=== PATIENT | female | born 1975 | race Caucasian/White ===

== ENCOUNTER 2020-06-11 10:41 | Outpatient (REF) | payer OTHER, SELFPAY ==
[2020-06-11 15:06] LABS: Syphilis Screen Nonreactive (Nonreactive)
[2020-06-14 08:09] LABS: ~HepC Num1 0.07 S/CO (0.00-0.79); ~Hepatitis C Antibody Nonreactive (Nonreactive)
[2020-06-14 08:11] LABS: HBsAGNum1 0.16 S/CO (0.00-0.99); HIV AB/AG Nonreactive (Nonreactive); HIV Num 1 0.08 S/CO (0.00-0.99); Hepatitis B Surface Antigen Negative (Negative)
== END 2020-06-11 10:42 | disposition home or self-care (01) ==
LOC: HO.HMGCLDS 10:41
PROVIDERS: PCP Internal Medicine; Visit Provider Obstetrics & Gynecology
DX: Z11.3 Encounter for screening for infections with a predominantly sexual mode of transmission (principal); Z11.4 Encounter for screening for human immunodeficiency virus [HIV]; Z11.8 Encounter for screening for other infectious and parasitic diseases
CPT/HCPCS: 36415; 86780; 86803; 87340; 87389

== ENCOUNTER → 2020-06-24 13:27 | Outpatient (BNVA) | payer OTHER, SELFPAY | PROVIDERS: PCP Internal Medicine; Referring Provider Internal Medicine; Visit Provider Surgery | DX: E66.01 Morbid (severe) obesity due to excess calories (principal); Z68.41 Body mass index [BMI] 40.0-44.9, adult | CPT/HCPCS: 99214 ==

== ENCOUNTER → 2020-06-28 16:54 | Outpatient (BNVA) | payer OTHER, SELFPAY | PROVIDERS: PCP Internal Medicine; Visit Provider Dietitian, Registered | DX: Z76.89 Persons encountering health services in other specified circumstances (principal) ==

== ENCOUNTER → 2020-07-06 10:57 | Outpatient (BNVA) | payer OTHER, SELFPAY | PROVIDERS: PCP Internal Medicine; Referring Provider Internal Medicine; Visit Provider Physician Assistant | DX: E66.01 Morbid (severe) obesity due to excess calories (principal); Z68.41 Body mass index [BMI] 40.0-44.9, adult; Z71.3 Dietary counseling and surveillance | CPT/HCPCS: 99214 ==

== ENCOUNTER → 2020-07-29 13:38 | Outpatient (BNVA) | payer OTHER, SELFPAY | PROVIDERS: PCP Internal Medicine; Referring Provider Internal Medicine; Visit Provider Dietitian, Registered | DX: Z76.89 Persons encountering health services in other specified circumstances (principal) ==

== ENCOUNTER → 2020-09-13 08:59 | Outpatient (BNVA) | payer OTHER, SELFPAY | PROVIDERS: PCP Internal Medicine; Referring Provider Internal Medicine; Visit Provider Physician Assistant | DX: Z76.89 Persons encountering health services in other specified circumstances (principal) ==

== ENCOUNTER 2020-09-29 12:48 | Outpatient (REF) | payer OTHER, SELFPAY ==
--- NOTE | 2020-09-29 12:59 | ECG_ITS ---
Test Reason : SOB Blood Pressure : / mmHG Vent. Rate : 073 BPM Atrial Rate : 073 BPM P-R Int : 170 ms QRS Dur : 090 ms QT Int : 380 ms P-R-T Axes : 032 056 058 degrees QTc Int : 418 ms Normal sinus rhythm Normal ECG No significant changes when compared with the previous EKG of 12 jun 2019 Referred By: Marcela Moncada Electronically Signed By:LEONA CARDOZO
[2020-09-29 13:55] LABS: MANUAL DIFF FLAG NO
[2020-09-29 14:06] LABS: Basophils Percent Auto 0.4 % (0-2); Eosinophils Absolute Auto 0.1 X10*3/uL (0.0-0.4); Eosinophils Percent Auto 2.3 % (0-4); Hematocrit 41.5 % (37-47); Hemoglobin 13.2 g/dl (12.0-16.0); Imm Gran Abs Auto 0.01 X10*3/uL (0.00-0.03); Imm Gran Pct Auto 0.2 % (0.0-0.4); Lymphocytes Absolute Auto 1.4 X10*3/uL (1.2-4.9); Lymphocytes Percent Auto 29.3 % (20-40); Mean Corpuscular HGB Conc 31.8 g/dl (31.0-35.0); Mean Corpuscular Hemoglobin 29.7 pg (27.0-33.0); Mean Corpuscular Volume 93.5 fL (80-98); Mean Platelet Volume 9.4 fL (9.4-12.3); Monocytes Absolute Auto 0.4 X10*3/uL (0.1-1.2); Monocytes Percent Auto 7.7 % (2-11); Neutrophils Absolute Auto 2.9 X10*3/uL (2.0-8.3); Neutrophils Percent Auto 60.1 % (45-73); Platelet Count 264 X10*3/uL (160-400); Red Blood Count 4.44 X10*6/uL (4.20-5.50); Red Cell Distribution Width 15.6 % (11.0-16.0); White Blood Count 4.8 X10*3/uL (4.8-10.8)
[2020-09-29 14:45] LABS: Alanine Aminotransferase 22 U/L (0-31); Albumin Level 4.4 g/dL (3.5-5.0); Alkaline Phosphatase 75 U/L (39-117); Anion Gap 15 (12-20); Aspartate Amino Transferase 24 U/L (5-31); Bilirubin Total 0.4 mg/dL (0.0-1.0); Blood Urea Nitrogen 20 mg/dL (9-16); C Reactive Protein 0.96 mg/dL (< or = 0.50); Calcium 9.2 mg/dL (8.4-10.2); Carbon Dioxide 25 mmol/L (22-29); Chloride 103 mmol/L (96-108); Cholesterol 221 mg/dL; Estimated Glomerular Filt Rate 57; Glucose Random 104 mg/dL (60-115); HDL Cholesterol 98 mg/dL; Iron 70 mcg/dL (30-160); LDL Cholesterol Calculated 108 mg/dl; Percent Iron Saturation 17 % (15-50); Potassium 4.6 mmol/l (3.3-5.1); Sodium 138 mmol/L (135-145); Total Iron Binding Capacity 422 mcg/dL (228-428); Total Protein 6.9 g/dL (6.5-8.0); Triglycerides 75 mg/dL; Unsaturated Iron Binding 352 ug/dL
[2020-09-29 14:59] LABS: Ferritin 16 ng/mL (10-250); TSH reflex Free T4 1.42 mIU/mL (0.32-4.0); Vitamin D 25-OH Total 50.3 ng/mL (>30)
[2020-09-29 15:08] LABS: Estimated Average Glucose 103 mg/dL; Hemoglobin A1c % 5.2 %
[2020-09-29 15:37] LABS: Vitamin B12 740 pg/mL (200-900)
[2020-09-30 06:43] LABS: Insulin Level Total 4.7 uIU/mL
[2020-10-02 01:17] LABS: Zinc 61 mcg/dL (60-130)
[2020-10-02 08:42] LABS: Calcium (PTHI) 9.3 mg/dL (8.6-10.2); PTHI 49 pg/mL (14-64)
[2020-10-03 08:27] LABS: Vitamin B1 8 nmol/L (8-30)
[2020-10-06 10:42] LABS: Vitamin A 64 mcg/dL (38-98)
== END 2020-09-29 12:49 | disposition home or self-care (01) ==
LOC: HO.LAB 12:48
PROVIDERS: PCP Internal Medicine; Visit Provider Physician Assistant
DX: R06.02 Shortness of breath (principal); E66.01 Morbid (severe) obesity due to excess calories; Z68.41 Body mass index [BMI] 40.0-44.9, adult
CPT/HCPCS: 36415; 80053; 80061; 82306; 82607; 82728; 82746; 83036; 83525; 83540; 83970; 84425; 84443; 84590; 84630; 85025; 86140; 93005

== ENCOUNTER 2020-10-03 16:50 | Emergency (ER) | payer OTHER, SELFPAY ==
[2020-10-03 17:42] VITALS: BP 143/84; PULSE 90; RESP 16; TEMP 37.1; O2SAT 96; BMI 42.9
[2020-10-03 18:04] LABS: Glucose Urine UA NEG (NEG); Leukocyte Esterase Urine NEG (NEG); Nitrite Urine POS (NEG); Specific Gravity - Urine <= 1.005 (1.005-1.025); UACC Culture Trigger YES; Urine Blood NEG (NEG); Urine Ketones NEG (NEG); Urine Protein NEG (NEG-TRACE)
[2020-10-03 18:06] LABS: Appearance Urine CLEAR; Color Urine COLORLESS
--- NOTE | 2020-10-03 18:07 | ED.URI ---
HPI - URI/Sore Throat General Chief Complaint: Upper Respiratory Symptoms Stated Complaint: covid symptoms Time Seen by Provider: 10/03/20 17:46 Source: patient Mode of arrival: ambulatory Limitations: no limitations History of Present Illness HPI Narrative: 45 yo female with a past medical history of chronic back pain with multiple surgeries, chronic UTI's on macrobid daily, anxiety, asthma, BPD, depressoion, fibromyalgia, IBS, PTSD here with body aches, chills, malaise x several days. No cough, shortness of breath, chest pain, vomiting, diarrhea, abdominal pain. MD elicited complaint: other (chills, body aches, malaise ) Related Data Home Medications Medication Instructions Recorded Confirmed clonazepam 2 mg tablet 2 mg PO BID 06/24/20 09/13/20 doxepin 150 mg capsule 150 mg PO BEDTIME 06/24/20 09/13/20 duloxetine 60 mg capsule,delayed 60 mg PO DAILY 06/24/20 09/13/20 release lamotrigine 25 mg tablet 50 mg PO BID tab 06/24/20 09/13/20 mecobalamin (vitamin B12) 1,000 1,000 mcg PO DAILY 06/24/20 09/13/20 mcg chewable tablet multivitamin 1 cap PO DAILY 06/24/20 09/13/20 nitrofurantoin macrocrystal 100 mg 100 mg PO DAILY cap 06/24/20 09/13/20 capsule zolpidem 10 mg tablet 10 mg PO BEDTIME PRN 06/24/20 09/13/20 Previous Rx's Medication Instructions Recorded cholecalciferol (vitamin D3) 50 50 mcg PO DAILY #30 cap 07/07/20 mcg (2,000 unit) capsule pantoprazole 20 mg tablet,delayed 20 mg PO DAILY #90 tab 07/07/20 release diaper,brief,adult,disposable #60 ea 08/20/20 cetirizine 10 mg tablet 10 mg PO DAILY #90 tab 09/16/20 oxybutynin chloride 10 mg 10 mg PO DAILY #30 tab 09/16/20 tablet,extended release 24 hr Allergies Allergy/AdvReac Type Severity Reaction Status Date / Time droperidol [From INAPSINE] Allergy Unknown ANGIOEDEMA, Verified 07/15/20 14:52 THROAT SWELLING Inapsine Allergy Unknown tongue Verified 07/15/20 14:52 swelling lithium Allergy Unknown unknown Verified 07/15/20 14:52 quetiapine [Seroquel] AdvReac Unknown weight Verified 07/15/20 14:52 gain, sleep walking Environmental Allergy Unknown unknown Uncoded 06/24/20 13:54 Some fruits Allergy Unknown oral Uncoded 06/24/20 13:54 swelling Review of Systems Review of Systems: Yes all other systems are reviewed and are negative Constitutional: Constitutional: Reports no additional constitutional complaints, Reports body ache(s), Reports chills, Denies fever(s), Denies headache(s), Reports malaise and Denies weakness Eyes: Eyes: Reports no additional eye complaints and Denies change in vision ENT: Reports system reviewed and no additional complaints, except as documented, Denies dizziness, Denies headache(s), Denies nasal congestion, Denies nasal discharge and Denies neck pain Cardiovascular: Cardiovascular: Reports no additional cardiovascular complaints, Denies chest pain, Denies leg edema and Denies dyspnea Respiratory: Respiratory: Reports no additional respiratory complaints, Denies cough and Denies dyspnea Gastrointestinal: Gastrointestinal: Reports no additional gastrointestinal complaints, Denies abdominal pain, Denies diarrhea, Denies nausea and Denies vomiting Genitourinary: Genitourinary: Reports no additional female genitourinary complaints and Denies urinary incontinence Musculoskeletal: Musculoskeletal: Reports no additional musculoskeletal complaints, Denies back pain, Denies arthralgias, Denies joint swelling, Denies neck pain, Denies numbness and Denies tingling Integumentary/Breasts: Skin/Breast: Reports system reviewed and no additional complaints, except as docu and Denies rash Neurologic: Denies Abnormal speech present, Denies dizziness, Denies headache(s), Denies numbness, Denies tingling and Denies weakness REPLACED BY [facility] Past Medical History Attestation statement: The following information was validated with the patient. Source: old records reviewed and nursing notes reviewed Medical History Anxiety Arthritis Asthma Bipolar 1 disorder Depression Fibromyalgia Hiatal hernia History of spinal cord injury IBS (irritable bowel syndrome) Morbid obesity due to excess calories Neurogenic bladder Neuropathy Osteosclerosis PTSD (post-traumatic stress disorder) Recurrent urinary tract infection Torn ACL Urinary incontinence Surgical History H/O dilation and curettage H/O tubal ligation H/O wisdom tooth extraction History of fusion of lumbar spine History of ureter stent Status post left foot surgery Family History Family History Father No problems noted. Mother HTN (hypertension) Stroke Paternal Grandfather No problems noted. Paternal Grandmother Lung cancer Maternal Grandfather Melanoma Maternal Grandmother No problems noted. Brother No problems noted. Brother No problems noted. Brother No problems noted. Sister No problems noted. Son No problems noted. Son No problems noted. Daughter No problems noted. Daughter No problems noted. Daughter No problems noted. Social History Social History Alcohol intake: current Alcohol intake frequency: a few times a month Smoking Status: Never smoker Advance Directives: No Advance Directives Information Provided: No Physical Exam Vital Signs: Vital Signs: Last Vital Signs Temp 98.8 F 10/03/20 17:42 Pulse 90 10/03/20 17:42 Resp 16 10/03/20 17:42 BP 143/84 H 10/03/20 17:42 Pulse Ox 96 10/03/20 17:42 Body Mass Index 42.9 Const: General: cooperative, healthy appearing, comfortable and no acute distress Orientation/consciousness: patient oriented x3 Limitations: no limitations HENMT: Head: Yes normal to inspection Ears: hearing grossly normal bilaterally General nose exam: Normal external nose present Face and sinus: Yes normal facial exam Mouth: Normal oral and palatal mucosa present Throat: Yes posterior oropharynx normal Eyes: General: appearance normal, both eyes and all related structures Pupils: Equal, round and reactive pupils present Neck: Neck: Yes normal visual inspection Chest: Chest palpation & inspection: normal inspection of the chest Resp: Effort & Inspection: normal respiratory effort Auscultation: clear to auscultation bilaterally Cardio: Rate: regular rate Rhythm: regular rhythm Peripheral pulses: Peripheral pulses 2+ throughout GI: Inspection: Yes normal to inspection Palpation (GI): Soft to palpation and nontender Auscultation: normal bowel sounds Back/Spine/Pelvis: Thoracic/Lumbar Spine: thoracic and lumbar spine normal to inspection Skin: General skin exam: no rashes or lesions noted Neuro: General: patient oriented x3, no focal motor deficits and normal sensation to monofilament Cranial nerves: Yes Equal, round and reactive pupils present Cognition (Neuro): normal cognition Speech: No Abnormal speech present Gait exam (Neuro): Normal gait present Motor exam (neuro): 5/5 motor strength present throughout Extrem: General: Yes normal to inspection Course Course Course Narrative: 45 yo female here with body aches, malaise, chills x several days. COVID negative. UA shows +nitrates. Discussed with patient. She tells me she normally waits for the urine culture to return as she gets UTIs so recurrently. Aware we will only call if urine culture is positive. Reviewed worrisome signs/symptoms with patient and when to return to ED. Comfortable with discharge home. MDM - URI/Sore Throat Medical Records Attestation: I reviewed the patient's medical records. Lab Data Attestation: I reviewed the patient's lab results. Labs: Lab Results 10/03/20 10/03/20 Range/Units 17:53 17:53 Urine Color COLORLESS Urine Appearance CLEAR Urine pH 6.0 (5.0-8.0) Ur Specific [place] <= 1.005 (1.005-1.025) Urine Protein NEG (NEG-TRACE) MG/DL Urine Glucose (UA) NEG (NEG) MG/DL Urine Ketones NEG (NEG) MG/DL Urine Blood NEG (NEG) Urine Nitrite POS H (NEG) Ur Leukocyte Esterase NEG (NEG) Urine RBC 0 (0) /HPF Urine WBC 0 (0-4) /HPF Ur Squamous Epith Cells TRACE /LPF Urine Bacteria 1+ /LPF COVID-19 ([facility]) Negative (Negative) COVID-19 Clin Com See Note Discharge Plan Discharge Clinical Impression: Acute viral syndrome Patient Disposition: Home, Self-Care Instructions: Viral Syndrome (ED) Additional Instructions: I will call you with the results of your covid and UA tonight Prescriptions: No Action cholecalciferol (vitamin D3) 50 mcg (2,000 unit) capsule 50 mcg PO DAILY Qty: 30 RF: 2 pantoprazole 20 mg tablet,delayed release (DR/EC) 20 mg PO DAILY Qty: 90 RF: 0 (DME) Depend Underwear For Women XL Misc See Rx Instructions .ROUTE .MEDSUPPLY Qty: 60 RF: 0 cetirizine 10 mg tablet 10 mg PO DAILY Qty: 90 RF: 0 oxybutynin chloride 10 mg tablet extended release 24hr 10 mg PO DAILY Qty: 30 RF: 2 lamotrigine 25 mg tablet 50 mg PO BID RF: 0 duloxetine [Cymbalta] 60 mg capsule,delayed release(DR/EC) 60 mg PO DAILY RF: 0 doxepin 150 mg capsule 150 mg PO BEDTIME RF: 0 zolpidem 10 mg tablet 10 mg PO BEDTIME PRNRF: 0 clonazepam 2 mg tablet 2 mg PO BID RF: 0 mecobalamin (vitamin B12) 1,000 mcg tablet,chewable 1,000 mcg PO DAILY RF: 0 multivitamin Capsule 1 cap PO DAILY RF: 0 nitrofurantoin macrocrystal 100 mg capsule 100 mg PO DAILY RF: 0 Referrals: ED Physician,Generic [Physician] - 2 days Interventions: ED Discharge Assessment Last Done: 10/03/20 18:02 Discharge Date/Time: 10/03/20 18:03
[2020-10-03 18:13] LABS: Bacteria Urine 1+ /LPF; RBC Urine 0 /HPF (0); Squamous Epithelial Cell Urine TRACE /LPF; WBC Urine 0 /HPF (0-4)
[2020-10-03 18:16] LABS: COVID-19 Test Negative (Negative)
== END 2020-10-03 18:03 | disposition home or self-care (01) ==
PROVIDERS: Nurse Practitioner Family; Emergency Provider Emergency Medicine Emergency Medical Services; PCP Internal Medicine
DX: B34.9 Viral infection, unspecified (principal); M79.10 Myalgia, unspecified site; Z20.822 Contact with and (suspected) exposure to COVID-19; Z79.899 Other long term (current) drug therapy
CPT/HCPCS: 36415; 81001; 81003; 87086; 87635; 99283

== ENCOUNTER → 2020-10-11 08:26 | Outpatient (BNVA) | payer OTHER, SELFPAY | PROVIDERS: PCP Internal Medicine; Visit Provider Dietitian, Registered ==

== ENCOUNTER → 2020-10-28 12:52 | Outpatient (BNVA) | payer OTHER, SELFPAY | PROVIDERS: PCP Internal Medicine; Visit Provider Surgery ==

== ENCOUNTER 2020-11-12 12:48 | Outpatient (REF) | payer OTHER, SELFPAY ==
[2020-11-12 14:39] LABS: Syphilis Screen Nonreactive (Nonreactive)
[2020-11-15 04:11] LABS: HIV AB/AG Nonreactive (Nonreactive)
[2020-11-15 04:24] LABS: HBsAGNum1 0.15 S/CO (0.00-0.99); Hepatitis B Surface Antigen Negative (Negative); ~HepC Num1 0.06 S/CO (0.00-0.79); ~Hepatitis C Antibody Nonreactive (Nonreactive)
== END 2020-11-12 12:49 | disposition home or self-care (01) ==
LOC: HO.LAB 12:48
PROVIDERS: PCP Psychiatry & Neurology Neurology; Visit Provider Obstetrics & Gynecology
DX: E66.01 Morbid (severe) obesity due to excess calories (principal); Z68.41 Body mass index [BMI] 40.0-44.9, adult; Z11.3 Encounter for screening for infections with a predominantly sexual mode of transmission
CPT/HCPCS: 36415; 86780; 86803; 87340; 87389; 99212

== ENCOUNTER 2020-11-23 | Outpatient (REF) | payer OTHER, SELFPAY | END 2020-11-23 00:01 | disposition home or self-care (01) | LOC: HO.LNP | PROVIDERS: Visit Provider Hospitalist | DX: R30.0 Dysuria (principal) | CPT/HCPCS: 87086; 87088; 87186 ==

== ENCOUNTER → 2020-11-26 13:44 | Outpatient (BNVA) | payer OTHER, SELFPAY | PROVIDERS: PCP Internal Medicine; Visit Provider Surgery | DX: E66.01 Morbid (severe) obesity due to excess calories (principal); Z68.41 Body mass index [BMI] 40.0-44.9, adult | CPT/HCPCS: 99212 ==

== ENCOUNTER → 2021-01-03 14:40 | Outpatient (BNVA) | payer OTHER, SELFPAY | PROVIDERS: PCP Internal Medicine; Visit Provider Surgery | DX: E66.01 Morbid (severe) obesity due to excess calories (principal); Z68.41 Body mass index [BMI] 40.0-44.9, adult | CPT/HCPCS: 99212 ==

== ENCOUNTER 2021-02-18 17:31 | Outpatient (REF) | payer OTHER, SELFPAY | END 2021-02-18 17:32 | disposition home or self-care (01) | LOC: HO.LNP 17:31 | PROVIDERS: Visit Provider Hospitalist | DX: R30.0 Dysuria (principal) | CPT/HCPCS: 87086; 87088; 87186 ==

== ENCOUNTER → 2021-03-08 14:15 | Outpatient (BNVA) | payer OTHER, SELFPAY | PROVIDERS: PCP Internal Medicine; Referring Provider Internal Medicine; Visit Provider Surgery | DX: E66.01 Morbid (severe) obesity due to excess calories (principal); Z68.41 Body mass index [BMI] 40.0-44.9, adult | CPT/HCPCS: 99212 ==

== ENCOUNTER 2021-03-11 11:45 | Outpatient (REF) | payer OTHER, SELFPAY ==
--- NOTE | ~2021-03-11 | XR_ITS ---
EXAMINATION: XR FOOT, RIGHT CLINICAL INFORMATION: Pain in right foot COMPARISON: 08/09/2018 TECHNIQUE: AP, lateral, and oblique views of the right foot. FINDINGS: No acute fracture, dislocation, or joint effusion. Healed fracture of the fourth metacarpal neck. Normal mineralization and alignment. Small plantar calcaneal osteophyte present. XR/XR foot RT 2V IMPRESSION: No acute osseous abnormality of the right foot.
--- NOTE | ~2021-03-11 | XR_ITS ---
EXAMINATION: XR KNEE, RIGHT CLINICAL INFORMATION: Pain in right knee COMPARISON: 05/31/2018 TECHNIQUE: AP and lateral views of the right knee. FINDINGS: No fracture, dislocation, or joint effusion. There may be minimal medial compartment joint space narrowing. XR/XR knee RT 2V IMPRESSION: Possible minimal medial compartment joint space narrowing.
--- NOTE | ~2021-03-11 | XR_ITS ---
EXAMINATION: XR KNEE, LEFT CLINICAL INFORMATION: Pain in left knee COMPARISON: 05/31/2018 TECHNIQUE: AP and lateral views of the left knee. FINDINGS: No fracture, dislocation, or joint effusion. Joint spaces are maintained. Normal alignment and mineralization. XR/XR knee LT 2V IMPRESSION: No acute osseous abnormality of the left knee.
== END 2021-03-11 11:46 | disposition home or self-care (01) ==
LOC: HO.HMGCX 11:45
PROVIDERS: PCP Internal Medicine; Visit Provider Internal Medicine
DX: M25.561 Pain in right knee (principal); M25.562 Pain in left knee; M79.671 Pain in right foot
CPT/HCPCS: 73560; 73620

== ENCOUNTER → 2021-03-28 14:03 | Outpatient (BNVA) | payer OTHER, SELFPAY | PROVIDERS: PCP Internal Medicine; Referring Provider Internal Medicine; Visit Provider Surgery | DX: E66.01 Morbid (severe) obesity due to excess calories (principal); Z68.41 Body mass index [BMI] 40.0-44.9, adult | CPT/HCPCS: 99212 ==

== ENCOUNTER → 2021-04-05 13:13 | Outpatient (BNVA) | payer OTHER, SELFPAY | PROVIDERS: PCP Internal Medicine; Referring Provider Internal Medicine; Visit Provider Surgery | DX: E66.01 Morbid (severe) obesity due to excess calories (principal); Z68.41 Body mass index [BMI] 40.0-44.9, adult | CPT/HCPCS: 99212 ==

== ENCOUNTER 2021-04-08 12:45 | Outpatient (REF) | payer OTHER, SELFPAY ==
--- NOTE | 2021-04-08 12:57 | ECG_ITS ---
Test Reason : SOB Blood Pressure : / mmHG Vent. Rate : 094 BPM Atrial Rate : 094 BPM P-R Int : 160 ms QRS Dur : 086 ms QT Int : 346 ms P-R-T Axes : 040 075 057 degrees QTc Int : 432 ms Normal sinus rhythm Low voltage QRS Borderline ECG No significant changes when compared with the previous EKG of 29 sep 2020 Referred By: Madelyn Lombardi Electronically Signed By:LEONA CARDOZO
[2021-04-08 15:31] LABS: MANUAL DIFF FLAG NO
[2021-04-08 15:35] LABS: Basophils Percent Auto 0.2 % (0-2); Eosinophils Absolute Auto 0.2 X10*3/uL (0.0-0.4); Hematocrit 41.6 % (37-47); Hemoglobin 13.4 g/dl (12.0-16.0); Imm Gran Abs Auto 0.01 X10*3/uL (0.00-0.03); Imm Gran Pct Auto 0.2 % (0.0-0.4); Lymphocytes Absolute Auto 2.5 X10*3/uL (1.2-4.9); Lymphocytes Percent Auto 39.9 % (20-40); Mean Corpuscular HGB Conc 32.2 g/dl (31.0-35.0); Mean Corpuscular Hemoglobin 29.8 pg (27.0-33.0); Mean Corpuscular Volume 92.7 fL (80-98); Mean Platelet Volume 9.1 fL (9.4-12.3); Monocytes Absolute Auto 0.5 X10*3/uL (0.1-1.2); Monocytes Percent Auto 7.8 % (2-11); Neutrophils Absolute Auto 3.1 X10*3/uL (2.0-8.3); Neutrophils Percent Auto 48.9 % (45-73); Platelet Count 246 X10*3/uL (160-400); Red Blood Count 4.49 X10*6/uL (4.20-5.50); Red Cell Distribution Width 14.8 % (11.0-16.0); White Blood Count 6.3 X10*3/uL (4.8-10.8)
[2021-04-08 15:44] LABS: INTERNATIONAL NORM RATIO 0.9 (0.9-1.1); Prothrombin Time 10.7 SEC (9.9-13.0)
[2021-04-08 15:47] LABS: Partial Thromboplastin Time 36.5 SEC (24.1-38.0)
[2021-04-08 15:53] LABS: Albumin Level 4.3 g/dL (3.5-5.0); Anion Gap 12 (12-20); Blood Urea Nitrogen 16 mg/dL (9-16); Calcium 9.8 mg/dL (8.4-10.2); Carbon Dioxide 25 mmol/L (22-29); Chloride 108 mmol/L (96-108); Estimated Glomerular Filt Rate > 60; Glucose Random 88 mg/dL (60-115); Potassium 4.8 mmol/L (3.3-5.1); Sodium 140 mmol/L (135-145)
[2021-04-08 17:23] LABS: Glucose Urine UA NEG (NEG); Leukocyte Esterase Urine 2+ (NEG); Nitrite Urine POS (NEG); UACC Culture Trigger YES; Urine Blood NEG (NEG); Urine Ketones NEG (NEG); Urine Protein NEG (NEG-TRACE)
[2021-04-08 17:26] LABS: Appearance Urine HAZY; Color Urine YELLOW
[2021-04-08 17:27] LABS: UPreg QC Valid YES; Urine Pregnancy NEGATIVE (NEGATIVE)
[2021-04-08 17:37] LABS: Bacteria Urine 2+ /LPF; Squamous Epithelial Cell Urine TRACE /LPF; WBC Clumps Urine NOTED
[2021-04-11 08:05] LABS: HBsAGNum1 0.15 S/CO (0.00-0.99); Hepatitis B Surface Antigen Negative (Negative); ~HepC Num1 0.08 S/CO (0.00-0.79); ~Hepatitis C Antibody Nonreactive (Nonreactive)
[2021-04-11 08:17] LABS: Syphilis Screen Nonreactive (Nonreactive)
[2021-04-11 08:26] LABS: HIV AB/AG Nonreactive (Nonreactive); HIV Num 1 0.07 S/CO (0.00-0.99)
== END 2021-04-08 12:46 | disposition home or self-care (01) ==
LOC: HO.LAB 12:45
PROVIDERS: Surgery; PCP Internal Medicine; Visit Provider Obstetrics & Gynecology
DX: Z01.818 Encounter for other preprocedural examination (principal); Z11.3 Encounter for screening for infections with a predominantly sexual mode of transmission; Z01.84 Encounter for antibody response examination; Z11.59 Encounter for screening for other viral diseases; Z11.4 Encounter for screening for human immunodeficiency virus [HIV]; R06.02 Shortness of breath
CPT/HCPCS: 36415; 80048; 81001; 81025; 82040; 85025; 85610; 85730; 86780; 86803; 87086; 87088; 87186; 87340; 87389; 93005

== ENCOUNTER → 2021-04-11 10:03 | Outpatient (BNVA) | payer OTHER, SELFPAY | PROVIDERS: PCP Internal Medicine; Visit Provider Physician Assistant ==

== ENCOUNTER 2021-04-20 12:44 | Inpatient (IN) | payer OTHER, SELFPAY ==
[2021-04-08 10:09] VITALS: BMI 41.3
--- NOTE | 2021-04-18 13:30 | HO.ANESPROP2 ---
Documented by User: Colleen Cadena 04/18/21 13:33 HPI - Anesthesia Eval Consult details Narrative: 45yo F for Gastrectomy Sleeve, EGD, Poss Diaphragmatic Hernia, Poss Ventral Hernia, Poss open *Phentermine rx - ? last used* h/o cocaine abuse. None since 2018 [facility] Active Problems Active Problems: All Active Problems (Updated 04/12/21 @ 15:52 by Arnaud Carbone MD) Back pain, chronic (Acute) Body mass index (BMI) of 40.0 to 44.9 in adult (Acute) Otitis media (Acute) Sinusitis chronic, frontal (Acute) Dysuria (Acute) Shortness of breath (Acute) Acute sinusitis (Acute) Neurogenic bladder (Acute) Environmental allergies (Acute) Urinary incontinence (Acute) Dysuria (Acute) Internal derangement of knee (Acute) Preoperative examination (Acute) Morbid obesity due to excess calories (Acute) Past Medical History Medical History Anxiety Arthritis Asthma Bipolar 1 disorder Depression Fibromyalgia GERD (gastroesophageal reflux disease) Hiatal hernia History of spinal cord injury Hx of renal calculi IBS (irritable bowel syndrome) Morbid obesity due to excess calories Neurogenic bladder Neuropathy Osteosclerosis PTSD (post-traumatic stress disorder) Recurrent urinary tract infection Substance abuse Torn ACL Urinary incontinence Family History Family History Father Substance use disorder Mental health disorder Mother HTN (hypertension) Stroke Paternal Grandfather No problems noted. Paternal Grandmother Lung cancer Maternal Grandfather Melanoma Maternal Grandmother No problems noted. Brother Substance use disorder Mental health disorder Brother No problems noted. Brother No problems noted. Sister No problems noted. Son No problems noted. Son No problems noted. Daughter No problems noted. Daughter No problems noted. Daughter No problems noted. Maternal Aunt Substance use disorder Surgical History Surgical History H/O dilation and curettage H/O tubal ligation H/O wisdom tooth extraction History of fusion of lumbar spine History of ureter stent Status post left foot surgery Social History Social History Household Members: None Housing: Apartment Are you a primary weekend caregiver to a significant other at home: No Do you presently have visiting nurse or other home services: Yes ([employer]) Alcohol intake: former Patient Tobacco Use Status: Never used Tobacco e-Cigarette/Vaping Use: Never Used Substance Use Type: Crack/Cocaine and Former Substance User Current occupational status: disabled Meds Allergies Allergy/AdvReac Type Severity Reaction Status Date / Time droperidol [From INAPSINE] Allergy Severe ANGIOEDEMA, Verified 04/12/21 15:27 THROAT SWELLING lithium Allergy Unknown unknown Verified 04/12/21 15:27 quetiapine [Seroquel] AdvReac Intermediate weight Verified 04/12/21 15:27 gain, sleep walking fresh fruit Allergy Intermediate oral Uncoded 04/12/21 15:27 swelling/itching Home Medications Medication Instructions Recorded Confirmed Last Taken Type duloxetine 60 mg capsule,delayed 60 mg PO DAILY 06/24/20 04/12/21 04/20/21 History release (Cymbalta) lamotrigine 25 mg tablet 50 mg PO BID tab 06/24/20 04/12/21 04/20/21 History multivitamin 1 cap PO DAILY 06/24/20 04/12/21 Unknown History zolpidem 10 mg tablet 10 mg PO BEDTIME PRN 06/24/20 04/12/21 Unknown History albuterol sulfate 90 mcg/actuation 2 puff INHALATION Q4-6H PRN 11/12/20 04/12/21 Unknown History aerosol inhaler clonazepam 2 mg tablet 1 tab PO BID 04/20/21 04/20/21 04/20/21 History Exam Exam Date and Time: April 18, 2021 1330 Height,Weight and Vital Signs: Height 5 ft 5 in Weight 112.582 kg Pertinent Lab Results Pertinent Lab Results: Laboratory Tests 04/08/21 15:00 Blood Type B Positive Antibody Screen NEGATIVE Laboratory Tests 04/08/21 04/08/21 15:00 15:00 WBC 6.3 Hgb 13.4 Hct 41.6 Plt Count 246 Sodium 140 Potassium 4.8 Chloride 108 Carbon Dioxide 25 BUN 16 Creatinine 0.87 Narrative Narrative: EKG 04/2021 Vent. Rate : 094 BPM ? ? Atrial Rate : 094 BPM ?? P-R Int : 160 ms? QRS Dur : 086 ms ? ? QT Int : 346 ms ? ? ? P-R-T Axes : 040 075 057 degrees ?? QTc Int : 432 ms ? Normal sinus rhythm Low voltage QRS Borderline ECG No significant changes when compared with the previous EKG? of 29 sep 2020 Assessment and Plan Assessment Anesthesia Assessment: Chart Reviewed Documented by User: Ranjana Aguilar MD 04/20/21 10:20 [facility] Past Medical History Medical History Anxiety Arthritis Asthma Bipolar 1 disorder Depression Fibromyalgia GERD (gastroesophageal reflux disease) Hiatal hernia History of spinal cord injury Hx of renal calculi IBS (irritable bowel syndrome) Morbid obesity due to excess calories Neurogenic bladder Neuropathy Osteosclerosis PTSD (post-traumatic stress disorder) Recurrent urinary tract infection Substance abuse Torn ACL Urinary incontinence Family History Family History Father Substance use disorder Mental health disorder Mother HTN (hypertension) Stroke Paternal Grandfather No problems noted. Paternal Grandmother Lung cancer Maternal Grandfather Melanoma Maternal Grandmother No problems noted. Brother Substance use disorder Mental health disorder Brother No problems noted. Brother No problems noted. Sister No problems noted. Son No problems noted. Son No problems noted. Daughter No problems noted. Daughter No problems noted. Daughter No problems noted. Maternal Aunt Substance use disorder Family history of problems with anesthesia: No Surgical History Surgical History H/O dilation and curettage H/O tubal ligation H/O wisdom tooth extraction History of fusion of lumbar spine History of ureter stent Status post left foot surgery History of Problems with Anesthesia: No Social History Social History Household Members: None Housing: Apartment Are you a primary weekend caregiver to a significant other at home: No Do you presently have visiting nurse or other home services: Yes ([employer]) Alcohol intake: former Patient Tobacco Use Status: Never used Tobacco e-Cigarette/Vaping Use: Never Used Substance Use Type: Crack/Cocaine and Former Substance User Current occupational status: disabled Meds Allergies Allergy/AdvReac Type Severity Reaction Status Date / Time droperidol [From INAPSINE] Allergy Severe ANGIOEDEMA, Verified 04/12/21 15:27 THROAT SWELLING lithium Allergy Unknown unknown Verified 04/12/21 15:27 quetiapine [Seroquel] AdvReac Intermediate weight Verified 04/12/21 15:27 gain, sleep walking fresh fruit Allergy Intermediate oral Uncoded 04/12/21 15:27 swelling/itching Home Medications Medication Instructions Recorded Confirmed Last Taken Type duloxetine 60 mg capsule,delayed 60 mg PO DAILY 06/24/20 04/12/21 04/20/21 History release (Cymbalta) lamotrigine 25 mg tablet 50 mg PO BID tab 06/24/20 04/12/21 04/20/21 History multivitamin 1 cap PO DAILY 06/24/20 04/12/21 Unknown History zolpidem 10 mg tablet 10 mg PO BEDTIME PRN 06/24/20 04/12/21 Unknown History albuterol sulfate 90 mcg/actuation 2 puff INHALATION Q4-6H PRN 11/12/20 04/12/21 Unknown History aerosol inhaler clonazepam 2 mg tablet 1 tab PO BID 04/20/21 04/20/21 04/20/21 History Exam Airway Mallampati Class: II TM Dist: >3cm Neck ROM: Full Assessment and Plan Assessment Anesthesia Assessment: Anesthesia Plan Discussed Final Anesthetic Review Family History of Problems with Anesthesia: No History of Problems with Anesthesia: No NPO: Yes ASA Class: III Final Preanesthetic Review: No Changes in Pt Med Stat, Meds/Allgs Chart Reviewed, Consent Obtained/Reviewed and Anes Risks/Benef Reviewed Patient Risk: Intermediate Procedure Risk: Intermediate Assessment/Block/Sedation in SS: Assess/Block/Sedation-SS Anesthetic Plan Anesthetic Plan: GA
--- NOTE | 2021-04-19 16:02 | MHC.SHP ---
Pre-Procedural Eval Section A Date of Service: 04/19/21 Section B Chief Complaint: Morbid Severe Obesity Allergies: Allergies Allergy/AdvReac Type Severity Reaction Status Date / Time droperidol [From INAPSINE] Allergy Severe ANGIOEDEMA, Verified 04/12/21 15:27 THROAT SWELLING lithium Allergy Unknown unknown Verified 04/12/21 15:27 quetiapine [Seroquel] AdvReac Intermediate weight Verified 04/12/21 15:27 gain, sleep walking fresh fruit Allergy Intermediate oral Uncoded 04/12/21 15:27 swelling/itching Plan I have reviewed the history and physical and performed a pertinent physical examination on my patient. No changes have occurred unless specified.
[2021-04-20] VITALS (12 sets, daily range): BP systolic 113–167; BP diastolic 67–95; PULSE 89–113; RESP 16–20; TEMP 35.9–36.7; O2SAT 92–97
[2021-04-20 08:57] LABS: COVID-19 Test Negative (Negative)
[2021-04-20] MEDS: Lactated Ringers 1,000 ML 100 ML IVCONT (09:04)
--- NOTE | 2021-04-20 12:33 | P.BOP_ITS ---
Brief Operative Note Date of Service: 04/20/21 Pre-op diagnosis: Morbid obesity, BMI 41.3, hiatal hernia Post-op diagnosis: same Procedure: Laparoscopic sleeve gastrectomy, hiatal hernia repair, [place] block, and intraoperative endoscopy Implants: None Surgeon: Madelyn Lombardi MD Anesthesia: GETA Was an [employer] Consultant used for this Procedure?: Yes [employer] Consultant: Marcela Moncada Estimated blood loss (mL): 5 Pathology: other (Partial gastrectomy) Condition: stable Disposition: PACU
--- NOTE | 2021-04-20 12:35 | P.OP_ITS ---
Operative Note Operative Note Date of Service: 04/20/21 Narrative: Patient was brought into the operating room and placed on the operating room table in the supine position. General anesthesia was induced. Normal DVT prophylaxis was instituted and the patient received 2 grams of cefotetan preoperatively. The abdomen was then prepped and draped in the normal sterile fashion. A safety time-out was performed. A mixture of 1% lidocaine with epinephrine and ?% Marcaine plain was used to an esthetize the planned incision site in the left upper quadrant. A #11 scalpel was used to make a 5 mm left upper quadrant transverse incision through which a veress needle was placed. Three pops were heard going through the fascia. A saline drop test was used to confirm that the veress needle was intraabdominal. An optiview technique was then used to place a 5mm port in the left upper quadrant. A 5 mm 30 degree laproscope was then placed through this port and the abdominal cavity was surveyed and was normal. The patient was placed in reverse Trendelenburg positioning. A mary liver retractor was then placed in the subxyphoid position and it was used to hold up the left lobe of the liver to the abdominal wall. This was secured to the bed using the liver retractor flores. A SHERON block was then performed for pain control on the right side of the abdomen. A 5 mm port was placed in the right upper quadrant near the falciform ligament. A 12 mm port was then placed in the mid epigastrium. One additional 5 mm port was placed in the left upper quadrant just to the left of the placement of the first port. I then performed a SHERON block on the left side of the abdomen. I then removed the epigastric fat pad; there was a moderate sized anterior hiatal hernia noted. I reapproximated the left and right crura with a total of 3 stitches of 2-0 ethibond and a laparoscopic knot pusher. There was no residual hiatal hernia. I then opened up the angle of His. We then gained entry into the lesser sac about 4-5 cm from the pylorus. I had anesthesia place a 34 Burmese orogastric tube into the distal antrum to use as a sizing tool for gastric pouch size. I divided the short gastric vessels up to the angle of His. We then started the creation of the gastric pouch by firing a 60 mm purple load endostapler up the stomach about 4-5 cm from the pylorus. We completed the creation of the gastric pouch using a total of 4 firings of a 60 mm purple load stapler. We had anesthesia remove the orogast natalie tube, then we clamped across the distal antrum using a fired 60 mm endostapler. We flattened the patient and then instilled normal saline surrounding the newly created staple line. I then performed an on-table endoscopy. I passed the gastroscopy into the posterior oropharynx and down the esophagus evaluating the esophageal mucosa which was normal. There was no evidence of hiatal hernia. I passed the gastroscope into the gastric pouch and insufflated the gastric pouch. There was healthy pink mucosa and no evidence of active bleeding. There was no evidence of leak on laparoscopy. I desufflated the gastric pouch and removed the endoscope. I removed the endostapler from the abdomen and suctioned the fluid from the left upper quadrant. I then removed the partial gastrectomy specimen through the epigastric 12 mm port site. I reapproximated the 12 mm port using a 0 maxon suture with a laparoscopic suture passer. I instilled local anesthetic into the fascial closure site and tied the suture down at a pressure of 8-10 mm of Hg. There was no residual fascial defect. We removed the liver retractor and the left upper quadrant 5 mm ports under direct visualization. There was no evidence of any active bleeding. I desufflated the abdomen through the last remaining port and removed the laparoscope and 5 mm port. We reapproximated all incisions with a 4-0 monocryl subcuticular stitch. We cleaned and dried the abdominal skin and applied dermabond skin glue. All count were correct at the end of the case. The patient was awake and in stable condition prior to extubation and transfer to [facility] recovery room.
[2021-04-20] MEDS: ondansetron HCL 4 MG/2 ML VIAL IVPUSH ×2 (12:37→20:36)
[2021-04-20] MEDS: Lactated Ringers 1,000 ML 125 ML IVCONT ×2 (13:16→20:41)
[2021-04-20] MEDS: HYDROmorphone HCl 0.5 MG/0.5 ML SYRINGE 0.25 MG IVPUSH ×3 (15:57→23:35)
--- NOTE | 2021-04-20 19:03 | PC.NURSE ---
PT C/O 10 /10 PAIN IN ABDOMEN , DILAUDID GIVEN AT 1600 , WITH MINIMAL EFFECT , IV HUNG ORDERED . PT AMBULATING IN ROOM , 1800 PT CONTINUES TO C/O PAIN .PT REQUEST CALL TO MD Dasia STINSON MADE AWARE , NEW ORDER FOR 0.25 DILAUDID X1.
[2021-04-20] MEDS: lamoTRIgine 25 MG TABLET 50 MG PO (20:36)
[2021-04-20] MEDS: Famotidine/PF 20 MG/2 ML VIAL IVPUSH (20:36)
[2021-04-20] MEDS: 0.9 % Sodium Chloride Flush 3 ML SYRINGE IVFLUSH (20:37)
[2021-04-20] MEDS: clonazePAM 1 MG TABLET 2 MG PO (20:37)
--- NOTE | 2021-04-20 20:56 | P.DS_ITS ---
DS: Providers Provider Date of Service: 04/21/21 Date of admission: 04/20/21 12:44 Primary care physician: Arnaud Carbone MD DS: Medications Discharge Medications Home Medications: Home Medications Medication Instructions Recorded Confirmed duloxetine 60 mg capsule,delayed 60 mg PO DAILY 06/24/20 04/12/21 release (Cymbalta) lamotrigine 25 mg tablet 50 mg PO BID tab 06/24/20 04/12/21 multivitamin 1 cap PO DAILY 06/24/20 04/12/21 zolpidem 10 mg tablet 10 mg PO BEDTIME PRN 06/24/20 04/12/21 albuterol sulfate 90 mcg/actuation 2 puff INHALATION Q4-6H PRN 11/12/20 04/12/21 aerosol inhaler cholecalciferol (vitamin D3) 50 1 cap PO DAILY 04/20/21 04/20/21 mcg (2,000 unit) capsule clonazepam 2 mg tablet 1 tab PO BID 04/20/21 04/20/21 doxepin 75 mg capsule 2 cap PO BEDTIME 04/20/21 04/20/21 trospium 60 mg capsule,extended 1 cap PO QAM 04/20/21 04/20/21 release 24 hr Previous Rx's Medication Instructions Recorded pantoprazole 20 mg tablet,delayed 20 mg PO DAILY #90 tab 01/18/21 release cetirizine 10 mg tablet 10 mg PO DAILY 90 Days #90 tab 03/17/21 acetaminophen 500 mg tablet 1,000 mg PO Q6H PRN #30 tab 04/05/21 (Tylenol Extra Strength) ondansetron HCl 4 mg tablet 4 mg PO Q6H PRN #30 tab 04/05/21 (Zofran) DS: Summary Time Spent with Patient Time attestation: Total time spent providing and/or coordinating discharge services: Discharge coordination time: Greater than 30 minutes Quality: Stroke Does the patient have a stroke diagnosis?: No Physical Exam Vital Signs: Vital Signs: Last Vital Signs Temp 98.0 F 04/20/21 19:36 Pulse 103 H 04/20/21 19:36 Resp 18 04/20/21 19:36 BP 148/92 H 04/20/21 19:36 Pulse Ox 92 04/20/21 19:36 Body Mass Index 41.3 Const: General: cooperative, comfortable, no acute distress, alert and awake Nutritional Appearance: obese GI: Inspection: Yes normal to inspection, No distended and Yes incision (clean, dry, intact, dermabond in place) Palpation (GI): Soft to palpation and Tenderness to palpation present (GI) (mild appropriate incisional tenderness) Extrem: Right lower extremity: lower leg Details: Negative for no tenderness; No no edema Left lower extremity: lower leg Details: Negative for no tenderness; No no edema DS: Data Data Completed and Pending Pending studies at discharge: Pending at discharge 04/20/21 11:55 Surgical [PTH] Routine Labs on day of discharge: Laboratory Results - last 24 hr 04/20/21 08:39 COVID-19 ([facility]) Negative COVID-19 Clin Com See Note Discharge Plan Discharge Patient Disposition: Home, Self-Care Discharge Diagnosis: obesity s/p LSG and HH repair Referrals: Arnaud Carbone MD [Primary Care Provider] - 1 Week Discharge Medications: Continued pantoprazole 20 mg tablet,delayed release (DR/EC) 20 mg PO DAILY Qty: 90 RF: 0 cetirizine 10 mg tablet 10 mg PO DAILY 90 Days Qty: 90 RF: 0 clonazepam 2 mg tablet 1 tab PO BID RF: 0 doxepin 75 mg capsule 2 cap PO BEDTIME RF: 0 trospium 60 mg capsule,extended release 24hr 1 cap PO QAM RF: 0 cholecalciferol (vitamin D3) 50 mcg (2,000 unit) capsule 1 cap PO DAILY RF: 0 lamotrigine 25 mg tablet 50 mg PO BID RF: 0 duloxetine [Cymbalta] 60 mg capsule,delayed release(DR/EC) 60 mg PO DAILY RF: 0 zolpidem 10 mg tablet 10 mg PO BEDTIME PRN (Reason: Insomnia) RF: 0 multivitamin Capsule 1 cap PO DAILY RF: 0 acetaminophen [Tylenol Extra Strength] 500 mg tablet 1,000 mg PO Q6H PRN (Reason: pain) Qty: 30 RF: 1 ondansetron HCl [Zofran] 4 mg tablet 4 mg PO Q6H PRN (Reason: nausea and vomiting) Qty: 30 RF: 1 albuterol sulfate 90 mcg/actuation HFA aerosol inhaler 2 puff inhalation Q4-6H PRN (Reason: Wheezing) RF: 0 Discharge Orders: Discharge Order (Routine); Ordered 04/21/21 Ordered By: Marcela Moncada Diet: other Activity on Discharge: No heavy lifting Stand Alone Forms: Patient Portal Discharge page Activity Restrictions/Additional Instructions: Discharge Instructions 1. Please call your doctor or come back to the emergency room should any new symptoms arise. 2. You will receive a courtesy call from [facility] 24-48 hours after discharge. 3. Activity: abstain from alcohol, practice limited stair climbing, no bending, no driving, no exercise, no illicit substances, no lifting, no sex, no tub bath, no work. 4. Diet: continue stage 3 protein shakes until your [address] Lombardi. 5. Dressing Change/Wound Care: Your incision is covered by surgical glue. If the area is tender, you may apply an ice pack for short intervals (no more than 20 minutes on, followed by at least 20 minutes off). Do not apply heat. Do not use creams, lotions, or topical antibiotics unless instructed to do so by your surgeon. These can cause infection or allergic reaction. 6. Call your doctor if: - Your temperature exceeds 101.5 F - You experience excessive pain or swelling - You have an unexpected reaction to medication - You have excessive bleeding - You experience continued vomiting/nausea - Your incision begins to separate - Your incision shows signs of infection such as increased redness, swelling, excessive pain, heat, or drainage (light blood or clear fluid is normal) 7. General instructions: - No lifting greater than 5 lbs for the next 4 weeks. - No driving within 24 hours of taking narcotic pain medications. - If you do not move your bowels in the next 2 days, please take milk of magnesia over the counter. Please follow the post op diet and do not advance your diet until you are seen in the office in about 2 weeks. - Please walk around your home every hour or two to prevent blood clots from forming in your legs. You do not need to wake from sleeping to walk. - Please sleep in a bed or couch to prevent kinking at the hips and knees. - Please take your incentive spirometer (your lung custom tailor apprentice) home with you and use it for the next few days to prevent pneumonias. - You may shower, no hot tubs, baths or swimming pools. - Please call the office with any questions or concerns such as increasing abdominal pain, fever, chills, shortness of breath, chest pain, leg pain or swelling, or redness or drainage from your incisions. - Please stay on stage 3 diet which includes sugar free clear liquids such as ice pops and jello and broth and crystal light. Avoid all carbonation. Please drink 3 protein shakes with at least 25-30 grams of protein daily or 3 of the Celebrate 4:1 shakes which can be purchased in our office. The Celebrate shakes have all of the bariatric vitamins you need if you consume these shakes. If you are drinking other protein shakes, you will need to purchase the Celebrate multivitamins and calcium that we provide in the office (they will provide all the vitamins you need). Please make sure you are consuming at least 40-60 ounces of water in addition to your 3 protein shakes daily. 8. Do not hesitate to contact the office with any questions at . The patient's medical history has been reviewed and they are considered low risk for post op DVT and therefore DVT prophylaxis is not considered necessary. Travel after surgery was reviewed. The patient has not disclosed any travel plans during the first 30 days after surgery and they have been advised that within the first 30 days after surgery any bus, plane, train or car travel over 2 hours in duration is contraindicated due to the possibility of developing blood clots from immobility. Any travel, needs to include periods of ambulation of 10 minutes in duration every 2 hours. The patient was instructed to discuss any plans for travel during this period with their bariatric surgeon. Discharge Summary Date of Service: 04/21/21 Pre-op diagnosis: Morbid obesity, BMI 41.3, hiatal hernia Post-op diagnosis: same Procedure: Laparoscopic sleeve gastrectomy, hiatal hernia repair, [place] block, and intraoperative endoscopy Discharge Medications: 1. Simethicone 80mg tablet chewable (Si tablet every 6 hours orally for 7 days, #28, 1 RF) q4h prn gas 2. Acetaminophen 500 mg tablet (Si tablets as needed every 6 hours orally for 30 days, #240, 0 RF) 3. Ondansetron 4 mg tablet disintegrating (Si tablet every 6 hours orally for 7 days, #28, 1 RF) 4. Colace 100 mg capsule (Si capsule twice a day for 30 days, #60, 2 RF) 5. Pepcid 20 mg chewable tablet (Si tablet twice a day for 30 days, #60, 3 RF) Discharge Instructions: The patient should continue on the stage III bariatric diet, which includes 3 protein shakes of at least 20-30g of protein on a daily basis. The patient was encouraged to avoid drinking liquids with her protein shakes. They should wait 30-45 minutes in between her meals and drinking water. She should drink at least 40-60 ounces of water on a daily basis. They should ambulate while at home to avoid any blood clots in her lower extremities. They should call with any questions or concerns such as increase in abdominal pain, persistent nausea, vomiting, redness and drainage from her incisions, fever, chills, shortness of breast, or chest pain beyond what is normal for her. The patient should avoid all heavy lifting greater than 5 pounds for the next 4 weeks. The patient is already scheduled to follow up with me in 2 weeks time, but should call the office with any questions prior to that follow up appointment. The patient should not advance their diet until they are seen in the office for the 2 week appointment. Hospital Course: The patient was admitted after undergoing a [SURGERY]. They were started on stage II (1 oz of fluid every 15 minutes) on POD #0. The next morning they were evaluated and started on stage III diet (protein shakes). All labs were within normal limits. On post-operative day #1 she was feeling better, nausea and epigastric pain improved and they were tolerating stage III bariatric diet well. The patient was discharged home. Discharge Disposition: Home. Care Plan Goals: weight loss Health Concerns: obesity Plan of Treatment: LSG Assessment: stable POD #1 Discharge Date/Time: 04/21/21 14:26
--- NOTE | 2021-04-20 21:00 | PM.PNGS ---
Subjective Subjective Date of Service: 04/21/21 Interval history: Pod #1 s/p LSG and HH repair. Doing well. Tolerating stage 3 diet, ambulating in hallway. Pain well controlled. Denies nausea or vomiting. Vitals and labs reviewed and are within limit for post op day 1. On exam, patient is well appearing, abdomen is soft, nd, mild appropriate incisional tenderness. Incisions c/d/i with dermabond in place. Plan: d/c home today. Follow up with me in 2 weeks. Physical Exam Vital Signs: Vital Signs: Last Vital Signs Temp 98.0 F 04/20/21 19:36 Pulse 103 H 04/20/21 19:36 Resp 18 04/20/21 19:36 BP 148/92 H 04/20/21 19:36 Pulse Ox 92 04/20/21 19:36 Body Mass Index 41.3 Const: General: cooperative, comfortable, no acute distress, alert and awake Nutritional Appearance: obese GI: Inspection: Yes normal to inspection, No distended and Yes incision (clean, dry, intact, dermabond in place) Palpation (GI): Soft to palpation and Tenderness to palpation present (GI) (mild appropriate incisional tenderness) Extrem: Right lower extremity: lower leg Details: Negative for no tenderness; No no edema Left lower extremity: lower leg Details: Negative for no tenderness; No no edema Procedures Date of Service Date of Service: 04/21/21 Progress Note: A&P Fall Risk Details Current Medications: Current Medications Generic Name Dose Route Start Last Admin Trade Name Freq PRN Reason Stop Dose Admin Albuterol Sulfate 2 puff 04/20/21 12:28 Albuterol Sulfate 90 Mcg 8 Gm Inhaler INHALE Q4H PRN Wheezing Clonazepam 2 mg 04/20/21 21:00 04/20/21 20:37 Clonazepam 1 Mg Tablet PO 2 mg BID MARIAN Administration Duloxetine HCl 60 mg 04/21/21 09:00 Duloxetine Hcl 60 Mg Capsule. PO DAILY MARIAN Famotidine 20 mg 04/20/21 21:00 04/20/21 20:36 Famotidine/Pf 20 Mg/2 Ml Vial IVPUSH 20 mg BID MARIAN Administration Hydromorphone HCl 0.25 mg 04/20/21 12:44 04/20/21 15:57 Hydromorphone Hcl 0.5 Mg/0.5 Ml Syringe IVPUSH 0.25 mg Q4H PRN Administration Pain, Severe (Pain Scale 7-10) Protocol Lactated Ringer's 1,000 mls @ 125 mls/hr 04/20/21 12:45 04/20/21 20:41 Lr IVCONT 125 mls/hr .Q8H MARIAN Administration Cefotetan Disodium 2 gm/ 50 mls @ 100 mls/hr 04/20/21 22:40 Sodium Chloride IV 04/20/21 23:09 ONCE@2240 ONE Acetaminophen 1,000 mg in 100 mls @ 16.7 mls/hr 04/20/21 12:45 04/20/21 17:46 Ofirmev IV 16.7 mls/hr .Q6H MARIAN Administration Promethazine HCl 12.5 mg/ 50.5 mls @ 202 mls/hr 04/20/21 20:24 Sodium Chloride IV Q6H PRN Nausea Lamotrigine 50 mg 04/20/21 21:00 04/20/21 20:36 Lamotrigine 25 Mg Tablet PO 50 mg BID MARIAN Administration Ondansetron HCl 4 mg 04/20/21 12:45 04/20/21 20:36 Ondansetron Hcl 4 Mg/2 Ml Vial IVPUSH 4 mg Q8H MARIAN Administration Sodium Chloride 3 ml 04/20/21 16:00 04/20/21 20:37 0.9 % Sodium Chloride Flush 3 Ml Syringe IVFLUSH 3 ml QSHIFT MARIAN Administration Time Spent With Patient Time: Total time spent is greater than 50% in coordination of care (as documented) at patient's floor/unit and/or counseling patient: Time with patient: 25 - 35 minutes Quality Stroke Does the patient have a stroke diagnosis?: No VTE Prior VTE?: No VTE Risk Level:: Surgical - low VTE Device Contraindication: N/A - Device Ordered VTE Drug Contraindication: Treatment Not Indicated
[2021-04-20] MEDS: cefoTEtan disodium 2 GM in 0.9 % Sodium Chloride 50 ML IV (22:26)
[2021-04-21 02:31] LABS: Appearance Urine CLEAR; Color Urine YELLOW; Glucose Urine UA NEG (NEG); Leukocyte Esterase Urine NEG (NEG); Nitrite Urine NEG (NEG); PH 6.5 (5.0-8.0); Specific Gravity - Urine 1.015 (1.005-1.025); Urine Blood NEG (NEG); Urine Ketones 40 MG/DL (NEG); Urine Protein NEG (NEG-TRACE)
[2021-04-21 02:42] LABS: Bacteria Urine 1+ /LPF; Squamous Epithelial Cell Urine 1+ /LPF
--- NOTE | 2021-04-21 03:04 | PC.NURSE ---
pt's HR at 0000 was 113, [employer] message sent to AMY Brennan. Marcela is aware. At 0155 pt had concerns that she may have a UTI. [employer] message sent to AMY Brennan. I got an order for a UA, urine sample sent down to lab and UA was negative. pt is aware.
[2021-04-21] MEDS: HYDROmorphone HCl 0.5 MG/0.5 ML SYRINGE 0.25 MG IVPUSH (03:38)
[2021-04-21 03:57] VITALS: BP 143/79; PULSE 115; RESP 16; TEMP 36.9; O2SAT 95
[2021-04-21] MEDS: ondansetron HCL 4 MG/2 ML VIAL IVPUSH ×2 (04:33→11:49)
[2021-04-21] MEDS: Lactated Ringers 1,000 ML 125 ML IVCONT (04:33)
[2021-04-21 06:27] LABS: MANUAL DIFF FLAG NO
[2021-04-21 06:54] LABS: Basophils Percent Auto 0.1 % (0-2); Hematocrit 37.7 % (37-47); Hemoglobin 12.2 g/dl (12.0-16.0); Imm Gran Abs Auto 0.04 X10*3/uL (0.00-0.03); Imm Gran Pct Auto 0.4 % (0.0-0.4); Lymphocytes Absolute Auto 1.1 X10*3/uL (1.2-4.9); Lymphocytes Percent Auto 9.9 % (20-40); Mean Corpuscular HGB Conc 32.4 g/dl (31.0-35.0); Mean Corpuscular Hemoglobin 30.4 pg (27.0-33.0); Mean Platelet Volume 9.6 fL (9.4-12.3); Monocytes Absolute Auto 0.7 X10*3/uL (0.1-1.2); Monocytes Percent Auto 6.1 % (2-11); Neutrophils Absolute Auto 9.1 X10*3/uL (2.0-8.3); Neutrophils Percent Auto 83.5 % (45-73); Platelet Count 235 X10*3/uL (160-400); Red Blood Count 4.01 X10*6/uL (4.20-5.50); Red Cell Distribution Width 15.4 % (11.0-16.0); White Blood Count 10.9 X10*3/uL (4.8-10.8)
[2021-04-21 07:02] LABS: Anion Gap 16 (12-20); Blood Urea Nitrogen 9 mg/dL (9-16); Carbon Dioxide 22 mmol/L (22-29); Chloride 101 mmol/L (96-108); Creatinine Clr Calc Pharmacy 93.5; Estimated Glomerular Filt Rate > 60; Glucose Random 116 mg/dL (60-115); Potassium 4.1 mmol/L (3.3-5.1); Sodium 135 mmol/L (135-145)
[2021-04-21] MEDS: Famotidine/PF 20 MG/2 ML VIAL IVPUSH (07:35)
[2021-04-21] MEDS: DULoxetine HCl 60 MG CAPSULE.DR PO (07:38)
[2021-04-21] MEDS: clonazePAM 1 MG TABLET 2 MG PO (07:38)
[2021-04-21] MEDS: lamoTRIgine 25 MG TABLET 50 MG PO (07:38)
[2021-04-21 07:43] VITALS: BP 166/90; PULSE 107; RESP 18; TEMP 37.1; O2SAT 93
[2021-04-21] MEDS: dexAMETHasone sod phosphate 4 MG/ML VIAL IVPUSH (09:23)
--- NOTE | 2021-04-21 09:50 | MHC.CM.PN ---
EMR REVIEWED, PT ADMITTED S/P LSG AND HH REPAIR, CM MET W/PT WHO REPORTS SHE LIVES ALONE, IS INDEPENDENT W/ALL CARE, NO DME AND NO HOME SERVICES, PER PT NIGHT STAFF ASKED HER IF SHE HAS SLEEP APNEA, PT REPORTS SHE HAS NEVER BEEN DIAGNOSED OR HAD A SLEEP STUDY, PT ENCOURAGED TO CALL PCP AND ASK FOR REFERRAL FOR A SLEEP STUDY, PT IN AGREEMENT, PT VERIFIED PCP IS NICHELLE KING, PT DENIES HAVING HCP, HCP DISCUSSED W/PT AND PT IS CURRENTLY DECLINING. D/C HOME SELF-CARE TODAY, PT WILL CALL TO ARRANGE TRANSPORT.
[2021-04-21 12:00] VITALS: BP 132/98; PULSE 103; RESP 17; TEMP 37.1; O2SAT 94
--- NOTE | 2021-04-21 12:18 | PM.PNGS ---
Subjective Subjective Date of Service: 04/21/21 Interval history: Patient is postop day 1. Status post laparoscopic sleeve gastrectomy and hiatal hernia repair. Patient reports having some nausea but no vomiting. She reports she feels that the protein shakes are going down slowly. She has been sitting up in chair this morning but has not been ambulating in the hallway. She reports having incisional pain that has made it difficult to take deep breaths and thus has been doing very poorly with the incentive spirometer. She was trying to using incentive spirometer while lying in bed. Patient had slightly elevated heart rate to 107 this morning this is likely related to pain. Other vital signs and laboratory values are within normal limits for postoperative day 1. Physical Exam Vital Signs: Vital Signs: Last Vital Signs Temp 98.8 F 04/21/21 12:00 Pulse 103 H 04/21/21 12:00 Resp 17 04/21/21 12:00 BP 132/98 H 04/21/21 12:00 Pulse Ox 94 04/21/21 12:00 Body Mass Index 41.3 Const: Other: Well-appearing, lying in bed in no apparent distress. GI: Other: Obese soft nondistended. Mild to moderate appropriate incisional tenderness. No erythema or ecchymosis. Extrem: Other: Bilateral lower extremities soft nontender no edema. Procedures Date of Service Date of Service: 04/21/21 Progress Note: A&P Assessment and plan (1) History of sleeve gastrectomy: Status: Acute Assessment and Plan: This is a 45-year-old lady on postoperative day 1. Status post laparoscopic sleeve gastrectomy with hiatal hernia repair who is doing relatively well postoperatively. Patient is on stage III diet and had some mild nausea this morning. We have given her a 4 mg IV dose of dexamethasone to help with postop nausea. Patient will continue stage III diet and if her nausea is improved she will be discharged home this afternoon to follow up with me as an outpatient in 2 weeks time frame. Patient was encouraged to use incentive spirometer and she was again educated on use of incentive spirometer. Patient was encouraged to use incentive spirometer every 10 minutes. She was also encouraged to be out of bed to chair and walking as well. (2) History of repair of hiatal hernia: Status: Acute Fall Risk Details Current Medications: Current Medications Generic Name Dose Route Start Last Admin Trade Name Freq PRN Reason Stop Dose Admin Albuterol Sulfate 2 puff 04/20/21 12:28 Albuterol Sulfate 90 Mcg 8 Gm Inhaler INHALE Q4H PRN Wheezing Clonazepam 2 mg 04/20/21 21:00 04/21/21 07:38 Clonazepam 1 Mg Tablet PO 2 mg BID MARIAN Administration Duloxetine HCl 60 mg 04/21/21 09:00 04/21/21 07:38 Duloxetine Hcl 60 Mg Capsule.Dr PO 60 mg DAILY MARIAN Administration Famotidine 20 mg 04/20/21 21:00 04/21/21 07:35 Famotidine/Pf 20 Mg/2 Ml Vial IVPUSH 20 mg BID MARIAN Administration Hydromorphone HCl 0.25 mg 04/20/21 12:44 04/21/21 03:38 Hydromorphone Hcl 0.5 Mg/0.5 Ml Syringe IVPUSH 0.25 mg Q4H PRN Administration Pain, Severe (Pain Scale 7-10) Protocol Lactated Ringer's 1,000 mls @ 125 mls/hr 04/20/21 12:45 04/21/21 04:33 Lr IVCONT 125 mls/hr .Q8H MARIAN Administration Acetaminophen 1,000 mg in 100 mls @ 16.7 mls/hr 04/20/21 12:45 04/21/21 10:46 Ofirmev IV 16.7 mls/hr .Q6H MARIAN Administration Promethazine HCl 12.5 mg/ 50.5 mls @ 202 mls/hr 04/20/21 20:24 04/20/21 22:22 Sodium Chloride IV Infused Q6H PRN Infusion Nausea Lamotrigine 50 mg 04/20/21 21:00 04/21/21 07:38 Lamotrigine 25 Mg Tablet PO 50 mg BID MARIAN Administration Ondansetron HCl 4 mg 04/20/21 12:45 04/21/21 11:49 Ondansetron Hcl 4 Mg/2 Ml Vial IVPUSH 4 mg Q8H MARIAN Administration Sodium Chloride 3 ml 04/20/21 16:00 04/21/21 07:38 0.9 % Sodium Chloride Flush 3 Ml Syringe IVFLUSH Not Given QSHIFT MARIAN Time Spent With Patient Time: Total time spent is greater than 50% in coordination of care (as documented) at patient's floor/unit and/or counseling patient: Time with patient: less than 15 minutes Quality Stroke Does the patient have a stroke diagnosis?: No VTE Prior VTE?: No VTE Risk Level:: Surgical - moderate VTE Device Contraindication: N/A - Device Ordered VTE Drug Contraindication: Treatment Not Indicated
== END 2021-04-21 14:26 | disposition home or self-care (01) | DRG 403 ==
PROVIDERS: Physician Assistant; Admitting Provider Surgery; PCP Internal Medicine; Visit Provider Surgery
PROC: 0DB64Z3 Excision of Stomach, Percutaneous Endoscopic Approach, Vertical (ICD-10-PCS; CPT 43845; principal; 2021-04-20 10:10)
DX: E66.01 Morbid (severe) obesity due to excess calories (principal); N31.2 Flaccid neuropathic bladder, not elsewhere classified; F31.9 Bipolar disorder, unspecified; K44.9 Diaphragmatic hernia without obstruction or gangrene; F43.10 Post-traumatic stress disorder, unspecified; M79.7 Fibromyalgia; K46.9 Unspecified abdominal hernia without obstruction or gangrene; Z20.822 Contact with and (suspected) exposure to COVID-19; K21.9 Gastro-esophageal reflux disease without esophagitis; Z68.41 Body mass index [BMI] 40.0-44.9, adult; Z79.899 Other long term (current) drug therapy
CPT/HCPCS: 36415; 80048; 81001; 85025; 86850; 86900; 86901; 87635; 88307; 88342; 99024; C1776; J0131; J1100; J1170; J2250; J2370; J2405; J2550; J3010

== ENCOUNTER → 2021-05-04 15:25 | Outpatient (BNVA) | payer OTHER, SELFPAY | PROVIDERS: PCP Internal Medicine; Referring Provider Internal Medicine; Visit Provider Dietitian, Registered | DX: E66.9 Obesity, unspecified (principal); Z68.39 Body mass index [BMI] 39.0-39.9, adult | CPT/HCPCS: 97803 ==

== ENCOUNTER 2021-05-13 14:14 | Outpatient (REF) | payer OTHER, SELFPAY | END 2021-05-13 14:15 | disposition home or self-care (01) | LOC: HO.LNP 14:14 | PROVIDERS: Visit Provider Hospitalist | DX: R30.0 Dysuria (principal) | CPT/HCPCS: 87086 ==

== ENCOUNTER → 2021-06-06 14:13 | Outpatient (BNVA) | payer OTHER, SELFPAY | PROVIDERS: PCP Internal Medicine; Referring Provider Internal Medicine; Visit Provider Surgery | DX: Z90.3 Acquired absence of stomach [part of] (principal); Z98.890 Other specified postprocedural states; Z87.19 Personal history of other diseases of the digestive system | CPT/HCPCS: 99212 ==

== ENCOUNTER → 2021-07-06 09:11 | Outpatient (BNVA) | payer OTHER, SELFPAY | PROVIDERS: PCP Internal Medicine; Referring Provider Internal Medicine; Visit Provider Dietitian, Registered | DX: E66.9 Obesity, unspecified (principal); Z68.36 Body mass index [BMI] 36.0-36.9, adult | CPT/HCPCS: 97803 ==

== ENCOUNTER 2021-07-11 16:44 | Outpatient (REF) | payer OTHER, SELFPAY ==
--- NOTE | ~2021-07-11 | XR_ITS ---
EXAMINATION: XR RIBS, LEFT CLINICAL INFORMATION: Injury of the thorax. COMPARISON: None TECHNIQUE: 3 views of the left ribs were obtained. There is a skin BB placed at the lower left ribs. FINDINGS: Lungs are clear. No consolidation, pneumothorax, or pleural effusion. The cardiomediastinal silhouette and pulmonary vasculature are normal. Osseous structures are unremarkable. Ribs are intact. No fractures are identified. Transpedicular screws and vertical and horizontal stabilization bar seen at the lower thoracic upper lumbar spine. XR/XR ribs LT min 3V w [id number] IMPRESSION: No acute abnormality. No displaced left rib fracture.
[2021-07-12 12:40] LABS: Appearance Urine HAZY; Color Urine YELLOW; Glucose Urine UA NEG (NEG); Leukocyte Esterase Urine 1+ (NEG); Nitrite Urine POS (NEG); Specific Gravity - Urine <= 1.005 (1.005-1.025); UACC Culture Trigger YES; Urine Blood NEG (NEG); Urine Ketones NEG (NEG); Urine Protein NEG (NEG-TRACE)
[2021-07-12 13:11] LABS: Bacteria Urine 3+ /LPF; RBC Urine 0 /HPF (0); Squamous Epithelial Cell Urine 4+ /LPF
== END 2021-07-11 16:45 | disposition home or self-care (01) ==
LOC: HO.HMGCX 16:44
PROVIDERS: Surgery; PCP Internal Medicine; Visit Provider Physician Assistant Medical
DX: S29.9XXA Unspecified injury of thorax, initial encounter (principal); N39.0 Urinary tract infection, site not specified
CPT/HCPCS: 71101; 81001; 81003; 87086; 87088; 87186

== ENCOUNTER → 2021-07-15 13:51 | Outpatient (BNVA) | payer OTHER, SELFPAY | PROVIDERS: PCP Internal Medicine; Visit Provider Physician Assistant Surgical | DX: E66.9 Obesity, unspecified (principal); Z3A.36 36 weeks gestation of pregnancy | CPT/HCPCS: 99212 ==

== ENCOUNTER 2021-09-08 19:15 | Emergency (ER) | payer OTHER, SELFPAY ==
[2021-09-08 20:31] VITALS: BP 83/64; PULSE 132; RESP 18; TEMP 36.7; O2SAT 97; BMI 35.7
[2021-09-08 23:13] LABS: Appearance Urine HAZY; Color Urine YELLOW; Glucose Urine UA NEG (NEG); Leukocyte Esterase Urine 3+ (NEG); Nitrite Urine POS (NEG); Specific Gravity - Urine <= 1.005 (1.005-1.025); UACC Culture Trigger YES; UPreg QC Valid YES; Urine Blood 3+ (NEG); Urine Ketones NEG (NEG); Urine Pregnancy NEGATIVE (NEGATIVE); Urine Protein 1+ MG/DL (NEG-TRACE)
[2021-09-08 23:23] LABS: Bacteria Urine 3+ /LPF; RBC Urine 50-75 /HPF (0); Squamous Epithelial Cell Urine 2+ /LPF; WBC Urine 30-49 /HPF (0-4)
--- NOTE | 2021-09-08 23:24 | ED_ITS ---
HPI - Female Genitourinary General Chief complaint: Urogenital-Female Stated complaint: ?uti Time Seen by Provider: 09/08/21 23:16 Source: patient Limitations: no limitations History of Present Illness HPI Narrative: this is a 46-year-old female with a history of UTI and obesity who had recently been treated for UTI, finished antibiotics, she believes it was Bactrim, about 5-7 days ago. The patient about 3 days ago began to have some U TI symptoms with dysuria, urinary frequency. The patient today has been feeling chills, and also has had some body aches and was worried she might be getting systemic infection from her UTI. She has had some mild rhinorrhea but denies any cough or shortness of Breath. She does have mild lower abdominal pain. She denied any constipation or diarrhea. Related Data Home Medications Medication Instructions Recorded Confirmed duloxetine 60 mg capsule,delayed 60 mg PO DAILY 06/24/20 07/15/21 release (Cymbalta) lamotrigine 25 mg tablet 50 mg PO BID tab 06/24/20 07/15/21 zolpidem 10 mg tablet 10 mg PO BEDTIME PRN 06/24/20 07/15/21 albuterol sulfate 90 mcg/actuation 2 puff INHALATION Q4-6H PRN 11/12/20 07/15/21 aerosol inhaler clonazepam 2 mg tablet 1 tab PO BID 04/20/21 07/15/21 doxepin 75 mg capsule 2 cap PO BEDTIME 04/20/21 07/15/21 trospium 60 mg capsule,extended 1 cap PO QAM 04/20/21 07/15/21 release 24 hr mcjcyzoc-uyxyqiuf-[id number] 45 mg-folic cap PO 06/06/21 07/15/21 acid 800 mcg-vit K 120 mcg capsule (Bariatric Multivitamins) azelastine 137 mcg (0.1 %) nasal INTRANASAL 07/11/21 spray aerosol Previous Rx's Medication Instructions Recorded cetirizine 10 mg tablet 10 mg PO DAILY 90 Days #90 tab 03/17/21 acetaminophen 500 mg tablet 1,000 mg PO Q6H PRN #30 tab 04/05/21 (Tylenol Extra Strength) cephalexin 500 mg capsule 500 mg PO BID 7 Days #14 cap 07/11/21 lidocaine 5 % topical patch 1 patch TOPICAL DAILY #30 ea 07/11/21 nitrofurantoin 100 mg PO Q12H 7 Days #14 cap 07/20/21 monohydrate/macrocrystals 100 mg capsule (Macrobid) pantoprazole 20 mg tablet,delayed 20 mg PO DAILY #90 tab 08/10/21 release cefdinir 300 mg capsule 300 mg PO BID #14 cap 09/09/21 Allergies Allergy/AdvReac Type Severity Reaction Status Date / Time droperidol [From INAPSINE] Allergy Severe ANGIOEDEMA, Verified 07/11/21 16:29 THROAT SWELLING lithium Allergy Unknown unknown Verified 07/11/21 16:29 quetiapine [Seroquel] AdvReac Intermediate weight Verified 07/11/21 16:29 gain, sleep walking fresh fruit Allergy Intermediate oral Uncoded 06/06/21 14:35 swelling/itching Review of Systems Constitutional: Constitutional: Reports body ache(s), Reports chills and Denies headache(s) Eyes: Eyes: Reports no additional eye complaints ENT: Denies headache(s) and Reports nasal congestion Cardiovascular: Cardiovascular: Reports no additional cardiovascular complaints Respiratory: Respiratory: Reports no additional respiratory complaints Gastrointestinal: Gastrointestinal: Reports abdominal pain, Denies nausea and Denies vomiting Genitourinary: Genitourinary: Reports as per HPI Comments: Patient currently on her menses Musculoskeletal: Musculoskeletal: Reports back pain Neurologic: Denies headache(s) and Denies Sensory deficit (Neuro) [facility] Past Medical History Medical History Acute sinusitis Anxiety Arthritis Asthma Back pain, chronic Bipolar 1 disorder Body mass index (BMI) of 40.0 to 44.9 in adult Depression Dysuria Dysuria Environmental allergies Fibromyalgia GERD (gastroesophageal reflux disease) Hiatal hernia History of spinal cord injury Hx of renal calculi IBS (irritable bowel syndrome) Internal derangement of knee Morbid obesity due to excess calories Neurogenic bladder Neurogenic bladder Neuropathy Osteosclerosis Otitis media Preoperative examination PTSD (post-traumatic stress disorder) Recurrent urinary tract infection Shortness of breath Sinusitis chronic, frontal Substance abuse Torn ACL Urinary incontinence Urinary incontinence Surgical History H/O dilation and curettage H/O tubal ligation H/O wisdom tooth extraction History of fusion of lumbar spine History of repair of hiatal hernia History of sleeve gastrectomy History of ureter stent Status post left foot surgery Family History Family History Father Substance use disorder Mental health disorder Mother HTN (hypertension) Stroke Paternal Grandfather No problems noted. Paternal Grandmother Lung cancer Maternal Grandfather Melanoma Maternal Grandmother No problems noted. Brother Substance use disorder Mental health disorder Brother No problems noted. Brother No problems noted. Sister No problems noted. Son No problems noted. Son No problems noted. Daughter No problems noted. Daughter No problems noted. Daughter No problems noted. 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) Alcohol intake: former Patient Tobacco Use Status: Never used Tobacco e-Cigarette/Vaping Use: Never Used Use of substances other than those prescribed or required for medical reasons: No Substance Use Type: Crack/Cocaine and Former Substance User Advance Directives: No Patient : No service: No Current occupational status: disabled Physical Exam Vital Signs: Vital Signs: Last Vital Signs Temp 99.4 F 09/09/21 00:07 Pulse 98 09/09/21 00:07 Resp 15 09/09/21 00:07 BP 101/64 09/09/21 00:07 Pulse Ox 99 09/09/21 00:07 BMI result Body Mass Index 35.7 Const: Other: obese General: cooperative, no acute distress and alert Orientation/consciousness: patient oriented x3 HENMT: Head: Yes normal to inspection Eyes: General: appearance normal, both eyes and all related structures Eyelids: Yes eyelids normal Conjunctivae: conjunctivae normal Pupils: Equal, round and reactive pupils present Neck: Neck: Yes normal visual inspection and Yes supple Chest: Chest palpation & inspection: normal inspection of the chest Resp: Effort & Inspection: normal respiratory effort Auscultation: clear to auscultation bilaterally Cardio: Rate: regular rate Rhythm: regular rhythm Heart sounds: S1 normal heart sound present, S2 normal heart sound present, no gallops, no murmurs and no rubs GI: Palpation (GI): Soft to palpation, Tenderness to palpation present (GI) ( mild bilateral lower abdominal tenderness) and Other GI palpation findings present (Non-distended) Auscultation: normal bowel sounds Skin: General skin exam: no rashes or lesions noted Neuro: General: patient oriented x3, no focal motor deficits and CN's II-XI intact bilaterally Cranial nerves: Yes Equal, round and reactive pupils present Cognition (Neuro): normal cognition Motor exam (neuro): 5/5 motor strength present throughout Sensory Exam: No Sensory deficit (Neuro) Extrem: General: Yes normal to inspection and Yes no pedal edema Psych: Appearance: grossly normal Affect: normal affect MDM - Female Genitourinary MDM Narrative Medical decision making narrative: Patient with recurrent UTI symptoms, was initially hypertensive and tachycardic per triage vitals. Patient not ill- appearing. White blood cell count elevated at 16. Lactate normal. Urinalysis did show evidence of UTI. Patient was treated with Rocephin 2 g IV, normal saline to L IV where her vital signs improved with normal blood pressure and heart rate prior to discharge. No evidence of sepsis. Will treat the patient as an outpatient, with cefdinir Lab Data Attestation: I reviewed the patient's lab results. Result diagrams: 09/08/21 23:45 09/08/21 23:45 Labs: Lab Results 09/08/21 09/08/21 09/08/21 Range/Units 23:05 23:05 23:45 WBC 15.4 H (4.8-10.8) X10*3/uL RBC 3.82 L (4.20-5.50) X10*6/uL Hgb 11.7 L (12.0-16.0) g/dl Hct 35.3 L (37.0-47.0) % MCV 92.4 (80.0-98.0) fL MCH 30.6 (27.0-33.0) pg MCHC 33.1 (31.0-35.0) g/dl RDW 14.0 (11.0-16.0) % Plt Count 146 L (160-400) X10*3/uL MPV 9.2 L (9.4-12.3) fL Immature Gran % (Auto) 0.5 H (0.0-0.4) % Neut % (Auto) 84.9 H (45-73) % Lymph % (Auto) 6.0 L (20-40) % [place] % (Auto) 8.4 (2-11) % Eos % (Auto) 0.1 (0-4) % Baso % (Auto) 0.1 (0-2) % Lymph # (Auto) 0.9 L (1.2-4.9) X10*3/uL [place] # (Auto) 1.3 H (0.1-1.2) X10*3/uL Eos # (Auto) 0.0 (0.0-0.4) X10*3/uL Baso # (Auto) 0.0 (0.0-0.2) X10*3/uL Abs Immat Gran (auto) 0.07 H (0.00-0.03) X10*3/uL Absolute Neuts (auto) 13.1 H (2.0-8.3) x10*3/uL Absolute Nucleated RBC 0.000 (0.0-0.012) X10*3/uL Nucleated RBC % (auto) 0.0 (0.0-0.2) /100WBC Sodium (135-145) mmol/L Potassium (3.3-5.1) mmol/L Chloride (96-108) mmol/L Carbon Dioxide (22-29) mmol/L Anion Gap (12-20) BUN (9-16) mg/dL Creatinine (0.5-1.4) mg/dL Estim Creat Clear Calc Estimated GFR Random Glucose (60-115) mg/dL Lactic Acid (0.5-2.0) mmol/L Calcium (8.4-10.2) mg/dL Total Bilirubin (0.0-1.0) mg/dL AST (5-31) U/L ALT (0-31) U/L Alkaline Phosphatase (39-117) U/L Total Protein (6.5-8.0) g/dL Albumin (3.5-5.0) g/dL Urine Color YELLOW Urine Appearance HAZY Urine pH 6.0 (5.0-8.0) Ur Specific [place] <= 1.005 (1.005-1.025) Urine Protein 1+ H (NEG-TRACE) MG/DL Urine Glucose (UA) NEG (NEG) MG/DL Urine Ketones NEG (NEG) MG/DL Urine Blood 3+ H (NEG) Urine Nitrite POS H (NEG) Ur Leukocyte Esterase 3+ H (NEG) Urine RBC 50-75 H (0) /HPF Urine WBC 30-49 H (0-4) /HPF Ur Squamous Epith Cells 2+ /LPF Urine Bacteria 3+ /LPF Urine Test NEGATIVE (NEGATIVE) 09/08/21 09/09/21 Range/Units 23:45 00:27 WBC (4.8-10.8) X10*3/uL RBC (4.20-5.50) X10*6/uL Hgb (12.0-16.0) g/dl Hct (37.0-47.0) % MCV (80.0-98.0) fL MCH (27.0-33.0) pg MCHC (31.0-35.0) g/dl RDW (11.0-16.0) % Plt Count (160-400) X10*3/uL MPV (9.4-12.3) fL Immature Gran % (Auto) (0.0-0.4) % Neut % (Auto) (45-73) % Lymph % (Auto) (20-40) % [place] % (Auto) (2-11) % Eos % (Auto) (0-4) % Baso % (Auto) (0-2) % Lymph # (Auto) (1.2-4.9) X10*3/uL [place] # (Auto) (0.1-1.2) X10*3/uL Eos # (Auto) (0.0-0.4) X10*3/uL Baso # (Auto) (0.0-0.2) X10*3/uL Abs Immat Gran (auto) (0.00-0.03) X10*3/uL Absolute Neuts (auto) (2.0-8.3) x10*3/uL Absolute Nucleated RBC (0.0-0.012) X10*3/uL Nucleated RBC % (auto) (0.0-0.2) /100WBC Sodium 134 L (135-145) mmol/L Potassium 3.6 (3.3-5.1) mmol/L Chloride 103 (96-108) mmol/L Carbon Dioxide 24 (22-29) mmol/L Anion Gap 11 L (12-20) BUN 10 (9-16) mg/dL Creatinine 0.96 (0.5-1.4) mg/dL Estim Creat Clear Calc 85.5 Estimated GFR > 60 Random Glucose 137 H (60-115) mg/dL Lactic Acid 1.3 (0.5-2.0) mmol/L Calcium 8.0 L D (8.4-10.2) mg/dL Total Bilirubin 0.6 (0.0-1.0) mg/dL AST 14 D (5-31) U/L ALT 18 (0-31) U/L Alkaline Phosphatase 69 (39-117) U/L Total Protein 5.2 L D (6.5-8.0) g/dL Albumin 3.2 L D (3.5-5.0) g/dL Urine Color Urine Appearance Urine pH (5.0-8.0) Ur Specific [place] (1.005-1.025) Urine Protein (NEG-TRACE) MG/DL Urine Glucose (UA) (NEG) MG/DL Urine Ketones (NEG) MG/DL Urine Blood (NEG) Urine Nitrite (NEG) Ur Leukocyte Esterase (NEG) Urine RBC (0) /HPF Urine WBC (0-4) /HPF Ur Squamous Epith Cells /LPF Urine Bacteria /LPF Urine Test (NEGATIVE) Discharge Plan Discharge Clinical Impression: Pyelonephritis Patient Disposition: Home, Self-Care Instructions: Kidney Infection (ED) Additional Instructions: Drink plenty of fluids. Take the cefdinir as prescribed. Use ondansetron as needed for nausea. Return for any new or worsened symptoms such as intractable vomiting, fever. Follow-up with your primary care physician Prescriptions: New cefdinir 300 mg capsule 300 mg PO BID Qty: 14 RF: 0 No Action cetirizine 10 mg tablet 10 mg PO DAILY 90 Days Qty: 90 RF: 0 nitrofurantoin monohyd/m-cryst [Macrobid] 100 mg capsule 100 mg PO Q12H 7 Days Qty: 14 RF: 0 pantoprazole 20 mg tablet,delayed release (DR/EC) 20 mg PO DAILY Qty: 90 RF: 0 clonazepam 2 mg tablet 1 tab PO BID RF: 0 doxepin 75 mg capsule 2 cap PO BEDTIME RF: 0 trospium 60 mg capsule,extended release 24hr 1 cap PO QAM RF: 0 cephalexin 500 mg capsule 500 mg PO BID 7 Days Qty: 14 RF: 0 lidocaine 5 % adhesive patch,medicated 1 patch topical DAILY Qty: 30 RF: 0 lamotrigine 25 mg tablet 50 mg PO BID RF: 0 duloxetine [Cymbalta] 60 mg capsule,delayed release(DR/EC) 60 mg PO DAILY RF: 0 zolpidem 10 mg tablet 10 mg PO BEDTIME PRN (Reason: Insomnia) RF: 0 acetaminophen [Tylenol Extra Strength] 500 mg tablet 1,000 mg PO Q6H PRN (Reason: pain) Qty: 30 RF: 1 albuterol sulfate 90 mcg/actuation HFA aerosol inhaler 2 puff inhalation Q4-6H PRN (Reason: Wheezing) RF: 0 Bariatric Multivitamins 45 mg iron- 800 mcg-120 mcg capsule PO RF: 0 Interventions: ED Discharge Assessment Last Done: 09/09/21 02:23 Discharge Date/Time: 09/09/21 02:24
[2021-09-08 23:55] LABS: Eosinophils Percent Auto 0.1 % (0-4); Lymphocytes Absolute Auto 0.9 X10*3/uL (1.2-4.9); PLT CLUMP 1; SCAN SMEAR FLAG 1
[2021-09-08 23:57] LABS: Basophils Percent Auto 0.1 % (0-2); Hematocrit 35.3 % (37.0-47.0); Hemoglobin 11.7 g/dl (12.0-16.0); Imm Gran Abs Auto 0.07 X10*3/uL (0.00-0.03); Imm Gran Pct Auto 0.5 % (0.0-0.4); Mean Corpuscular HGB Conc 33.1 g/dl (31.0-35.0); Mean Corpuscular Hemoglobin 30.6 pg (27.0-33.0); Mean Corpuscular Volume 92.4 fL (80.0-98.0); Mean Platelet Volume 9.2 fL (9.4-12.3); Monocytes Absolute Auto 1.3 X10*3/uL (0.1-1.2); Monocytes Percent Auto 8.4 % (2-11); Neutrophils Absolute Auto 13.1 x10*3/uL (2.0-8.3); Neutrophils Percent Auto 84.9 % (45-73); Red Blood Count 3.82 X10*6/uL (4.20-5.50)
[2021-09-08 23:58] LABS: MANUAL DIFF FLAG NO; Platelet Count 146 X10*3/uL (160-400); White Blood Count 15.4 X10*3/uL (4.8-10.8)
[2021-09-08] MEDS: cefTRIAXone sodium 2 GM in 0.9 % Sodium Chloride 50 ML IV (23:59)
[2021-09-09] MEDS: 0.9 % Sodium Chloride 1,000 ML 999 ML IV ×2 (00:01→00:28)
[2021-09-09 00:07] VITALS: BP 101/64; PULSE 98; RESP 15; TEMP 37.4; O2SAT 99
[2021-09-09 00:12] LABS: Alanine Aminotransferase 18 U/L (0-31); Albumin Level 3.2 g/dL (3.5-5.0); Alkaline Phosphatase 69 U/L (39-117); Anion Gap 11 (12-20); Aspartate Amino Transferase 14 U/L (5-31); Bilirubin Total 0.6 mg/dL (0.0-1.0); Blood Urea Nitrogen 10 mg/dL (9-16); Carbon Dioxide 24 mmol/L (22-29); Chloride 103 mmol/L (96-108); Creatinine Clr Calc Pharmacy 85.5; Estimated Glomerular Filt Rate > 60; Glucose Random 137 mg/dL (60-115); Potassium 3.6 mmol/L (3.3-5.1); Sodium 134 mmol/L (135-145); Total Protein 5.2 g/dL (6.5-8.0)
[2021-09-09] MEDS: Acetaminophen 325 MG TABLET 650 MG PO (00:29)
[2021-09-09 00:51] LABS: Lactic Acid 1.3 mmol/L (0.5-2.0)
== END 2021-09-09 02:24 | disposition home or self-care (01) ==
PROVIDERS: Emergency Provider Emergency Medicine; PCP Internal Medicine
DX: N12 Tubulo-interstitial nephritis, not specified as acute or chronic (principal); F14.10 Cocaine abuse, uncomplicated; Z79.899 Other long term (current) drug therapy
CPT/HCPCS: 36415; 80053; 81001; 81025; 83605; 85025; 87086; 87088; 87186; 96361; 96365; 99284; J0696

== ENCOUNTER → 2021-11-18 08:15 | Outpatient (BNVA) | payer OTHER, SELFPAY | PROVIDERS: PCP Internal Medicine; Visit Provider Dietitian, Registered ==

== ENCOUNTER 2022-01-17 15:37 | Outpatient (REF) | payer OTHER, SELFPAY ==
--- NOTE | ~2022-01-17 | XR_ITS ---
EXAMINATION: XR RIBS, LEFT CLINICAL INFORMATION: Chest pain COMPARISON: Previous x-ray July 2021 TECHNIQUE: 3 views of the left ribs and one view of the chest were obtained. FINDINGS: Chest: The cardiac and mediastinal contours are stable. The lungs are clear. There is no pleural effusion or pneumothorax. There is question of a nondisplaced left anterior eighth rib fracture. This is seen on one view and is of uncertain age. There are rods in the lower thoracic and lumbar spine. XR/XR ribs LT min 3V w CXR1V IMPRESSION: No evidence for acute disease in the chest. Question nondisplaced left anterior eighth rib fracture, uncertain age.
== END 2022-01-17 15:38 | disposition home or self-care (01) ==
LOC: HO.HMGCX 15:37
PROVIDERS: PCP Internal Medicine; Visit Provider Internal Medicine
DX: R07.89 Other chest pain (principal)
CPT/HCPCS: 71101

== ENCOUNTER → 2022-02-20 14:27 | Outpatient (BNVA) | payer OTHER, SELFPAY | PROVIDERS: PCP Internal Medicine; Visit Provider Physician Assistant Surgical | DX: E66.9 Obesity, unspecified (principal); Z68.34 Body mass index [BMI] 34.0-34.9, adult | CPT/HCPCS: 99212 ==

== ENCOUNTER → 2022-04-20 13:46 | Outpatient (BNVA) | payer OTHER, SELFPAY | PROVIDERS: PCP Internal Medicine; Visit Provider Physician Assistant Surgical | DX: E66.9 Obesity, unspecified (principal); Z68.33 Body mass index [BMI] 33.0-33.9, adult; Z90.3 Acquired absence of stomach [part of]; Z98.890 Other specified postprocedural states; Z87.19 Personal history of other diseases of the digestive system | CPT/HCPCS: 99212 ==

== ENCOUNTER 2022-04-20 21:13 | Emergency (ER) | payer OTHER, SELFPAY ==
--- NOTE | ~2022-04-20 | XR_ITS ---
EXAMINATION: XR KNEE, RIGHT CLINICAL INFORMATION: Pain. Worsening. COMPARISON: 03/11/2021 TECHNIQUE: Two views of the right knee. FINDINGS: No fracture or subluxation. Mild medial compartment narrowing, similar to prior. Remaining compartments are maintained. No joint effusion. XR/XR knee RT 2V IMPRESSION: No acute abnormality. Mild medial compartment joint space narrowing, similar to prior.
--- NOTE | ~2022-04-20 | XR_ITS ---
EXAMINATION: XR CHEST CLINICAL INFORMATION: Chest pain COMPARISON: Chest x-ray 06/01/2020 TECHNIQUE: Frontal portable view of the chest was obtained. 11:03 PM FINDINGS: No significant abnormality is noted involving the heart, lungs, mediastinum, bony thorax or soft tissues. XR/XR chest 1V IMPRESSION: Unremarkable examination.
[2022-04-20 21:33] VITALS: BP 106/83; PULSE 111; RESP 16; TEMP 36.9; O2SAT 97; BMI 33.6
--- NOTE | 2022-04-20 22:37 | PC.NURSE ---
pt fell to the floor while standing at the reg desk in the waiting room. pt states she felt dizzy, witnessed by waiting room staff and pt. loc head strick to the floor, pt states she is hearing a echo. vitals as follows. 59/32 hr 105 sat 94% on room air.
[2022-04-20 22:39] VITALS: BP 59/32; PULSE 105; RESP 20; O2SAT 95
[2022-04-20 22:40] VITALS: BP 60/38; BP 64/43; PULSE 106; RESP 20; O2SAT 98
[2022-04-20 22:50] VITALS: BP 118/62; PULSE 110; RESP 14; O2SAT 95
--- NOTE | 2022-04-20 22:54 | ECG_ITS ---
Test Reason : DIZZINESS Blood Pressure : / mmHG Vent. Rate : 100 BPM Atrial Rate : 100 BPM P-R Int : 194 ms QRS Dur : 100 ms QT Int : 376 ms P-R-T Axes : 022 046 019 degrees QTc Int : 485 ms Normal sinus rhythm Prolonged QT Abnormal ECG When compared with ECG of 08-APR-2021 13:03, Nonspecific T wave abnormality now evident in Inferior leads QT has lengthened Referred By: Maurice Sifuentes Electronically Signed By:LEONA CARDOZO
--- NOTE | 2022-04-20 22:56 | ED_ITS ---
HPI - General Adult General Chief complaint: Extremity Problem Stated complaint: right knee swollen Time Seen by Provider: 04/20/22 22:48 Source: patient Mode of arrival: ambulatory Limitations: no limitations History of Present Illness HPI narrative: This is 46 yo female presented to the ED ambulatory c/o rt knee pain X 1 Month,she is was about to leave the waiting room and she had a syncopal episode,triage nurse reported BP 59/32 at 22:39 and 60/38 at 22:40;she brought to room 22 and examined by me ,she denies any fever/chills/abdominal pain/sob/chest pain. BP is now 118/62. Pt has hx of Bariatric surgery,bipolar disorder,fibromyalgia,depression Onset (ago): hour(s) (1) Radiation: non-radiation Severity: moderate Quality: burning Pain Consistency: constant Relieving factors: none Related Data Home Medications Medication Instructions Recorded Confirmed duloxetine 60 mg capsule,delayed 60 mg PO DAILY 06/24/20 04/20/22 release (Cymbalta) lamotrigine 25 mg tablet 50 mg PO BID 06/24/20 04/20/22 zolpidem 10 mg tablet 10 mg PO BEDTIME PRN Insomnia 06/24/20 04/20/22 albuterol sulfate 90 mcg/actuation 2 puff inhalation Q4-6H PRN 11/12/20 04/20/22 aerosol inhaler Wheezing clonazepam 2 mg tablet 1 tab PO BID 04/20/21 04/20/22 doxepin 75 mg capsule 2 cap PO BEDTIME 04/20/21 04/20/22 trospium 60 mg capsule,extended 1 cap PO QAM 04/20/21 04/20/22 release 24 hr [id number] 45 mg-folic cap PO 06/06/21 04/20/22 acid 800 mcg-vit K 120 mcg capsule (Bariatric Multivitamins) azelastine 137 mcg (0.1 %) nasal intranasal 07/11/21 04/20/22 spray aerosol cefdinir 300 mg capsule 300 mg PO BID 02/20/22 04/20/22 celebrate Michael +D PO BID 02/20/22 04/20/22 Previous Rx's Medication Instructions Recorded acetaminophen 500 mg tablet 1,000 mg PO Q6H PRN pain #30 tabs 04/05/21 (Tylenol Extra Strength) pantoprazole 20 mg tablet,delayed 20 mg PO DAILY #90 tabs 03/06/22 release Allergies Allergy/AdvReac Type Severity Reaction Status Date / Time droperidol [From INAPSINE] Allergy Severe ANGIOEDEMA, Verified 04/20/22 13:55 THROAT SWELLING lithium Allergy Unknown unknown Verified 04/20/22 13:55 quetiapine [Seroquel] AdvReac Intermediate weight Verified 04/20/22 13:55 gain, sleep walking fresh fruit Allergy Intermediate oral Uncoded 01/17/22 15:18 swelling/itching Review of Systems Review of Systems: Yes all other systems are reviewed and are negative Constitutional: Constitutional: Reports no additional constitutional complaints ENT: Denies vertigo and Denies dizziness Cardiovascular: Cardiovascular: Reports no additional cardiovascular complaints and Denies syncope Respiratory: Respiratory: Reports no additional respiratory complaints Gastrointestinal: Gastrointestinal: Reports no additional gastrointestinal complaints, Denies abdominal pain, Denies change in stool character, Denies coffee ground emesis and Denies diarrhea Neurologic: Denies confusion, Denies vertigo, Denies dizziness and Denies syncope Psychiatric: Psychiatric: Denies confusion [facility] Past Medical History Medical History Acute sinusitis Anxiety Arthritis Asthma Back pain, chronic Bipolar 1 disorder Body mass index (BMI) of 40.0 to 44.9 in adult Depression Dysuria Dysuria Environmental allergies Fibromyalgia GERD (gastroesophageal reflux disease) Hiatal hernia History of spinal cord injury Hx of renal calculi IBS (irritable bowel syndrome) Internal derangement of knee Morbid obesity due to excess calories Neurogenic bladder Neurogenic bladder Neuropathy Osteosclerosis Otitis media Preoperative examination PTSD (post-traumatic stress disorder) Recurrent urinary tract infection Shortness of breath Sinusitis chronic, frontal Substance abuse Torn ACL Urinary incontinence Urinary incontinence Surgical History H/O dilation and curettage H/O tubal ligation H/O wisdom tooth extraction History of fusion of lumbar spine History of repair of hiatal hernia History of sleeve gastrectomy History of ureter stent Status post left foot surgery Family History Family History Father Substance use disorder Mental health disorder Mother HTN (hypertension) Stroke Paternal Grandfather No problems noted. Paternal Grandmother Lung cancer Maternal Grandfather Melanoma Maternal Grandmother No problems noted. Brother Substance use disorder Mental health disorder Brother No problems noted. Brother No problems noted. Sister No problems noted. Son No problems noted. Son No problems noted. Daughter No problems noted. Daughter No problems noted. Daughter No problems noted. 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) Alcohol intake: current Alcohol intake frequency: holidays/special occasions only Patient Tobacco Use Status: Never used Tobacco e-Cigarette/Vaping Use: Never Used Substance Use Type: Crack/Cocaine and Former Substance User Advance Directives: No Advance Directives Information Provided: No service: No Current occupational status: disabled Physical Exam ED Vital Signs: Vital Signs - 24 hr 04/20/22 21:33 04/20/22 22:39 04/20/22 22:40 Temperature 98.5 F Pulse Rate 111 H 105 H Respiratory Rate 16 20 Blood Pressure 106/83 59/32 L 60/38 L Pulse Oximetry 97 95 Oxygen Delivery Method Room Air Room Air 04/20/22 22:40 04/20/22 22:50 Temperature Pulse Rate 106 H 110 H Respiratory Rate 20 14 Blood Pressure 64/43 L 118/62 Pulse Oximetry 98 95 Oxygen Delivery Method Room Air Room Air BMI result Body Mass Index 33.6 Const General: cooperative, comfortable, no acute distress, well developed, alert and awake; No confusion Nutritional Appearance: well nourished Orientation/consciousness: patient oriented x3 and No confusion HENMT Head: Yes normal to inspection General nose exam: Normal external nose present Face and sinus: Yes normal facial exam Mouth: Normal oral and palatal mucosa present Throat: Yes posterior oropharynx normal Neck Neck: Yes normal visual inspection, Yes full ROM and Yes no lymphadenopathy Chest Chest palpation & inspection: normal inspection of the chest Resp Effort & Inspection: normal respiratory effort Auscultation: clear to auscultation bilaterally Cardio Jugular venous distension: no JVD Rate: regular rate Rhythm: regular rhythm GI Inspection: Yes normal to inspection Palpation (GI): Soft to palpation, not firm, nontender, no guarding and not rigid Back/Spine/Pelvis Cervical Spine: normal cervical lordosis Skin General skin exam: no rashes or lesions noted, elasticity normal and turgor normal Rashes: no rashes Neuro General: patient oriented x3 and No confusion Cognition (Neuro): normal cognition Course Reevaluation(s) Reevaluation #1: at this time my working diagnoses vasovagal episode, she has a quick sofa score of 0, she is not septic given the fact that she is not tachypneic issues no hypotensive she is not altered. Lactic acid was noted we will hydrate the patient anticipate discharge after IV hydration I signed out the case Dr. Sandy at about 23:55 at this time the patient remained normotensive in no distress Medical Decision Making MDM Narrative Medical decision making narrative: I suspect that this patient most likely had a vasovagal episode, we are going to go ahead and do blood work EKG we give some IV fluids. Lab Data Result diagrams: 04/20/22 23:00 04/20/22 23:00 Labs: Lab Results 04/20/22 04/20/22 04/20/22 Range/Units 23:00 23:00 23:00 WBC 6.9 (4.8-10.8) X10*3/uL RBC 4.05 L (4.20-5.50) X10*6/uL Hgb 11.5 L (12.0-16.0) g/dl Hct 36.4 L (37.0-47.0) % MCV 89.9 (80.0-98.0) fL MCH 28.4 (27.0-33.0) pg MCHC 31.6 (31.0-35.0) g/dl RDW 15.2 (11.0-16.0) % Plt Count 254 D (160-400) X10*3/uL MPV 9.0 L (9.4-12.3) fL Immature Gran % (Auto) 0.3 (0.0-0.4) % Neut % (Auto) 61.0 (45-73) % Lymph % (Auto) 31.6 (20-40) % [place] % (Auto) 4.8 (2-11) % Eos % (Auto) 1.9 (0-4) % Baso % (Auto) 0.4 (0-2) % Lymph # (Auto) 2.2 (1.2-4.9) X10*3/uL [place] # (Auto) 0.3 (0.1-1.2) X10*3/uL Eos # (Auto) 0.1 (0.0-0.4) X10*3/uL Baso # (Auto) 0.0 (0.0-0.2) X10*3/uL Abs Immat Gran (auto) 0.02 (0.00-0.03) X10*3/uL Absolute Neuts (auto) 4.2 (2.0-8.3) x10*3/uL Absolute Nucleated RBC 0.000 (0.0-0.012) X10*3/uL Nucleated RBC % (auto) 0.0 (0.0-0.2) /100WBC Sodium 138 (135-145) mmol/L Potassium 3.6 (3.3-5.1) mmol/L Chloride 104 (96-108) mmol/L Carbon Dioxide 22 (22-29) mmol/L Anion Gap 16 (12-20) BUN 19 H D (9-16) mg/dL Creatinine 1.38 (0.5-1.4) mg/dL Estim Creat Clear Calc 57.5 Estimated GFR 41 POC Glucose (60-115) mg/dL Random Glucose 308 H (60-115) mg/dL Lactic Acid (0.5-2.0) mmol/L Calcium 9.0 D (8.4-10.2) mg/dL Total Bilirubin 0.2 (0.0-1.0) mg/dL AST 21 D (5-31) U/L ALT 30 (0-31) U/L Alkaline Phosphatase 56 (39-117) U/L Troponin I High Sens < 3.5 (<3.5-17.0) ng/L Total Protein 6.3 L D (6.5-8.0) g/dL Albumin 4.0 D (3.5-5.0) g/dL Beta HCG, Quant < 2 mIU/mL COVID-19 ([facility]) (Negative) COVID-19 Clin Com 04/20/22 04/20/22 04/20/22 Range/Units 23:00 23:00 23:00 WBC (4.8-10.8) X10*3/uL RBC (4.20-5.50) X10*6/uL Hgb (12.0-16.0) g/dl Hct (37.0-47.0) % MCV (80.0-98.0) fL MCH (27.0-33.0) pg MCHC (31.0-35.0) g/dl RDW (11.0-16.0) % Plt Count (160-400) X10*3/uL MPV (9.4-12.3) fL Immature Gran % (Auto) (0.0-0.4) % Neut % (Auto) (45-73) % Lymph % (Auto) (20-40) % [place] % (Auto) (2-11) % Eos % (Auto) (0-4) % Baso % (Auto) (0-2) % Lymph # (Auto) (1.2-4.9) X10*3/uL [place] # (Auto) (0.1-1.2) X10*3/uL Eos # (Auto) (0.0-0.4) X10*3/uL Baso # (Auto) (0.0-0.2) X10*3/uL Abs Immat Gran (auto) (0.00-0.03) X10*3/uL Absolute Neuts (auto) (2.0-8.3) x10*3/uL Absolute Nucleated RBC (0.0-0.012) X10*3/uL Nucleated RBC % (auto) (0.0-0.2) /100WBC Sodium (135-145) mmol/L Potassium (3.3-5.1) mmol/L Chloride (96-108) mmol/L Carbon Dioxide (22-29) mmol/L Anion Gap (12-20) BUN (9-16) mg/dL Creatinine (0.5-1.4) mg/dL Estim Creat Clear Calc Estimated GFR POC Glucose 251 H (60-115) mg/dL Random Glucose (60-115) mg/dL Lactic Acid 2.9 H* (0.5-2.0) mmol/L Calcium (8.4-10.2) mg/dL Total Bilirubin (0.0-1.0) mg/dL AST (5-31) U/L ALT (0-31) U/L Alkaline Phosphatase (39-117) U/L Troponin I High Sens (<3.5-17.0) ng/L Total Protein (6.5-8.0) g/dL Albumin (3.5-5.0) g/dL Beta HCG, Quant mIU/mL COVID-19 ([facility]) Negative (Negative) COVID-19 Clin Com See Note Imaging Data rt knee: Radiologist's impression: CLINICAL INFORMATION: Pain. Worsening.? COMPARISON: 03/11/2021? TECHNIQUE: Two views of the right knee. FINDINGS: No fracture or subluxation. Mild medial compartment narrowing, similar to prior. Remaining compartments are maintained. No joint effusion.? XR/XR knee RT 2V IMPRESSION: No acute abnormality. Mild medial compartment joint space narrowing, similar to prior. ? Dictated By: Ronn Brown MD Signed By: <Electronically signed by Ronn Brown MD in [place]> 04/20/22 2523 ECG Data Pacemaker model: Normal sinus rhythm a rate [address]-T changes Discharge Plan Discharge Clinical Impression: Degenerative joint disease of knee, right, Syncope Prescriptions: No Action pantoprazole 20 mg tablet,delayed release (DR/EC) 20 mg PO DAILY Qty: 90 0RF clonazepam 2 mg tablet 1 tab PO BID doxepin 75 mg capsule 2 cap PO BEDTIME trospium 60 mg capsule,extended release 24hr 1 cap PO QAM azelastine 137 mcg (0.1 %) aerosol,spray intranasal lamotrigine 25 mg tablet 50 mg PO BID duloxetine [Cymbalta] 60 mg capsule,delayed release(DR/EC) 60 mg PO DAILY zolpidem 10 mg tablet 10 mg PO BEDTIME PRN (Reason: Insomnia) acetaminophen [Tylenol Extra Strength] 500 mg tablet 1,000 mg PO Q6H PRN (Reason: pain) Qty: 30 1RF albuterol sulfate 90 mcg/actuation HFA aerosol inhaler 2 puff inhalation Q4-6H PRN (Reason: Wheezing) Bariatric Multivitamins 45 mg iron- 800 mcg-120 mcg capsule PO cefdinir 300 mg capsule 300 mg PO BID celebrate Michael +D PO BID
[2022-04-20 23:06] LABS: MANUAL DIFF FLAG NO
[2022-04-20] MEDS: 0.9 % Sodium Chloride 1,000 ML 999 ML IVCONT ×2 (23:06→23:07)
[2022-04-20 23:08] LABS: Basophils Percent Auto 0.4 % (0-2); Eosinophils Absolute Auto 0.1 X10*3/uL (0.0-0.4); Eosinophils Percent Auto 1.9 % (0-4); Hematocrit 36.4 % (37.0-47.0); Hemoglobin 11.5 g/dl (12.0-16.0); Imm Gran Abs Auto 0.02 X10*3/uL (0.00-0.03); Imm Gran Pct Auto 0.3 % (0.0-0.4); Lymphocytes Absolute Auto 2.2 X10*3/uL (1.2-4.9); Lymphocytes Percent Auto 31.6 % (20-40); Mean Corpuscular HGB Conc 31.6 g/dl (31.0-35.0); Mean Corpuscular Hemoglobin 28.4 pg (27.0-33.0); Mean Corpuscular Volume 89.9 fL (80.0-98.0); Monocytes Absolute Auto 0.3 X10*3/uL (0.1-1.2); Monocytes Percent Auto 4.8 % (2-11); Neutrophils Absolute Auto 4.2 x10*3/uL (2.0-8.3); Platelet Count 254 X10*3/uL (160-400); Red Blood Count 4.05 X10*6/uL (4.20-5.50); Red Cell Distribution Width 15.2 % (11.0-16.0); White Blood Count 6.9 X10*3/uL (4.8-10.8)
[2022-04-20 23:12] LABS: Glucose, Whole Blood 251 mg/dL (60-115)
[2022-04-20 23:25] LABS: Lactic Acid 2.9 mmol/L (0.5-2.0)
[2022-04-20 23:26] LABS: COVID-19 Test Negative (Negative); Troponin-I High Sensitivity < 3.5 ng/L (<3.5-17.0)
[2022-04-20 23:28] LABS: Alanine Aminotransferase 30 U/L (0-31); Alkaline Phosphatase 56 U/L (39-117); Anion Gap 16 (12-20); Aspartate Amino Transferase 21 U/L (5-31); Bilirubin Total 0.2 mg/dL (0.0-1.0); Blood Urea Nitrogen 19 mg/dL (9-16); Carbon Dioxide 22 mmol/L (22-29); Chloride 104 mmol/L (96-108); Creatinine Clr Calc Pharmacy 57.5; Estimated Glomerular Filt Rate 41; Glucose Random 308 mg/dL (60-115); Potassium 3.6 mmol/L (3.3-5.1); Sodium 138 mmol/L (135-145); Total Protein 6.3 g/dL (6.5-8.0)
[2022-04-20 23:34] LABS: HCG Quantitative < 2 mIU/mL
[2022-04-21 01:06] LABS: Reflex Lactate? Lactic Acid Added
[2022-04-21 02:11] LABS: ~Lactic Acid-LAB USE ONLY 1.1 mmol/L (0.5-2.0)
== END 2022-04-21 03:41 | disposition home or self-care (01) ==
PROVIDERS: Emergency Medicine; Emergency Provider Emergency Medicine; PCP Internal Medicine
DX: M17.11 Unilateral primary osteoarthritis, right knee (principal); R55 Syncope and collapse; M25.561 Pain in right knee; R00.0 Tachycardia, unspecified; Z20.822 Contact with and (suspected) exposure to COVID-19; E66.9 Obesity, unspecified; Z68.33 Body mass index [BMI] 33.0-33.9, adult
CPT/HCPCS: 36415; 71045; 73560; 80053; 82947; 83605; 84484; 84702; 85025; 87040; 87635; 93005; 96360; 99284; 99285

== ENCOUNTER 2022-04-24 06:53 | Outpatient (REF) | payer OTHER, SELFPAY ==
[2022-04-24 07:13] LABS: MANUAL DIFF FLAG NO
[2022-04-24 07:58] LABS: Basophils Percent Auto 0.6 % (0-2); Eosinophils Absolute Auto 0.1 X10*3/uL (0.0-0.4); Eosinophils Percent Auto 2.4 % (0-4); Hematocrit 35.1 % (37.0-47.0); Imm Gran Abs Auto 0.01 X10*3/uL (0.00-0.03); Imm Gran Pct Auto 0.2 % (0.0-0.4); Lymphocytes Absolute Auto 1.6 X10*3/uL (1.2-4.9); Lymphocytes Percent Auto 29.7 % (20-40); Mean Corpuscular HGB Conc 31.3 g/dl (31.0-35.0); Mean Corpuscular Hemoglobin 28.2 pg (27.0-33.0); Mean Platelet Volume 9.5 fL (9.4-12.3); Monocytes Absolute Auto 0.5 X10*3/uL (0.1-1.2); Monocytes Percent Auto 9.4 % (2-11); Neutrophils Absolute Auto 3.1 x10*3/uL (2.0-8.3); Neutrophils Percent Auto 57.7 % (45-73); Platelet Count 291 X10*3/uL (160-400); Red Cell Distribution Width 15.6 % (11.0-16.0); White Blood Count 5.3 X10*3/uL (4.8-10.8)
[2022-04-24 08:07] LABS: Estimated Average Glucose 94 mg/dL; Hemoglobin A1c % 4.9 %
[2022-04-24 08:32] LABS: Alanine Aminotransferase 17 U/L (0-31); Albumin Level 3.7 g/dL (3.5-5.0); Alkaline Phosphatase 55 U/L (39-117); Anion Gap 15 (12-20); Aspartate Amino Transferase 13 U/L (5-31); Bilirubin Total 0.2 mg/dL (0.0-1.0); Blood Urea Nitrogen 14 mg/dL (9-16); C Reactive Protein 2.08 mg/dL (< or = 0.50); Calcium 8.6 mg/dL (8.4-10.2); Carbon Dioxide 25 mmol/L (22-29); Chloride 103 mmol/L (96-108); Cholesterol 161 mg/dL; Estimated Glomerular Filt Rate > 60; Glucose Random 96 mg/dL (60-115); HDL Cholesterol 72 mg/dL; Iron 24 mcg/dL (30-160); LDL Cholesterol Calculated 77 mg/dl; Percent Iron Saturation 7 % (15-50); Potassium 4.5 mmol/L (3.3-5.1); Sodium 138 mmol/L (135-145); Total Iron Binding Capacity 352 mcg/dL (228-428); Total Protein 5.9 g/dL (6.5-8.0); Triglycerides 60 mg/dL; Unsaturated Iron Binding 328 ug/dL
[2022-04-24 08:58] LABS: Ferritin 6 ng/mL (10-250); TSH reflex Free T4 2.26 uIU/mL (0.32-4.0); Vitamin D 25-OH Total 62.2 ng/mL (>30)
[2022-04-24 09:28] LABS: Insulin 3 uU/mL (2-29)
[2022-04-24 09:30] LABS: Folate 18.2 ng/mL (> or = 4.0); Vitamin B12 602 pg/mL (200-900)
[2022-04-26 11:57] LABS: Calcium (PTHI) 8.8 mg/dL (8.6-10.2); PTHI 43 pg/mL (16-77)
[2022-04-28 13:36] LABS: Zinc 50 mcg/dL (60-130)
[2022-04-28 17:31] LABS: Vitamin A 32 mcg/dL (38-98)
[2022-05-02 13:16] LABS: Vitamin B1 21 nmol/L (8-30)
== END 2022-04-24 06:54 | disposition home or self-care (01) ==
LOC: HO.LAB 06:53
PROVIDERS: PCP Internal Medicine; Visit Provider Physician Assistant Surgical
DX: E66.9 Obesity, unspecified (principal); Z87.19 Personal history of other diseases of the digestive system; Z98.890 Other specified postprocedural states; Z90.3 Acquired absence of stomach [part of]
CPT/HCPCS: 36415; 80053; 80061; 82306; 82607; 82728; 82746; 83036; 83525; 83540; 83970; 84425; 84443; 84590; 84630; 85025; 86140

== ENCOUNTER 2022-05-21 20:28 | Observation (INO) | payer OTHER, SELFPAY ==
--- NOTE | ~2022-05-21 | CT_ITS ---
EXAMINATION: CT HEAD WITHOUT CONTRAST CLINICAL INFORMATION: Fall. Seizure question COMPARISON: None TECHNIQUE: Contiguous axial imaging was performed from the skull base to vertex without intravenous administration of contrast. This CT examination was performed using dose optimization techniques as appropriate, variously including the following: *Automated exposure control *Adjustment of mA and/or kV according to patient size (this includes techniques or standardized protocols for targeted exams where dose is matched to indication/reason for exam; i.e. extremities or head) *Use of iterative reconstruction technique DLP: 601 mGy-cm FINDINGS: No hemorrhage. No acute infarct. No hydrocephalus. Brainstem and cerebellum normal. No extra-axial collection. Calvarium and paranasal sinuses normal. CT/CT head/brain wo IV con IMPRESSION: No acute intracranial pathology.
--- NOTE | ~2022-05-21 | CT_ITS ---
EXAMINATION: CT ANGIOGRAM OF THE CHEST WITH AND WITHOUT CONTRAST (CT PULMONARY ANGIOGRAM FOR PE) CLINICAL INFORMATION: Reason for Exam syncope, elevated dimer COMPARISON: 01/08/2016 TECHNIQUE: Prior to contrast administration, noncontrast localization images were obtained. Subsequently, multidetector volumetric imaging was performed from the thoracic inlet to below the diaphragms following the administration of 71 mL Omnipaque 350 intravenous contrast. No contrast reaction reported Sagittal, coronal, and MIP oblique sagittal reformatted images were obtained on the CT workstation, uploaded to PACS, and reviewed. This CT examination was performed using dose optimization techniques as appropriate, variously including the following: *Automated exposure control *Adjustment of mA and/or kV according to patient size (this includes techniques or standardized protocols for targeted exams where dose is matched to indication/reason for exam; i.e. extremities or head) *Use of iterative reconstruction technique Total exam dose-length product 319 mGy-cm FINDINGS: QUALITY OF STUDY/CONTRAST BOLUS: Satisfactory. PULMONARY ARTERIES: No central or segmental pulmonary emboli. THORACIC AORTA: No aneurysm or dissection. LUNG: No regions of consolidation bilaterally. PLEURA: No pleural effusion or pneumothorax. MEDIASTINUM: Visualized thyroid gland is grossly unremarkable. There are subcentimeter mediastinal lymph nodes within the range of normal variation. Cardiac size is within normal limits; no pericardial effusion. CHEST WALL/AXILLA: No axillary or internal mammary lymphadenopathy. OSSEOUS STRUCTURES: Partially visualized fusion hardware in the thoracolumbar spine. UPPER ABDOMEN: Suture line is present along the stomach. No reflux of contrast into the hepatic veins to suggest elevated right heart pressures. CT/CT angio chest PE protocol IMPRESSION: No pulmonary embolus identified. VTE: negative
[2022-05-21 20:34] VITALS: BP 115/78; PULSE 88; RESP 16; O2SAT 99
[2022-05-21 21:01] VITALS: BP 120/77; BP 136/86; PULSE 100; PULSE 86; RESP 16; TEMP 36.6; O2SAT 100; O2SAT 95; BMI 33.6
--- NOTE | 2022-05-21 21:34 | ECG_ITS ---
Test Reason : SYNCOPE Blood Pressure : / mmHG Vent. Rate : 086 BPM Atrial Rate : 086 BPM P-R Int : 184 ms QRS Dur : 086 ms QT Int : 376 ms P-R-T Axes : 014 052 022 degrees QTc Int : 449 ms Normal sinus rhythm Normal ECG When compared with ECG of 20-APR-2022 23:18, No significant change was found Referred By: Tanisha Archuleta Electronically Signed By:SHANNAN NEFF
--- NOTE | 2022-05-21 21:35 | ED.GENADULT ---
HPI - General Adult General Chief complaint: Syncope Stated complaint: syncopal eposiode Time Seen by Provider: 05/21/22 21:17 Source: patient Mode of arrival: ambulatory Limitations: no limitations History of Present Illness HPI narrative: Patient comes to the emergency room complaining multiple syncopal episodes. Patient states that in the last month, she has had 5 syncopal episodes. This time, patient woke up on the kitchen floor, there was blood on the floor, patient became scared and came to the emergency room. Patient denies any chest pain or shortness of breath. Patient states that she has noticed that whenever she stands up from a sitting position, she gets dizzy. Patient at this time, complaining of headache on the right side of her head, no neck pain, no chest pain or shortness of breath. Patient denies any other injuries. When patient came in, patient stated that she had some issues with her oral gastric surgery. Speaking to the patient, she states that she has some malabsorption issues which she is already being worked up by bariatric surgery. Nothing acute at this time. Related Data Home Medications Medication Instructions Recorded Confirmed duloxetine 60 mg capsule,delayed 60 mg PO DAILY 06/24/20 05/17/22 release (Cymbalta) lamotrigine 25 mg tablet 50 mg PO BID 06/24/20 05/17/22 zolpidem 10 mg tablet 10 mg PO BEDTIME PRN Insomnia 06/24/20 05/17/22 albuterol sulfate 90 mcg/actuation 2 puff inhalation Q4-6H PRN 11/12/20 05/17/22 aerosol inhaler Wheezing clonazepam 2 mg tablet 1 tab PO BID 04/20/21 05/17/22 doxepin 75 mg capsule 2 cap PO BEDTIME 04/20/21 05/17/22 trospium 60 mg capsule,extended 1 cap PO QAM 04/20/21 05/17/22 release 24 hr kdjtvjzu-kcfjejqk-sean 45 mg-folic cap PO 06/06/21 05/17/22 acid 800 mcg-vit K 120 mcg capsule (Bariatric Multivitamins) azelastine 137 mcg (0.1 %) nasal intranasal 07/11/21 05/17/22 spray aerosol cefdinir 300 mg capsule 300 mg PO BID 02/20/22 05/17/22 celebrate Michael +D PO BID 02/20/22 05/17/22 Previous Rx's Medication Instructions Recorded acetaminophen 500 mg tablet 1,000 mg PO Q6H PRN pain #30 tabs 04/05/21 (Tylenol Extra Strength) pantoprazole 20 mg tablet,delayed 20 mg PO DAILY #90 tabs 03/06/22 release cholecalciferol (vitamin D3) 50 50 mcg PO DAILY 30 days #30 caps 04/26/22 mcg (2,000 unit) capsule iron,carbonyl 65 mg-vitamin C 125 1 tab PO BEDTIME #30 tabs 05/08/22 mg tablet,delayed release (Vitron-C) vitamin A palmitate 10,000 unit 10,000 unit PO DAILY #90 caps 05/10/22 capsule zinc gluconate 10 mg lozenges 10 mg PO DAILY #100 ea 05/10/22 triamcinolone acetonide 0.1 % 1 appl topical DAILY 30 days #80 05/17/22 topical cream grams Allergies Allergy/AdvReac Type Severity Reaction Status Date / Time droperidol [From INAPSINE] Allergy Severe ANGIOEDEMA, Verified 05/17/22 14:48 THROAT SWELLING lithium Allergy Unknown unknown Verified 05/17/22 14:48 quetiapine [Seroquel] AdvReac Intermediate weight Verified 05/17/22 14:48 gain, sleep walking fresh fruit Allergy Intermediate oral Uncoded 01/17/22 15:18 swelling/itching Review of Systems Review of Systems: Constitutional : No Weight loss, No Fever, No Chills, No Night Sweats, No Fatigue, No Malaise ENT/Mouth : No Hearing loss, No Ear Pain, No Nasal Congestion, No Sinus Pain, No Hoarseness, No sore throat, No Rhinorrhea, No Swallowing Difficulty Eyes: No Eye Pain, No Swelling, No Redness, No Foreign Body, No Discharge, No Vision Changes Cardiovascular : No Chest Pain, No SOB, No Dyspnea on Exertion, No Orthopnea, No Edema, No Palpitations Respiratory : No Cough, No Sputum, No Wheezing, No Smoke Exposure, No Dyspnea Gastrointestinal : No Nausea, No Vomiting, No Diarrhea, No Constipation, No abdominal Pain, No Hematochezia, No Melena Genitourinary : no irregular bleeding, No Dysuria, No Urinary Frequency, No Hematuria, No Urinary Incontinence, No Urgency, No Flank Pain, No Urinary Flow Changes, No Hesitancy Musculoskeletal : No joint pain, No Myalgias, No Joint Swelling Skin : Complaining of a laceration to her scalp right-sided Neuro : No Weakness, No Numbness, No Paresthesias, 5 episodes of loss of consciousness in the last month, No Dizziness, No Headache Psych : No Anxiety/Panic, No Depression, No SI/HI/AH/VH, No Social Issues, Heme/Lymph: No Bruising, No Bleeding,No Lymphadenopathy Endocrine : No Polyuria, No Polydipsia, No Temperature Intolerance [facility] Past Medical History Medical History Acute sinusitis Anxiety Arthritis Asthma Back pain, chronic Bipolar 1 disorder Body mass index (BMI) of 40.0 to 44.9 in adult Depression Dysuria Dysuria Environmental allergies Fibromyalgia GERD (gastroesophageal reflux disease) Hiatal hernia History of spinal cord injury Hx of renal calculi IBS (irritable bowel syndrome) Internal derangement of knee Morbid obesity due to excess calories Neurogenic bladder Neurogenic bladder Neuropathy Osteosclerosis Otitis media Preoperative examination PTSD (post-traumatic stress disorder) Recurrent urinary tract infection Shortness of breath Sinusitis chronic, frontal Substance abuse Torn ACL Urinary incontinence Urinary incontinence Surgical History H/O dilation and curettage H/O tubal ligation H/O wisdom tooth extraction History of fusion of lumbar spine History of repair of hiatal hernia History of sleeve gastrectomy History of ureter stent Status post left foot surgery Family History Family History Father Substance use disorder Mental health disorder Mother HTN (hypertension) Stroke Paternal Grandfather No problems noted. Paternal Grandmother Lung cancer Maternal Grandfather Melanoma Maternal Grandmother No problems noted. Brother Substance use disorder Mental health disorder Brother No problems noted. Brother No problems noted. Sister No problems noted. Son No problems noted. Son No problems noted. Daughter No problems noted. Daughter No problems noted. Daughter No problems noted. 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[employer]) Alcohol intake: current Alcohol intake frequency: a few times a week Alcohol type: hard liquor Patient Tobacco Use Status: Never used Tobacco e-Cigarette/Vaping Use: Never Used Use of substances other than those prescribed or required for medical reasons: No Substance Use Type: Crack/Cocaine and Former Substance User Advance Directives: No Advance Directives Information Provided: Yes Patient : No service: No Current occupational status: disabled Cognitive needs: No Hearing needs: No Vision needs: Yes Physical Exam ED Vital Signs: Vital Signs - 24 hr 05/21/22 20:34 05/21/22 21:01 05/22/22 00:23 Temperature 97.8 F Pulse Rate 88 86 Respiratory Rate 16 16 Blood Pressure 115/78 120/77 Pulse Oximetry 99 95 98 Oxygen Delivery Method Room Air Room Air Room Air 05/22/22 01:45 Temperature 98.4 F Pulse Rate 74 Respiratory Rate 16 Blood Pressure 118/72 Pulse Oximetry 97 Oxygen Delivery Method Room Air BMI result Body Mass Index 33.6 Const Other: Appearance: Alert. Oriented X3. No acute distress. Eyes: Pupils equal, round and reactive to light. ENT: Pharynx normal. Neck: Normal inspection. Neck supple. No lymph nodes noted. No crepitus CVS: Normal heart rate and rhythm. Pulses normal. Normal S1 and S2 Respiratory: No respiratory distress. Breath sounds normal. No Wheezing. No rales Abdomen: Soft and nontender. No rigidity. No distention. Skin: Skin warm and dry. Normal skin color. Normal skin turgor. Extremities: No lower extremity edema. No Lacerations. No Rash Neuro: Oriented X 3. No motor deficit. No sensory deficit. Moving all extremities. No slurred speech. CN 2 through 12 grossly intact Psych: calm, cooperative, normal affect Course Course Course Narrative: At this time, patient is complaining of pain in her scalp and headache. Denies dizziness, chest pain or shortness of breath. Of patient's labs and imaging pending. Orthostatic vitals pending Patient received 2 gabi to the scalp. Bleeding control. I discussed with the patient that her D-dimer is slightly elevated, will go ahead and do a CT for PE. Patient's alcohol level is elevated. When patient initially arrived, patient denied drinking. I discussed with the patient that her alcohol levels are elevated. Patient admitted that she drank 2-3 oz, patient states that she during these usually on weekends. Patient's AST and ALT are within normal limits . CT scan for pulmonary embolism is negative for DVT. Patient's troponin, EKG all is normal. I discussed the patient with Dr. Brice, we will admit the patient for further evaluation Procedures Laceration Laceration 1: Site: scalp Size (cm): 1 Description: linear Skin layer closed with: other ([place]) Number of sutures: 2 Medical Decision Making Lab Data Result diagrams: 05/21/22 23:32 05/21/22 23:32 Labs: Lab Results 05/21/22 05/21/22 05/21/22 Range/Units 23:32 23:32 23:32 WBC 5.2 (4.8-10.8) X10*3/uL RBC 4.09 L (4.20-5.50) X10*6/uL Hgb 12.5 (12.0-16.0) g/dl Hct 37.3 (37.0-47.0) % MCV 91.2 (80.0-98.0) fL MCH 30.6 (27.0-33.0) pg MCHC 33.5 (31.0-35.0) g/dl RDW 16.9 H (11.0-16.0) % Plt Count 225 (160-400) X10*3/uL MPV 9.1 L (9.4-12.3) fL Immature Gran % (Auto) 0.2 (0.0-0.4) % Neut % (Auto) 44.5 L (45-73) % Lymph % (Auto) 46.4 H (20-40) % [place] % (Auto) 5.8 (2-11) % Eos % (Auto) 2.5 (0-4) % Baso % (Auto) 0.6 (0-2) % Lymph # (Auto) 2.4 (1.2-4.9) X10*3/uL [place] # (Auto) 0.3 (0.1-1.2) X10*3/uL Eos # (Auto) 0.1 (0.0-0.4) X10*3/uL Baso # (Auto) 0.0 (0.0-0.2) X10*3/uL Abs Immat Gran (auto) 0.01 (0.00-0.03) X10*3/uL Absolute Neuts (auto) 2.3 (2.0-8.3) x10*3/uL Absolute Nucleated RBC 0.000 (0.0-0.012) X10*3/uL Nucleated RBC % (auto) 0.0 (0.0-0.2) /100WBC PT (10.0-13.1) SEC INR (0.9-1.1) D-Dimer High Sensitivty NG/ML Sodium 144 (135-145) mmol/L Potassium 4.2 (3.3-5.1) mmol/L Chloride 106 (96-108) mmol/L Carbon Dioxide 23 (22-29) mmol/L Anion Gap 19 (12-20) BUN 16 (9-16) mg/dL Creatinine 0.86 (0.5-1.4) mg/dL Estim Creat Clear Calc 92.4 Estimated GFR > 60 Random Glucose 87 (60-115) mg/dL Lactic Acid 1.8 (0.5-2.0) mmol/L Calcium 9.1 (8.4-10.2) mg/dL Magnesium 2.1 (1.6-2.6) mg/dL Total Bilirubin 0.2 (0.0-1.0) mg/dL Direct Bilirubin < 0.2 (0.0-0.5) mg/dL AST 20 D (5-31) U/L ALT 20 (0-31) U/L Alkaline Phosphatase 62 (39-117) U/L Total Creatine Kinase 80 (26-140) U/L Troponin I High Sens (<3.5-17.0) ng/L B-Natriuretic Peptide (<100) pg/mL Total Protein 6.7 (6.5-8.0) g/dL Albumin 4.2 (3.5-5.0) g/dL Beta HCG, Quant < 2 mIU/mL Urine Color Urine Appearance Urine pH (5.0-9.0) Ur Specific [place] (1.005-1.025) Urine Protein (Neg-Trace) mg/dL Urine Glucose (UA) (Negative) mg/dL Urine Ketones (Negative) mg/dL Urine Blood (Negative) Urine Nitrite (Negative) Ur Leukocyte Esterase (Negative) Urine Opiates Screen (Not Detect) Urine Fentanyl Screen (Not Detect) Ur Barbiturates Screen (Not Detect) Ur Phencyclidine Scrn (Not Detect) Ur Amphetamines Screen (Not Detect) U Benzodiazepines Scrn (Not Detect) Urine Cocaine Screen (Not Detect) U Marijuana (THC) Screen (Not Detect) Ethyl Alcohol 198 mg/dL COVID-19 ([facility]) (Negative) COVID-19 Clin Com 05/21/22 05/21/22 05/21/22 Range/Units 23:32 23:32 23:58 WBC (4.8-10.8) X10*3/uL RBC (4.20-5.50) X10*6/uL Hgb (12.0-16.0) g/dl Hct (37.0-47.0) % MCV (80.0-98.0) fL MCH (27.0-33.0) pg MCHC (31.0-35.0) g/dl RDW (11.0-16.0) % Plt Count (160-400) X10*3/uL MPV (9.4-12.3) fL Immature Gran % (Auto) (0.0-0.4) % Neut % (Auto) (45-73) % Lymph % (Auto) (20-40) % [place] % (Auto) (2-11) % Eos % (Auto) (0-4) % Baso % (Auto) (0-2) % Lymph # (Auto) (1.2-4.9) X10*3/uL [place] # (Auto) (0.1-1.2) X10*3/uL Eos # (Auto) (0.0-0.4) X10*3/uL Baso # (Auto) (0.0-0.2) X10*3/uL Abs Immat Gran (auto) (0.00-0.03) X10*3/uL Absolute Neuts (auto) (2.0-8.3) x10*3/uL Absolute Nucleated RBC (0.0-0.012) X10*3/uL Nucleated RBC % (auto) (0.0-0.2) /100WBC PT 10.3 (10.0-13.1) SEC INR 0.9 (0.9-1.1) D-Dimer High Sensitivty 281 NG/ML Sodium (135-145) mmol/L Potassium (3.3-5.1) mmol/L Chloride (96-108) mmol/L Carbon Dioxide (22-29) mmol/L Anion Gap (12-20) BUN (9-16) mg/dL Creatinine (0.5-1.4) mg/dL Estim Creat Clear Calc Estimated GFR Random Glucose (60-115) mg/dL Lactic Acid (0.5-2.0) mmol/L Calcium (8.4-10.2) mg/dL Magnesium (1.6-2.6) mg/dL Total Bilirubin (0.0-1.0) mg/dL Direct Bilirubin (0.0-0.5) mg/dL AST (5-31) U/L ALT (0-31) U/L Alkaline Phosphatase (39-117) U/L Total Creatine Kinase (26-140) U/L Troponin I High Sens < 3.5 (<3.5-17.0) ng/L B-Natriuretic Peptide < 10 (<100) pg/mL Total Protein (6.5-8.0) g/dL Albumin (3.5-5.0) g/dL Beta HCG, Quant mIU/mL Urine Color Urine Appearance Urine pH (5.0-9.0) Ur Specific [place] (1.005-1.025) Urine Protein (Neg-Trace) mg/dL Urine Glucose (UA) (Negative) mg/dL Urine Ketones (Negative) mg/dL Urine Blood (Negative) Urine Nitrite (Negative) Ur Leukocyte Esterase (Negative) Urine Opiates Screen (Not Detect) Urine Fentanyl Screen (Not Detect) Ur Barbiturates Screen (Not Detect) Ur Phencyclidine Scrn (Not Detect) Ur Amphetamines Screen (Not Detect) U Benzodiazepines Scrn (Not Detect) Urine Cocaine Screen (Not Detect) U Marijuana (THC) Screen (Not Detect) Ethyl Alcohol mg/dL COVID-19 ([facility]) Negative (Negative) COVID-19 Clin Com See Note 05/22/22 05/22/22 Range/Units 00:56 00:56 WBC (4.8-10.8) X10*3/uL RBC (4.20-5.50) X10*6/uL Hgb (12.0-16.0) g/dl Hct (37.0-47.0) % MCV (80.0-98.0) fL MCH (27.0-33.0) pg MCHC (31.0-35.0) g/dl RDW (11.0-16.0) % Plt Count (160-400) X10*3/uL MPV (9.4-12.3) fL Immature Gran % (Auto) (0.0-0.4) % Neut % (Auto) (45-73) % Lymph % (Auto) (20-40) % [place] % (Auto) (2-11) % Eos % (Auto) (0-4) % Baso % (Auto) (0-2) % Lymph # (Auto) (1.2-4.9) X10*3/uL [place] # (Auto) (0.1-1.2) X10*3/uL Eos # (Auto) (0.0-0.4) X10*3/uL Baso # (Auto) (0.0-0.2) X10*3/uL Abs Immat Gran (auto) (0.00-0.03) X10*3/uL Absolute Neuts (auto) (2.0-8.3) x10*3/uL Absolute Nucleated RBC (0.0-0.012) X10*3/uL Nucleated RBC % (auto) (0.0-0.2) /100WBC PT (10.0-13.1) SEC INR (0.9-1.1) D-Dimer High Sensitivty NG/ML Sodium (135-145) mmol/L Potassium (3.3-5.1) mmol/L Chloride (96-108) mmol/L Carbon Dioxide (22-29) mmol/L Anion Gap (12-20) BUN (9-16) mg/dL Creatinine (0.5-1.4) mg/dL Estim Creat Clear Calc Estimated GFR Random Glucose (60-115) mg/dL Lactic Acid (0.5-2.0) mmol/L Calcium (8.4-10.2) mg/dL Magnesium (1.6-2.6) mg/dL Total Bilirubin (0.0-1.0) mg/dL Direct Bilirubin (0.0-0.5) mg/dL AST (5-31) U/L ALT (0-31) U/L Alkaline Phosphatase (39-117) U/L Total Creatine Kinase (26-140) U/L Troponin I High Sens (<3.5-17.0) ng/L B-Natriuretic Peptide (<100) pg/mL Total Protein (6.5-8.0) g/dL Albumin (3.5-5.0) g/dL Beta HCG, Quant mIU/mL Urine Color Yellow Urine Appearance Clear Urine pH 6.0 (5.0-9.0) Ur Specific [place] <= 1.005 (1.005-1.025) Urine Protein Negative (Neg-Trace) mg/dL Urine Glucose (UA) Negative (Negative) mg/dL Urine Ketones Negative (Negative) mg/dL Urine Blood Negative (Negative) Urine Nitrite Negative (Negative) Ur Leukocyte Esterase Negative (Negative) Urine Opiates Screen Not Detected (Not Detect) Urine Fentanyl Screen Not Detected (Not Detect) Ur Barbiturates Screen Not Detected (Not Detect) Ur Phencyclidine Scrn Not Detected (Not Detect) Ur Amphetamines Screen Not Detected (Not Detect) U Benzodiazepines Scrn Not Detected (Not Detect) Urine Cocaine Screen Not Detected (Not Detect) U Marijuana (THC) Screen Not Detected (Not Detect) Ethyl Alcohol mg/dL COVID-19 ([facility]) (Negative) COVID-19 Clin Com Imaging Data CT scan - head: Radiologist's impression: FINDINGS: No hemorrhage. No acute infarct. No hydrocephalus. Brainstem and cerebellum normal. No extra-axial collection. Calvarium and paranasal sinuses normal. ? CT/CT head/brain wo IV con IMPRESSION: No acute intracranial pathology. CT scan for pulmonary embolism: Radiologist's impression: FINDINGS: QUALITY OF STUDY/CONTRAST BOLUS: Satisfactory. PULMONARY ARTERIES: No central or segmental pulmonary emboli.? THORACIC AORTA: No aneurysm or dissection. LUNG: No regions of consolidation bilaterally. PLEURA: No pleural effusion or pneumothorax. MEDIASTINUM: Visualized thyroid gland is grossly unremarkable. There are subcentimeter mediastinal lymph nodes within the range of normal variation. Cardiac size is within normal limits; no pericardial effusion. CHEST WALL/AXILLA: No axillary or internal mammary lymphadenopathy. OSSEOUS STRUCTURES: Partially visualized fusion hardware in the thoracolumbar spine. UPPER ABDOMEN: Suture line is present along the stomach. No reflux of contrast into the hepatic veins to suggest elevated right heart pressures. CT/CT angio chest PE protocol IMPRESSION: No pulmonary embolus identified. ? VTE: negative Discharge Plan Discharge Clinical Impression: Syncope, Laceration of head Patient Disposition: Admitted As Inpatient Prescriptions: No Action pantoprazole 20 mg tablet,delayed release (DR/EC) 20 mg PO DAILY Qty: 90 0RF cholecalciferol (vitamin D3) 50 mcg (2,000 unit) capsule 50 mcg PO DAILY 30 Days Qty: 30 4RF Vitron-C 65 mg iron- 125 mg tablet,delayed release (DR/EC) 1 tab PO BEDTIME Qty: 30 5RF vitamin A palmitate 10,000 unit capsule 10,000 unit PO DAILY Qty: 90 3RF zinc gluconate 10 mg lozenge 10 mg PO DAILY Qty: 100 3RF clonazepam 2 mg tablet 1 tab PO BID doxepin 75 mg capsule 2 cap PO BEDTIME trospium 60 mg capsule,extended release 24hr 1 cap PO QAM triamcinolone acetonide 0.1 % cream 1 appl topical DAILY 30 Days Qty: 80 0RF azelastine 137 mcg (0.1 %) aerosol,spray intranasal lamotrigine 25 mg tablet 50 mg PO BID duloxetine [Cymbalta] 60 mg capsule,delayed release(DR/EC) 60 mg PO DAILY zolpidem 10 mg tablet 10 mg PO BEDTIME PRN (Reason: Insomnia) acetaminophen [Tylenol Extra Strength] 500 mg tablet 1,000 mg PO Q6H PRN (Reason: pain) Qty: 30 1RF albuterol sulfate 90 mcg/actuation HFA aerosol inhaler 2 puff inhalation Q4-6H PRN (Reason: Wheezing) Bariatric Multivitamins 45 mg iron- 800 mcg-120 mcg capsule PO cefdinir 300 mg capsule 300 mg PO BID celebrate Michael +D PO BID
[2022-05-21] MEDS: Acetaminophen 325 MG TABLET 975 MG PO (22:57)
[2022-05-21 23:42] LABS: MANUAL DIFF FLAG NO
[2022-05-21 23:44] LABS: Basophils Percent Auto 0.6 % (0-2); Eosinophils Absolute Auto 0.1 X10*3/uL (0.0-0.4); Eosinophils Percent Auto 2.5 % (0-4); Hematocrit 37.3 % (37.0-47.0); Hemoglobin 12.5 g/dl (12.0-16.0); Imm Gran Abs Auto 0.01 X10*3/uL (0.00-0.03); Imm Gran Pct Auto 0.2 % (0.0-0.4); Lymphocytes Absolute Auto 2.4 X10*3/uL (1.2-4.9); Lymphocytes Percent Auto 46.4 % (20-40); Mean Corpuscular HGB Conc 33.5 g/dl (31.0-35.0); Mean Corpuscular Hemoglobin 30.6 pg (27.0-33.0); Mean Corpuscular Volume 91.2 fL (80.0-98.0); Mean Platelet Volume 9.1 fL (9.4-12.3); Monocytes Absolute Auto 0.3 X10*3/uL (0.1-1.2); Monocytes Percent Auto 5.8 % (2-11); Neutrophils Absolute Auto 2.3 x10*3/uL (2.0-8.3); Neutrophils Percent Auto 44.5 % (45-73); Platelet Count 225 X10*3/uL (160-400); Red Blood Count 4.09 X10*6/uL (4.20-5.50); Red Cell Distribution Width 16.9 % (11.0-16.0); White Blood Count 5.2 X10*3/uL (4.8-10.8)
[2022-05-21 23:55] LABS: Lactic Acid 1.8 mmol/L (0.5-2.0)
[2022-05-21 23:57] LABS: COVID-19 Test Negative (Negative)
[2022-05-22] VITALS (10 sets, daily range): BP systolic 103–123; BP diastolic 72–91; PULSE 71–99; RESP 16–20; TEMP 36.6–36.9; O2SAT 95–98
[2022-05-22 00:01] LABS: Alanine Aminotransferase 20 U/L (0-31); Albumin Level 4.2 g/dL (3.5-5.0); Alkaline Phosphatase 62 U/L (39-117); Anion Gap 19 (12-20); Aspartate Amino Transferase 20 U/L (5-31); Bilirubin Direct < 0.2 mg/dL (0.0-0.5); Bilirubin Total 0.2 mg/dL (0.0-1.0); Blood Urea Nitrogen 16 mg/dL (9-16); Calcium 9.1 mg/dL (8.4-10.2); Carbon Dioxide 23 mmol/L (22-29); Chloride 106 mmol/L (96-108); Creatinine Clr Calc Pharmacy 92.4; Estimated Glomerular Filt Rate > 60; Ethanol 198 mg/dL; Glucose Random 87 mg/dL (60-115); Magnesium 2.1 mg/dL (1.6-2.6); Potassium 4.2 mmol/L (3.3-5.1); Sodium 144 mmol/L (135-145); Total Protein 6.7 g/dL (6.5-8.0)
[2022-05-22 00:05] LABS: B Type Natriuretic Peptide < 10 pg/mL (<100); Troponin-I High Sensitivity < 3.5 ng/L (<3.5-17.0)
[2022-05-22 00:08] LABS: HCG Quantitative < 2 mIU/mL
[2022-05-22 00:17] LABS: INTERNATIONAL NORM RATIO 0.9 (0.9-1.1); Prothrombin Time 10.3 SEC (10.0-13.1)
[2022-05-22 00:19] LABS: D Dimer High Sensitivity 281 NG/ML
--- NOTE | 2022-05-22 00:59 | PC.NURSE ---
Viky Archuleta MD to bedside to administer gabi x2 to small lac. on the back of pt.'s head which she sustained during fall [employer]
[2022-05-22 01:08] LABS: Appearance Urine Clear; Color Urine Yellow; Glucose Urine UA Negative (Negative); Leukocyte Esterase Urine Negative (Negative); Nitrite Urine Negative (Negative); Specific Gravity - Urine <= 1.005 (1.005-1.025); Urine Blood Negative (Negative); Urine Ketones Negative (Negative); Urine Protein Negative (Neg-Trace)
[2022-05-22] MEDS: iohexoL 350 MG/ML 100 ML INFUS..BTL IV (01:12)
[2022-05-22 01:34] LABS: Amphetamine Screen Urine Not Detected (Not Detect); Barbiturates, Urine Not Detected (Not Detect); Benzodiazepines Screen Urine Not Detected (Not Detect); Cannabinoid Screen Urine Not Detected (Not Detect); Cocaine Screen Urine Not Detected (Not Detect); Fentanyl, urine Not Detected (Not Detect); Opiate Screen Urine Not Detected (Not Detect); Phencyclidine Screen Urine Not Detected (Not Detect)
[2022-05-22 04:44] LABS: Hematocrit 37.6 % (37.0-47.0); Hemoglobin 12.3 g/dl (12.0-16.0); Mean Corpuscular HGB Conc 32.7 g/dl (31.0-35.0); Mean Corpuscular Hemoglobin 29.1 pg (27.0-33.0); Mean Corpuscular Volume 88.9 fL (80.0-98.0); Mean Platelet Volume 9.2 fL (9.4-12.3); Platelet Count 248 X10*3/uL (160-400); Red Blood Count 4.23 X10*6/uL (4.20-5.50); White Blood Count 4.9 X10*3/uL (4.8-10.8)
[2022-05-22 04:59] LABS: Anion Gap 16 (12-20); Blood Urea Nitrogen 14 mg/dL (9-16); Calcium 8.7 mg/dL (8.4-10.2); Carbon Dioxide 24 mmol/L (22-29); Chloride 105 mmol/L (96-108); Creatinine Clr Calc Pharmacy 96.9; Estimated Glomerular Filt Rate > 60; Glucose Random 92 mg/dL (60-115); Potassium 3.9 mmol/L (3.3-5.1); Sodium 141 mmol/L (135-145)
--- NOTE | 2022-05-22 06:26 | P.HPHOSP_ITS ---
History of Present Illness Date of Service: 05/22/22 Chief Complaint: Syncope 46-year-old female with past medical history of PTSD, anxiety, depression, bipolar disorder, GERD, neuropathy, history of back surgery status post urinary incontinency with frequent UTIs, presents to the hospital with syncopal episode. Patient reports that she was walking to the kitchen when she syncopized. She reports no prodromal symptoms, this lasted about a minute, and she was conscious with no postictal symptoms. She had bumped her head and had some bleeding. Patient reports headache at this time. She reports that she has had frequent syncopal episodes in the past. She does report that she was drinking prior to syncopized Ng, although she denies being drunk and reports no daily drinking denies any history of alcohol abuse. At this time she reports no shortness of breath, no chest pain, no palpitations, no abdominal pain nausea or vomiting, no diarrhea or constipation, she reports urinary frequency with no urgency or dysuria, and no lower extremity edema. She denies any shortness of breath. No blurry or double vision. No weakness numbness or tingling. On arrival to the ED patient hemodynamically stable with no significant abnormal vitals Labs are significant for WBC count of 4.9, hemoglobin of 12.3, hematocrit 37.6, with no other significant abnormality CT angiogram of the chest is negative for any pulmonary embolus, head CT shows no acute intracranial pathology Patient alcohol level of 198 on arrival She does reports syncopized any even when not drinking therefore will admit her for observation Review of Systems Review of Systems: Yes all other systems are reviewed and are negative [facility] Medical History Acute sinusitis Anxiety Arthritis Asthma Back pain, chronic Bipolar 1 disorder Body mass index (BMI) of 40.0 to 44.9 in adult Depression Dysuria Dysuria Environmental allergies Fibromyalgia GERD (gastroesophageal reflux disease) Hiatal hernia History of spinal cord injury Hx of renal calculi IBS (irritable bowel syndrome) Internal derangement of knee Morbid obesity due to excess calories Neurogenic bladder Neurogenic bladder Neuropathy Osteosclerosis Otitis media Preoperative examination PTSD (post-traumatic stress disorder) Recurrent urinary tract infection Shortness of breath Sinusitis chronic, frontal Substance abuse Torn ACL Urinary incontinence Urinary incontinence Family History Father Substance use disorder Mental health disorder Mother HTN (hypertension) Stroke Paternal Grandfather No problems noted. Paternal Grandmother Lung cancer Maternal Grandfather Melanoma Maternal Grandmother No problems noted. Brother Substance use disorder Mental health disorder Brother No problems noted. Brother No problems noted. Sister No problems noted. Son No problems noted. Son No problems noted. Daughter No problems noted. Daughter No problems noted. Daughter No problems noted. Maternal Aunt Substance use disorder Surgical History H/O dilation and curettage H/O tubal ligation H/O wisdom tooth extraction History of fusion of lumbar spine History of repair of hiatal hernia History of sleeve gastrectomy History of ureter stent Status post left foot surgery Social History Household Members: None Housing: Apartment Are you a primary career coach to a significant other at home: No Do you presently have visiting nurse or other home services: Yes ([employer]) Alcohol intake: current Alcohol intake frequency: a few times a week Alcohol type: hard liquor Patient Tobacco Use Status: Never used Tobacco e-Cigarette/Vaping Use: Never Used Use of substances other than those prescribed or required for medical reasons: No Substance Use Type: Crack/Cocaine and Former Substance User Advance Directives: No Advance Directives Information Provided: Yes Patient : No service: No Current occupational status: disabled Cognitive needs: No Hearing needs: No Vision needs: Yes Meds Allergies Allergy/AdvReac Type Severity Reaction Status Date / Time droperidol [From INAPSINE] Allergy Severe ANGIOEDEMA, Verified 05/17/22 14:48 THROAT SWELLING lithium Allergy Unknown unknown Verified 05/17/22 14:48 quetiapine [Seroquel] AdvReac Intermediate weight Verified 05/17/22 14:48 gain, sleep walking fresh fruit Allergy Intermediate oral Uncoded 01/17/22 15:18 swelling/itching Active Medications: Current Medications Acetaminophen (Acetaminophen 325 Mg Tablet) 650 mg PO Q6H PRN PRN Reason: Pain, Mild (Pain Scale 1-3) Ondansetron HCl (Ondansetron Hcl 4 Mg/2 Ml Vial) 4 mg IVPUSH Q8H PRN PRN Reason: Nausea and Vomiting Sodium Chloride (0.9 % Sodium Chloride Flush 3 Ml Syringe) 3 [facility] [place] Medications Medication Instructions Recorded Confirmed Last Taken Type duloxetine 60 mg capsule,delayed 60 mg PO DAILY 06/24/20 05/17/22 04/20/21 History release (Cymbalta) lamotrigine 25 mg tablet 50 mg PO BID 06/24/20 05/17/22 04/20/21 History zolpidem 10 mg tablet 10 mg PO BEDTIME PRN Insomnia 06/24/20 05/17/22 Unknown History albuterol sulfate 90 mcg/actuation 2 puff inhalation Q4-6H PRN 11/12/20 05/17/22 Unknown History aerosol inhaler Wheezing clonazepam 2 mg tablet 1 tab PO BID 04/20/21 05/17/22 04/20/21 History doxepin 75 mg capsule 2 cap PO BEDTIME 04/20/21 05/17/22 Unknown History trospium 60 mg capsule,extended 1 cap PO QAM 04/20/21 05/17/22 Unknown History release 24 hr xhvasgiq-ectqjogu-flvp 45 mg-folic cap PO 06/06/21 05/17/22 Unknown History acid 800 mcg-vit K 120 mcg capsule (Bariatric Multivitamins) azelastine 137 mcg (0.1 %) nasal intranasal 07/11/21 05/17/22 Unknown History spray aerosol cefdinir 300 mg capsule 300 mg PO BID 02/20/22 05/17/22 Unknown History celebrate Michael +D PO BID 02/20/22 05/17/22 Unknown History Physical Exam Vital Signs and Narrative: Vital Signs: Last Vital Signs Temp 98.4 F 05/22/22 01:45 Pulse 74 05/22/22 01:45 Resp 16 05/22/22 01:45 BP 118/72 05/22/22 01:45 Pulse Ox 97 05/22/22 01:45 O2 Del Method 05/22/22 01:45 BMI result Body Mass Index 33.6 Const: General: cooperative and no acute distress Orientation/consciousness: patient oriented x3 Eyes: General: appearance normal, both eyes and all related structures Pupils: Equal, round and reactive pupils present Resp: Effort & Inspection: normal respiratory effort Auscultation: clear to auscultation bilaterally Cardio: Rate: regular rate Rhythm: regular rhythm GI: Palpation (GI): Soft to palpation Auscultation: normal bowel sounds Skin: General skin exam: no rashes or lesions noted Neuro: General: patient oriented x3 Cranial nerves: Yes Equal, round and reactive pupils present Cognition (Neuro): normal cognition Extrem: General: Yes normal to inspection and Yes no pedal edema Results Labs CBC and Chem 7: 05/22/22 04:14 05/22/22 04:14 Labs: Laboratory Results - last 24 hr 05/21/22 05/21/22 05/21/22 23:32 23:32 23:32 MCV 91.2 MCH 30.6 MCHC 33.5 RDW 16.9 H Plt Count 225 MPV 9.1 L Immature Gran % (Auto) 0.2 Neut % (Auto) 44.5 L Lymph % (Auto) 46.4 H [place] % (Auto) 5.8 Eos % (Auto) 2.5 Baso % (Auto) 0.6 Lymph # (Auto) 2.4 [place] # (Auto) 0.3 Eos # (Auto) 0.1 Baso # (Auto) 0.0 Abs Immat Gran (auto) 0.01 Absolute Neuts (auto) 2.3 Absolute Nucleated RBC 0.000 Nucleated RBC % (auto) 0.0 PT INR D-Dimer High Sensitivty Anion Gap 19 Estim Creat Clear Calc 92.4 Estimated GFR > 60 Random Glucose 87 Lactic Acid 1.8 Calcium 9.1 Magnesium 2.1 Total Bilirubin 0.2 Direct Bilirubin < 0.2 AST 20 D ALT 20 Alkaline Phosphatase 62 Total Creatine Kinase 80 B-Natriuretic Peptide Total Protein 6.7 Albumin 4.2 Beta HCG, Quant < 2 Urine Color Urine Appearance Urine pH Ur Specific [place] Urine Protein Urine Glucose (UA) Urine Ketones Urine Blood Urine Nitrite Ur Leukocyte Esterase Urine Opiates Screen Urine Fentanyl Screen Ur Barbiturates Screen Ur Phencyclidine Scrn Ur Amphetamines Screen U Benzodiazepines Scrn Urine Cocaine Screen U Marijuana (THC) Screen Ethyl Alcohol 198 COVID-19 ([facility]EN) COVID-19 Clin Com 05/21/22 05/21/22 05/21/22 23:32 23:32 23:58 MCV MCH MCHC RDW Plt Count MPV Immature Gran % (Auto) Neut % (Auto) Lymph % (Auto) [place] % (Auto) Eos % (Auto) Baso % (Auto) Lymph # (Auto) [place] # (Auto) Eos # (Auto) Baso # (Auto) Abs Immat Gran (auto) Absolute Neuts (auto) Absolute Nucleated RBC Nucleated RBC % (auto) PT 10.3 INR 0.9 D-Dimer High Sensitivty 281 Anion Gap Estim Creat Clear Calc Estimated GFR Random Glucose Lactic Acid Calcium Magnesium Total Bilirubin Direct Bilirubin AST ALT Alkaline Phosphatase Total Creatine Kinase B-Natriuretic Peptide < 10 Total Protein Albumin Beta HCG, Quant Urine Color Urine Appearance Urine pH Ur Specific [place] Urine Protein Urine Glucose (UA) Urine Ketones Urine Blood Urine Nitrite Ur Leukocyte Esterase Urine Opiates Screen Urine Fentanyl Screen Ur Barbiturates Screen Ur Phencyclidine Scrn Ur Amphetamines Screen U Benzodiazepines Scrn Urine Cocaine Screen U Marijuana (THC) Screen Ethyl Alcohol COVID-19 ([facility]HE[facility]) Negative [employer] Com See Note 05/22/22 05/22/22 05/22/22 00:56 00:56 04:14 MCV 88.9 MCH 29.1 MCHC 32.7 RDW 17.0 H Plt Count 248 MPV 9.2 L Immature Gran % (Auto) Neut % (Auto) Lymph % (Auto) [place] % (Auto) Eos % (Auto) Baso % (Auto) Lymph # (Auto) [place] # (Auto) Eos # (Auto) Baso # (Auto) Abs Immat Gran (auto) Absolute Neuts (auto) Absolute Nucleated RBC 0.000 Nucleated RBC % (auto) 0.0 PT INR D-Dimer High Sensitivty Anion Gap Estim Creat Clear Calc Estimated GFR Random Glucose Lactic Acid Calcium Magnesium Total Bilirubin Direct Bilirubin AST ALT Alkaline Phosphatase Total Creatine Kinase B-Natriuretic Peptide Total Protein Albumin Beta HCG, Quant Urine Color Yellow Urine Appearance Clear Urine pH 6.0 Ur Specific [place] <= 1.005 Urine Protein Negative Urine Glucose (UA) Negative Urine Ketones Negative Urine Blood Negative Urine Nitrite Negative Ur Leukocyte Esterase Negative Urine Opiates Screen Not Detected Urine Fentanyl Screen Not Detected Ur Barbiturates Screen Not Detected Ur Phencyclidine Scrn Not Detected Ur Amphetamines Screen Not Detected U Benzodiazepines Scrn Not Detected Urine Cocaine Screen Not Detected U Marijuana (THC) Screen Not Detected Ethyl Alcohol COVID-19 ([facility]ARHEEN) COVID-[employer] Meet[employer] 05/22/22 04:14 MCV MCH MCHC RDW Plt Count MPV Immature Gran % (Auto) Neut % (Auto) Lymph % (Auto) [place] % (Auto) Eos % (Auto) Baso % (Auto) Lymph # (Auto) [place] # (Auto) Eos # (Auto) Baso # (Auto) Abs Immat Gran (auto) Absolute Neuts (auto) Absolute Nucleated RBC Nucleated RBC % (auto) PT INR D-Dimer High Sensitivty Anion Gap 16 Estim Creat Clear Calc 96.9 Estimated GFR > 60 Random Glucose 92 Lactic Acid Calcium 8.7 Magnesium Total Bilirubin Direct Bilirubin AST ALT Alkaline Phosphatase Total Creatine Kinase B-Natriuretic Peptide Total Protein Albumin Beta HCG, Quant Urine Color Urine Appearance Urine pH Ur Specific [place] Urine Protein Urine Glucose (UA) Urine Ketones Urine Blood Urine Nitrite Ur Leukocyte Esterase Urine Opiates Screen Urine Fentanyl Screen Ur Barbiturates Screen Ur Phencyclidine Scrn Ur Amphetamines Screen U Benzodiazepines Scrn Urine Cocaine Screen U Marijuana (THC) Screen Ethyl Alcohol COVID-19 ([facility]) COVID-19 Clin Com Imaging Radiologist's Impressions: Impressions Head CT 05/21/22 21:58 IMPRESSION: No acute intracranial pathology. Chest CTA 05/22/22 01:15 IMPRESSION: No pulmonary embolus identified. VTE: negative Assessment and Plan (1) Syncope: Status: Acute Plan 46-year-old female past medical history of PTSD, bipolar, among others who presents to the hospital with complaints of syncopal episode. # acute syncopal episode - likely vasovagal versus secondary to alcohol abuse, cardiogenic less likely - on review in her chart, it appears that patient had a syncopal episode in April while waiting in the ED, contributed to vasovagal syncope/orthostatic - at this time patient reports that she was drinking when the episode occurred, and her alcohol level is positive - given her recurrent syncopal episodes, and although I do have a low suspicious for cardiogenic cause, I will order orthostatic vitals, as well as an echo to rule out any structural abnormality causing the recurrent syncopal episodes - monitor on telemetry # mood disorder - continue home medications DVT prophylaxis: Early ambulation Quality Stroke Does the patient have a stroke diagnosis?: No VTE Prior VTE?: No VTE Risk Level:: Medical - low VTE Device Contraindication: N/A - Device Ordered VTE Drug Contraindication: Treatment Not Indicated
--- NOTE | 2022-05-22 07:00 | CA_ITS ---
Transthoracic Echocardiogram Patient (Last, First, Middle): Allison Perez M Gender: Female Date of : 1975 Age: 46 Procedure Date: 05/22/2022 Procedure Type: Transthoracic Echocardiogram Location: [facility] Height: 165.1 cm Weight: 91.63 kg BSA: 1.99 m2 Heart Rate: 72 bpm BP: 118 / 72 mmHg Home Attendant: SILVIO Referring MD: Haroldo Brice MD Set Up Mold Technician: Demarco Christensen MD Symptoms: syncope Study Quality: Adequate ECG Rhythm: Sinus Conclusions: - Normal study Findings Left Ventricle Normal left ventricular size, thickness, and systolic function. The visually estimated ejection fraction is between 55-60%. Spectral Doppler is indicative of a normal filling pattern. Peak GLS is -17.3%, which is within normal limits. Right Ventricle Normal right ventricular cavity size and systolic function. Atria Both atria are normal in size. Interatrial shunt cannot be excluded. Aortic Valve Normal aortic valve structure and function. There is no aortic valve stenosis. There is no aortic valve regurgitation. Mitral Valve Normal mitral valve structure and function. There is trace mitral valve regurgitation. There is no mitral valve stenosis. Pulmonic Valve The pulmonic valve is likely normal. Tricuspid Valve Likely normal tricuspid valve structure and function. Tricuspid regurgitation envelope is inadequate for calculation of right ventricular systolic pressure. Normal right atrial pressure. Great Vessels All visible segments of the aorta are normal in size. The pulmonary artery was not well visualized. Venous The inferior vena cava is normal in size and collapses greater than 50% with inspiration. Pericardium/Pleural There is no evidence of pericardial effusion. Prior Study Comparison No prior study available for comparison. Measurements 2D Linear Measurements IVSd: 1.13 0.6-0.9/0.6-1.0 cm LVIDd: 4.40 3.9-5.3/4.2-5.9 cm LVIDd Index: 2.21 2.4-3.2/2.2-3.1 cm/m2 LVIDs: 2.47 2.0-3.6 cm LVPWd: 0.69 0.7-1.1 cm LA Diam: 3.00 2.7-3.8/3.0-4.0 cm LAIDs Index: 1.51 1.5-2.3 cm/m2 LV Mass: 161.80 67-162/88-224 g LV Mass Index: 81.30 43-95/49-115 g/m2 LVOT Diam: 2.10 3.0+(-)1.3 cm 2D Systolic Function EF 4C: 56.50 >55% EF 2C: 57.60 >55% EF BiP: 57.80 >55% Mitral Valve MV Pk E: 0.56 MV PK A: 0.71 MV Decel Time: 211.00 E/A: 0.80 E'Lateral: 9.90 E'Medial: 4.79 E/E' Med: 11.60 E/E' Lat: 5.60 PHT: 62.00 MVA PHT: 3.55 Decel Coamo: 2.64 Aortic Valve AoV Pk Alirio: 1.23 AoV Mn Alirio: 0.88 AoV VTI: 0.21 AoV Pk Grad: 6.00 Aov Mn Grad: 3.00 HUMBERTO Cont.VTI: 3.51 LVOT LVOT Pk Alirio: 1.16 LVOT Mn Alirio: 0.88 LVOT VTI: 0.22 LVOT Pk Grad: 5.00 LVOT Mn Grad: 3.00 LVOT Diam: 2.10 LVOT Area: 3.46 Diastolic Function MV Pk E: 0.56 MV Pk A: 0.71 E/A: 0.80 E'Medial: 4.79 E/E' Med: 11.60 E' Laterial: 9.90 E/E' Lat: 5.60 Right Ventricle TAPSE (mm): 14.30 TVS' Alirio: 9.10 Great Vessels Aorta Sinus of Valsalva: 3.70 2.0-3.[address] [place]: 3.26 1.7-3.4 cm Ao Asc: 3.40 2.1-3.4 cm Ao Arch: 2.60 Ao Desc: 1.50 Pulmonary Valve PV Pk Alirio: 0.93 Peak PV Grad: 3.00 Updated in Other Vendor System with Status of Final Demarco Christensen MD electronically signed on 05/22/2022 12:12:58 PM with status of Final
--- NOTE | 2022-05-22 08:29 | P.EN_ITS ---
Event Note Date of Service: 05/22/22 Event Note: evaluated this 46-year-old female as follow-up. Patient admitted for syncope. States no new complaints since admission. all 13 review of systems reviewed patient is sleeping comfortably in bed without distress regular breath sounds heard with no wheezing or crackles regular rate and rhythm, S1-S2 heard patient is awake, alert and oriented to self, place, time and person ; no focal motor deficits abdomen is soft, nontender, no guarding or rigidity, positive bowel sounds no pedal edema patient is admitted for evaluation of syncope, likely vasovagal exacerbated by ?alcohol use disorder. Patient states she is compliant with her gastric sleeve blood work and macro and micro nutrient supplementation. Less concern for cardiogenic cause of syncope at this time but transthoracic echocardiogram was ordered at admission, pending. Orthostatic vital signs pending. Will monitor patient's symptoms and telemetry monitor over 24 hours as patient has had recurrent syncope. Likely discharge in a.m. (once echo and orthastatic vital signs have been resulted).
--- NOTE | 2022-05-22 09:32 | PHA.MEDREC ---
Pharmacy Consult ? Medication Reconciliation Pharmacy has completed the medication reconciliation.
[2022-05-22] MEDS: 0.9 % Sodium Chloride Flush 3 ML SYRINGE IVFLUSH ×2 (10:04→23:11)
--- NOTE | 2022-05-22 10:21 | MHC.CM.PN ---
CHRISTOPHER 05/22/22 female 46 DX Syncope She lives alone. She is independent all functional mobility, and drives. She has not been vaccinated. She has not had Covid. She declined the offer of a HCP. Patients phone at home. She does not have contact info for a ride home. DP home no services C shuttle needed for transportation.
[2022-05-22] MEDS: clonazePAM 1 MG TABLET 2 MG PO ×2 (11:28→23:02)
[2022-05-22] MEDS: Cholecalciferol (Vitamin D3) 25 MCG TABLET 50 MCG PO (11:28)
[2022-05-22] MEDS: DULoxetine HCl 60 MG CAPSULE.DR PO (11:29)
[2022-05-22] MEDS: lamoTRIgine 25 MG TABLET 50 MG PO ×2 (11:37→23:02)
--- NOTE | 2022-05-22 15:30 | PC.NURSE ---
Assume care of patient at this time.
[2022-05-22] MEDS: Doxepin HCl 25 MG CAPSULE 75 MG PO (23:02)
[2022-05-22] MEDS: Zolpidem Tartrate 5 MG TABLET PO (23:06)
[2022-05-23 04:00] VITALS: BP 109/74; PULSE 72; RESP 16; TEMP 36.4; O2SAT 96
[2022-05-23] MEDS: Omeprazole 20 MG CAPSULE.DR PO (06:20)
[2022-05-23 07:16] VITALS: BP 110/78; PULSE 67; RESP 20; TEMP 36.6; O2SAT 98
[2022-05-23] MEDS: DULoxetine HCl 60 MG CAPSULE.DR PO (08:51)
[2022-05-23] MEDS: lamoTRIgine 25 MG TABLET 50 MG PO (08:51)
[2022-05-23] MEDS: 0.9 % Sodium Chloride Flush 3 ML SYRINGE IVFLUSH (08:51)
[2022-05-23] MEDS: clonazePAM 1 MG TABLET 2 MG PO (08:51)
[2022-05-23] MEDS: Cholecalciferol (Vitamin D3) 25 MCG TABLET 50 MCG PO (08:51)
--- NOTE | 2022-05-23 08:54 | PC.NURSE ---
Patient in NAD, denies dizziness n/v. No complaints at this time. Took daily meds with no issue. Plan is for d/c today,
--- NOTE | 2022-05-23 09:24 | PM.DS ---
DS: Providers Provider Date of Service: 05/23/22 Date of admission: 05/22/22 03:41 Primary care physician: Arnaud Carbone MD DS: Diagnosis Discharge Diagnosis (1) Syncope: Status: Acute (2) Laceration of head: Status: Acute (3) Mood disorder: Status: Acute DS: Summary Hospital Course Hospital Course: 46-year-old female past medical history of PTSD, bipolar, among others who presents to the hospital with complaints of syncopal episode. # Syncope - likely vasovagal versus secondary to alcohol abuse (as suggested by raised alcohol level at admission). Patient was admitted to rule out cardiogenic cause. No events on heart monitor throughout hospitalization. Transthoracic echocardiogram was done which was normal. Suggest close follow-up with PCP within a week. Orthostatics were negative during hospitalization. Patient states she is compliant with her gastric sleeve blood work and macro/micro nutrient supplementation. # Mood disorder - home medications were continued throughout hospital course Status at Discharge Functional status at discharge: independent ambulation Overall status at discharge: patient is back to baseline Time Spent with Patient Time attestation: Total time spent providing and/or coordinating discharge services: Discharge coordination time: Less than 30 minutes Quality: Safe Use of Opioids Does Pt have an Active Cancer Diagnosis on the Problem List?: No Quality: Stroke Does the patient have a stroke diagnosis?: No Physical Exam Vital Signs: Vital Signs: Last Vital Signs Temp 97.8 F 05/23/22 07:16 Pulse 67 05/23/22 07:16 Resp 20 05/23/22 07:16 BP 110/78 05/23/22 07:16 Pulse Ox 98 05/23/22 07:16 O2 Del Method 05/23/22 07:16 BMI result Body Mass Index 33.6 Const:?? General: cooperati ve and no acute di stress? Orientatio n/consciousness: p atient oriented x3 Eyes:?? General: appearanc e normal, both eye s and all related structures? Pupils : Equal, round and reactive pupils p resent Resp:?? Effort & Inspectio n: normal respirat ory effort? Auscul tation: clear to a uscultation bilate rally Cardio:?? Rate: regular rate ? Rhythm: regular rhythm GI:?? Palpation (GI): So ft to palpation? A uscultation: luiz l bowel sounds Skin:?? General skin exam: no rashes or lesi ons noted Neuro:?? General: patient o riented x3? Crania l nerves: Yes Equa l, round and react veronika pupils present ? Cognition (Neuro ): normal cognitio n Extrem:?? General: Yes luiz l to inspection an d Yes no pedal trinity marty DS: Data Data Completed and Pending Completed studies during hospitalization [Text1]: Procedur Transthoracic echocardiogram: Normal study, ejection fraction 55-60%. Imaging CT scan - head: Radiologist's impression: ITS Impressions Head CT 05/21/22 21:58 IMPRESSION: No acute intracranial pathology. Chest CTA 05/22/22 01:15 IMPRESSION: No pulmonary embolus identified. VTE: negative Discharge Plan Discharge Patient Disposition: Home, Self-Care Referrals: Arnaud Carbone MD [Primary Care Provider] - 1 Week Discharge Medications: Continued pantoprazole 20 mg tablet,delayed release (DR/EC) 20 mg PO DAILY Qty: 90 0RF cholecalciferol (vitamin D3) 50 mcg (2,000 unit) capsule 50 mcg PO DAILY 30 Days Qty: 30 4RF Vitron-C 65 mg iron- 125 mg tablet,delayed release (DR/EC) 1 tab PO BEDTIME Qty: 30 5RF vitamin A palmitate 10,000 unit capsule 10,000 unit PO DAILY Qty: 90 3RF clonazepam 2 mg tablet 1 tab PO BID doxepin 75 mg capsule 1 - 2 cap PO BEDTIME trospium 60 mg capsule,extended release 24hr 1 cap PO DAILY triamcinolone acetonide 0.1 % cream 1 appl topical DAILY 30 Days Qty: 80 0RF Rx Instructions: to elbow lamotrigine 25 mg tablet 50 mg PO BID duloxetine [Cymbalta] 60 mg capsule,delayed release(DR/EC) 60 mg PO DAILY zolpidem 10 mg tablet 10 mg PO BEDTIME PRN (Reason: Insomnia) acetaminophen [Tylenol Extra Strength] 500 mg tablet 1,000 mg PO Q6H PRN (Reason: pain) Qty: 30 1RF albuterol sulfate 90 mcg/actuation HFA aerosol inhaler 2 puff inhalation Q4H PRN (Reason: Wheezing) Discharge Orders: Discharge Order (Routine); Ordered 05/23/22 Ordered By: Claire Byrne Diet: Regular diet Activity on Discharge: As tolerated Stand Alone Forms: Patient Portal Discharge page Care Plan Goals: Alcohol use cessation Health Concerns: Syncope Plan of Treatment: As per PCP Assessment: As per discharge summary
--- NOTE | 2022-05-23 11:18 | MHC.CM.PN ---
Patient is discharged to home no services. Transportation arranged: [facility] shuttle 11:30 am.
== END 2022-05-23 11:24 | disposition home or self-care (01) ==
LOC: HO.ED 05-22 02:33 → HO.EDOVER 05-22 03:49 → HO.IMC 05-22 05:45
PROVIDERS: Admitting Provider Internal Medicine; Emergency Provider Emergency Medicine; PCP Internal Medicine; Visit Provider Student in an Organized Health Care Education/Training Program
DX: R55 Syncope and collapse (principal); S01.01XA Laceration without foreign body of scalp, initial encounter; W17.89XA Other fall from one level to another, initial encounter; F10.10 Alcohol abuse, uncomplicated; Y90.6 Blood alcohol level of 120-199 mg/100 ml; R51.9 Headache, unspecified; F31.9 Bipolar disorder, unspecified; Z20.822 Contact with and (suspected) exposure to COVID-19; J45.909 Unspecified asthma, uncomplicated; K21.9 Gastro-esophageal reflux disease without esophagitis; F43.10 Post-traumatic stress disorder, unspecified; F41.9 Anxiety disorder, unspecified; Z87.440 Personal history of urinary (tract) infections; Z90.3 Acquired absence of stomach [part of]; Z98.51 Tubal ligation status; Z79.899 Other long term (current) drug therapy; Y93.9 Activity, unspecified; Y92.030 Kitchen in apartment as the place of occurrence of the external cause; Y99.9 Unspecified external cause status
CPT/HCPCS: 12001; 36415; 70450; 71275; 80048; 80076; 80307; 81003; 82077; 82550; 83605; 83735; 83880; 84484; 84702; 85025; 85027; 85379; 85610; 87635; 93005; 93306; 93356; 99219; 99285; Q9957; Q9967

== ENCOUNTER 2022-07-07 12:45 | Outpatient (REF) | payer OTHER, SELFPAY ==
[2022-07-07 13:22] LABS: MANUAL DIFF FLAG NO
[2022-07-07 13:40] LABS: Basophils Absolute Auto 0.1 X10*3/uL (0.0-0.2); Basophils Percent Auto 0.7 % (0-2); Eosinophils Absolute Auto 0.1 X10*3/uL (0.0-0.4); Eosinophils Percent Auto 1.3 % (0-4); Hematocrit 38.6 % (37.0-47.0); Hemoglobin 12.7 g/dl (12.0-16.0); Imm Gran Abs Auto 0.01 X10*3/uL (0.00-0.03); Imm Gran Pct Auto 0.1 % (0.0-0.4); Lymphocytes Absolute Auto 2.3 X10*3/uL (1.2-4.9); Lymphocytes Percent Auto 34.7 % (20-40); Mean Corpuscular HGB Conc 32.9 g/dl (31.0-35.0); Mean Corpuscular Hemoglobin 30.3 pg (27.0-33.0); Mean Corpuscular Volume 92.1 fL (80.0-98.0); Mean Platelet Volume 9.6 fL (9.4-12.3); Monocytes Absolute Auto 0.4 X10*3/uL (0.1-1.2); Monocytes Percent Auto 5.8 % (2-11); Neutrophils Absolute Auto 3.8 x10*3/uL (2.0-8.3); Neutrophils Percent Auto 57.4 % (45-73); Platelet Count 251 X10*3/uL (160-400); Red Blood Count 4.19 X10*6/uL (4.20-5.50); White Blood Count 6.7 X10*3/uL (4.8-10.8)
[2022-07-07 14:02] LABS: Estimated Average Glucose 100 mg/dL; Hemoglobin A1c % 5.1 %
[2022-07-07 14:19] LABS: Alanine Aminotransferase 11 U/L (0-31); Alkaline Phosphatase 50 U/L (39-117); Anion Gap 13 (12-20); Aspartate Amino Transferase 16 U/L (5-31); Bilirubin Total 0.3 mg/dL (0.0-1.0); Blood Urea Nitrogen 17 mg/dL (9-16); C Reactive Protein 0.09 mg/dL (< or = 0.50); Calcium 8.8 mg/dL (8.4-10.2); Carbon Dioxide 24 mmol/L (22-29); Chloride 108 mmol/L (96-108); Cholesterol 168 mg/dL; Estimated Glomerular Filt Rate > 60; Glucose Random 86 mg/dL (60-115); HDL Cholesterol 58 mg/dL; Iron 77 mcg/dL (30-160); LDL Cholesterol Calculated 99 mg/dl; Percent Iron Saturation 24 % (15-50); Potassium 4.5 mmol/L (3.3-5.1); Sodium 140 mmol/L (135-145); Total Iron Binding Capacity 327 mcg/dL (228-428); Total Protein 6.1 g/dL (6.5-8.0); Triglycerides 55 mg/dL; Unsaturated Iron Binding 250 ug/dL
[2022-07-07 14:43] LABS: Folate > 20.0 ng/mL (> or = 4.0)
[2022-07-07 14:47] LABS: Ferritin 11 ng/mL (10-250); TSH reflex Free T4 1.24 uIU/mL (0.32-4.0); Vitamin D 25-OH Total 73.4 ng/mL (>30)
[2022-07-07 15:18] LABS: Insulin 3 uU/mL (2-29)
[2022-07-07 15:22] LABS: Vitamin B12 789 pg/mL (200-900)
[2022-07-11 11:41] LABS: Calcium (PTHI) 9.1 mg/dL (8.6-10.2); PTHI 102 pg/mL (16-77)
[2022-07-12 06:22] LABS: Zinc 59 mcg/dL (60-130)
[2022-07-12 20:31] LABS: Vitamin A 59 mcg/dL (38-98)
[2022-07-13 06:17] LABS: Vitamin B1 28 nmol/L (8-30)
== END 2022-07-07 12:46 | disposition home or self-care (01) ==
LOC: HO.LAB 12:45
PROVIDERS: PCP Internal Medicine; Visit Provider Physician Assistant Surgical
DX: Z90.3 Acquired absence of stomach [part of] (principal)
CPT/HCPCS: 36415; 80053; 80061; 82306; 82607; 82728; 82746; 83036; 83525; 83540; 83970; 84425; 84443; 84590; 84630; 85025; 86140

== ENCOUNTER 2022-07-10 14:55 | Outpatient (REF) | payer OTHER, SELFPAY ==
--- NOTE | ~2022-07-10 | US_ITS ---
EXAMINATION: MM DIAGNOSTIC DIGITAL BREAST TOMOSYNTHESIS, BILATERAL US DIAGNOSTIC ULTRASOUND BREAST, BILATERAL CLINICAL INFORMATION: Palpable fullness upper outer right breast at routine clinical exam. Prior history cyst medial left breast. The lifetime risk of breast cancer based on the Tyrer-Cuzick Model is 8%. COMPARISON: Mammography: 07/21/2019, left breast ultrasound 08/04/2019; outside mammography 01/21/2018 ([facility]). TECHNIQUE: Digital breast tomosynthesis is performed in both the craniocaudal and mediolateral oblique views along with computer-aided detection (CAD). Synthesized 2D images are generated from the tomosynthesis. Ultrasound of the bilateral breasts is performed using grayscale imaging and color Doppler without and with harmonics. Left breast is imaged 10:00 through 2:00 position and right breast is imaged upper outer and upper inner breast. FINDINGS: The breasts are heterogeneously dense, which may obscure small masses (ACR BI-RADS breast composition Category c). There is no significant mass or interval architectural abnormality or abnormal calcifications. No cyst central upper inner left breast is decreased since 2019. There is smooth circumscribed nodule anterior 12:00 left breast and smaller smooth circumscribed nodule posterior 1:00 right breast. The axilla and skin contours are unremarkable. Ultrasound left breast demonstrates a simple cyst 12:00 position 4 cm from nipple measuring approximately 1.2 cm corresponding to the mammography. There are several smaller adjacent satellite cysts in this area. The prior simple cyst 10:00 position is decreased in size, previously 3.8 and and currently under 1.5 cm. No solid mass or architectural abnormality. Ultrasound right breast demonstrates scattered small cysts, largest approximately 11:00 mid depth measuring 1.2 cm. The nodule at posterior 1:00, mammography corresponds to a simple cyst 0.8 cm in greatest dimension. There is no solid mass or architectural abnormality. Results are discussed with the patient at time of visit. US/US breast LT limited IMPRESSION: -No mammographic evidence of malignancy. -Scattered bilateral cysts on ultrasound. No solid mass or architectural abnormality. ASSESSMENT: BI-RADS 2: Benign RECOMMENDATION: 1. Surgical consult may be considered for further assessment if there remains a clinically palpable concern. 2. Otherwise, routine annual bilateral mammography. This patient's information was entered into a reminder system with a target due date for their next mammogram.
--- NOTE | ~2022-07-10 | US_ITS ---
EXAMINATION: MM DIAGNOSTIC DIGITAL BREAST TOMOSYNTHESIS, BILATERAL US DIAGNOSTIC ULTRASOUND BREAST, BILATERAL CLINICAL INFORMATION: Palpable fullness upper outer right breast at routine clinical exam. Prior history cyst medial left breast. The lifetime risk of breast cancer based on the Tyrer-Cuzick Model is 8%. COMPARISON: Mammography: 07/21/2019, left breast ultrasound 08/04/2019; outside mammography 01/21/2018 ([facility]). TECHNIQUE: Digital breast tomosynthesis is performed in both the craniocaudal and mediolateral oblique views along with computer-aided detection (CAD). Synthesized 2D images are generated from the tomosynthesis. Ultrasound of the bilateral breasts is performed using grayscale imaging and color Doppler without and with harmonics. Left breast is imaged 10:00 through 2:00 position and right breast is imaged upper outer and upper inner breast. FINDINGS: The breasts are heterogeneously dense, which may obscure small masses (ACR BI-RADS breast composition Category c). There is no significant mass or interval architectural abnormality or abnormal calcifications. No cyst central upper inner left breast is decreased since 2019. There is smooth circumscribed nodule anterior 12:00 left breast and smaller smooth circumscribed nodule posterior 1:00 right breast. The axilla and skin contours are unremarkable. Ultrasound left breast demonstrates a simple cyst 12:00 position 4 cm from nipple measuring approximately 1.2 cm corresponding to the mammography. There are several smaller adjacent satellite cysts in this area. The prior simple cyst 10:00 position is decreased in size, previously 3.8 and and currently under 1.5 cm. No solid mass or architectural abnormality. Ultrasound right breast demonstrates scattered small cysts, largest approximately 11:00 mid depth measuring 1.2 cm. The nodule at posterior 1:00, mammography corresponds to a simple cyst 0.8 cm in greatest dimension. There is no solid mass or architectural abnormality. Results are discussed with the patient at time of visit. US/US breast RT limited IMPRESSION: -No mammographic evidence of malignancy. -Scattered bilateral cysts on ultrasound. No solid mass or architectural abnormality. ASSESSMENT: BI-RADS 2: Benign RECOMMENDATION: 1. Surgical consult may be considered for further assessment if there remains a clinically palpable concern. 2. Otherwise, routine annual bilateral mammography. This patient's information was entered into a reminder system with a target due date for their next mammogram.
== END 2022-07-10 14:56 | disposition home or self-care (01) ==
LOC: HO.MAMMO 14:55
PROVIDERS: PCP Internal Medicine; Visit Provider Internal Medicine
DX: N63.11 Unspecified lump in the right breast, upper outer quadrant (principal)
CPT/HCPCS: 76642; 77062; 77066

== ENCOUNTER 2022-07-21 | Outpatient (REF) | payer OTHER, SELFPAY | END 2022-07-21 00:01 | disposition home or self-care (01) | LOC: HO.LAB | PROVIDERS: Visit Provider Emergency Medicine | DX: R30.0 Dysuria (principal) | CPT/HCPCS: 87086; 87088; 87186 ==

== ENCOUNTER 2022-07-31 06:19 | Outpatient (REF) | payer OTHER, SELFPAY ==
--- NOTE | ~2022-07-31 | XR_ITS ---
EXAMINATION: XR KNEES, STANDING AP XR KNEE, RIGHT CLINICAL INFORMATION: M25.561 - Pain in right knee COMPARISON: Right knee radiographs 04/20/2022, left knee radiographs 03/11/2021. TECHNIQUE: Standing AP view of both knees is performed. Lateral and axial patella views of the right knee are also included. FINDINGS: Right: No fracture, dislocation, destructive process, or suprapatellar effusion. Hoffa's fat pad appears normal. Normal bony mineralization. There are osteoarthritic changes medial knee joint compartment increased since 04/20/2022 with joint narrowing and marginal osteophytes medial femoral condyle and medial tibial plateau. There is mild secondary genu varus. Narrowing lateral patellofemoral joint is also seen. No lateralization or definite tilting. No erosive changes or visible chondrocalcinosis. Left: Normal bony mineralization. No definite knee joint compartment narrowing. No erosive change or chondrocalcinosis. XR/XR knee RT 2V IMPRESSION: Right: -Osteoarthritis right medial knee joint compartment increased since 04/20/2022. -Mild secondary genu varus. No effusion. -Narrowing lateral patellofemoral joint. Left: -Unremarkable.
--- NOTE | ~2022-07-31 | XR_ITS ---
EXAMINATION: XR KNEES, STANDING AP XR KNEE, RIGHT CLINICAL INFORMATION: M25.561 - Pain in right knee COMPARISON: Right knee radiographs 04/20/2022, left knee radiographs 03/11/2021. TECHNIQUE: Standing AP view of both knees is performed. Lateral and axial patella views of the right knee are also included. FINDINGS: Right: No fracture, dislocation, destructive process, or suprapatellar effusion. Hoffa's fat pad appears normal. Normal bony mineralization. There are osteoarthritic changes medial knee joint compartment increased since 04/20/2022 with joint narrowing and marginal osteophytes medial femoral condyle and medial tibial plateau. There is mild secondary genu varus. Narrowing lateral patellofemoral joint is also seen. No lateralization or definite tilting. No erosive changes or visible chondrocalcinosis. Left: Normal bony mineralization. No definite knee joint compartment narrowing. No erosive change or chondrocalcinosis. XR/XR knee standing BI IMPRESSION: Right: -Osteoarthritis right medial knee joint compartment increased since 04/20/2022. -Mild secondary genu varus. No effusion. -Narrowing lateral patellofemoral joint. Left: -Unremarkable.
== END 2022-07-31 06:20 | disposition home or self-care (01) ==
LOC: HO.HOSX 06:19
PROVIDERS: Visit Provider Physician Assistant
DX: M17.11 Unilateral primary osteoarthritis, right knee (principal)
CPT/HCPCS: 20610; 73560; 73565; 99202; J1040

== ENCOUNTER 2022-09-06 14:55 | Outpatient (REF) | payer OTHER, SELFPAY ==
--- NOTE | ~2022-09-06 | XR_ITS ---
EXAMINATION: XR HAND, RIGHT CLINICAL INFORMATION: Pain. COMPARISON: None TECHNIQUE: PA, lateral, and oblique views of the right hand. FINDINGS: There is no evidence of acute fracture or dislocation of the right hand. There is degenerative joint space narrowing with spurring and sclerosis seen involving the 1st metacarpophalangeal joint. There is also degenerative spurring seen about the 1st carpometacarpal joint. XR/XR hand RT min 3V IMPRESSION: Degenerative change first metacarpal phalangeal joint and 1st carpometacarpal joint.
== END 2022-09-06 14:56 | disposition home or self-care (01) ==
LOC: HO.HOSX 14:55
PROVIDERS: Visit Provider Orthopaedic Surgery
DX: M18.11 Unilateral primary osteoarthritis of first carpometacarpal joint, right hand (principal)
CPT/HCPCS: 20600; 73130; 99202; J1020

== ENCOUNTER → 2022-10-04 13:40 | Outpatient (BNVA) | payer OTHER, SELFPAY | PROVIDERS: PCP Internal Medicine; Referring Provider Internal Medicine; Visit Provider Internal Medicine Cardiovascular Disease | DX: Z01.810 Encounter for preprocedural cardiovascular examination (principal); R55 Syncope and collapse | CPT/HCPCS: 99202 ==

== ENCOUNTER 2022-11-26 19:54 | Emergency (ER) | payer OTHER, SELFPAY ==
--- NOTE | ~2022-11-26 | XR_ITS ---
EXAMINATION: XR ABDOMEN KUB CLINICAL INDICATION: Question free air COMPARISON: None available. TECHNIQUE: AP upright view of the abdomen. FINDINGS: Spinal fusion hardware noted nonobstructive bowel gas pattern. No dilated loops of bowel. Scattered gas in small and large bowel. No free air on this upright view. The visualized lung bases are clear. XR/XR abdomen 1V IMPRESSION: Nonobstructive bowel gas pattern. No free air on this upright view.
[2022-11-26 19:59] VITALS: BP 140/70; PULSE 92; O2SAT 98
[2022-11-26 20:01] VITALS: BP 105/74; PULSE 91; RESP 18; TEMP 36.7; O2SAT 95; BMI 33.3
--- NOTE | 2022-11-26 20:03 | ED_ITS ---
HPI - General Adult General Chief complaint: Urogenital-Female <AMY Bailon - Last Filed: 11/26/22 20:05> Stated complaint: cath issue <AMY Bailon - Last Filed: 11/26/22 20:05> Time Seen by Provider: 11/26/22 21:15 <AMY Bailon - Last Filed: 11/26/22 20:05> Source: patient, RN notes reviewed and old records reviewed <Segundo Caban - Last Filed: 11/26/22 23:57> Mode of arrival: EMS <Segundo Caban - Last Filed: 11/26/22 23:57> Limitations: no limitations <Segundo Caban - Last Filed: 11/26/22 23:57> History of Present Illness HPI narrative: 47-year-old female presents for evaluation of ?I took my catheter out. ? Patient had a partial hysterectomy 2 days ago at [facility]. She was ultimately discharged home today with a Anand catheter in place. Patient reports that she pulled the Anand catheter out because she felt it was not working properly. She states that she has to pee and has pressure in her lower abdomen. She reports that she has tried to urinate but has been unable to do so She reports a 8/10 lower abdominal pain <Segundo Caban - Last Filed: 11/26/22 23:57> Related Data Home medications: Home Medications Medication Instructions Recorded Confirmed duloxetine 60 mg capsule,delayed 60 mg PO DAILY 06/24/20 10/04/22 release (Cymbalta) lamotrigine 25 mg tablet 50 mg PO BID 06/24/20 10/04/22 albuterol sulfate 90 mcg/actuation 2 puff inhalation Q4H PRN Wheezing 11/12/20 10/04/22 aerosol inhaler doxepin 75 mg capsule 1 - 2 cap PO BEDTIME 04/20/21 10/04/22 calcium acetate 667 mg tablet 667 mg PO BEDTIME 10/04/22 10/04/22 clonazepam 2 mg tablet 2 mg PO TID 10/04/22 10/04/22 multivitamin 1 tab PO DAILY 10/04/22 10/04/22 trospium 60 mg capsule,extended 60 mg PO DAILY 10/04/22 10/04/22 release 24 hr zolpidem 10 mg tablet 10 mg PO BEDTIME Insomnia 10/04/22 10/04/22 Previous Rx's Medication Instructions Recorded acetaminophen 500 mg tablet 1,000 mg PO Q6H PRN pain #30 tabs 04/05/21 (Tylenol Extra Strength) iron,carbonyl 65 mg-vitamin C 125 1 tab PO BEDTIME #30 tabs 05/08/22 mg tablet,delayed release (Vitron-C) fluticasone propionate 50 1 spray intranasal BID 30 days #16 08/28/22 mcg/actuation nasal grams spray,suspension (Flonase Allergy Relief) pantoprazole 20 mg tablet,delayed 20 mg PO DAILY #90 tabs 11/21/22 release triamcinolone acetonide 0.1 % 1 appl topical DAILY 30 days #80 11/21/22 topical cream grams <AMY Bailon - Last Filed: 11/26/22 20:05> Allergies/adverse reactions: Allergies Allergy/AdvReac Type Severity Reaction Status Date / Time droperidol [From INAPSINE] Allergy Severe ANGIOEDEMA, Verified 11/26/22 20:07 THROAT SWELLING lithium Allergy Unknown unknown Verified 11/26/22 20:07 quetiapine [Seroquel] AdvReac Intermediate weight Verified 11/26/22 20:07 gain, sleep walking fresh fruit Allergy Intermediate oral Uncoded 10/04/22 13:57 swelling/itching <AMY Bailon - Last Filed: 11/26/22 20:05> Review of Systems Constitutional: Constitutional: Reports as per HPI, Denies chills and Denies fever(s) <Segundo Caban - Last Filed: 11/26/22 23:57> Gastrointestinal: Gastrointestinal: Denies abdominal pain <Segundo Caban - Last Filed: 11/26/22 23:57> Genitourinary: Genitourinary: Denies dysuria <Segundo Caban - Last Filed: 11/26/22 23:57> Neurologic: Denies focal weakness <Segundo Caban - Last Filed: 11/26/22 23:57> [facility] Past Medical History Medical History: Medical History Acute sinusitis Anxiety Arthritis Asthma Back pain, chronic Bipolar 1 disorder Body mass index (BMI) of 40.0 to 44.9 in adult Depression Dysuria Dysuria Environmental allergies Fibromyalgia GERD (gastroesophageal reflux disease) Hiatal hernia History of spinal cord injury Hx of renal calculi IBS (irritable bowel syndrome) Internal derangement of knee Laceration of head Morbid obesity due to excess calories Neurogenic bladder Neurogenic bladder Neuropathy Osteosclerosis Otitis media Preoperative examination PTSD (post-traumatic stress disorder) Recurrent urinary tract infection Shortness of breath Sinusitis chronic, frontal Substance abuse Torn ACL Urinary incontinence Urinary incontinence <AMY Bailon - Last Filed: 11/26/22 20:05> Surgical History: Surgical History H/O dilation and curettage H/O tubal ligation H/O wisdom tooth extraction History of fusion of lumbar spine History of repair of hiatal hernia History of sleeve gastrectomy History of ureter stent Status post left foot surgery <AMY Bailon - Last Filed: 11/26/22 20:05> Family History Family History: Family History Father Substance use disorder Mental health disorder Mother HTN (hypertension) Stroke Paternal Grandfather No problems noted. Paternal Grandmother Lung cancer Maternal Grandfather Melanoma Maternal Grandmother No problems noted. Brother Substance use disorder Mental health disorder Brother No problems noted. Brother No problems noted. Sister No problems noted. Son No problems noted. Son No problems noted. Daughter No problems noted. Daughter No problems noted. Daughter No problems noted. Maternal Aunt Substance use disorder <AMY Bailon - Last Filed: 11/26/22 20:05> Social History Social History: Social History (Updated 10/04/22 @ 14:01 by NINFA Bradford) Household Members: None Housing: Apartment Are you a primary home health care coordinator to a significant other at home: No Do you presently have visiting nurse or other home services: No Alcohol intake: former Year quit: 2021 Patient Tobacco Use Status: Never used Tobacco e-Cigarette/Vaping Use: Never Used Substance Use Type: Crack/Cocaine and Former Substance User Advance Directives: No Advance Directives Information Provided: No service: No Current occupational status: disabled Cognitive needs: No Hearing needs: No Vision needs: Yes <AMY Bailon - Last Filed: 11/26/22 20:05> Physical Exam ED Vital Signs: Vital Signs - 24 hr 11/26/22 20:01 11/26/22 22:03 Temperature 98.1 F 98.5 F Pulse Rate 91 80 Respiratory Rate 18 22 H Blood Pressure 105/74 185/98 H Pulse Oximetry 95 100 Oxygen Delivery Method Room Air Nasal Cannula Oxygen Flow Rate 3 BMI result Body Mass Index 33.3 <AMY Bailon - Last Filed: 11/26/22 20:05> Vital Signs - 24 hr 11/26/22 20:01 11/26/22 22:03 Temperature 98.1 F 98.5 F Pulse Rate 91 80 Respiratory Rate 18 22 H Blood Pressure 105/74 185/98 H Pulse Oximetry 95 100 Oxygen Delivery Method Room Air Nasal Cannula Oxygen Flow Rate 3 BMI result Body Mass Index 33.3 < - Last Filed: 11/26/22 23:57> Const General: healthy appearing, comfortable, no acute distress, alert and awake < - Last Filed: 11/26/22 23:57> Nutritional Appearance: well nourished < - Last Filed: 11/26/22 23:57> Orientation/consciousness: patient oriented x3 < - Last Filed: 11/26/22 23:57> HENMT Head: Yes normocephalic and Yes atraumatic < - Last Filed: 11/26/22 23:57> Throat: Yes posterior oropharynx normal < - Last Filed: 11/26/22 23:57> Eyes Eyelids: Yes eyelids normal < - Last Filed: 11/26/22 23:57> Conjunctivae: conjunctivae normal < - Last Filed: 11/26/22 23:57> Sclerae: sclerae normal < - Last Filed: 11/26/22 23:57> Corneas: corneas normal < - Last Filed: 11/26/22 23:57> Pupils: Equal, round and reactive pupils present < - Last Filed: 11/26/22 23:57> EOM: EOMs intact bilaterally <Segundo O - Last Filed: 11/26/22 23:57> Neck Neck: Yes full ROM <Segundo Roberto Last Filed: 11/26/22 23:57> Resp Effort & Inspection: normal respiratory effort, able to speak in complete sentences, no audible wheezes and not labored < - Last Filed: 11/26/22 23:57> GI Inspection: No distended < - Last Filed: 11/26/22 23:57> Palpation (GI): Soft to palpation, not firm, Tenderness to palpation present (GI) suprapubicly, no guarding and not rigid < Last Filed: 11/26/22 23:57> Auscultation: normoactive bowel sounds <Segundo O - Last Filed: 11/26/22 23:57> Skin General skin exam: no rashes or lesions noted and elasticity normal < Last Filed: 11/26/22 23:57> Neuro General: patient oriented x3 <Segundo O Last Filed: 11/26/22 23:57> Cranial nerves: Yes CN's II-XII intact bilaterally, Yes Equal, round and reactive pupils present and Yes Bilaterally intact EOM present <Segundo Roberto Last Filed: 11/26/22 23:57> Cognition (Neuro): normal cognition <Segundo O Last Filed: 11/26/22 23:57> Extrem Other: Moving all extremities well without any obvious deformities <Segundo O Last Filed: 11/26/22 23:57> Course Course Course Narrative: RME performed by Ioana Feliz PA-C. Patient is a 47 year old female presenting to the emergency department needing a replacement catheter put in. Patient states that 2 days ago she had a hysterectomy at [facility] and she was discharged this morning. Patient states that she had gone home with a catheter and today, she accidentally pulled it out - while the balloon was still inflated. Patient sates that she did not want to go back to [facility] because they were not nice to her. Patient denies any abdominal pain. Patient placed back in the waiting room pending room availability. <AMY Bailon - Last Filed: 11/26/22 20:05> Reevaluation(s) Reevaluation #1: Patient now complaining of left upper abdominal pain, she states that her pain is tenderness 10 and excruciating. She has not yet had her catheter placed. Will get a KUB to evaluate for free air. She is guarding to palpation the upper abdomen. Will also check labs, medicate the patient with morphine and Zofran <Segundo Caban - Last Filed: 11/26/22 23:57> Time: 22:19 <Segundo Caban - Last Filed: 11/26/22 23:57> Reevaluation #2: Patient's anand catheter was inserted and had immediate return of 1,000ml of clear, yellow urine. Her pain resolved almost immediately. Abdominal x-ray did not show any evidence of free air. Patient reports she has urology follow up on 12/08/22 <Segundo Caban - Last Filed: 11/26/22 23:57> Time: 23:12 <Segundo Caban - Last Filed: 11/26/22 23:57> Medications Administered Discontinued Medications Generic Name Dose Route Start Last Admin Trade Name Freq PRN Reason Stop Dose Admin Sodium Chloride 1,000 mls @ 999 mls/hr 11/26/22 22:30 11/26/22 22:29 Ns IV 11/26/22 23:30 999 mls/hr .Q1H1M MARIAN Administration Morphine Sulfate 4 mg 11/26/22 22:16 11/26/22 22:29 Morphine Sulfate 4 Mg/Ml Cartridge IVPUSH 11/26/22 22:17 4 mg ONCE ONE Administration Protocol Ondansetron HCl 4 mg 11/26/22 22:16 11/26/22 22:29 Ondansetron Hcl 4 Mg/2 Ml Vial IVPUSH 11/26/22 22:17 4 mg ONCE ONE Administration <AMY Bailon - Last Filed: 11/26/22 20:05> Medications Administered Discontinued Medications Generic Name Dose Route Start Last Admin Trade Name Freq PRN Reason Stop Dose Admin Sodium Chloride 1,000 mls @ 999 mls/hr 11/26/22 22:30 11/26/22 22:29 Ns IV 11/26/22 23:30 999 mls/hr .Q1H1M MARIAN Administration Morphine Sulfate 4 mg 11/26/22 22:16 11/26/22 22:29 Morphine Sulfate 4 Mg/Ml Cartridge IVPUSH 11/26/22 22:17 4 mg ONCE ONE Administration Protocol Ondansetron HCl 4 mg 11/26/22 22:16 11/26/22 22:29 Ondansetron Hcl 4 Mg/2 Ml Vial IVPUSH 11/26/22 22:17 4 mg ONCE ONE Administration <Segundo Caban - Last Filed: 11/26/22 23:57> Medical Decision Making Medical Decision Making MDM Narrative: Resection female presents for evaluation of a Anand catheter evaluation. Patient was apparently discharged home today from outside facility with a Anand catheter. She reports pulling out because she felt it was not draining. A PICC to be thus far, bladder scan shows over [address] a new Anand catheter <Segundo Caban - Last Filed: 11/26/22 23:57> Differential Diagnosis Urinary retention Postop retention UTI Cystitis <Segundo Caban - Last Filed: 11/26/22 23:57> Lab Data Result Diagrams: 11/26/22 22:24 11/26/22 22:24 <AMY Bailon - Last Filed: 11/26/22 20:05> Labs: Lab Results 11/26/22 11/26/22 Range/Units 22:24 22:24 WBC 5.7 (4.8-10.8) X10*3/uL RBC 3.59 L (4.20-5.50) X10*6/uL Hgb 12.1 (12.0-16.0) g/dl Hct 35.8 L (37.0-47.0) % MCV 99.7 H (80.0-98.0) fL MCH 33.7 H (27.0-33.0) pg MCHC 33.8 (31.0-35.0) g/dl RDW 12.0 (11.0-16.0) % Plt Count 207 (160-400) X10*3/uL MPV 8.9 L (9.4-12.3) fL Immature Gran % (Auto) 0.4 (0.0-0.4) % Neut % (Auto) 40.8 L (45-73) % Lymph % (Auto) 49.6 H (20-40) % [place] % (Auto) 6.9 (2-11) % Eos % (Auto) 1.8 (0-4) % Baso % (Auto) 0.5 (0-2) % Lymph # (Auto) 2.8 (1.2-4.9) X10*3/uL [place] # (Auto) 0.4 (0.1-1.2) X10*3/uL Eos # (Auto) 0.1 (0.0-0.4) X10*3/uL Baso # (Auto) 0.0 (0.0-0.2) X10*3/uL Abs Immat Gran (auto) 0.02 (0.00-0.03) X10*3/uL Absolute Neuts (auto) 2.3 (2.0-8.3) x10*3/uL Absolute Nucleated RBC 0.000 (0.0-0.012) X10*3/uL Nucleated RBC % (auto) 0.0 (0.0-0.2) /100WBC Sodium 143 (135-145) mmol/L Potassium 4.7 (3.3-5.1) mmol/L Chloride 110 H (96-108) mmol/L Carbon Dioxide 23 (22-29) mmol/L Anion Gap 15 (12-20) BUN 10 (9-16) mg/dL Creatinine 0.75 (0.5-1.4) mg/dL Estim Creat Clear Calc 104.2 Estimated GFR > 60 Random Glucose 84 (60-115) mg/dL Calcium 8.7 (8.4-10.2) mg/dL Total Bilirubin 0.2 (0.0-1.0) mg/dL AST 17 (5-31) U/L ALT 9 (0-31) U/L Alkaline Phosphatase 45 (39-117) U/L Total Protein 5.5 L (6.5-8.0) g/dL Albumin 3.5 (3.5-5.0) g/dL <AMY Bailon - Last Filed: 03/19/23 20:05> Lab Results 11/26/22 11/26/22 Range/Units 22:24 22:24 WBC 5.7 (4.8-10.8) X10*3/uL RBC 3.59 L (4.20-5.50) X10*6/uL Hgb 12.1 (12.0-16.0) g/dl Hct 35.8 L (37.0-47.0) % MCV 99.7 H (80.0-98.0) fL MCH 33.7 H (27.0-33.0) pg MCHC 33.8 (31.0-35.0) g/dl RDW 12.0 (11.0-16.0) % Plt Count 207 (160-400) X10*3/uL MPV 8.9 L (9.4-12.3) fL Immature Gran % (Auto) 0.4 (0.0-0.4) % Neut % (Auto) 40.8 L (45-73) % Lymph % (Auto) 49.6 H (20-40) % [place] % (Auto) 6.9 (2-11) % Eos % (Auto) 1.8 (0-4) % Baso % (Auto) 0.5 (0-2) % Lymph # (Auto) 2.8 (1.2-4.9) X10*3/uL [place] # (Auto) 0.4 (0.1-1.2) X10*3/uL Eos # (Auto) 0.1 (0.0-0.4) X10*3/uL Baso # (Auto) 0.0 (0.0-0.2) X10*3/uL Abs Immat Gran (auto) 0.02 (0.00-0.03) X10*3/uL Absolute Neuts (auto) 2.3 (2.0-8.3) x10*3/uL Absolute Nucleated RBC 0.000 (0.0-0.012) X10*3/uL Nucleated RBC % (auto) 0.0 (0.0-0.2) /100WBC Sodium 143 (135-145) mmol/L Potassium 4.7 (3.3-5.1) mmol/L Chloride 110 H (96-108) mmol/L Carbon Dioxide 23 (22-29) mmol/L Anion Gap 15 (12-20) BUN 10 (9-16) mg/dL Creatinine 0.75 (0.5-1.4) mg/dL Estim Creat Clear Calc 104.2 Estimated GFR > 60 Random Glucose 84 (60-115) mg/dL Calcium 8.7 (8.4-10.2) mg/dL Total Bilirubin 0.2 (0.0-1.0) mg/dL AST 17 (5-31) U/L ALT 9 (0-31) U/L Alkaline Phosphatase 45 (39-117) U/L Total Protein 5.5 L (6.5-8.0) g/dL Albumin 3.5 (3.5-5.0) g/dL <Segundo Caban - Last Filed: 11/26/22 23:57> Discharge Plan Discharge Clinical Impression: Postoperative urinary retention <AMY Bailon - Last Filed: 11/26/22 20:05> Patient Disposition: Home, Self-Care <AMY Bailon - Last Filed: 11/26/22 20:05> Instructions: Acute Urinary Retention in Women (ED) <AMY Bailon - Last Filed: 11/26/22 20:05> Additional Instructions: Keep your anand catheter in place and follow up with urology as planned <AMY Bailon - Last Filed: 11/26/22 20:05> Prescriptions: No Action Vitron-C 65 mg iron- 125 mg tablet,delayed release (DR/EC) 1 tab PO BEDTIME Qty: 30 5RF fluticasone propionate [Flonase Allergy Relief] 50 mcg/actuation spray,suspension 1 spray intranasal BID 30 Days Qty: 16 3RF Rx Instructions: administer into each nostril pantoprazole 20 mg tablet,delayed release (DR/EC) 20 mg PO DAILY Qty: 90 0RF triamcinolone acetonide 0.1 % cream 1 appl topical DAILY 30 Days Qty: 80 0RF Rx Instructions: to elbow doxepin 75 mg capsule 1 - 2 cap PO BEDTIME clonazepam 2 mg tablet 2 mg PO TID trospium 60 mg capsule,extended release 24hr 60 mg PO DAILY lamotrigine 25 mg tablet 50 mg PO BID duloxetine [Cymbalta] 60 mg capsule,delayed release(DR/EC) 60 mg PO DAILY zolpidem 10 mg tablet 10 mg PO BEDTIME acetaminophen [Tylenol Extra Strength] 500 mg tablet 1,000 mg PO Q6H PRN (Reason: pain) Qty: 30 1RF albuterol sulfate 90 mcg/actuation HFA aerosol inhaler 2 puff inhalation Q4H PRN (Reason: Wheezing) multivitamin Tablet 1 tab PO DAILY calcium acetate 667 mg tablet 667 mg PO BEDTIME <AMY Bailon - Last Filed: 11/26/22 20:05>
--- NOTE | 2022-11-26 20:22 | PC.NURSE ---
PT STATES SHE PULLED CATHETER OUT HERSELF TODAY BC SHE FELT THE URGE TO URINATE BUT DIDN'T FEEL THAT ANYTHING WAS COMING OUT. C/O ONGOING SUPRAPUBIC PAIN & FEELING OF URINARY URGENCY.
[2022-11-26 22:03] VITALS: BP 185/98; PULSE 80; RESP 22; TEMP 36.9; O2SAT 100
[2022-11-26 22:29] LABS: MANUAL DIFF FLAG NO
[2022-11-26] MEDS: ondansetron HCL 4 MG/2 ML VIAL IVPUSH (22:29)
[2022-11-26] MEDS: 0.9 % Sodium Chloride 1,000 ML 999 ML IV (22:29)
[2022-11-26] MEDS: Morphine Sulfate 4 MG/ML CARTRIDGE IVPUSH (22:29)
[2022-11-26 22:30] LABS: Basophils Percent Auto 0.5 % (0-2); Eosinophils Absolute Auto 0.1 X10*3/uL (0.0-0.4); Eosinophils Percent Auto 1.8 % (0-4); Hematocrit 35.8 % (37.0-47.0); Hemoglobin 12.1 g/dl (12.0-16.0); Imm Gran Abs Auto 0.02 X10*3/uL (0.00-0.03); Imm Gran Pct Auto 0.4 % (0.0-0.4); Lymphocytes Absolute Auto 2.8 X10*3/uL (1.2-4.9); Lymphocytes Percent Auto 49.6 % (20-40); Mean Corpuscular HGB Conc 33.8 g/dl (31.0-35.0); Mean Corpuscular Hemoglobin 33.7 pg (27.0-33.0); Mean Corpuscular Volume 99.7 fL (80.0-98.0); Mean Platelet Volume 8.9 fL (9.4-12.3); Monocytes Absolute Auto 0.4 X10*3/uL (0.1-1.2); Monocytes Percent Auto 6.9 % (2-11); Neutrophils Absolute Auto 2.3 x10*3/uL (2.0-8.3); Neutrophils Percent Auto 40.8 % (45-73); Platelet Count 207 X10*3/uL (160-400); Red Blood Count 3.59 X10*6/uL (4.20-5.50); White Blood Count 5.7 X10*3/uL (4.8-10.8)
[2022-11-26 22:46] LABS: Alanine Aminotransferase 9 U/L (0-31); Albumin Level 3.5 g/dL (3.5-5.0); Alkaline Phosphatase 45 U/L (39-117); Anion Gap 15 (12-20); Aspartate Amino Transferase 17 U/L (5-31); Bilirubin Total 0.2 mg/dL (0.0-1.0); Blood Urea Nitrogen 10 mg/dL (9-16); Calcium 8.7 mg/dL (8.4-10.2); Carbon Dioxide 23 mmol/L (22-29); Chloride 110 mmol/L (96-108); Creatinine Clr Calc Pharmacy 104.2; Estimated Glomerular Filt Rate > 60; Glucose Random 84 mg/dL (60-115); Potassium 4.7 mmol/L (3.3-5.1); Sodium 143 mmol/L (135-145); Total Protein 5.5 g/dL (6.5-8.0)
--- NOTE | 2022-11-26 23:27 | PC.NURSE ---
Pt aox3 tearful at the bedside, crying stating somebody help me . Pt reports severe LUQ pain. Stomach guarding in position. MLP at bedside. IV line established on the R hand, labs drawn and sent. Medicated as ordered. 16F urine catheter put in place. 1000cc of clear dark yellow urine output. Pt tolerated well. Pt reports immediate relief upon anand insertion. MLP aware.
[2022-11-27 00:50] VITALS: BP 109/71; PULSE 74; RESP 14; TEMP 37; O2SAT 95
--- NOTE | 2022-11-27 01:01 | PC.NURSE ---
Pt aox4 resting at the bedside in no apparent distress. IV line removed with no complications. Pt tolerated well. Anand leg bag provided. Discharge instructions and education on anand care provided. Pt verbalizes understanding.
== END 2022-11-27 01:03 | disposition home or self-care (01) ==
PROVIDERS: Physician Assistant; Emergency Provider Emergency Medicine Emergency Medical Services; PCP Internal Medicine
DX: T83.028A Displacement of other urinary catheter, initial encounter (principal); T83.022A Displacement of nephrostomy catheter, initial encounter; R33.9 Retention of urine, unspecified; Y73.2 Prosthetic and other implants, materials and accessory gastroenterology and urology devices associated with adverse incidents; Y92.9 Unspecified place or not applicable; Z79.899 Other long term (current) drug therapy
CPT/HCPCS: 36415; 51702; 74018; 80053; 85025; 96361; 96374; 96375; 96376; 99285; J2270; J2405

== ENCOUNTER → 2023-03-01 12:31 | Outpatient (BNVA) | payer OTHER, SELFPAY | PROVIDERS: PCP Internal Medicine; Visit Provider Physician Assistant | DX: M17.11 Unilateral primary osteoarthritis, right knee (principal) | CPT/HCPCS: 20610; 99212; J1040 ==

== ENCOUNTER 2023-04-25 12:25 | Outpatient (AMB) | payer OTHER, SELFPAY ==
--- NOTE | 2023-04-25 12:30 | A.OFFVIS_ITS ---
Intake VS Expanded 04/25/23 12:51 Height 5 ft 5 in Weight 224 lb BMI 37.3 BP 134/78 Blood Pressure Location Rt brachial Blood Pressure Position Sitting Pulse 91 Pulse Source Pulse Oximeter Temp 97.7 F Temperature Source Temporal Artery Scan Pulse Oximetry 96 Oxygen Delivery Method Room Air Body Fat 105.6 Body Fat Percentage 47.1 Free Fat Mass 118.4 Muscle Mass 112.4 Visceral Mass 12.0 Water Mass 84.4 BMR 1,679 Intake Visit Reasons: (OV) PO LSG 04/20/21 Allergies droperidol [From INAPSINE] Allergy (Severe, Verified 04/25/23 12:48) ANGIOEDEMA, THROAT SWELLING lithium Allergy (Unknown, Verified 04/25/23 12:48) unknown quetiapine [Seroquel] Adverse Reaction (Intermediate, Verified 04/25/23 12:48) weight gain, sleep walking fresh fruit Allergy (Intermediate, Uncoded 03/01/23 12:44) oral swelling/itching Medication List - Last Reconciled 04/25/23 by AMY Schulte acetaminophen (Tylenol Extra Strength) 1,000 mg (2 x 500 mg) PO Q6H PRN albuterol sulfate 90 mcg/actuation 2 puffs inhalation Q4H PRN calcium acetate 667 mg PO BEDTIME clonazepam 2 mg PO TID doxepin 150 mg PO BEDTIME duloxetine (Cymbalta) 60 mg PO DAILY fluticasone propionate 50 mcg/actuation (Flonase Allergy Relief) 1 spray intranasal BID 30 days iron,carbonyl-vitamin C 65 mg iron- 125 mg (Vitron-C) 1 tab PO BEDTIME lamotrigine 50 mg PO BID [Medial [employer] Agent Knee brace n/a] multivitamin 1 tab PO DAILY pantoprazole 20 mg PO DAILY triamcinolone acetonide 0.1% 1 appl topical DAILY 30 days trospium ER 60 mg PO DAILY zolpidem 10 mg PO BEDTIME HPI HPI Comments History of Present Illness Details This?is a?47?yo female who is s/p LSG 04/20/2021. Presents for 2 year post op visit. Weight at last visit on 06/26/2022 was 203.4 pounds with a BMI of 33.8, weight today is 224 pounds, representing a 20.6 pound weight gain with a BMI today of 37.3.? No complaints of nausea, emesis, or constipation. Reports I went through some stuff. Reports her suicide attempt and increased drinking. Reports increased pain, 15-20min often after eating. In epigastric area. No diarrhea, no nausea, no vomiting. Does not feel like reflux. Does not currently smoke. Last time she had alcohol was prior to hospitalization/sectioned January 18. Thinks the pain is probably related to the way she has been eating Present meal plan includes: has not been on a meal plan restarted MVI Exercise routine includes: going to the gym again for strength and cardio Did the patient ever have any of these conditions and are they resolved or still being treated? GERD: controlled on PPI BENI:? never DM:? never HTN:? never Hyperlipidemia:? never Post op complications:? none PFSH Medical History Acute sinusitis Anxiety Arthritis Asthma Back pain, chronic Bipolar 1 disorder Body mass index (BMI) of 40.0 to 44.9 in adult Depression Dysuria Dysuria Environmental allergies Fibromyalgia GERD (gastroesophageal reflux disease) Hiatal hernia History of spinal cord injury Hx of renal calculi IBS (irritable bowel syndrome) Internal derangement of knee Laceration of head Morbid obesity due to excess calories Neurogenic bladder Neurogenic bladder Neuropathy Osteosclerosis Otitis media Preoperative examination PTSD (post-traumatic stress disorder) Recurrent urinary tract infection Shortness of breath Sinusitis chronic, frontal Substance abuse Torn ACL Urinary incontinence Urinary incontinence Surgical History H/O dilation and curettage H/O tubal ligation H/O wisdom tooth extraction History of fusion of lumbar spine History of repair of hiatal hernia History of sleeve gastrectomy History of ureter stent Hx of hysterectomy Status post left foot surgery Family History Father Substance use disorder Mental health disorder Mother HTN (hypertension) Stroke Paternal Grandfather No problems noted. Paternal Grandmother Lung cancer Maternal Grandfather Melanoma Maternal Grandmother No problems noted. Brother Substance use disorder Mental health disorder Brother No problems noted. Brother No problems noted. Sister No problems noted. Son No problems noted. Son No problems noted. Daughter No problems noted. Daughter No problems noted. Daughter No problems noted. Maternal Aunt Substance use disorder Social History Household Members: None Housing: Apartment Are you a primary nursing care partner to a significant other at home: No Do you presently have visiting nurse or other home services: No Alcohol intake: former Year quit: 2021 Patient Tobacco Use Status: Never used Tobacco e-Cigarette/Vaping Use: Never Used Substance Use Type: Crack/Cocaine and Former Substance User service: No Current occupational status: disabled Cognitive needs: No Hearing needs: No Vision needs: Yes Physical Exam Vital Signs: Last Vital Signs Temp 97.7 F 04/25/23 12:51 Pulse 91 04/25/23 12:51 BP 134/78 04/25/23 12:51 Pulse Ox 96 04/25/23 12:51 Oxygen Delivery Method Room Air 04/25/23 12:51 BMI result Body Mass Index 37.3 Const General: cooperative, comfortable and no acute distress Orientation/consciousness: patient oriented x3 GI Other: soft, nontender, nondistended, incisions well healed, no hernia, no masses Neuro General: patient oriented x3 Assessment & Plan Assessment & Plan (1) History of sleeve gastrectomy: Code(s): Z90.3 - Acquired absence of stomach [part of] (2) Obesity with body mass index (BMI) of 30.0 to 39.9: Code(s): E66.9 - Obesity, unspecified Plan Discussed restarting a meal plan with adequate protein intake, proper portion sizes and eating/drinking slowly. Pt will also keep a diary of pain episodes and what she ate/drank prior to onset of pain. 2 Premier shakes per day (take 2 hours to drink) 1 Urdu yogurt 1 meal of 2oz protein, 2oz cooked veg (like 2 scrambled eggs or 4 forks of meat) Labs ordered. RTC 6-8 weeks to monitor improvement in pain. Texted meal plan to pt and encouraged her to reach out with any questions. Patient is obese and is not considered stable at this time. I spent a total of 30 minutes reviewing/updating records, examining the patient and counseling the patient on weight management as detailed above. Orders: Orders Vitamin B12 and Folate Today Z90.3 - Acquired absence of stomach [part of] Comprehensive Met. Panel Today Z90.3 - Acquired absence of stomach [part of] C Reactive Protein Today Z90.3 - Acquired absence of stomach [part of] Ferritin Today Z90.3 - Acquired absence of stomach [part of] Hemoglobin A1c Today Z90.3 - Acquired absence of stomach [part of] Insulin Today Z90.3 - Acquired absence of stomach [part of] IRON PROFILE Today Z90.3 - Acquired absence of stomach [part of] Lipid Panel Today Z90.3 - Acquired absence of stomach [part of] PTHI Today Z90.3 - Acquired absence of stomach [part of] TSH reflex Free T4 Today Z90.3 - Acquired absence of stomach [part of] Vitamin A Today Z90.3 - Acquired absence of stomach [part of] Vitamin B1 Today Z90.3 - Acquired absence of stomach [part of] Vitamin D 25-OH Total Today Z90.3 - Acquired absence of stomach [part of] Zinc Today Z90.3 - Acquired absence of stomach [part of] Complete Blood Count Auto Diff Today Z90.3 - Acquired absence of stomach [part of] Coding Level of Care Code Est Pt Level 4 (55164) Diagnoses History of sleeve gastrectomy Z90.3 Obesity with body mass index (BMI) of 30.0 to 39.9 E66.9
[2023-04-25 12:51] VITALS: BP 134/78; PULSE 91; TEMP 36.5; O2SAT 96; BMI 37.3
== END 2023-04-25 13:16 | disposition home or self-care (01) ==
PROVIDERS: PCP Internal Medicine; Visit Provider Physician Assistant Surgical
DX: E66.9 Obesity, unspecified (principal); Z68.37 Body mass index [BMI] 37.0-37.9, adult; Z90.3 Acquired absence of stomach [part of]; Z98.84 Bariatric surgery status
CPT/HCPCS: 99214

== ENCOUNTER → 2023-04-25 12:25 | Outpatient (BNVA) | payer OTHER, SELFPAY | PROVIDERS: PCP Internal Medicine; Visit Provider Physician Assistant Surgical | DX: E66.9 Obesity, unspecified (principal); Z68.37 Body mass index [BMI] 37.0-37.9, adult; Z98.84 Bariatric surgery status; Z90.3 Acquired absence of stomach [part of] | CPT/HCPCS: 99212 ==

== ENCOUNTER 2023-05-09 14:08 | Outpatient (AMB) | payer OTHER, SELFPAY ==
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
[2023-05-09 14:12] VITALS: BP 122/80; PULSE 66; O2SAT 98; BMI 36.8
== END 2023-05-09 15:24 | disposition home or self-care (01) ==
PROVIDERS: PCP Internal Medicine; Visit Provider Internal Medicine
DX: M17.31 Unilateral post-traumatic osteoarthritis, right knee (principal); F33.41 Major depressive disorder, recurrent, in partial remission; E66.01 Morbid (severe) obesity due to excess calories; Z68.36 Body mass index [BMI] 36.0-36.9, adult; F39 Unspecified mood [affective] disorder; Z91.51 Personal history of suicidal behavior; M96.1 Postlaminectomy syndrome, not elsewhere classified; N31.9 Neuromuscular dysfunction of bladder, unspecified; R15.9 Full incontinence of feces
CPT/HCPCS: 99214

== ENCOUNTER 2023-05-09 14:31 | Outpatient (REF) | payer OTHER, SELFPAY ==
[2023-05-09 17:14] LABS: MANUAL DIFF FLAG NO
[2023-05-09 17:18] LABS: Basophils Percent Auto 0.7 % (0-2); Eosinophils Absolute Auto 0.2 X10*3/uL (0.0-0.4); Eosinophils Percent Auto 3.4 % (0-4); Hematocrit 45.2 % (37.0-47.0); Hemoglobin 14.8 g/dl (12.0-16.0); Imm Gran Abs Auto 0.01 X10*3/uL (0.00-0.03); Imm Gran Pct Auto 0.2 % (0.0-0.4); Lymphocytes Absolute Auto 1.6 X10*3/uL (1.2-4.9); Mean Corpuscular HGB Conc 32.7 g/dl (31.0-35.0); Mean Corpuscular Volume 100.7 fL (80.0-98.0); Mean Platelet Volume 9.3 fL (9.4-12.3); Monocytes Absolute Auto 0.3 X10*3/uL (0.1-1.2); Neutrophils Absolute Auto 2.3 x10*3/uL (2.0-8.3); Neutrophils Percent Auto 51.7 % (45-73); Platelet Count 284 X10*3/uL (160-400); Red Blood Count 4.49 X10*6/uL (4.20-5.50); Red Cell Distribution Width 12.5 % (11.0-16.0); White Blood Count 4.4 X10*3/uL (4.8-10.8)
[2023-05-09 17:35] LABS: Estimated Average Glucose 94 mg/dL; Hemoglobin A1c % 4.9 % (<6.0)
[2023-05-09 18:06] LABS: Alanine Aminotransferase 24 U/L (0-31); Albumin Level 4.2 g/dL (3.5-5.0); Alkaline Phosphatase 75 U/L (39-117); Anion Gap 11 (12-20); Aspartate Amino Transferase 16 U/L (5-31); Bilirubin Total 0.6 mg/dL (0.0-1.0); Blood Urea Nitrogen 16 mg/dL (9-16); C Reactive Protein 0.51 mg/dL (< or = 0.50); Calcium 9.8 mg/dL (8.4-10.2); Carbon Dioxide 24 mmol/L (22-29); Chloride 109 mmol/L (96-108); Cholesterol 191 mg/dL (<200); Estimated Glomerular Filt Rate > 60; Glucose Random 131 mg/dL (60-115); HDL Cholesterol 85 mg/dL (>40); Iron 102 mcg/dL (30-160); LDL Cholesterol Calculated 94 mg/dL (<100); Percent Iron Saturation 38 % (15-50); Potassium 3.9 mmol/L (3.3-5.1); Sodium 140 mmol/L (135-145); Total Iron Binding Capacity 267 mcg/dL (228-428); Total Protein 6.8 g/dL (6.5-8.0); Triglycerides 64 mg/dL (<150); Unsaturated Iron Binding 165 ug/dL
[2023-05-09 18:13] LABS: Ferritin 76 ng/mL (10-250); Insulin 11 uU/mL (2-29); TSH reflex Free T4 0.92 uIU/mL (0.32-4.0); Vitamin D 25-OH Total 72.8 ng/mL (>30)
[2023-05-09 18:22] LABS: Folate 16.7 ng/mL (> or = 4.0); Vitamin B12 1099 pg/mL (200-900)
[2023-05-11 15:42] LABS: Calcium (PTHI) 9.6 mg/dL (8.6-10.2); PTHI 40 pg/mL (16-77)
[2023-05-15 16:28] LABS: Vitamin B1 54 nmol/L (8-30)
[2023-05-16 01:09] LABS: Zinc 103 mcg/dL (60-130)
[2023-05-16 22:49] LABS: Vitamin A 79 mcg/dL (38-98)
== END 2023-05-09 14:32 | disposition home or self-care (01) ==
LOC: HO.HMGCLDS 14:31
PROVIDERS: PCP Internal Medicine; Visit Provider Physician Assistant Surgical
DX: Z90.3 Acquired absence of stomach [part of] (principal)
CPT/HCPCS: 36415; 80053; 80061; 82306; 82607; 82728; 82746; 83036; 83525; 83540; 83970; 84425; 84443; 84590; 84630; 85025; 86140

== ENCOUNTER 2023-06-11 14:33 | Outpatient (AMB) | payer OTHER, SELFPAY ==
[2023-06-11 14:37] VITALS: BP 110/80; PULSE 72; O2SAT 96; BMI 37.5
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
== END 2023-06-11 15:06 | disposition home or self-care (01) ==
PROVIDERS: Visit Provider Psychiatry & Neurology Neurology
DX: R55 Syncope and collapse (principal); G47.10 Hypersomnia, unspecified; G47.00 Insomnia, unspecified; R06.83 Snoring
CPT/HCPCS: 99204

== ENCOUNTER → 2023-06-11 14:33 | Outpatient (BNVA) | payer OTHER, SELFPAY | PROVIDERS: Visit Provider Psychiatry & Neurology Neurology ==

== ENCOUNTER 2023-06-28 12:53 | Outpatient (REF) | payer OTHER, SELFPAY ==
--- NOTE | 2023-06-28 12:56 | EEG_ITS ---
This is a 16 channel digital EEG. The patient is reported awake during the tracing. Background EEG rhythm is 16 to 20 hertz, 5 to 70 microvolt posteriorly and lower amplitude fast anteriorly. Photic stimulation and hyperventilation were not performed. Intermittently, left temporal sharply contoured theta and sharp waves were noted with occasional phase reversal at T5. Cardiac lead did not reveal any significant abnormality. IMPRESSION: Abnormal EEG suggestive of left temporal irritability. MD JUAN Durand/CHENG / [id number]
== END 2023-06-28 12:54 | disposition home or self-care (01) ==
LOC: HO.NEURO 12:53
PROVIDERS: PCP Internal Medicine; Visit Provider Psychiatry & Neurology Neurology
DX: R55 Syncope and collapse (principal)
CPT/HCPCS: 95816

== ENCOUNTER 2023-07-03 14:29 | Outpatient (AMB) | payer OTHER, SELFPAY ==
--- NOTE | 2023-07-03 14:36 | A.OFFPC_ITS ---
Vital Signs 07/03/23 14:37 Height 5 ft 5 in Weight 222 lb 4 oz BMI 37.0 BP 122/74 Blood Pressure Location Rt brachial Position Sitting Pulse 85 Pulse Source Pulse Oximeter Pulse Oximetry (%) 97 Oxygen Delivery Method Room Air Intake Visit Reasons: PE Allergies droperidol [From INAPSINE] Allergy (Severe, Verified 07/03/23 14:37) ANGIOEDEMA, THROAT SWELLING lithium Allergy (Unknown, Verified 07/03/23 14:37) unknown quetiapine [Seroquel] Adverse Reaction (Intermediate, Verified 07/03/23 14:37) weight gain, sleep walking fresh fruit Allergy (Intermediate, Uncoded 06/11/23 14:38) oral swelling/itching Medication List - Last Reconciled 07/03/23 by Arnaud Carbone MD acetaminophen (Tylenol Extra Strength) 1,000 mg (2 x 500 mg) PO Q6H PRN albuterol sulfate 90 mcg/actuation 2 puffs inhalation Q4H PRN calcium acetate 667 mg PO BEDTIME clonazepam 2 mg PO TID doxepin 150 mg PO BEDTIME duloxetine (Cymbalta) 60 mg PO DAILY fluticasone propionate 50 mcg/actuation (Flonase Allergy Relief) 1 spray intranasal BID 30 days iron,carbonyl-vitamin C 65 mg iron- 125 mg (Vitron-C) 1 tab PO BEDTIME lamotrigine 50 mg PO BID [Medial Frozen Pie Maker Knee brace n/a] multivitamin 1 tab PO DAILY pantoprazole 20 mg PO DAILY triamcinolone acetonide 0.1% 1 appl topical DAILY 30 days zolpidem 10 mg PO BEDTIME Tobacco use date assessed: 07/03/23 Dental Screening Dental Screen Date: 07/03/23 Did you have a dental visit in the last 12 months?: Yes Did you have a dental problem in the last 6 months where you did not have access to dental care?: No Was dental information given to patient?: Patient has dentist HPI PE HPI Details Patient is a 47-year-old female came in today for physical exam Patient have a history of injury to her back and has developed neurogenic bladder She is using Pads for incontinence, she is also seeing Urogynecology for ongoing maintenance Patient has started seeing weight loss program [facility], labs were ordered in April which I reviewed with the patient She has appointment coming up for mammogram History of hysterectomy due to benign reason Patient suffer from chronic back pain and also bilateral shoulder pain with limited range of motion in both shoulders She suffers from severe depression and is seeing of psychiatrist for management Follow-up 6 months and physical exam 1 year [facility] Medical History Hypersomnia Insomnia Snoring Laceration of head Back pain, chronic GERD (gastroesophageal reflux disease) Hx of renal calculi Preoperative examination Internal derangement of knee Substance abuse Dysuria Urinary incontinence Environmental allergies Neurogenic bladder Acute sinusitis Shortness of breath Dysuria Sinusitis chronic, frontal Otitis media Body mass index (BMI) of 40.0 to 44.9 in adult Morbid obesity due to excess calories Osteosclerosis Arthritis Torn ACL IBS (irritable bowel syndrome) PTSD (post-traumatic stress disorder) Bipolar 1 disorder Recurrent urinary tract infection Fibromyalgia Urinary incontinence Neurogenic bladder History of spinal cord injury Neuropathy Hiatal hernia Anxiety Depression Asthma Surgical History Hx of hysterectomy History of repair of hiatal hernia History of sleeve gastrectomy History of ureter stent Status post left foot surgery H/O tubal ligation H/O wisdom tooth extraction H/O dilation and curettage History of fusion of lumbar spine Family History Father Substance use disorder Mental health disorder Mother HTN (hypertension) Stroke Paternal Grandfather No problems noted. Paternal Grandmother Lung cancer Maternal Grandfather Melanoma Maternal Grandmother No problems noted. Brother Substance use disorder Mental health disorder Brother No problems noted. Brother No problems noted. Sister No problems noted. Son No problems noted. Son No problems noted. Daughter No problems noted. Daughter No problems noted. Daughter No problems noted. Maternal Aunt Substance use disorder Social History Household Members: None Housing: Apartment Are you a primary geriatric personal care aide to a significant other at home: No Do you presently have visiting nurse or other home services: No Alcohol intake: former Year quit: 2021 Patient Tobacco Use Status: Never used Tobacco e-Cigarette/Vaping Use: Never Used Substance Use Type: Crack/Cocaine and Former Substance User service: No Current occupational status: disabled Cognitive needs: No Hearing needs: No Vision needs: Yes Questionnaire PHQ-9 Over the last 2 weeks, how often have you been bothered by any of the following problems? 1. Little interest or pleasure in doing things: nearly every day 2. Feeling down, depressed, or hopeless: several days 3. Trouble falling or staying asleep, or sleeping too much: more than half the days 4. Feeling tired or having little energy: more than half the days 5. Poor appetite or overeating: more than half the days 6. Feeling bad about yourself - or that you are a failure or have let yourself or your family down: more than half the days 7. Trouble concentrating on things, such as reading the newspaper or watching television: several days 8. Moving or speaking so slowly that other people could have noticed. Or the opposite - being so fidgety or restless that you have been moving around a lot more than usual: not at all 9. Thoughts that you would be better off or of hurting yourself in some way: not at all Total score: 13 Depression Screening Interpretation: Positive Depression Screening Follow-up: Existing condition and In treatment Depression Screening Done: Yes 40633 - PHQ-9 Billing: Yes Source: Developed by Drs. Sanya Ornelas, Nafisa Baker, Kayden Granado and colleagues, with an educational imer from [employer]. Thrive Questionnaire Date Thrive assessed: 05/31/22 JO-7 AMB Questionnaire JO-7 Date JO - 7 assessed: 07/03/23 Feeling nervous, anxious, or on edge: 1 = Several days Not being able to stop or control worryin = Several days Worrying too much about different things: 1 = Several days Trouble relaxin = Several days Being so restless that it is hard to sit still: 1 = Several days Becoming easily annoyed or irritable: 1 = Several days Feeling afraid as if something awful might happen: 1 = Several days Total JO-7 score (0-4 normal; 5-9 mild; 10-14 moderate; 15-21 severe): 7 Source: Developed by Drs. Sanya Ornelas, Kayden Lopez and colleagues, with an educational imer from [employer]. JO-7 Assessment Billing JO-7 Assessment Tool: JO-7 Assessment 59829 Review of Systems Const Denies chills, Denies fever(s) and Denies headache(s) Eyes Denies blurry vision ENT Denies headache(s), Denies nasal discharge, Denies nasal obstruction, Denies odynophagia and Denies sinus pain Card Denies chest pain at rest and Denies chest pain with activity Resp Denies cough and Denies hemoptysis GI Denies odynophagia, Denies vomiting and Denies hematemesis Reports as per HPI Musc Denies abnormal gait Skin/Breast Reports as per HPI Neuro Denies Neuro-related abnormal movements, Denies Abnormal speech present, Denies abnormal gait and Denies headache(s) Psych Denies mood swings and Denies paranoia Endo Reports as per HPI Shawn/Lymph Reports as per HPI Aller/Immun Reports as per HPI Physical exam (Primary Care) Vital Signs: Last Vital Signs Pulse 85 07/03/23 14:37 BP 122/74 07/03/23 14:37 Pulse Ox 97 07/03/23 14:37 Oxygen Delivery Method Room Air 07/03/23 14:37 BMI result Body Mass Index 37.0 Tobacco/Smoking Status: Tobacco use Status Tobacco use date assessed 07/03/23 07/03/23 14:38 Patient Tobacco Use Status Never used Tobacco 07/03/23 14:38 e-Cigarette/Vaping Use Never Used 07/03/23 14:38 PHQ-9: PHQ-9 Score PHQ-9: Total score 13 07/03/23 15:02 Depression Screening Interpretation: Positive Depression Screening Follow-up: Existing condition and In treatment Thrive Assessment: Date of Thrive Assessment Date Thrive assessed 05/31/22 07/03/23 14:38 Const General: cooperative, comfortable and no acute distress Orientation/consciousness: patient oriented x3 HENMT Head: Yes normocephalic and Yes atraumatic Eyes General: appearance normal, both eyes and all related structures Pupils: Equal, round and reactive pupils present EOM: EOMs intact bilaterally Neck Neck: Yes supple and No lymphadenopathy Thyroid: Thyroid normal Lymphatic: no lymphadenopathy noted Chest Breast/axilla palpation: normal palpation of the breasts Resp Effort & Inspection: normal respiratory effort and able to speak in complete sentences Auscultation: clear to auscultation bilaterally Cardio Heart sounds: S1 normal heart sound present and S2 normal heart sound present GI Palpation (GI): Soft to palpation and nontender Auscultation: normal bowel sounds Skin General skin exam: elasticity normal and turgor normal Neuro General: patient oriented x3 and gait normal Cranial nerves: Yes Equal, round and reactive pupils present Speech: No Abnormal speech present Coordination: Romberg test negative Extrem General: Yes normal exam except as noted and No edema Results AMB Urinalysis, Automated UA Leukoctes 0 Sami/uL Last Edit by Lon Driscoll CMA on 07/03/23 15:06 UA Nitrite Negative Last Edit by Lon Driscoll CMA on 07/03/23 15:06 UA Urobilinogen 0.2 mg/dL Last Edit by Lon Driscoll CMA on 07/03/23 15 :06 UA Protein 0 mg/dL Last Edit by Lon Driscoll CMA on 07/03/23 15:06 UA pH 6.0 Last Edit by Lon Driscoll CMA on 07/03/23 15:06 UA Blood 0 Henrik/uL Last Edit by Lon Driscoll CMA on 07/03/23 15:06 UA Specific [place] 1.025 Last Edit by Lon Driscoll CMA on 07/03/23 15:06 UA Ketone Negative Last Edit by Lon Driscoll CMA on 07/03/23 15:06 UA Bilirubin 1 mg/dL Last Edit by Lon Driscoll CMA on 07/03/23 15:06 UA Glucose 0 mg/dL Last Edit by Lon Driscoll CMA on 07/03/23 15:06 Results Reviewed Results Reviewed: Laboratory Last Values Urine pH (Auto) 6.0 07/03/23 15:05 Specific [place] (Auto) 1.025 07/03/23 15:05 Urine Protein (Auto) 0 mg/dL 07/03/23 15:05 Glucose (UA)(Auto) 0 mg/dL 07/03/23 15:05 Urine Ketones (Auto) Negative 07/03/23 15:05 Urine Blood (Auto) 0 Henrik/uL 07/03/23 15:05 Urine Nitrite (Auto) Negative 07/03/23 15:05 Urine Bilirubin (Auto) 1 mg/dL 07/03/23 15:05 Urine Urobilinogen (Auto) 0.2 mg/dL 07/03/23 15:05 Leukocyte Esterase (Auto) 0 Sami/uL 07/03/23 15:05 Assessment and Plan Assessment & Plan (1) Encounter for general adult medical examination with abnormal findings: Code(s): Z00.01 - Encounter for general adult medical examination with abnormal findings (2) Major depression, recurrent: Code(s): F33.9 - Major depressive disorder, recurrent, unspecified Qualifiers: Active/Remission status: in partial remission Qualified Code(s): F33.41 - Major depressive disorder, recurrent, in partial remission (3) Obesity due to excess calories: Code(s): E66.09 - Other obesity due to excess calories Qualifiers: Body mass index: BMI 36.0-36.9 Obesity classification: adult class 2 (BMI 35 - 39.9) Serious obesity comorbidity presence: with serious comorbidity Qualified Code(s): E66.01 - Morbid (severe) obesity due to excess calories; Z68.36 - Body mass index [BMI] 36.0-36.9, adult (4) Functional fecal incontinence: Code(s): R15.9 - Full incontinence of feces (5) Failed back syndrome of lumbar spine: Code(s): M96.1 - Postlaminectomy syndrome, not elsewhere classified (6) Back pain, chronic: Code(s): M54.9 - Dorsalgia, unspecified; G89.29 - Other chronic pain Qualifiers: Back pain laterality: bilateral Back pain location: low back pain Sciatica laterality: bilateral sciatica Sciatica presence: with sciatica Qualified Code(s): M54.42 - Lumbago with sciatica, left side; M54.41 - Lumbago with sciatica, right side; G89.29 - Other chronic pain (7) Neurogenic bladder: Code(s): N31.9 - Neuromuscular dysfunction of bladder, unspecified Plan Patient is a 47-year-old female came in today for physical exam Patient have a history of injury to her back and has developed neurogenic bladder , and she has feel tandem walk as patient says that She does not have good sensations in her feet after the injury of her back. She is using Pads for urinary incontinence, patient says that every time she goes to bathroom she has to change the pad, and that is about 7 or 8 times a day. she is also seeing Urogynecology for ongoing maintenance Patient has started seeing weight loss program [facility], labs were ordered in April which I reviewed with the patient She has appointment coming up for mammogram History of hysterectomy due to benign reason Patient suffer from chronic back pain and also bilateral shoulder pain with limited range of motion in both shoulders She suffers from severe depression and is seeing of psychiatrist for management Follow-up 6 months and physical exam 1 year Orders: Orders MM tomosynthesis screening BI Today Z12.31 - Encounter for screening mammogram for malignant neoplasm of breast AMB Urinalysis Automated Today Z13.9 - Encounter for screening, unspecified Coding Level of Care Code Est Pt Prev Care 40-64y(31463) Diagnoses Encounter for general adult medical examination with abnormal findings Z00.01 Recurrent major depressive disorder, in partial remission F33.41 Active/Remission status: in partial remission Class 2 severe obesity due to excess calories with serious comorbidity and body mass index (BMI) of 36.0 to 36.9 in adult E66.01; Z68.36 Body mass index: BMI 36.0-36.9 Obesity classification: adult class 2 (BMI 35 - 39.9) Serious obesity comorbidity presence: with serious comorbidity Functional fecal incontinence R15.9 Failed back syndrome of lumbar spine M96.1 Chronic bilateral low back pain with bilateral sciatica M54.42; M54.41; G89.29 Back pain laterality: bilateral Back pain location: low back pain Sciatica laterality: bilateral sciatica Sciatica presence: with sciatica Neurogenic bladder N31.9 Additional Codes JO-7 Assessment Billing - JO-7 Assessment Tool: JO-7 Assessment [id number] ([id number])
[2023-07-03 14:37] VITALS: BP 122/74; PULSE 85; O2SAT 97; BMI 37.0
== END 2023-07-03 15:37 | disposition home or self-care (01) ==
PROVIDERS: Visit Provider Internal Medicine
DX: Z00.00 Encounter for general adult medical examination without abnormal findings (principal); F33.41 Major depressive disorder, recurrent, in partial remission; E66.01 Morbid (severe) obesity due to excess calories; Z68.36 Body mass index [BMI] 36.0-36.9, adult; R15.9 Full incontinence of feces; M96.1 Postlaminectomy syndrome, not elsewhere classified; M54.42 Lumbago with sciatica, left side; M54.41 Lumbago with sciatica, right side; G89.29 Other chronic pain; N31.9 Neuromuscular dysfunction of bladder, unspecified
CPT/HCPCS: 81003; 99396

== ENCOUNTER 2023-08-07 08:14 | Outpatient (AMB) | payer OTHER, SELFPAY ==
--- NOTE | 2023-08-07 08:28 | MHC.OFFWIV ---
Intake Vital Signs 08/07/23 08:30 Height 5 ft 5 in Weight 224 lb BMI 37.3 BP 100/70 Blood Pressure Location Rt brachial Position Sitting Pulse 87 Pulse Source Pulse Oximeter Temp 97.8 F Temp Source Oral Pulse Oximetry (%) 99 Oxygen Delivery Method Room Air Intake Visit Reasons: EP Post COVID + 07/21 not better (masked) Intake Note: Pt is here today post COVID sx's: coughing,fatigue and head congestion Patient Tobacco Use Status: Never used Tobacco Allergies droperidol [From INAPSINE] Allergy (Severe, Verified 08/07/23 08:31) ANGIOEDEMA, THROAT SWELLING lithium Allergy (Unknown, Verified 08/07/23 08:31) unknown quetiapine [Seroquel] Adverse Reaction (Intermediate, Verified 08/07/23 08:31) weight gain, sleep walking fresh fruit Allergy (Intermediate, Uncoded 08/07/23 08:31) oral swelling/itching Medication List - Last Reconciled 08/07/23 by Jonathan Su MD acetaminophen (Tylenol Extra Strength) 1,000 mg (2 x 500 mg) PO Q6H PRN albuterol sulfate 90 mcg/actuation 2 puffs inhalation Q4H PRN calcium acetate 667 mg PO BEDTIME clonazepam 2 mg PO TID doxepin 150 mg PO BEDTIME duloxetine (Cymbalta) 60 mg PO DAILY fluticasone propionate 50 mcg/actuation (Flonase Allergy Relief) 1 spray intranasal BID 30 days iron,carbonyl-vitamin C 65 mg iron- 125 mg (Vitron-C) 1 tab PO BEDTIME lamotrigine 50 mg PO BID [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 Patient tested positive for COVID on July 21. Subsequently she she is been feeling sick with symptoms of cough, shortness of breath and headache. She is completed the 5 days of Paxlovid. She has some improvement in symptoms but continues to have an irritating cough. No fever. [facility] Medical History Hypersomnia Insomnia Snoring Laceration of head Back pain, chronic GERD (gastroesophageal reflux disease) Hx of renal calculi Preoperative examination Internal derangement of knee Substance abuse Dysuria Urinary incontinence Environmental allergies Neurogenic bladder Acute sinusitis Shortness of breath Dysuria Sinusitis chronic, frontal Otitis media Body mass index (BMI) of 40.0 to 44.9 in adult Morbid obesity due to excess calories Osteosclerosis Arthritis Torn ACL IBS (irritable bowel syndrome) PTSD (post-traumatic stress disorder) Bipolar 1 disorder Recurrent urinary tract infection Fibromyalgia Urinary incontinence Neurogenic bladder History of spinal cord injury Neuropathy Hiatal hernia Anxiety Depression Asthma Surgical History Hx of hysterectomy History of repair of hiatal hernia History of sleeve gastrectomy History of ureter stent Status post left foot surgery H/O tubal ligation H/O wisdom tooth extraction H/O dilation and curettage History of fusion of lumbar spine Family History Father Substance use disorder Mental health disorder Mother HTN (hypertension) Stroke Paternal Grandfather No problems noted. Paternal Grandmother Lung cancer Maternal Grandfather Melanoma Maternal Grandmother No problems noted. Brother Substance use disorder Mental health disorder Brother No problems noted. Brother No problems noted. Sister No problems noted. Son No problems noted. Son No problems noted. Daughter No problems noted. Daughter No problems noted. Daughter No problems noted. Maternal Aunt Substance use disorder Household Members: None Housing: Apartment Are you a primary manager urgent care to a significant other at home: No Do you presently have visiting nurse or other home services: No Alcohol intake: former Year quit: 2021 Patient Tobacco Use Status: Never used Tobacco e-Cigarette/Vaping Use: Never Used Substance Use Type: Crack/Cocaine and Former Substance User service: No Current occupational status: disabled Cognitive needs: No Hearing needs: No Vision needs: Yes Physical Exam Vital Signs: Last Vital Signs Temp 97.8 F 08/07/23 08:30 Pulse 87 08/07/23 08:30 BP 100/70 08/07/23 08:30 Pulse Ox 99 08/07/23 08:30 Oxygen Delivery Method Room Air 08/07/23 08:30 BMI result Body Mass Index 37.3 Const General: cooperative and healthy appearing Nutritional Appearance: well nourished Orientation/consciousness: patient oriented x3 Limitations: no limitations HEENT Head: Yes normal to inspection Eyes General: appearance normal, both eyes and all related structures Neck Neck: Yes normal visual inspection Chest Chest palpation & inspection: normal palpation of entire chest wall Resp Effort & Inspection: normal respiratory effort Neuro General: patient oriented x3 Assessment & Plan Assessment & Plan (1) Upper respiratory tract infection: Code(s): J06.9 - Acute upper respiratory infection, unspecified Plan: Chest x-ray reviewed. No infiltrate seen. Prednisone added to the regimen. Reassurance. Orders: Orders XR chest 2V Today R05.9 - Cough, unspecified Medications: New prednisone 60 mg (3 x 20 mg) PO DAILY 9 tabs 0RF albuterol sulfate 90 mcg/actuation 2 puffs inhalation Q4H PRN 6.7 grams 1RF Wheezing R06.02 - Shortness of breath Coding Level of Care Code Est Pt Level 4 (06582) Diagnoses Upper respiratory tract infection J06.9
[2023-08-07 08:30] VITALS: BP 100/70; PULSE 87; TEMP 36.6; O2SAT 99; BMI 37.3
== END 2023-08-07 09:37 | disposition home or self-care (01) ==
PROVIDERS: PCP Internal Medicine; Visit Provider Internal Medicine
DX: J06.9 Acute upper respiratory infection, unspecified (principal)
CPT/HCPCS: 99214

== ENCOUNTER 2023-08-07 09:00 | Outpatient (REF) | payer OTHER, SELFPAY ==
--- NOTE | ~2023-08-07 | XR_ITS ---
EXAMINATION: XR CHEST CLINICAL INFORMATION: Cough COMPARISON: None available. TECHNIQUE: 2 views of the chest were obtained. FINDINGS: No significant abnormality is noted involving the heart, lungs, mediastinum, bony thorax or soft tissues. XR/XR chest 2V IMPRESSION: Unremarkable chest examination.
== END 2023-08-07 09:01 | disposition home or self-care (01) ==
LOC: HO.HMGCX 09:00
PROVIDERS: PCP Internal Medicine; Visit Provider Internal Medicine
DX: R05.9 Cough, unspecified (principal)
CPT/HCPCS: 71046

== ENCOUNTER 2023-10-17 17:13 | Outpatient (REF) | payer OTHER, SELFPAY ==
--- NOTE | ~2023-10-17 | MR_ITS ---
EXAMINATION: MR BRAIN WITHOUT CONTRAST CLINICAL INFORMATION: Syncope and collapse. COMPARISON: CT scan of the head 05/21/2022. TECHNIQUE: MRI of the brain was obtained using routine sequences without contrast. FINDINGS: There is no intracranial mass effect or midline shift. No abnormal extra-axial collection. Lateral and third ventricles are normal. No hydrocephalus. Midline structures including the cervicomedullary junction are normal. No acute bone marrow signal changes. There is no acute territorial infarct. No pathological magnetic susceptibility artifact. Intracranial vascular flow voids are maintained. There is trace fluid within the mastoid tip air cells. Trivial mucosal thickening within the ethmoid air cells. Globes and orbits are grossly symmetric. MR/MR head/brain wo con IMPRESSION: Normal brain MRI.
== END 2023-10-17 17:14 | disposition home or self-care (01) ==
LOC: HO.MRI 17:13
PROVIDERS: PCP Internal Medicine; Visit Provider Psychiatry & Neurology Neurology
DX: R55 Syncope and collapse (principal)
CPT/HCPCS: 70551

== ENCOUNTER → 2023-11-06 13:15 | Outpatient (BNV) | payer OTHER, SELFPAY | PROVIDERS: PCP Internal Medicine; Visit Provider Radiology Diagnostic Radiology | DX: Z12.31 Encounter for screening mammogram for malignant neoplasm of breast (principal) | CPT/HCPCS: 77063; 77067 ==

== ENCOUNTER 2023-11-06 13:17 | Outpatient (REF) | payer OTHER, SELFPAY | END 2023-11-06 13:18 | disposition home or self-care (01) | LOC: HO.MAMMO 13:17 | PROVIDERS: PCP Internal Medicine; Visit Provider Internal Medicine | DX: Z12.31 Encounter for screening mammogram for malignant neoplasm of breast (principal) | CPT/HCPCS: 77063; 77067 ==

== ENCOUNTER 2023-11-08 11:46 | Outpatient (REF) | payer OTHER, SELFPAY | END 2023-11-08 11:47 | disposition home or self-care (01) | LOC: HO.HOSX 11:46 | PROVIDERS: Visit Provider Physician Assistant | DX: Z13.89 Encounter for screening for other disorder (principal) ==

== ENCOUNTER 2023-12-05 10:00 | Outpatient (REF) | payer OTHER, SELFPAY | END 2023-12-05 10:01 | disposition home or self-care (01) | LOC: HO.HOSX 10:00 | PROVIDERS: Visit Provider Physician Assistant | DX: Z13.89 Encounter for screening for other disorder (principal) ==

== ENCOUNTER 2024-02-03 02:47 | Emergency (ER) | payer OTHER, SELFPAY ==
--- NOTE | ~2024-02-03 | CT_ITS ---
EXAMINATION: CT ANGIOGRAM OF THE CHEST WITH AND WITHOUT CONTRAST (CT PULMONARY ANGIOGRAM FOR PE) CLINICAL INFORMATION: Reason for Exam elevated dimer, pleuritic CP COMPARISON: Chest radiograph from 08/07/2023 TECHNIQUE: Prior to contrast administration, noncontrast localization images were obtained. Subsequently, multidetector volumetric imaging was performed from the thoracic inlet to below the diaphragms following the administration of 80 mL Omnipaque 350 intravenous contrast. No contrast reaction reported Sagittal, coronal, and MIP oblique sagittal reformatted images were obtained on the CT workstation, uploaded to PACS, and reviewed. This CT examination was performed using dose optimization techniques as appropriate, variously including the following: *Automated exposure control *Adjustment of mA and/or kV according to patient size (this includes techniques or standardized protocols for targeted exams where dose is matched to indication/reason for exam; i.e. extremities or head) *Use of iterative reconstruction technique Total exam dose-length product 446 mGy-cm FINDINGS: QUALITY OF STUDY/CONTRAST BOLUS: Suboptimal. PULMONARY ARTERIES: No large central or main pulmonary artery embolism noted. Further evaluation for pulmonary arteries is limited secondary to contrast bolus timing. THORACIC AORTA: No aneurysm. LUNG/PLEURA: Bibasilar atelectasis. Nodular focus along the anterior aspect of the right middle lobe abutting the right minor fissure measuring 4 mm (series 6, image 254). Central airways are patent. No pneumothorax. No large pleural effusion. MEDIASTINUM: Heart is not enlarged. No pericardial effusion. No coronary artery calcification is noted. No enlarged lymph nodes per size criteria. Visualized portions of the thyroid are unremarkable. No evidence of septal bowing or right heart strain. CHEST WALL/AXILLA: No axillary or internal mammary lymphadenopathy. OSSEOUS STRUCTURES: The visualized posterior spinal fusion of the thoracolumbar spine. Multilevel degenerative changes of the thoracolumbar spine. UPPER ABDOMEN: Small hiatal hernia. Postsurgical changes of the GE junction and stomach. Fecal loading of the visualized colon. No reflux of contrast into the hepatic veins to suggest elevated right heart pressures. CT/CT angio chest PE protocol IMPRESSION: 1. Suboptimal contrast bolus timing. No large central or main pulmonary artery embolism noted. Further evaluation for pulmonary artery embolism is limited secondary to contrast bolus timing. 2. Nodular focus along the anterior aspect of the right middle lobe abutting the right minor fissure measuring 4 mm. Follow up as per Alishaischner criteria. 3. Small hiatal hernia. Postsurgical changes of the GE junction and stomach. According to the UPDATED 2017 Fleischner Society recommendations, the advised follow-up imaging for solid nodules < 6 mm is: LOW RISK PATIENT: No routine follow-up.
--- NOTE | 2024-02-03 02:50 | ECG_ITS ---
Test Reason : CHEST PAIN Blood Pressure : / mmHG Vent. Rate : 094 BPM Atrial Rate : 094 BPM P-R Int : 176 ms QRS Dur : 086 ms QT Int : 342 ms P-R-T Axes : 032 049 021 degrees QTc Int : 427 ms Normal sinus rhythm Normal ECG When compared with ECG of 21-MAY-2022 21:04, No significant change was found Referred By: Generic ED Physician Electronically Signed By:Cecilio Hartley
[2024-02-03 03:00] VITALS: BP 117/85; PULSE 98; RESP 14; TEMP 36.5; O2SAT 96; BMI 38.7
[2024-02-03 03:04] LABS: MANUAL DIFF FLAG NO
[2024-02-03 03:05] LABS: Basophils Percent Auto 0.3 % (0-2); Eosinophils Absolute Auto 0.2 X10*3/uL (0.0-0.4); Eosinophils Percent Auto 2.9 % (0-4); Hematocrit 40.7 % (37.0-47.0); Hemoglobin 13.8 g/dl (12.0-16.0); Imm Gran Abs Auto 0.01 X10*3/uL (0.00-0.03); Imm Gran Pct Auto 0.2 % (0.0-0.4); Lymphocytes Absolute Auto 2.5 X10*3/uL (1.2-4.9); Lymphocytes Percent Auto 40.1 % (20-40); Mean Corpuscular HGB Conc 33.9 g/dl (31.0-35.0); Mean Corpuscular Hemoglobin 33.8 pg (27.0-33.0); Mean Corpuscular Volume 99.8 fL (80.0-98.0); Mean Platelet Volume 8.5 fL (9.4-12.3); Monocytes Absolute Auto 0.5 X10*3/uL (0.1-1.2); Monocytes Percent Auto 7.4 % (2-11); Neutrophils Absolute Auto 3.1 x10*3/uL (2.0-8.3); Neutrophils Percent Auto 49.1 % (45-73); Platelet Count 223 X10*3/uL (160-400); Red Blood Count 4.08 X10*6/uL (4.20-5.50); Red Cell Distribution Width 12.7 % (11.0-16.0); White Blood Count 6.2 X10*3/uL (4.8-10.8)
[2024-02-03 03:20] LABS: Alanine Aminotransferase 12 U/L (0-31); Albumin Level 3.6 g/dL (3.5-5.0); Alkaline Phosphatase 78 U/L (39-117); Anion Gap 13 (12-20); Aspartate Amino Transferase 13 U/L (5-31); Bilirubin Total 0.2 mg/dL (0.0-1.0); Blood Urea Nitrogen 15 mg/dL (9-16); Calcium 8.7 mg/dL (8.4-10.2); Carbon Dioxide 21 mmol/L (22-29); Chloride 110 mmol/L (96-108); Creatinine Clr Calc Pharmacy 92.1; Estimated Glomerular Filt Rate > 60; Glucose Random 102 mg/dL (60-115); Potassium 4.2 mmol/L (3.3-5.1); Sodium 140 mmol/L (135-145); Total Protein 6.1 g/dL (6.5-8.0)
[2024-02-03 03:27] LABS: Troponin-I High Sensitivity 2.9 ng/L (<3.5-17.0)
[2024-02-03] MEDS: Acetaminophen 325 MG TABLET 650 MG PO (04:27)
[2024-02-03 06:26] VITALS: BP 126/81; PULSE 94; RESP 16; TEMP 36.1; O2SAT 96
[2024-02-03 08:03] LABS: Troponin-I High Sensitivity 3.4 ng/L (<3.5-17.0)
[2024-02-03 09:15] VITALS: BP 130/86; PULSE 75; RESP 14
--- NOTE | 2024-02-03 09:20 | ED_ITS ---
HPI - Chest Pain General Chief Complaint: Chest Pain Stated Complaint: chest pains Time Seen by Provider: 02/03/24 09:05 Source: patient and RN notes reviewed Mode of arrival: ambulatory Limitations: no limitations History of Present Illness ED Provider: Vibha Roblero PA-C HPI narrative: This is a 48-year-old female, with a history of anxiety, asthma, back pain, bipolar disorder, GERD, PTSD, who presents emergency department with complaints of chest pain x2 weeks. Patient reports that he started develop intermittent left-sided chest pain which is intermittent, and occurs at random. This lasts for several minutes and resolves on its own. She states that she also has had right-sided pleuritic chest pain which she describes as sharp. She states that she has uncertain whether not she injured herself while leaning over to grab something off of a table. She states that she has had no fevers, chills, cough, shortness for breath, palpitations, or changes in her bowel habits. Denies any recent trauma, surgeries, hospitalizations, or travel. No history of blood clots in the past. Denies any other complaints or concerns at this time. MD complaint: chest pain Pain radiation: none Relieving factors: nothing Exacerbating factors: nothing Associated symptoms: nausea Treatment prior to arrival: none Risk Factors Coronary artery disease risk factors: none Thoracic aortic dissection risk factors: none Related Data Home Medications ?Medication ?Instructions ?Recorded ?Confirmed duloxetine 60 mg capsule,delayed 60 mg PO DAILY 06/24/20 07/03/23 release (Cymbalta) lamotrigine 25 mg tablet 50 mg PO BID 06/24/20 07/03/23 calcium acetate 667 mg tablet 667 mg PO BEDTIME 10/04/22 07/03/23 clonazepam 2 mg tablet 2 mg PO TID 10/04/22 07/03/23 multivitamin 1 tab PO DAILY 10/04/22 07/03/23 zolpidem 10 mg tablet 10 mg PO BEDTIME Insomnia 10/04/22 07/03/23 doxepin 150 mg capsule 150 mg PO BEDTIME 03/01/23 07/03/23 mirabegron 25 mg tablet,extended 25 mg PO DAILY 08/07/23 release 24 hr (Myrbetriq) Previous Rx's ?Medication ?Instructions ?Recorded acetaminophen 500 mg tablet 1,000 mg (2 x 500 mg) PO Q6H PRN 04/05/21 (Tylenol Extra Strength) pain #30 tabs triamcinolone acetonide 0.1 % 1 appl topical DAILY 30 days #80 11/21/22 topical cream grams iron,carbonyl 65 mg-vitamin C 125 1 tab PO BEDTIME #30 tabs 02/06/23 mg tablet,delayed release (Vitron-C) Medial Lumber Hacker Knee brace #1 ea 03/02/23 albuterol sulfate 90 mcg/actuation 2 puff inhalation Q4H PRN Wheezing 08/07/23 aerosol inhaler #6.7 grams prednisone 20 mg tablet 60 mg (3 x 20 mg) PO DAILY #9 tabs 08/07/23 pantoprazole 20 mg tablet,delayed 20 mg PO DAILY #90 tabs 12/12/23 release fluticasone propionate 50 1 spray intranasal BID 30 days #16 01/14/24 mcg/actuation nasal grams spray,suspension (Flonase Allergy Relief) incontinence pad, liner, disp #180 ea 01/22/24 incontinence pad, liner, disp #360 ea 01/22/24 (Bladder Control Pads Ex Absorb) Allergies Allergy/AdvReac Type Severity Reaction Status Date / Time droperidol [From INAPSINE] Allergy Severe ANGIOEDEMA, Verified 02/03/24 03:01 THROAT SWELLING lithium Allergy Unknown unknown Verified 02/03/24 03:01 quetiapine [Seroquel] AdvReac Intermediate weight Verified 02/03/24 03:01 gain, sleep walking fresh fruit Allergy Intermediate oral Uncoded 02/03/24 03:01 swelling/itching Review of Systems 2 Review of Systems: Yes all other systems are reviewed and are negative Constitutional: Constitutional: Reports as per HPI [facility] Past Medical History Medical History Hypersomnia Insomnia Snoring Laceration of head Back pain, chronic GERD (gastroesophageal reflux disease) Hx of renal calculi Preoperative examination Internal derangement of knee Substance abuse Dysuria Urinary incontinence Environmental allergies Neurogenic bladder Acute sinusitis Shortness of breath Dysuria Sinusitis chronic, frontal Otitis media Body mass index (BMI) of 40.0 to 44.9 in adult Morbid obesity due to excess calories Osteosclerosis Arthritis Torn ACL IBS (irritable bowel syndrome) PTSD (post-traumatic stress disorder) Bipolar 1 disorder Recurrent urinary tract infection Fibromyalgia Urinary incontinence Neurogenic bladder History of spinal cord injury Neuropathy Hiatal hernia Anxiety Depression Asthma Surgical History Hx of hysterectomy History of repair of hiatal hernia History of sleeve gastrectomy History of ureter stent Status post left foot surgery H/O tubal ligation H/O wisdom tooth extraction H/O dilation and curettage History of fusion of lumbar spine Family History Family History Father Substance use disorder Mental health disorder Mother HTN (hypertension) Stroke Paternal Grandfather No problems noted. Paternal Grandmother Lung cancer Maternal Grandfather Melanoma Maternal Grandmother No problems noted. Brother Substance use disorder Mental health disorder Brother No problems noted. Brother No problems noted. Sister No problems noted. Son No problems noted. Son No problems noted. Daughter No problems noted. Daughter No problems noted. Daughter No problems noted. Maternal Aunt Substance use disorder Social History Social History Household Members: None Housing: Apartment Are you a primary ocular care aide to a significant other at home: No Do you presently have visiting nurse or other home services: No Alcohol intake: former Year quit: 2021 Patient Tobacco Use Status: Never used Tobacco e-Cigarette/Vaping Use: Never Used Substance Use Type: Crack/Cocaine and Former Substance User Advance Directives: No Advance Directives Information Provided: No Do you have a plan to hurt others: No Plan service: No Current occupational status: disabled Cognitive needs: No Hearing needs: No Vision needs: Yes Physical Exam 2 Vital Signs: Vital Signs: Last Vital Signs Temp 97.0 F 02/03/24 06:26 Pulse 75 02/03/24 09:15 Resp 14 02/03/24 09:15 BP 130/86 02/03/24 09:15 Pulse Ox 96 02/03/24 06:26 O2 Del Method Room Air 02/03/24 06:26 BMI result Body Mass Index 38.7 Const: General: cooperative, comfortable and no acute distress O rientation/consciousness: patient oriented x3 Limitations: no limitations HEENT: Head: Yes normal to inspection, Yes normocephalic and Yes atraumatic Ears: hearing grossly normal bilaterally and TM's normal bilaterally General nose exam: Normal external nose present Face and sinus: Yes normal facial exam Mouth: Normal oral and palatal mucosa present, oropharynx normal and moist mucous membranes Throat: Yes posterior oropharynx normal Eyes: General: appearance normal, both eyes and all related structures E yelids: Yes eyelids normal Conjunctivae: conjunctivae normal Sclerae: s clerae normal Pupils: Equal, round and reactive pupils present EOM: EOMs intact bilaterally Neck: Neck: Yes normal visual inspection, Yes full ROM and Yes no lymphadenopathy Lymphatic: no lymphadenopathy noted Chest: Other: Anterior chest wall tenderness to palpation, no overlying skin changes. Reproducible chest wall tenderness with extension and elevation of her right arm Chest palpation & inspection: normal inspection of the chest Resp: Effort & Inspection: normal respiratory effort and able to speak in complete sentences Auscultation: clear to auscultation bilaterally, no crackles, no rales, no rhonchi and no wheezes Cardio: Rate: regular rate Rhythm: regular rhythm Heart sounds: S1 normal heart sound present and S2 normal heart sound present GI: Other: Abdomen is soft, nontender, nondistended Inspection: Yes normal to inspection Skin: General skin exam: no rashes or lesions noted Trauma: no lacerations or abrasions Wounds: no wounds Neuro: General: patient oriented x3 and moves all extremities Cranial nerves: Yes Equal, round and reactive pupils present Extrem: General: Yes normal to inspection Right upper extremity: normal to inspection Left upper extremity: normal to inspection Right lower extremity: normal to inspection Left lower extremity: normal to inspection Course Reevaluation(s) Reevaluation #1: D-dimer elevated, given elevation, will obtain CTA as patient has pleuritic chest pain any to rule out pulmonary embolism for source of pain. Time: 10:33 Reevaluation #2: CTA returns revealing no large central or main pulmonary artery embolism noted. Further evaluation for pulmonary artery embolism is limited secondary to contrast bolus timing. And patient has pain that is reproducible on examination as well as pain reproduced with movement of her right arm, it appears as though her pain musculoskeletal nature. She is not hypoxic nor tachycardic nor having any sort of shortness of breath therefore pulmonary embolism is unlikely. She has no risk factors that would increase her likelihood of having pulmonary embolism therefore costochondritis/pleurisy is the likely diagnosis. There is also a 4 mm pulmonary nodule seen on the CT scan, discussed follow-up with patient, advised that typically follow-up is not required for solid nodules less than 6 mm however told to follow-up with her primary care physician. There is a small hiatal hernia noted on her CT as well - she reports that this was supposed to be fixed when she had her gastric sleeve surgery many years ago. I advised patient to follow-up with her primary care physician as well as surgeon if she experiences any acid reflux or symptoms. Given patient labs as well as EKG, negative troponin x2, ACS is unlikely. Patient has been in the emergency room for 10 hours with normal vital signs, therefore I think it is appropriate at this time to discharge patient with close follow-up with her primary care physician as well as gun numberer. She was seen by Cardiology in the past after a syncopal episode and was supposed to get additional testing however she did not follow-up. I encouraged her to follow-up. Given strict return precautions. She understands and agrees with plan. Patient stable for discharge. Time: 12:29 Medications Administered Discontinued Medications Generic Name Dose Route Start Last Admin Trade Name Ryan PRN Reason Stop Dose Admin Acetaminophen 650 mg 02/03/24 04:24 02/03/24 04:27 Acetaminophen 325 Mg Tablet PO 02/03/24 04:25 650 mg ONCE ONE Administration Iohexol 75 ml 02/03/24 11:35 02/03/24 11:41 Iohexol 350 Mg/Ml 75 Ml Infus..Btl IV 02/03/24 11:36 75 ml ONCE ONE Administration Morphine Sulfate 4 mg 02/03/24 09:39 02/03/24 10:16 Morphine Sulfate 4 Mg/Ml Cartridge IVPUSH 02/03/24 09:40 4 mg ONCE ONE Administration Protocol Medical Decision Making Medical Decision Making MDM Narrative: 48-year-old female, with a history of anxiety, asthma, back pain, bipolar disorder, GERD, PTSD, who presents emergency department with complaints of chest pain x2 weeks. On arrival, vital signs within normal limits. During my assessment which occurred after patient has been in the emergency room for approximately 6 hours, repeat vitals within normal limits. She has under no acute distress. Lungs are clear to auscultation bilaterally. Patient endorsing pleuritic chest pain as well as left-sided intermittent chest pain. Differential diagnoses include costochondritis, ACS, pneumonia, pneumothorax. PE is less likely given patient has no known risk factors. Plan: Labs, EKG, chest x-ray. Differential Diagnosis Differential Diagnoses: The differential diagnosis associated with the presentation includes See above Admission/Observation Consideration of admission/observation: Escalation of care including admission/observation considered Escalation of care including admission/observation considered however given workup today not warranted at this time. Lab Data MDM Lab Attestation statement: I reviewed the patient's lab results. No leukocytosis, stable H&H, chemistry nondiagnostic, troponin x2 negative. 02/03/24 02:55 02/03/24 02:55 Labs: Lab Results 02/03/24 02/03/24 02/03/24 Range/Units 02:55 07:26 10:08 WBC 6.2 (4.8-10.8) X10*3/uL RBC 4.08 L (4.20-5.50) X10*6/uL Hgb 13.8 (12.0-16.0) g/dl Hct 40.7 (37.0-47.0) % MCV 99.8 H (80.0-98.0) fL MCH 33.8 H (27.0-33.0) pg MCHC 33.9 (31.0-35.0) g/dl RDW 12.7 (11.0-16.0) % Plt Count 223 (160-400) X10*3/uL MPV 8.5 L (9.4-12.3) fL Immature Gran % (Auto) 0.2 (0.0-0.4) % Neut % (Auto) 49.1 (45-73) % Lymph % (Auto) 40.1 H (20-40) % Swift % (Auto) 7.4 (2-11) % Eos % (Auto) 2.9 (0-4) % Baso % (Auto) 0.3 (0-2) % Lymph # (Auto) 2.5 (1.2-4.9) X10*3/uL Swift # (Auto) 0.5 (0.1-1.2) X10*3/uL Eos # (Auto) 0.2 (0.0-0.4) X10*3/uL Baso # (Auto) 0.0 (0.0-0.2) X10*3/uL Abs Immat Gran (auto) 0.01 (0.00-0.03) X10*3/uL Absolute Neuts (auto) 3.1 (2.0-8.3) x10*3/uL Absolute Nucleated RBC 0.000 (0.0-0.012) X10*3/uL Nucleated RBC % (auto) 0.0 (0.0-0.2) /100WBC D-Dimer High Sensitivty 255 NG/ML Sodium 140 (135-145) mmol/L Potassium 4.2 (3.3-5.1) mmol/L Chloride 110 H (96-108) mmol/L Carbon Dioxide 21 L (22-29) mmol/L Anion Gap 13 (12-20) BUN 15 (9-16) mg/dL Creatinine 0.91 (0.5-1.4) mg/dL Estim Creat Clear Calc 92.1 Estimated GFR > 60 Random Glucose 102 (60-115) mg/dL Calcium 8.7 D (8.4-10.2) mg/dL Total Bilirubin 0.2 (0.0-1.0) mg/dL AST 13 (5-31) U/L ALT 12 (0-31) U/L Alkaline Phosphatase 78 (39-117) U/L Troponin I High Sens 2.9 3.4 (<3.5-17.0) ng/L Total Protein 6.1 L (6.5-8.0) g/dL Albumin 3.6 (3.5-5.0) g/dL Lipase 50 (8-78) U/L Independent Interpretation I performed an independent interpretation of an: EKG Interpretation: EKG normal sinus rhythm with no ST elevation or depression. Ventricular rate of 94 beats per minute, MO interval 176, QTC 427 Radiology Impression Discussion of test interpretation with radiology: I have reviewed the radiologist's reading. Radiologist Impression: CT/CT angio chest PE protocol IMPRESSION: 1. Suboptimal contrast bolus timing. No large central or main pulmonary artery embolism noted. Further evaluation for pulmonary artery embolism is limited secondary to contrast bolus timing. 2. Nodular focus along the anterior aspect of the right middle lobe abutting the right minor fissure measuring 4 mm. Follow up as per Fleischner criteria. 3. Small hiatal hernia. Postsurgical changes of the GE junction and stomach. According to the UPDATED 2017 Fleischner Society recommendations, the advised follow-up imaging for solid nodules < 6 mm is: LOW RISK PATIENT: No routine follow-up. Dictated By: Adam Guadarrama MD Scores Heart Score History: -0- slightly suspicious ECG: -0- normal Age: -1- >45 - <65 Risk factory: -0- no risk factors known Troponin: -0- < or = normal limit Score: 1 Risk: 1.7% Critical Care Time Critical Care Time Critical Care Time: Yes Total Critical Care Time: 35 Attestation: I have personally provided critical care time exclusive of time spent on separately billable procedures. Time includes review of lab data, radiology results, discussion with consultants, and monitoring for potential decompensation. Intervention performed as documented. Discharge Plan Discharge Clinical Impression: Hiatal hernia, Pulmonary nodule Chest pain Qualifiers: Chest pain type: unspecified Qualified Code(s): R07.9 - Chest pain, unspecified Patient Disposition: Home, Self-Care Instructions: Chest Pain (ED) Additional Instructions: You were seen in the emergency department due to chest pain. Your workup today was reassuring. Your CT of your chest did not indicate a reason why you are experiencing this chest pain. May apply gentle heat to the area or ice as this may provide you with some relief. You do have a pulmonary nodule on the right side of your chest, follow up with your primary care physician. You may take Tylenol as needed for pain. Follow-up with your primary care physician regarding this visit. Follow-up with your gun numberer. If any new or worsening symptoms occur including but not limited to worsening chest pain, dizziness, lightheadedness, severe headache, or shortness of breath, please return for re-evaluation. There was some incidental finding seen on your CT scan There is a hiatal hernia noted on her CT scan, follow-up with your primary care and or your surgeon. There is also a 4 mm pulmonary nodule seen on the right side, follow-up with your primary care physician. Prescriptions: No Action triamcinolone acetonide 0.1 % cream 1 appl topical DAILY 30 Days Qty: 80 0RF Rx Instructions: to elbow Vitron-C 65 mg iron- 125 mg tablet,delayed release (DR/EC) 1 tab PO BEDTIME Qty: 30 5RF (DME) Medial Lumber Hacker Knee brace See Rx Instructions .ROUTE .MEDSUPPLY Qty: 1 0RF Rx Instructions: n/a pantoprazole 20 mg tablet,delayed release (DR/EC) 20 mg PO DAILY Qty: 90 0RF fluticasone propionate [Flonase Allergy Relief] 50 mcg/actuation spray,suspension 1 spray intranasal BID 30 Days Qty: 16 1RF Rx Instructions: administer into each nostril (DME) Bladder Control Pads Ex Absorb Pad See Rx Instructions .Route Qty: 360 11RF Rx Instructions: As directed for urinary incontinence, uses 2 at a time, 12 per day (DME) incontinence pad, liner, disp Pad See Rx Instructions .Route Qty: 180 11RF Rx Instructions: As directed for urinary incontinence, uses 6 per day clonazepam 2 mg tablet 2 mg PO TID Myrbetriq 25 mg tablet extended release 24 hr 25 mg PO DAILY albuterol sulfate 90 mcg/actuation HFA aerosol inhaler 2 puff inhalation Q4H PRN (Reason: Wheezing) Qty: 6.7 1RF prednisone 20 mg tablet 60 mg PO DAILY Qty: 9 0RF lamotrigine 25 mg tablet 50 mg PO BID duloxetine [Cymbalta] 60 mg capsule,delayed release(DR/EC) 60 mg PO DAILY zolpidem 10 mg tablet 10 mg PO BEDTIME acetaminophen [Tylenol Extra Strength] 500 mg tablet 1,000 mg PO Q6H PRN (Reason: pain) Qty: 30 1RF multivitamin Tablet 1 tab PO DAILY calcium acetate 667 mg tablet 667 mg PO BEDTIME doxepin 150 mg capsule 150 mg PO BEDTIME Print Language: Malay
[2024-02-03] MEDS: Morphine Sulfate 4 MG/ML CARTRIDGE IVPUSH (10:16)
[2024-02-03 10:20] LABS: D Dimer High Sensitivity 255 NG/ML
[2024-02-03 10:25] LABS: Lipase 50 U/L (8-78)
[2024-02-03] MEDS: iohexoL 350 MG/ML 75 ML INFUS..BTL IV (11:41)
[2024-02-03 12:43] VITALS: BP 126/80; PULSE 67; RESP 14; TEMP 35.9; O2SAT 94
== END 2024-02-03 12:44 | disposition home or self-care (01) ==
PROVIDERS: Physician Assistant Medical; Emergency Provider Student in an Organized Health Care Education/Training Program; PCP Internal Medicine
DX: R07.9 Chest pain, unspecified (principal); K44.9 Diaphragmatic hernia without obstruction or gangrene; R91.1 Solitary pulmonary nodule; K21.9 Gastro-esophageal reflux disease without esophagitis; J45.909 Unspecified asthma, uncomplicated; Z79.899 Other long term (current) drug therapy
CPT/HCPCS: 36415; 71275; 80053; 83690; 84484; 85025; 85379; 93005; 96374; 99284; J2270; Q9967

== ENCOUNTER → 2024-02-03 02:50 | Outpatient (BNV) | payer OTHER, SELFPAY | PROVIDERS: Emergency Provider Student in an Organized Health Care Education/Training Program; PCP Internal Medicine; Visit Provider Internal Medicine Cardiovascular Disease | DX: R07.9 Chest pain, unspecified (principal) | CPT/HCPCS: 93010 ==

== ENCOUNTER 2024-06-13 13:32 | Outpatient (AMB) | payer OTHER, SELFPAY ==
[2024-06-13 13:33] VITALS: BP 126/80; PULSE 79; O2SAT 97; BMI 35.9
--- NOTE | 2024-06-13 13:33 | MHC.PC.OV ---
Vital Signs 06/13/24 13:33 Height 5 ft 5 in Weight 216 lb BMI 35.9 BP 126/80 Blood Pressure Location Lt brachial Position Sitting Pulse 79 Pulse Source Pulse Oximeter Pulse Oximetry (%) 97 Intake Visit Reasons: Request Letter RMV Accompanied by: Self / Same As Patient Allergies droperidol [From INAPSINE] Allergy (Severe, Verified 06/13/24 13:35) ANGIOEDEMA, THROAT SWELLING lithium Allergy (Unknown, Verified 06/13/24 13:35) unknown quetiapine [Seroquel] Adverse Reaction (Intermediate, Verified 06/13/24 13:35) weight gain, sleep walking fresh fruit Allergy (Intermediate, Uncoded 02/03/24 03:01) oral swelling/itching Medication List - Last Reconciled 06/13/24 by Arnaud Carbone MD acetaminophen (Tylenol Extra Strength) 1,000 mg (2 x 500 mg) PO Q6H PRN albuterol sulfate 90 mcg/actuation 2 puffs inhalation Q4H PRN calcium acetate 667 mg PO BEDTIME clonazepam 2 mg PO TID doxepin 150 mg PO BEDTIME duloxetine (Cymbalta) 60 mg PO DAILY fluticasone propionate 50 mcg/actuation (Flonase Allergy Relief) 1 spray intranasal BID 30 days incontinence pad, liner, disp (Bladder Control Pads Ex Absorb) As directed for urinary incontinence, uses 2 at a time, 12 per day incontinence pad, liner, disp As directed for urinary incontinence, uses 6 per day iron,carbonyl-vitamin C 65 mg iron- 125 mg (Vitron-C) 1 tab PO BEDTIME lamotrigine 50 mg PO BID [Medial Loss Prevention Representative Knee brace n/a] mirabegron ER (Myrbetriq) 25 mg PO DAILY multivitamin 1 tab PO DAILY pantoprazole 20 mg PO DAILY triamcinolone acetonide 0.1% 1 appl topical DAILY 30 days zolpidem 10 mg PO BEDTIME Tobacco use date assessed: 06/13/24 Dental Screening Dental Screen Date: 06/13/24 Did you have a dental visit in the last 12 months?: Yes Did you have a dental problem in the last 6 months where you did not have access to dental care?: No Was dental information given to patient?: Patient has dentist HPI Request Letter RMV HPI Details Patient is a 48-year-old female came in today to get a letter Patient would like to be excused from Community Services She usually comes here every 6 months for follow-up appointment but missed her appointment in December Last time she was seen was June of last year Patient have a history of injury to her back and has developed neurogenic bladder She is using Pads for incontinence, she is also seeing Urogynecology for ongoing maintenance Patient suffer from chronic back pain and also bilateral shoulder pain with limited range of motion in both shoulders She would like to have handicap placard as well Patient has concerns were addressed [facility] Medical History Hypersomnia Insomnia Snoring Laceration of head Back pain, chronic GERD (gastroesophageal reflux disease) Hx of renal calculi Preoperative examination Internal derangement of knee Substance abuse Dysuria Urinary incontinence Environmental allergies Neurogenic bladder Acute sinusitis Shortness of breath Dysuria Sinusitis chronic, frontal Otitis media Body mass index (BMI) of 40.0 to 44.9 in adult Morbid obesity due to excess calories Osteosclerosis Arthritis Torn ACL IBS (irritable bowel syndrome) PTSD (post-traumatic stress disorder) Bipolar 1 disorder Recurrent urinary tract infection Fibromyalgia Urinary incontinence Neurogenic bladder History of spinal cord injury Neuropathy Hiatal hernia Anxiety Depression Asthma Surgical History Hx of hysterectomy History of repair of hiatal hernia History of sleeve gastrectomy History of ureter stent Status post left foot surgery H/O tubal ligation H/O wisdom tooth extraction H/O dilation and curettage History of fusion of lumbar spine Family History Father Substance use disorder Mental health disorder Mother HTN (hypertension) Stroke Paternal Grandfather No problems noted. Paternal Grandmother Lung cancer Maternal Grandfather Melanoma Maternal Grandmother No problems noted. Brother Substance use disorder Mental health disorder Brother No problems noted. Brother No problems noted. Sister No problems noted. Son No problems noted. Son No problems noted. Daughter No problems noted. Daughter No problems noted. Daughter No problems noted. Maternal Aunt Substance use disorder Social History Household Members: None Housing: Apartment Are you a primary career and guidance counselor to a significant other at home: No Do you presently have visiting nurse or other home services: No Alcohol intake: former Year quit: 2021 Patient Tobacco Use Status: Never used Tobacco e-Cigarette/Vaping Use: Never Used Substance Use Type: Crack/Cocaine and Former Substance User service: No Current occupational status: disabled Cognitive needs: No Hearing needs: No Vision needs: Yes Questionnaire PHQ-9 Over the last 2 weeks, how often have you been bothered by any of the following problems? 1. Little interest or pleasure in doing things: nearly every day 2. Feeling down, depressed, or hopeless: several days 3. Trouble falling or staying asleep, or sleeping too much: more than half the days 4. Feeling tired or having little energy: more than half the days 5. Poor appetite or overeating: more than half the days 6. Feeling bad about yourself - or that you are a failure or have let yourself or your family down: more than half the days 7. Trouble concentrating on things, such as reading the newspaper or watching television: several days 8. Moving or speaking so slowly that other people could have noticed. Or the opposite - being so fidgety or restless that you have been moving around a lot more than usual: not at all 9. Thoughts that you would be better off or of hurting yourself in some way: not at all Total score: 13 Depression Screening Interpretation: Positive Depression Screening Follow-up: Existing condition and In treatment Depression Screening Done: Yes 24339 - PHQ-9 Billing: Yes Source: Developed by Drs. Sanya Ornelas, Nafisa Baker, Kayden Granado and colleagues, with an educational imer from [employer]. Thrive Questionnaire Date Thrive assessed: 05/31/22 I am a: Patient What is your living situation today?: I have a steady place to live Within the past 12 months, did the food you bought not last and you didn't have the money to get more?: Never true Within the past 12 months, did you worry whether your food would run out before you got money to buy more?: Never true Do you have trouble paying for medicines?: No Do you have trouble getting transportation to medical appointments?: No Do you have trouble paying your heating and electricity bill?: No Do you have trouble taking care of your child, family member or friend?: No Do you have trouble with day-to-day activities such as bathing, preparing meals, shopping, managing finances, etc.?: No Are you currently unemployed and looking for a job?: No Are you interested in more education?: No Please select the resources that you would like help with: None Currently or been in a relationship where the following occur: No concerns reported THRIVE Score: 0 AUDIT C Alcohol Use Questionnaire (AUDIT-C) 1. How often do you have a drink containing alcohol?: Never 3. How often do you have six or more drinks on one occasion?: Never Total Score: 0 Score Reviewed/Action Taken: Yes JO-7 AMB Questionnaire JO-7 Date JO - 7 assessed: 06/13/24 Feeling nervous, anxious, or on edge: 1 = Several days Not being able to stop or control worryin = Several days Worrying too much about different things: 1 = Several days Trouble relaxin = Several days Being so restless that it is hard to sit still: 1 = Several days Becoming easily annoyed or irritable: 1 = Several days Feeling afraid as if something awful might happen: 1 = Several days Total OJ-7 score (0-4 normal; 5-9 mild; 10-14 moderate; 15-21 severe): 7 Source: Developed by Drs. Sanya Ornelas, Nafisa Baker, Kayden Granado and colleagues, with an educational imer from [employer]. JO-7 Assessment Billing JO-7 Assessment Tool: JO-7 Assessment 67484 Review of Systems Const Denies chills and Denies fever(s) ENT Denies epistaxis and Denies nasal discharge Card Denies chest pain Resp Denies chest congestion, Denies cough and Denies hemoptysis GI Denies diarrhea and Denies nausea Skin/Breast Denies rash Neuro Reports no additional complaints Psych Reports no additional complaints Endo Reports no additional complaints Physical exam (Primary Care) Vital Signs: Last Vital Signs Pulse 79 06/13/24 13:33 BP 126/80 06/13/24 13:33 Pulse Ox 97 06/13/24 13:33 BMI result Body Mass Index 35.9 Tobacco/Smoking Status: Tobacco use Status Tobacco use date assessed 06/13/24 06/13/24 13:38 Patient Tobacco Use Status Never used Tobacco 06/13/24 13:38 e-Cigarette/Vaping Use Never Used 06/13/24 13:38 PHQ-9: PHQ-9 Score PHQ-9: Total score 13 06/13/24 13:45 Depression Screening Interpretation: Positive Depression Screening Follow-up: Existing condition and In treatment Thrive Assessment: Date of Thrive Assessment Date Thrive assessed 05/31/22 06/13/24 13:38 Currently or been in a relationship where the following occur: No concerns reported Const General: cooperative, comfortable and no acute distress Orientation/consciousness: patient oriented x3 HENMT Head: Yes normocephalic Eyes General: appearance normal, both eyes and all related structures Neck Neck: Yes supple Resp Effort & Inspection: normal respiratory effort, no cough and no stridor Cardio Rhythm: regular rhythm Heart sounds: S1 normal heart sound present and S2 normal heart sound present Skin General skin exam: turgor normal Neuro General: patient oriented x3, tone normal and moves all extremities Extrem Right lower extremity: no edema Left lower extremity: no edema Coding Level of Care Code Est Pt Level 3 (37117) Diagnoses Neurogenic bladder N31.9 Chronic bilateral low back pain with bilateral sciatica M54.42; M54.41; G89.29 Back pain laterality: bilateral Back pain location: low back pain Sciatica laterality: bilateral sciatica Sciatica presence: with sciatica Failed back syndrome of lumbar spine M96.1 Additional Codes JO-7 Assessment Billing - JO-7 Assessment Tool: JO-7 Assessment [id number] ([id number]) Assessment & Plan Assessment & Plan (1) Neurogenic bladder: Code(s): N31.9 - Neuromuscular dysfunction of bladder, unspecified Category: Medical (2) Back pain, chronic: Code(s): M54.9 - Dorsalgia, unspecified; G89.29 - Other chronic pain Category: Medical Qualifiers: Back pain laterality: bilateral Back pain location: low back pain Sciatica laterality: bilateral sciatica Sciatica presence: with sciatica Qualified Code(s): M54.42 - Lumbago with sciatica, left side; M54.41 - Lumbago with sciatica, right side; G89.29 - Other chronic pain (3) Failed back syndrome of lumbar spine: Code(s): M96.1 - Postlaminectomy syndrome, not elsewhere classified Category: Medical Plan Patient is a 48-year-old female came in today to get a letter Patient would like to be excused from Community Services She usually comes here every 6 months for follow-up appointment but missed her appointment in December Last time she was seen was June of last year Patient have a history of injury to her back and has developed neurogenic bladder She is using Pads for incontinence, she is also seeing Urogynecology for ongoing maintenance Patient suffer from chronic back pain and also bilateral shoulder pain with limited range of motion in both shoulders She would like to have handicap josr as well Patient has concerns were addressed
--- NOTE | 2024-06-13 13:33 | MHC.PC.OV ---
Vital Signs 06/13/24 13:33 Height 5 ft 5 in Weight 216 lb BMI 35.9 BP 126/80 Blood Pressure Location Lt brachial Position Sitting Pulse 79 Pulse Source Pulse Oximeter Pulse Oximetry (%) 97 Intake Visit Reasons: Request Letter RMV Allergies droperidol [From INAPSINE] Allergy (Severe, Verified 06/13/24 13:35) ANGIOEDEMA, THROAT SWELLING lithium Allergy (Unknown, Verified 06/13/24 13:35) unknown quetiapine [Seroquel] Adverse Reaction (Intermediate, Verified 06/13/24 13:35) weight gain, sleep walking fresh fruit Allergy (Intermediate, Uncoded 02/03/24 03:01) oral swelling/itching Tobacco use date assessed: 07/03/23 Dental Screening Dental Screen Date: 07/03/23 HPI Request Letter RMV HPI Details Patient is a 48-year-old female came in today to get a letter Patient would like to be excused from Community Services She usually comes here every 6 months for follow-up appointment but missed her appointment in December Last time she was seen was June of last year Patient have a history of injury to her back and has developed neurogenic bladder She is using Pads for incontinence, she is also seeing Urogynecology for ongoing maintenance Patient suffer from chronic back pain and also bilateral shoulder pain with limited range of motion in both shoulders She would like to have handicap placard as well Patient has concerns were addressed [facility] Medical History Hypersomnia Insomnia Snoring Laceration of head Back pain, chronic GERD (gastroesophageal reflux disease) Hx of renal calculi Preoperative examination Internal derangement of knee Substance abuse Dysuria Urinary incontinence Environmental allergies Neurogenic bladder Acute sinusitis Shortness of breath Dysuria Sinusitis chronic, frontal Otitis media Body mass index (BMI) of 40.0 to 44.9 in adult Morbid obesity due to excess calories Osteosclerosis Arthritis Torn ACL IBS (irritable bowel syndrome) PTSD (post-traumatic stress disorder) Bipolar 1 disorder Recurrent urinary tract infection Fibromyalgia Urinary incontinence Neurogenic bladder History of spinal cord injury Neuropathy Hiatal hernia Anxiety Depression Asthma Surgical History Hx of hysterectomy History of repair of hiatal hernia History of sleeve gastrectomy History of ureter stent Status post left foot surgery H/O tubal ligation H/O wisdom tooth extraction H/O dilation and curettage History of fusion of lumbar spine Family History Father Substance use disorder Mental health disorder Mother HTN (hypertension) Stroke Paternal Grandfather No problems noted. Paternal Grandmother Lung cancer Maternal Grandfather Melanoma Maternal Grandmother No problems noted. Brother Substance use disorder Mental health disorder Brother No problems noted. Brother No problems noted. Sister No problems noted. Son No problems noted. Son No problems noted. Daughter No problems noted. Daughter No problems noted. Daughter No problems noted. Maternal Aunt Substance use disorder Social History Household Members: None Housing: Apartment Are you a primary healthcare architect to a significant other at home: No Do you presently have visiting nurse or other home services: No Alcohol intake: former Year quit: 2021 Patient Tobacco Use Status: Never used Tobacco e-Cigarette/Vaping Use: Never Used Substance Use Type: Crack/Cocaine and Former Substance User service: No Current occupational status: disabled Cognitive needs: No Hearing needs: No Vision needs: Yes Questionnaire Thrive Questionnaire Date Thrive assessed: 05/31/22 JO-7 AMB Questionnaire JO-7 Date JO - 7 assessed: 07/03/23 Source: Developed by Drs. Sanya Ornelas, Nafisa Baker, Kayden Granado and colleagues, with an educational imer from [employer]. Review of Systems Const Denies chills and Denies fever(s) ENT Denies epistaxis and Denies nasal discharge Card Denies chest pain Resp Denies chest congestion, Denies cough and Denies hemoptysis GI Denies diarrhea and Denies nausea Skin/Breast Denies rash Neuro Reports no additional complaints Psych Reports no additional complaints Endo Reports no additional complaints Physical exam (Primary Care) Tobacco/Smoking Status: Tobacco use Status Tobacco use date assessed 07/03/23 11/13/23 12:15 Patient Tobacco Use Status Never used Tobacco 11/13/23 12:15 e-Cigarette/Vaping Use Never Used 11/13/23 12:15 Thrive Assessment: Date of Thrive Assessment Date Thrive assessed 05/31/22 11/13/23 12:15 Const General: cooperative, comfortable and no acute distress Orientation/consciousness: patient oriented x3 HENMT Head: Yes normocephalic Eyes General: appearance normal, both eyes and all related structures Neck Neck: Yes supple Resp Effort & Inspection: normal respiratory effort, no cough and no stridor Cardio Rhythm: regular rhythm Heart sounds: S1 normal heart sound present and S2 normal heart sound present Skin General skin exam: turgor normal Neuro General: patient oriented x3, tone normal and moves all extremities Extrem Right lower extremity: no edema Left lower extremity: no edema Coding Diagnoses Failed back syndrome of lumbar spine M96.1 Functional fecal incontinence R15.9 Chronic bilateral low back pain with bilateral sciatica M54.42; M54.41; G89.29 Back pain location: low back pain Back pain laterality: bilateral Sciatica presence: with sciatica Sciatica laterality: bilateral sciatica Neurogenic bladder N31.9 Assessment & Plan Assessment & Plan (1) Failed back syndrome of lumbar spine: Code(s): M96.1 - Postlaminectomy syndrome, not elsewhere classified Category: Medical (2) Functional fecal incontinence: Code(s): R15.9 - Full incontinence of feces Category: Medical (3) Back pain, chronic: Code(s): M54.9 - Dorsalgia, unspecified; G89.29 - Other chronic pain Category: Medical Qualifiers: Back pain location: low back pain Back pain laterality: bilateral Sciatica presence: with sciatica Sciatica laterality: bilateral sciatica Qualified Code(s): M54.42 - Lumbago with sciatica, left side; M54.41 - Lumbago with sciatica, right side; G89.29 - Other chronic pain (4) Neurogenic bladder: Code(s): N31.9 - Neuromuscular dysfunction of bladder, unspecified Category: Medical Plan Patient is a 48-year-old female came in today to get a letter Patient would like to be excused from Community Services She usually comes here every 6 months for follow-up appointment but missed her appointment in December Last time she was seen was June of last year Patient have a history of injury to her back and has developed neurogenic bladder She is using Pads for incontinence, she is also seeing Urogynecology for ongoing maintenance Patient suffer from chronic back pain and also bilateral shoulder pain with limited range of motion in both shoulders She would like to have handicap placard as well Patient has concerns were addressed
== END 2024-06-13 13:49 | disposition home or self-care (01) ==
LOC: HO.HMCC 13:32
PROVIDERS: PCP Internal Medicine; Visit Provider Internal Medicine
DX: N31.9 Neuromuscular dysfunction of bladder, unspecified (principal); M54.42 Lumbago with sciatica, left side; M54.41 Lumbago with sciatica, right side; G89.29 Other chronic pain; M96.1 Postlaminectomy syndrome, not elsewhere classified

== ENCOUNTER → 2024-06-13 13:32 | Outpatient (BNVA) | payer OTHER, SELFPAY | PROVIDERS: PCP Internal Medicine; Visit Provider Internal Medicine | DX: N31.9 Neuromuscular dysfunction of bladder, unspecified (principal); M54.9 Dorsalgia, unspecified; M96.1 Postlaminectomy syndrome, not elsewhere classified | CPT/HCPCS: 96127; 99212 ==

== ENCOUNTER 2024-08-20 14:35 | Outpatient (REF) | payer OTHER, SELFPAY | END 2024-08-20 14:36 | disposition home or self-care (01) | LOC: HO.HMGCX 14:35 | PROVIDERS: PCP Internal Medicine; Visit Provider Internal Medicine | DX: Z00.01 Encounter for general adult medical examination with abnormal findings (principal); M25.551 Pain in right hip; N31.9 Neuromuscular dysfunction of bladder, unspecified; F33.41 Major depressive disorder, recurrent, in partial remission; M96.1 Postlaminectomy syndrome, not elsewhere classified; E66.01 Morbid (severe) obesity due to excess calories; Z68.36 Body mass index [BMI] 36.0-36.9, adult; K21.9 Gastro-esophageal reflux disease without esophagitis; R10.9 Unspecified abdominal pain; Z79.899 Other long term (current) drug therapy | CPT/HCPCS: 73502; 81003; 99212; 99396 ==

== ENCOUNTER 2024-08-20 14:35 | Outpatient (AMB) | payer OTHER, SELFPAY ==
[2024-08-20 14:38] VITALS: BP 120/74; PULSE 77; O2SAT 96; BMI 36.9
--- NOTE | 2024-08-20 14:38 | A.OFFPC_ITS ---
Vital Signs 08/20/24 14:38 Height 5 ft 5 in Weight 221 lb 8 oz BMI 36.9 BP 120/74 Blood Pressure Location Rt brachial Position Sitting Pulse 77 Pulse Source Pulse Oximeter Pulse Oximetry (%) 96 Oxygen Delivery Method Room Air Intake Visit Reasons: Annual PE Allergies droperidol [From INAPSINE] Allergy (Severe, Verified 08/20/24 14:38) ANGIOEDEMA, THROAT SWELLING lithium Allergy (Unknown, Verified 08/20/24 14:38) unknown quetiapine [Seroquel] Adverse Reaction (Intermediate, Verified 08/20/24 14:38) weight gain, sleep walking fresh fruit Allergy (Intermediate, Uncoded 02/03/24 03:01) oral swelling/itching Medication List - Last Reconciled 08/20/24 by Arnaud Carbone MD acetaminophen (Tylenol Extra Strength) 1,000 mg (2 x 500 mg) PO Q6H PRN albuterol sulfate 90 mcg/actuation 2 puffs inhalation Q4H PRN calcium acetate 667 mg PO BEDTIME clonazepam 2 mg PO TID doxepin 150 mg PO BEDTIME duloxetine (Cymbalta) 60 mg PO DAILY fluticasone propionate 50 mcg/actuation (Flonase Allergy Relief) 1 spray intranasal BID 30 days incontinence pad, liner, disp (Bladder Control Pads Ex Absorb) As directed for urinary incontinence, uses 2 at a time, 12 per day incontinence pad, liner, disp As directed for urinary incontinence, uses 6 per day iron,carbonyl-vitamin C 65 mg iron- 125 mg (Vitron-C) 1 tab PO BEDTIME lamotrigine 50 mg PO BID [Medial Clinical Research Nurse Coordinator Knee brace n/a] mirabegron ER (Myrbetriq) 25 mg PO DAILY multivitamin 1 tab PO DAILY pantoprazole 20 mg PO DAILY triamcinolone acetonide 0.1% 1 appl topical DAILY 30 days zolpidem 10 mg PO BEDTIME Tobacco use date assessed: 08/20/24 Dental Screening Dental Screen Date: 08/20/24 Did you have a dental visit in the last 12 months?: Yes Did you have a dental problem in the last 6 months where you did not have access to dental care?: No Was dental information given to patient?: Patient has dentist HPI Annual PE HPI Details Patient is a 48-year-old female came in for physical examination Patient have history of anxiety, depression, allergic rhinitis, neurogenic bladder disorder with incontinence of urine requiring diaper/bad use Fecal incontinence due to failed back syndrome, osteoarthritis multiple joints Patient is requesting to extra packets of pads, she will get back to me with more detail on that Only medication from PCP office is pantoprazole for GERD Labs were done January of this year CBC shows no signs of anemia Electrolytes are within normal limit kidney functions intact sugar within normal range liver enzymes within normal limit Patient continued to be obese with BMI of 36.9 once again instructed to controlled diet and start exercising as much as possible which is difficult for the patient due to back pain Mammogram was October of this year Colonoscopy : need referral OBGYN visit : Hx complete hystrectomy for bengin reasons Lab order placed to be done fasting Patient is complaining of pain left flank area, we tried to do UA today but patient was not able to give the sample, urine test added to her labs She is also complaining of pain right hip for the past few days I ordered x-ray of hip, she can not take NSAIDs due to the history of gastric sleeve surgery I have sent prednisone 20 mg once a day for 5 days for information Referral to orthopedic placed as well [facility] Medical History Hypersomnia Insomnia Snoring Laceration of head Back pain, chronic GERD (gastroesophageal reflux disease) Hx of renal calculi Preoperative examination Internal derangement of knee Substance abuse Dysuria Urinary incontinence Environmental allergies Neurogenic bladder Acute sinusitis Shortness of breath Dysuria Sinusitis chronic, frontal Otitis media Body mass index (BMI) of 40.0 to 44.9 in adult Morbid obesity due to excess calories Osteosclerosis Arthritis Torn ACL IBS (irritable bowel syndrome) PTSD (post-traumatic stress disorder) Bipolar 1 disorder Recurrent urinary tract infection Fibromyalgia Urinary incontinence Neurogenic bladder History of spinal cord injury Neuropathy Hiatal hernia Anxiety Depression Asthma Surgical History Hx of hysterectomy History of repair of hiatal hernia History of sleeve gastrectomy History of ureter stent Status post left foot surgery H/O tubal ligation H/O wisdom tooth extraction H/O dilation and curettage History of fusion of lumbar spine Family History Father Substance use disorder Mental health disorder Mother HTN (hypertension) Stroke Paternal Grandfather No problems noted. Paternal Grandmother Lung cancer Maternal Grandfather Melanoma Maternal Grandmother No problems noted. Brother Substance use disorder Mental health disorder Brother No problems noted. Brother No problems noted. Sister No problems noted. Son No problems noted. Son No problems noted. Daughter No problems noted. Daughter No problems noted. Daughter No problems noted. Maternal Aunt Substance use disorder Social History Household Members: None Housing: Apartment Are you a primary customer care assistant to a significant other at home: No Do you presently have visiting nurse or other home services: No Alcohol intake: former Year quit: 2021 Patient Tobacco Use Status: Never used Tobacco e-Cigarette/Vaping Use: Never Used Substance Use Type: Crack/Cocaine and Former Substance User service: No Current occupational status: disabled Cognitive needs: No Hearing needs: No Vision needs: Yes Questionnaire Thrive Questionnaire Date Thrive assessed: 05/31/22 AUDIT C Alcohol Use Questionnaire (AUDIT-C) 1. How often do you have a drink containing alcohol?: Never 3. How often do you have six or more drinks on one occasion?: Never Total Score: 0 Score Reviewed/Action Taken: Yes JO-7 AMB Questionnaire JO-7 Date JO - 7 assessed: 06/13/24 Source: Developed by Drs. Sanya Ornelas, Nafisa Baker, Kayden Granado and colleagues, with an educational imer from [employer]. Review of Systems Const Denies chills, Denies fever(s) and Denies headache(s) Eyes Denies blurry vision ENT Denies headache(s), Denies nasal discharge, Denies nasal obstruction, Denies odynophagia and Denies sinus pain Card Denies chest pain at rest and Denies chest pain with activity Resp Denies cough and Denies hemoptysis GI Denies diarrhea, Denies odynophagia, Denies vomiting and Denies hematemesis Reports as per HPI Musc Denies abnormal gait Skin/Breast Reports as per HPI Neuro Denies Neuro-related abnormal movements, Denies Abnormal speech present, Denies abnormal gait and Denies headache(s) Psych Denies mood swings and Denies paranoia Endo Reports as per HPI Shawn/Lymph Reports as per HPI Aller/Immun Reports as per HPI Physical exam (Primary Care) Vital Signs: Last Vital Signs Pulse 77 08/20/24 14:38 BP 120/74 08/20/24 14:38 Pulse Ox 96 08/20/24 14:38 Oxygen Delivery Method Room Air 08/20/24 14:38 BMI result Body Mass Index 36.9 Tobacco/Smoking Status: Tobacco use Status Tobacco use date assessed 08/20/24 08/20/24 14:41 Patient Tobacco Use Status Never used Tobacco 08/20/24 14:41 e-Cigarette/Vaping Use Never Used 08/20/24 14:41 Thrive Assessment: Date of Thrive Assessment Date Thrive assessed 05/31/22 08/20/24 14:41 Const General: cooperative, comfortable and no acute distress Orientation/consciousness: patient oriented x3 HENMT Head: Yes normocephalic and Yes atraumatic Eyes General: appearance normal, both eyes and all related structures Pupils: Equal, round and reactive pupils present EOM: EOMs intact bilaterally Neck Neck: Yes supple and No lymphadenopathy Thyroid: Thyroid normal Lymphatic: no lymphadenopathy noted Chest Breast/axilla palpation: normal palpation of the breasts Resp Effort & Inspection: normal respiratory effort and able to speak in complete sentences Auscultation: clear to auscultation bilaterally Cardio Heart sounds: S1 normal heart sound present and S2 normal heart sound present GI Palpation (GI): Soft to palpation and nontender Auscultation: normal bowel sounds Back/Spine/Pelvis Other: Right flank pain with percussion Skin General skin exam: elasticity normal and turgor normal Neuro General: patient oriented x3 and gait normal Cranial nerves: Yes Equal, round and reactive pupils present Speech: No Abnormal speech present Extrem Other: Pain right hip with abduction General: No edema Coding Level of Care Code Est Pt Level 4 (39871) Est Pt Prev Care 40-64y(50702) Diagnoses Encounter for general adult medical examination with abnormal findings Z00.01 Hip pain, right M25.551 Neurogenic bladder N31.9 Recurrent major depressive disorder, in partial remission F33.41 Active/Remission status: in partial remission Failed back syndrome of lumbar spine M96.1 Class 2 severe obesity due to excess calories with serious comorbidity and body mass index (BMI) of 36.0 to 36.9 in adult E66.01; Z68.36 Body mass index: BMI 36.0-36.9 Obesity classification: adult class 2 (BMI 35 - 39.9) Serious obesity comorbidity presence: with serious comorbidity Chronic GERD K21.9 Colon cancer screening Z12.11 Right flank pain R10.9 Assessment & Plan Assessment & Plan (1) Encounter for general adult medical examination with abnormal findings: Code(s): Z00.01 - Encounter for general adult medical examination with abnormal findings Category: Medical (2) Hip pain, right: Code(s): M25.551 - Pain in right hip Category: Medical (3) Neurogenic bladder: Code(s): N31.9 - Neuromuscular dysfunction of bladder, unspecified Category: Medical (4) Major depression, recurrent: Code(s): F33.9 - Major depressive disorder, recurrent, unspecified Category: Medical Qualifiers: Active/Remission status: in partial remission Qualified Code(s): F33.41 - Major depressive disorder, recurrent, in partial remission (5) Failed back syndrome of lumbar spine: Code(s): M96.1 - Postlaminectomy syndrome, not elsewhere classified Category: Medical (6) Obesity due to excess calories: Code(s): E66.09 - Other obesity due to excess calories Category: Medical Qualifiers: Body mass index: BMI 36.0-36.9 Obesity classification: adult class 2 (BMI 35 - 39.9) Serious obesity comorbidity presence: with serious comorbidity Qualified Code(s): E66.01 - Morbid (severe) obesity due to excess calories; Z68.36 - Body mass index [BMI] 36.0-36.9, adult (7) Chronic GERD: Code(s): K21.9 - Gastro-esophageal reflux disease without esophagitis Category: Medical (8) Colon cancer screening: Code(s): Z12.11 - Encounter for screening for malignant neoplasm of colon Category: Medical (9) Right flank pain: Code(s): R10.9 - Unspecified abdominal pain Category: Medical Plan Patient is a 48-year-old female came in for physical examination Patient have history of anxiety, depression, allergic rhinitis, neurogenic bladder disorder with incontinence of urine requiring diaper/bad use Fecal incontinence due to failed back syndrome, osteoarthritis multiple joints Patient is requesting to extra packets of pads, she will get back to me with more detail on that Only medication from PCP office is pantoprazole for GERD Labs were done January of this year CBC shows no signs of anemia Electrolytes are within normal limit kidney functions intact sugar within normal range liver enzymes within normal limit Patient continued to be obese with BMI of 36.9 once again instructed to controlled diet and start exercising as much as possible which is difficult for the patient due to back pain Mammogram was October of this year Colonoscopy : need referral OBGYN visit : Hx complete hystrectomy for bengin reasons Lab order placed to be done fasting Patient is complaining of pain left flank area, we tried to do UA today but patient was not able to give the sample, urine test added to her labs She is also complaining of pain right hip for the past few days I ordered x-ray of hip, she can not take NSAIDs due to the history of gastric sleeve surgery I have sent prednisone 20 mg once a day for 5 days for information Referral to orthopedic placed as well Orders: Orders Complete Blood Count Auto Diff Today E66.01 - Morbid (severe) obesity due to excess calories, F33.41 - Major depressive disorder, recurrent, in partial remission, K21.9 - Gastro-esophageal reflux disease without esophagitis, M96.1 - Postlaminectomy syndrome, not elsewhere classified, N31.9 - Neuromuscular dysfunction of bladder, unspecified, Z00.01 - Encounter for general adult medical examination with abnormal findings, Z68.36 - Body mass index [BMI] 36.0- 36.9, adult Lipid Panel Today E66.01 - Morbid (severe) obesity due to excess calories, F33.41 - Major depressive disorder, recurrent, in partial remission, M96.1 - Postlaminectomy syndrome, not elsewhere classified, N31.9 - Neuromuscular dysfunction of bladder, unspecified, Z00.01 - Encounter for general adult medical examination with abnormal findings, Z68.36 - Body mass index [BMI] 36.0- 36.9, adult Vitamin D 25-OH (D2 and D3) Today E66.01 - Morbid (severe) obesity due to excess calories, F33.41 - Major depressive disorder, recurrent, in partial remission, M96.1 - Postlaminectomy syndrome, not elsewhere classified, N31.9 - Neuromuscular dysfunction of bladder, unspecified, Z00.01 - Encounter for general adult medical examination with abnormal findings, Z68.36 - Body mass index [BMI] 36.0-36.9, adult Vitamin B12 Today E66.01 - Morbid (severe) obesity due to excess calories, F33.41 - Major depressive disorder, recurrent, in partial remission, M96.1 - Postlaminectomy syndrome, not elsewhere classified, N31.9 - Neuromuscular dysfunction of bladder, unspecified, Z00.01 - Encounter for general adult medical examination with abnormal findings, Z68.36 - Body mass index [BMI] 36.0- 36.9, adult TSH reflex Free T4 Today E66.01 - Morbid (severe) obesity due to excess calories, F33.41 - Major depressive disorder, recurrent, in partial remission, M96.1 - Postlaminectomy syndrome, not elsewhere classified, N31.9 - Neuromuscular dysfunction of bladder, unspecified, Z00.01 - Encounter for general adult medical examination with abnormal findings, Z68.36 - Body mass index [BMI] 36.0-36.9, adult XR hip RT min 2V Today M25.551 - Pain in right hip UA CC w/rflx Micro + Cult Today R10.9 - Unspecified abdominal pain Comprehensive [place]. Panel Fast Today E66.01 - Morbid (severe) obesity due to excess calories, F33.41 - Major depressive disorder, recurrent, in partial remission, M96.1 - Postlaminectomy syndrome, not elsewhere classified, N31.9 - Neuromuscular dysfunction of bladder, unspecified, Z00.01 - Encounter for general adult medical examination with abnormal findings, Z68.36 - Body mass index [BMI] 36.0-36.9, adult Referrals Orthopedics Referral M25.551 - Pain in right hip Gastroenterology Referral Z12.11 - Encounter for screening for malignant neoplasm of colon Medications: New prednisone 20 mg PO DAILY 5 tabs 0RF 5 days Refilled albuterol sulfate 90 mcg/actuation 2 puffs inhalation Q4H PRN 6.7 grams 1RF Wheezing R06.02 - Shortness of breath
== END 2024-08-20 15:22 | disposition home or self-care (01) ==
PROVIDERS: PCP Internal Medicine; Visit Provider Internal Medicine
DX: Z00.00 Encounter for general adult medical examination without abnormal findings (principal); R10.9 Unspecified abdominal pain; E66.01 Morbid (severe) obesity due to excess calories; F33.41 Major depressive disorder, recurrent, in partial remission; Z68.36 Body mass index [BMI] 36.0-36.9, adult; M25.551 Pain in right hip; N31.9 Neuromuscular dysfunction of bladder, unspecified; M96.1 Postlaminectomy syndrome, not elsewhere classified; K21.9 Gastro-esophageal reflux disease without esophagitis; Z12.11 Encounter for screening for malignant neoplasm of colon

== ENCOUNTER 2024-09-19 18:28 | Emergency (ER) | payer OTHER, SELFPAY ==
--- NOTE | ~2024-09-19 | XR_ITS ---
CLINICAL HISTORY: cough 2 view chest x-ray Comparison: CR/SR - XR CHEST 2V - 08/07/23 09:19 EST Findings: No consolidation or effusion. Heart size is normal. No acute fracture. Lower thoracic spinal hardware partially visualized. IMPRESSION: 1. No acute findings. This document has been electronically signed by: Joey Stout MD on 09/19/2024 20:06:14
[2024-09-19 19:04] VITALS: BP 132/89; PULSE 81; RESP 18; TEMP 36.8; O2SAT 97; BMI 36.8
--- NOTE | 2024-09-19 19:04 | ED_ITS ---
HPI - General Adult General Chief complaint: Upper Respiratory Symptoms Stated complaint: sinus infection/uti? 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 No n/v/d, no sick contacts. She has had E. Coli UTI in the past S to cephalosporins and macrobid - she just completed a macrobid course. She notes her face hurts and ears hurt. MD complaint: URI, dysuria Onset (ago): week(s) (1) Location: face and chest Radiation: non-radiation Severity: moderate Quality: burning Pain Consistency: intermittent Relieving factors: none Exacerbating factors: other (coughing) Associated symptoms: cough, fever/chills, malaise and other Treatments prior to arrival: none Related Data Home Medications ?Medication ?Instructions ?Recorded ?Confirmed duloxetine 60 mg capsule,delayed 60 mg PO DAILY 06/24/20 08/20/24 release (Cymbalta) lamotrigine 25 mg tablet 50 mg PO BID 06/24/20 08/20/24 calcium acetate 667 mg tablet 667 mg PO BEDTIME 10/04/22 08/20/24 clonazepam 2 mg tablet 2 mg PO TID 10/04/22 08/20/24 multivitamin 1 tab PO DAILY 10/04/22 08/20/24 zolpidem 10 mg tablet 10 mg PO BEDTIME Insomnia 10/04/22 08/20/24 doxepin 150 mg capsule 150 mg PO BEDTIME 03/01/23 08/20/24 mirabegron 25 mg tablet,extended 25 mg PO DAILY 08/07/23 08/20/24 release 24 hr (Myrbetriq) Previous Rx's ?Medication ?Instructions ?Recorded acetaminophen 500 mg tablet 1,000 mg (2 x 500 mg) PO Q6H PRN 04/05/21 (Tylenol Extra Strength) pain #30 tabs triamcinolone acetonide 0.1 % 1 appl topical DAILY 30 days #80 11/21/22 topical cream grams iron,carbonyl 65 mg-vitamin C 125 1 tab PO BEDTIME #30 tabs 02/06/23 mg tablet,delayed release (Vitron-C) Medial Dental Laboratory Technician Knee brace #1 ea 03/02/23 incontinence pad, liner, disp #180 ea 01/22/24 incontinence pad, liner, disp #360 ea 01/22/24 (Bladder Control Pads Ex Absorb) fluticasone propionate 50 1 spray intranasal BID 30 days #16 07/04/24 mcg/actuation nasal grams spray,suspension (Flonase Allergy Relief) albuterol sulfate 90 mcg/actuation 2 puff inhalation Q4H PRN Wheezing 08/20/24 aerosol inhaler #6.7 grams nitrofurantoin 100 mg PO Q12H 7 days #14 caps 08/20/24 monohydrate/macrocrystals 100 mg capsule (Macrobid) prednisone 20 mg tablet 20 mg PO DAILY 5 days #5 tabs 08/20/24 pantoprazole 20 mg tablet,delayed 20 mg PO DAILY #90 tabs 09/12/24 release azithromycin 250 mg tablet See Rx Instructions PO .COMPLEX #6 09/19/24 tabs cefuroxime axetil 500 mg tablet 500 mg PO BID 7 days #14 tabs 09/19/24 prednisone 20 mg tablet 40 mg (2 x 20 mg) PO DAILY 4 days 09/19/24 #8 tabs Allergies Allergy/AdvReac Type Severity Reaction Status Date / Time droperidol [From INAPSINE] Allergy Severe ANGIOEDEMA, Verified 09/19/24 19:08 THROAT SWELLING lithium Allergy Unknown unknown Verified 09/19/24 19:08 quetiapine [Seroquel] AdvReac Intermediate weight Verified 09/19/24 19:08 gain, sleep walking fresh fruit Allergy Intermediate oral Uncoded 09/19/24 19:08 swelling/itching Review of Systems Review of Systems: Constitutional : No Fever, pos Chills ENT/Mouth : No Hoarseness, pos sore throat, No Rhinorrhea Eyes: No Redness, No Discharge, No Vision Changes Cardiovascular : No Chest Pain, no SOB Respiratory : positive Cough, No Sputum, positive Wheezing, Gastrointestinal : No Nausea, No Vomiting, No Diarrhea, No abdominal Pain Genitourinary : pos Dysuria, No Hematuria Musculoskeletal : No joint pain, No Myalgias Skin : No rash Neuro : No Weakness, No Numbness, No Headache Psych : No anxiety, depression All other systems reviewed and are negative [facility] Past Medical History Attestation statement: The following information was validated with the patient. Source: old records reviewed Medical History Hypersomnia Insomnia Snoring Laceration of head Back pain, chronic GERD (gastroesophageal reflux disease) Hx of renal calculi Preoperative examination Internal derangement of knee Substance abuse Dysuria Urinary incontinence Environmental allergies Neurogenic bladder Acute sinusitis Shortness of breath Dysuria Sinusitis chronic, frontal Otitis media Body mass index (BMI) of 40.0 to 44.9 in adult Morbid obesity due to excess calories Osteosclerosis Arthritis Torn ACL IBS (irritable bowel syndrome) PTSD (post-traumatic stress disorder) Bipolar 1 disorder Recurrent urinary tract infection Fibromyalgia Urinary incontinence Neurogenic bladder History of spinal cord injury Neuropathy Hiatal hernia Anxiety Depression Asthma Surgical History Hx of hysterectomy History of repair of hiatal hernia History of sleeve gastrectomy History of ureter stent Status post left foot surgery H/O tubal ligation H/O wisdom tooth extraction H/O dilation and curettage History of fusion of lumbar spine Family History Family History Father Substance use disorder Mental health disorder Mother HTN (hypertension) Stroke Paternal Grandfather No problems noted. Paternal Grandmother Lung cancer Maternal Grandfather Melanoma Maternal Grandmother No problems noted. Brother Substance use disorder Mental health disorder Brother No problems noted. Brother No problems noted. Sister No problems noted. Son No problems noted. Son No problems noted. Daughter No problems noted. Daughter No problems noted. Daughter No problems noted. Maternal Aunt Substance use disorder Social History Social History Household Members: None Housing: Apartment Are you a primary care program director to a significant other at home: No Do you presently have visiting nurse or other home services: No Alcohol intake: former Year quit: 2021 Patient Tobacco Use Status: Never used Tobacco e-Cigarette/Vaping Use: Never Used Substance Use Type: Crack/Cocaine and Former Substance User Advance Directives: No Advance Directives Information Provided: No service: No Current occupational status: disabled Cognitive needs: No Hearing needs: No Vision needs: Yes Physical Exam ED Vital Signs: Vital Signs - 24 hr 09/19/24 19:04 09/19/24 20:30 Temperature 98.2 F 98.1 F Pulse Rate 81 84 Respiratory Rate 18 18 Blood Pressure 132/89 129/91 H Pulse Oximetry 97 96 Oxygen Delivery Method Room Air Room Air BMI result Body Mass Index 36.8 Appearance: Alert. Oriented X3. No acute distress. Eyes: Pupils equal, round and reactive to light. ENT: Pharynx normal. R TM slightly red but no effusion and not bulging Neck: Normal inspection. Neck supple. CVS: Normal heart rate and rhythm. Pulses normal. Respiratory: No respiratory distress. Breath sounds rhonchi heard Abdomen: Soft and nontender. Skin: Skin warm and dry. Normal skin color. Normal skin turgor. Extremities: No lower extremity edema. No calf ttp Neuro: Oriented X 3. No motor deficit. No sensory deficit. CN2-12 intact Course Course Course Narrative: This is an RME performed by Rivas Price TRADING MANAGER: Additional HPI, ROS, PE not included below will be deferred to primary provider. Patient is a 49-year-old emergency department for evaluation. Reports productive cough with phlegm, nasal congestion with onset 1.5 weeks ago. Also having abdominal pain concern for urinary tract infection experiencing frequency, dysuria, but no hematuria, admits to having completed course of antibiotics 2 weeks ago for UTI, symptoms began 2 days ago Plan: Viral serologies, CXR, UA, hCG Medications Administered Discontinued Medications Generic Name Dose Route Start Last Admin Trade Name Freq PRN Reason Stop Dose Admin Cefuroxime Axetil 500 mg 09/19/24 20:36 09/19/24 20:50 Cefuroxime Axetil 500 Mg Tablet PO 09/19/24 20:37 500 mg ONCE ONE Administration Prednisone 40 mg 09/19/24 20:36 09/19/24 20:50 Prednisone 20 Mg Tablet PO 09/19/24 20:37 40 mg ONCE ONE Administration Medical Decision Making Medical Decision Making MDM Narrative: 49 yo female with PMH of asthma, GERD, neurogenic bladder s/p hysterectomy and bladder sling managed by [facility] 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 She has had productive cough for over 1 week no improvement. She will be given precautions to return not toxic, no resp distress. Differential Diagnosis Differential Diagnoses: The differential diagnosis associated with the presentation includes UTI, bronchitis, pneumonia, viral syndrome Admission/Observation Consideration of admission/observation: Escalation of care including admission/observation considered no resp distress, not toxic can be managed as outpatient Lab Data MDM Lab Attestation statement: I reviewed the patient's lab results. Labs: Lab Results 09/19/24 Range/Units 19:20 Influenza Type A (PCR) NEGATIVE (Negative) Influenza Type B (PCR) NEGATIVE (Negative) RSV RNA Qual (PCR) NEGATIVE (Negative) SARS-CoV-2 RNA (RT-PCR) NEGATIVE (Negative) Independent Interpretation I performed an independent interpretation of an: Plain X-Ray (normal ) Radiology Impression Discussion of test interpretation with radiology: I have reviewed the radiologist's reading. External Record Review External record reviewed: Outpatient record and Prior outpatient labs Prescription Management I considered prescription management with: Antibiotic and Other Discharge Plan Discharge Clinical Impression: Dysuria, Bronchitis Patient Disposition: Home, Self-Care Instructions: Acute Bronchitis (ED), Dysuria (ED) Additional Instructions: return for worsening symptoms, increased trouble breathing, chest pain, fevers or any other concerns use your inhaler treatments On a cephalosporin?antibiotic, softer bowel movements are to be expected. Call your provider if you move your bowels more than 4 times a day, your bowel movements are almost all liquid, or you get a rash.?? On azithromycin, call your provider if you develop new ringing in your ears, new problems hearing, dizziness, palpitations, abdominal pain, nausea, or diarrhea. chest xray normal and negative for COVID, flu, RSV Prescriptions: New cefuroxime axetil 500 mg tablet 500 mg PO BID 7 Days Qty: 14 0RF azithromycin 250 mg tablet See Rx Instructions PO .COMPLEX Qty: 6 0RF Rx Instructions: For 250 mg dose pack: take 500 mg today (day 1), then 250 mg for 4 days (days 2-5) prednisone 20 mg tablet 40 mg PO DAILY 4 Days Qty: 8 0RF No Action triamcinolone acetonide 0.1 % cream 1 appl topical DAILY 30 Days Qty: 80 0RF Rx Instructions: to elbow Vitron-C 65 mg iron- 125 mg tablet,delayed release (DR/EC) 1 tab PO BEDTIME Qty: 30 5RF (DME) Medial Dental Laboratory Technician Knee brace See Rx Instructions .ROUTE .MEDSUPPLY Qty: 1 0RF Rx Instructions: n/a (DME) Bladder Control Pads Ex Absorb Pad See Rx Instructions .Route Qty: 360 11RF Rx Instructions: As directed for urinary incontinence, uses 2 at a time, 12 per day (DME) incontinence pad, liner, disp Pad See Rx Instructions .Route Qty: 180 11RF Rx Instructions: As directed for urinary incontinence, uses 6 per day fluticasone propionate [Flonase Allergy Relief] 50 mcg/actuation spray,suspension 1 spray intranasal BID 30 Days Qty: 16 1RF Rx Instructions: administer into each nostril pantoprazole 20 mg tablet,delayed release (DR/EC) 20 mg PO DAILY Qty: 90 0RF clonazepam 2 mg tablet 2 mg PO TID Myrbetriq 25 mg tablet extended release 24 hr 25 mg PO DAILY lamotrigine 25 mg tablet 50 mg PO BID duloxetine [Cymbalta] 60 mg capsule,delayed release(DR/EC) 60 mg PO DAILY zolpidem 10 mg tablet 10 mg PO BEDTIME acetaminophen [Tylenol Extra Strength] 500 mg tablet 1,000 mg PO Q6H PRN (Reason: pain) Qty: 30 1RF multivitamin Tablet 1 tab PO DAILY calcium acetate 667 mg tablet 667 mg PO BEDTIME doxepin 150 mg capsule 150 mg PO BEDTIME albuterol sulfate 90 mcg/actuation HFA aerosol inhaler 2 puff inhalation Q4H PRN (Reason: Wheezing) Qty: 6.7 1RF prednisone 20 mg tablet 20 mg PO DAILY 5 Days Qty: 5 0RF nitrofurantoin monohyd/m-cryst [Macrobid] 100 mg capsule 100 mg PO Q12H 7 Days Qty: 14 0RF Rx Instructions: must administer with a meal/food Interventions: ED Discharge Assessment Last Done: 09/19/24 21:12 Print Language: French
[2024-09-19 20:07] LABS: Influenza A PCR NEGATIVE (Negative); Influenza B PCR NEGATIVE (Negative); Resp Syncy Virus RNA Qual PCR NEGATIVE (Negative); SARS COV2 PCR INHOUSE NEGATIVE (Negative)
[2024-09-19 20:30] VITALS: BP 129/91; PULSE 84; RESP 18; TEMP 36.7; O2SAT 96
--- NOTE | 2024-09-19 20:31 | MHC.EDTECH ---
Rounds and vitals completed,patient given a cup of water,patient is unable to give a urine sample at this time,provider aware
[2024-09-19] MEDS: cefuroxime axetiL 500 MG TABLET PO (20:50)
[2024-09-19] MEDS: predniSONE 20 MG TABLET 40 MG PO (20:50)
[2024-09-19 21:12] VITALS: BP 129/91; PULSE 84; RESP 18; TEMP 36.7; O2SAT 96
[2024-09-19 21:16] LABS: Appearance Urine Clear; Color Urine Yellow; Glucose Urine UA Negative (Negative); Leukocyte Esterase Urine Small (1+) (Negative); Nitrite Urine Positive (Negative); UMIC TRIGGER UACC YES; Urine Blood Negative (Negative); Urine Ketones Negative (Negative); Urine Protein Negative (Neg-Trace)
[2024-09-19 21:20] LABS: UPreg QC Valid YES; Urine Pregnancy NEGATIVE (NEGATIVE)
[2024-09-19 21:53] LABS: Bacteria Urine 4+ (None Seen); Hyaline Casts Urine 0-2 /LPF (0-2); RBC Urine 0-2 /HPF (0-2); UACC Culture Trigger YES; WBC Urine 0-5 /HPF (0-5)
== END 2024-09-19 21:14 | disposition home or self-care (01) ==
PROVIDERS: Nurse Practitioner Family; Emergency Provider Emergency Medicine; PCP Internal Medicine
DX: J40 Bronchitis, not specified as acute or chronic (principal); R30.0 Dysuria; R50.9 Fever, unspecified; R05.9 Cough, unspecified; Z87.440 Personal history of urinary (tract) infections; Z79.899 Other long term (current) drug therapy; Z03.818 Encounter for observation for suspected exposure to other biological agents ruled out
CPT/HCPCS: 0241U; 71046; 81001; 81025; 87086; 87088; 87186; 99283

== ENCOUNTER → 2024-09-19 19:06 | Outpatient (BNV) | payer OTHER, SELFPAY | PROVIDERS: Emergency Provider Emergency Medicine; PCP Internal Medicine; Visit Provider Radiology Diagnostic Radiology | DX: R05.9 Cough, unspecified (principal) | CPT/HCPCS: 71046 ==

== ENCOUNTER 2024-09-26 07:57 | Outpatient (REF) | payer OTHER, SELFPAY | END 2024-09-26 07:58 | disposition home or self-care (01) | LOC: HO.HOSX 07:57 | PROVIDERS: Visit Provider Physician Assistant | DX: Z13.89 Encounter for screening for other disorder (principal) ==

== ENCOUNTER 2024-09-29 09:56 | Outpatient (REF) | payer OTHER, SELFPAY ==
[2024-09-29 12:47] LABS: MANUAL DIFF FLAG NO
[2024-09-29 12:49] LABS: Appearance Urine Clear; Basophils Percent Auto 0.6 % (0-2); Color Urine Yellow; Eosinophils Absolute Auto 0.1 X10*3/uL (0.0-0.4); Eosinophils Percent Auto 2.4 % (0-4); Glucose Urine UA Negative (Negative); Hematocrit 42.1 % (37.0-47.0); Hemoglobin 13.8 g/dl (12.0-16.0); Imm Gran Abs Auto 0.01 X10*3/uL (0.00-0.03); Imm Gran Pct Auto 0.2 % (0.0-0.4); Leukocyte Esterase Urine Small (1+) (Negative); Lymphocytes Absolute Auto 2.3 X10*3/uL (1.2-4.9); Lymphocytes Percent Auto 45.6 % (20-40); Mean Corpuscular HGB Conc 32.8 g/dl (31.0-35.0); Mean Corpuscular Hemoglobin 32.5 pg (27.0-33.0); Mean Corpuscular Volume 99.3 fL (80.0-98.0); Mean Platelet Volume 8.9 fL (9.4-12.3); Monocytes Absolute Auto 0.5 X10*3/uL (0.1-1.2); Monocytes Percent Auto 9.1 % (2-11); Neutrophils Absolute Auto 2.1 x10*3/uL (2.0-8.3); Neutrophils Percent Auto 42.1 % (45-73); Nitrite Urine Negative (Negative); PH 5.5 (5.0-9.0); Platelet Count 325 X10*3/uL (160-400); Red Blood Count 4.24 X10*6/uL (4.20-5.50); Red Cell Distribution Width 13.1 % (11.0-16.0); UMIC TRIGGER UACC YES; Urine Blood Negative (Negative); Urine Ketones Negative (Negative); Urine Protein Negative (Neg-Trace); White Blood Count 5.1 X10*3/uL (4.8-10.8)
[2024-09-29 12:51] LABS: Bacteria Urine None Seen (None Seen); Hyaline Casts Urine 0-2 /LPF (0-2); RBC Urine 0-2 /HPF (0-2); Squamous Epithelial Cell Urine 0-2 /HPF (0-2); UACC Culture Trigger YES; WBC Urine 21-50 /HPF (0-5)
[2024-09-29 13:12] LABS: Alanine Aminotransferase 11 U/L (0-31); Albumin Level 3.6 g/dL (3.5-5.0); Alkaline Phosphatase 67 U/L (39-117); Anion Gap 12 (12-20); Aspartate Amino Transferase 15 U/L (5-31); Bilirubin Total 0.3 mg/dL (0.0-1.0); Blood Urea Nitrogen 10 mg/dL (9-16); Calcium 8.7 mg/dL (8.4-10.2); Carbon Dioxide 25 mmol/L (22-29); Chloride 110 mmol/L (96-108); Cholesterol 168 mg/dL (<200); Estimated Glomerular Filt Rate > 60; Glucose Fasting 93 mg/dL (60-99); HDL Cholesterol 57 mg/dL (>40); LDL Cholesterol Calculated 94 mg/dL (<100); Potassium 4.2 mmol/L (3.3-5.1); Sodium 143 mmol/L (135-145); Total Protein 6.2 g/dL (6.5-8.0); Triglycerides 89 mg/dL (<150)
[2024-09-29 13:28] LABS: TSH reflex Free T4 1.25 uIU/mL (0.32-4.0)
[2024-09-29 13:30] LABS: Vitamin B12 576 pg/mL (200-900)
[2024-10-03 15:58] LABS: Vitamin D 25-OH, D2 <4 ng/mL; Vitamin D 25-OH, D3 33 ng/mL; Vitamin D 25-OH, Total 33 ng/mL (30-100)
== END 2024-09-29 09:57 | disposition home or self-care (01) ==
LOC: HO.HMGCLDS 09:56
PROVIDERS: PCP Internal Medicine; Visit Provider Internal Medicine
DX: Z00.01 Encounter for general adult medical examination with abnormal findings (principal); R30.0 Dysuria; F33.41 Major depressive disorder, recurrent, in partial remission; N31.9 Neuromuscular dysfunction of bladder, unspecified; M96.1 Postlaminectomy syndrome, not elsewhere classified; E66.01 Morbid (severe) obesity due to excess calories; Z68.36 Body mass index [BMI] 36.0-36.9, adult; K21.9 Gastro-esophageal reflux disease without esophagitis
CPT/HCPCS: 36415; 80053; 80061; 81001; 82306; 82607; 84443; 85025; 87086

== ENCOUNTER → 2025-01-27 08:04 | Outpatient (RCR) | payer OTHER, SELFPAY ==
--- NOTE | 2020-08-31 18:37 | MHC.PT.DC ---
[facility] [place] Office [place] Office [place] Office [address] Usha Calderon 140 [facility] [phone] F: [phone] F: [phone] F: [phone] F: [phone] Physical Therapy Discharge Report Diagnosis: Date of Surgery: Date of Evaluation: 06/01/20 Date of Discharge: Treatments to Date: 8 Cancellations to Date: 1 No Shows to Date: 1 Discharge Status: Improved Function Patient Elected to Stop Discharge Summary: Allison had been progressing well and demonstrated good motivation and program compliance though requested to end d/t personal factors. Electronically signed by: Romain Spain PT. Please sign and return to therapist. Thank you for your referral.
== END | disposition home or self-care (01) ==
LOC: HO.PTCHIC 06-11 11:04
PROVIDERS: PCP Internal Medicine; Visit Provider Internal Medicine
DX: M54.2 Cervicalgia (principal); M54.5 Low back pain
CPT/HCPCS: 87086; 87088; 87186; 97110; 97140

== ENCOUNTER 2025-04-02 12:12 | Outpatient (REF) | payer OTHER, SELFPAY ==
--- OUTSIDE RECORDS SUMMARY | 2025-04-02 12:44 | XMS_ITS | Clinical Summary ---
Author Organization [facility] Address [id number] [place] [id number] Care Team Providers Care Consumer Affairs Director Name Role Phone Arnaud King MD Primary Care Provider [phone] Medical History Medical History Date Comments Migraine, unspecified, witho ut mention of intractable migraine without mention of status migrainosus DX:Migraine, uns pecified, without mention of intractable migraine without mention of status migrainosus Obesity, unspecified 08/07/2006 DX:Obesity, unspecified Myalgia and myositis, unspecified 08/07/2006 DX:Myalgia and myositis, unspecified Adjustment disorder with dep ressed mood DX:Adjustment disorder with depressed mood Family History Medical History Relation Name Comments Hyperlipidemia Father Neurological Disorder Mother Relation Name Status Comments Father Mother Social History Tobacco Use Types Packs/Day Years Used Date Smoking Tobacco: Never Alcohol Use Standard Drinks/Week Comments Yes 0 (1 standard drink = 0.6 oz pur e alcohol) Comments Unknown Sex and Gender Information Value Date Recorded Sex Assigned at Not on file Legal Sex Female 12:44 PM EST Gender Identity Not on file Sexual Orientation Not on file Obstetrics History Plan of Treatment Health Maintenance Due Date Last Done Comments DTaP,Tdap,and Td Vaccines (1 - Tdap) 1995 Hepatitis B Vaccines (1 of 3 - 19+ 3-dose series) 1995 Cervical Cancer Screening: P ap Smear 1997 Breast Cancer Screening 01/22/2020 01/21/2018 COVID-19 Vaccine ( - 2023-2 5 season) 2024 Depression Screening 09/10/2024 Influenza Vaccine (#1) 2025 HIB Vaccines Aged Out No longer eligi ble based on patient's age to complete this topic HPV Vaccines Aged Out No longer eligi ble based on patient's age to complete this topic Hepatitis A Vaccines Aged Out No long er eligible based on patient's age to complete this topic IPV Vaccines Aged Out No longer eligi ble based on patient's age to complete this topic MMR Vaccines Aged Out No longer eligi ble based on patient's age to complete this topic Meningococcal ACWY Vaccine Aged Out N o longer eligible based on patient's age to complete this topic Meningococcal B Vaccine Aged Out No l onger eligible based on patient's age to complete this topic Pneumococcal Vaccine: Pediat rics (0 to 5 Years) and At-Risk Patients (6 to 49 Years) Aged Out No longer eligi ble based on patient's age to complete this topic RSV Immunization Patients Un caitlyn 20 months Aged Out No longer eligible b ased on patient's age to complete this topic Varicella Vaccines Aged Out No longer eligible based on patient's age to complete this topic Procedures Procedure Name Priority Date/Time Associated Diagnosis Comments [facility] SCREENING DIGITAL Routine 01/21/2018 5:02 PM EDT Encounter for screening mammogram for malignant neoplasm of breast from Last 3 Months or Most Recently Relevant to Health Maintenance Results * [facility] SCREENING DIGITAL (01/21/2018 5:02 PM EDT) Anatomical Region Laterality Modality Mammography 01/21/2018 2:16 PM EDT Narrative 01/21/2018 5:02 PM EDT [facility] Diagnostic Imaging Department [address] [place] [address] Patient: ARTIEALLISON /Age/Sex: 1975 - 42 - F Unit#: [id number] Location/Status: [facility] CLI Mnemonic/Ordering Site: [facility] Ordering Physician: ARNAUD KING MD [facility] Screening Digital - 01/21/18 - 1440 EXAM: [facility] Screening Digital EXAM DATE AND TIME: 01/21/2018 2:43 PM HISTORY: Screening. This is a baseline exam. The patient declined tomosynthesis. COMPARISON: No comparison studies. TECHNIQUE: CC and MLO views of both breasts were obtained using full field digital mammography. Computer aided detection with the BetterYou 7.2-H was employed. TISSUE DENSITY: c. The breasts are heterogeneously dense, which may obscure small masses. FINDINGS: No suspicious masses, grouped microcalcifications, or areas of architectural distortion are seen. The skin and vascularity are unremarkable. IMPRESSION: No mammographic evidence of malignancy is seen. A negative mammogram in the presence of a clinically suspicious palpable abnormality does not preclude the possibility of malignancy or alter the indications for biopsy. BI-RADS: Category 1: Negative RECOMMENDATION(S): 1: Routine screening mammogram BILATERAL in 1 year. 83060 3341F, 7025F Dictating Physician: PARAG COLES MD Electronically Signed by: PARAG COLES MD Dic Date/Time: 01/21/181700 Sign date/Time: 01/21/181701 Procedure Note Parag Coles MD - 08/29/2022 [facility] Diagnostic Imaging Department [address] [place] [id number] Patient: ALLISON PEREZ./Age/Sex: 1975 - 42 - F Unit#: [id number] Location/Status: [facility] CLI Mnemonic/Ordering Site: [facility] Ordering Physician: ARNAUD KING MD [facility] Screening Digital - 01/21/18 - 1441 EXAM: [facility] Screening Digital EXAM DATE AND TIME: 01/21/2018 2:43 PM HISTORY: Screening. This is a baseline exam. The patient declined tomosynthesis. COMPARISON: No comparison studies. TECHNIQUE: CC and MLO views of both breasts were obtained using fullfield digital mammography. Computer aided detection with the Outsell.2-H was employed. TISSUE DENSITY: c. The breasts are heterogeneously dense, which mayobscure small masses. FINDINGS: No suspicious masses, grouped microcalcifications, or areas ofarchitectural distortion are seen. The skin and vascularity are unremarkable. IMPRESSION: No mammographic evidence of malignancy is seen. A negative mammogram in the presence of a clinically suspicious palpable abnormality does not preclude the possibility of malignancy or alter the indications for biopsy. BI-RADS: Category 1: Negative RECOMMENDATION(S): 1: Routine screening mammogram BILATERAL in 1 year. 15530 3341F, 7025F Dictating Physician: PARAG COLES MD Electronically Signed by: PARAG COLES MD Dic Date/Time: 01/21/18 170 Sign date/Time: 01/21/181701 Arnaud King MD IMG BI PROCEDURES Final Result from Last 3 Months or Most Recently Relevant to Health Maintenance Care Teams Consumer Affairs Director Relationship Specialty Start Date End Date Arnaud King MD [address] [place] [phone] PCP - General 11/13/17
--- OUTSIDE RECORDS SUMMARY | 2025-04-02 12:44 | XMS_ITS | Clinical Summary ---
Author Organization [facility] Address [address] [address] Phone Care Team Providers Care Label Paster Name Role Phone Arnaud Carbone MD Primary Care Provider [phone] Allergies Active Allergy Reactions Criticality Noted Date Comments Droperidol Swelling 06/01/2017 [place] Analogues Swelling Low 06/06/2022 feet Quetiapine Itching 06/06/2022 Medications DULoxetine (CYMBALTA) 60 MG capsule Take 60 mg by mouth daily. Active pantoprazole (PROTONIX) 20 MG tablet Take 20 mg by mouth daily. Active cholecalciferol (VITAMIN D3) 2,000 unit capsule Take by mouth daily. 2 Active clonazePAM (KLONOPIN) 2 MG tablet Take 2 mg by mouth 2 (two) times a day. 2 Active doxepin (SINEQUAN) 75 MG capsule 75 mg 2 (two) times a day. 2 Active VITRON-C 65 mg iron- 125 mg TbEC TAKE 1 TABLET BY MOUTH EVERYDAY AT BEDTIME 2 Active lamoTRIgine (LAMICTAL) 25 MG IMMEDIATE release tablet Take 50 mg by mouth 2 (two) times a day. 2 Active triamcinolone acetonide 0.1 % cream Apply topically daily. 2 Active trospium (SANCTURA XR) 60 mg Cp24 Take by mouth. 2 Active vitamin A 03407 UNIT capsule Take 10,000 Units by mouth daily. 2 Active zolpidem (AMBIEN) 10 mg tablet TAKE 1 TABLET BY MOUTH EVERYDAY AT BEDTIME Active Medication-Free TextIndications :bariatric vitamin Indications: bariatric vitamin Active docusate calcium (SURFAK) 240 mg capsule Take 240 mg by mouth 2 (two) times a day. Active Active Problems Problem Noted Date Diagnosed Date Skin laxity 06/06/2022 Breast ptosis 06/06/2022 Macromastia 06/06/2022 Neck pain 06/06/2022 Upper back pain 06/06/2022 Family History Medical History Relation Comments Stroke Mother Relation Status Comments Father Alive Mother Alive Social History Tobacco Use Types Packs/Day Years Used Date Smoking Tobacco: Never Smokeless Tobacco: Never Alcohol Use Standard Drinks/Week Comments Never 0 (1 standard drink = 0.6 oz pur e alcohol) Education Answer Date Recorded Are you interested in more education? Not on juanita e 01/05/2023 Are you concerned about learning? Not on file 01/05/2023 No 01/05/2023 No 01/05/2023 Digital Access Answer Date Recorded No 02/03/2023 No 02/03/2023 Reliable internet access at home? Not on file 02/03/2023 Device with a working camera? Not on file Comments Unknown Sex and Gender Information Value Date Recorded Sex Assigned at Not on file Legal Sex Female 3:15 PM EDT Gender Identity Not on file Sexual Orientation Not on file Last Filed Vital Signs Vital Sign Reading Time Taken Comments Blood Pressure 128/85 06/06/2022 8:48 AM EDT Pulse 65 06/06/2022 8:48 AM EDT Temperature 36.7 C (98.1 F) 06/02/2017 9:21 AM EDT Respiratory Rate 14 06/02/2017 9:21 AM EDT Oxygen Saturation 96% 06/02/2017 9:21 AM EDT Inhaled Oxygen Concentration - - Weight 92.8 kg (204 lb 9.6 oz) 06/06/2022 8:48 A M EDT Height 163.8 cm (5' 4.5 ) 06/06/2022 8:48 AM EDT Body Mass Index 34.58 06/06/2022 8:48 AM EDT Plan of Treatment Health Maintenance Due Date Last Done Comments LIPID PANEL 1976 DEPRESSION SCREENING 1988 HEPATITIS C SCREENING 1994 HIV ONE-TIME SCREENING (18-6 5 YEARS) 1994 PAP SMEAR 1997 MAMMOGRAM 2016 Adult Td,Tdap Booster 02/07/2017 02/07/2007 SCREENING FOR DIABETES 06/01/2020 06/01/2017 COLOGUARD 2021 COLONOSCOPY 2021 COLORECTAL CANCER SCREENING 2021 FIT TEST 2021 FOBT 2021 SIGMOIDOSCOPY 2021 VIRTUAL COLONOSCOPY 2021 COVID-19 VACCINE (2023-2 5 season) 2024 PNEUMOCOCCAL VACCINES (0-49 years) Aged Out 2011 No longer eligible based on patient's age to complete this topic SMOKING STATUS SCREENING (On ce After 26 Yrs) Completed 06/06/2022 HEPATITIS A VACCINES Aged Out No long er eligible based on patient's age to complete this topic HIB VACCINES Aged Out No longer eligi ble based on patient's age to complete this topic MENINGOCOCCAL VACCINES (ACWY) Aged Out No longer eligible based on patient's age to complete this topic MENINGOCOCCAL VACCINES (B) Aged Out N o longer eligible based on patient's age to complete this topic Medical Devices Not on file Insurance ACO ACO ACO ACO ACO ACO ACO [facility] Care Teams Label Paster Relationship Specialty Start Date End Date Arnaud Carbone MD [address] [facility] [address] [place] [id number] PCP - General Internal Medicine 04/20/22 Additional Source Comments The information contained in this document represents components of the legal health record. It is not the complete legal health record.[facility]
== END 2025-04-02 12:13 | disposition home or self-care (01) ==
LOC: HO.MAMMO 12:12
PROVIDERS: PCP Internal Medicine; Visit Provider Internal Medicine
DX: Z12.31 Encounter for screening mammogram for malignant neoplasm of breast (principal)
CPT/HCPCS: 77063; 77067

== ENCOUNTER → 2025-04-02 12:30 | Outpatient (BNV) | payer OTHER, SELFPAY | PROVIDERS: PCP Internal Medicine; Visit Provider Internal Medicine | DX: Z12.31 Encounter for screening mammogram for malignant neoplasm of breast (principal) | CPT/HCPCS: 77063; 77067 ==

== ENCOUNTER 2025-04-09 12:41 | Outpatient (AMB) | payer OTHER, SELFPAY ==
--- NOTE | 2025-04-09 12:45 | A.OFFVIS_ITS ---
VS Expanded 04/09/25 12:58 Height 5 ft 5 in Weight 215 lb BMI 35.8 Intake Visit Reasons: TV PO LSG 04/20/21 Allergies droperidol (From INAPSINE) Allergy (Severe, Verified 09/19/24 19:08) ANGIOEDEMA, THROAT SWELLING lithium Allergy (Unknown, Verified 09/19/24 19:08) unknown quetiapine (Seroquel) Adverse Reaction (Intermediate, Verified 09/19/24 19:08) weight gain, sleep walking fresh fruit Allergy (Intermediate, Uncoded 09/19/24 19:08) oral swelling/itching Medication List - Last Reconciled 04/09/25 by AMY Schulte acetaminophen (Tylenol Extra Strength) 1,000 mg (2 x 500 mg) PO Q6H PRN albuterol sulfate 90 mcg/actuation 2 puffs inhalation Q4H PRN azithromycin For 250 mg dose pack: take 500 mg today (day 1), then 250 mg for 4 days (days 2-5) calcium acetate 667 mg PO BEDTIME cefuroxime axetil 500 mg PO BID 7 days clonazepam 2 mg PO TID doxepin 150 mg PO BEDTIME duloxetine (Cymbalta) 60 mg PO DAILY fluticasone propionate 50 mcg/actuation (Flonase Allergy Relief) 1 spray intranasal BID 30 days incontinence pad, liner, disp (Bladder Control Pads Ex Absorb) As directed for urinary incontinence, uses 2 at a time, 12 per day incontinence pad, liner, disp As directed for urinary incontinence, uses 6 per day iron,carbonyl-vitamin C 65 mg iron- 125 mg (Vitron-C) 1 tab PO BEDTIME lamotrigine 50 mg PO BID [Medial Parts Counter Representative Knee brace n/a] mirabegron ER (Myrbetriq) 25 mg PO DAILY multivitamin 1 tab PO DAILY nitrofurantoin monohyd/m-cryst 100 mg (Macrobid) 100 mg PO Q12H 7 days pantoprazole 20 mg PO DAILY prednisone 40 mg (2 x 20 mg) PO DAILY 4 days prednisone 20 mg PO DAILY 5 days triamcinolone acetonide 0.1% 1 appl topical DAILY 30 days zolpidem 10 mg PO BEDTIME HPI Comments Details: This?is a?49?yo F who is s/p LSG 04/20/2021. Presents for 4 year post op visit. Has not been seen in 2 years. Pt reports feeling tired all the time . She continues to report some abdominal pain, reflux. Coughing up a lot of phlegm Takes pantoprazole 20mg. Rare NSAIDs, no smoking. Did relapse with EtOH use but reports she has stopped. Present meal plan includes: 2 Premier shakes per day (take 2 hours to drink) 1 Angolan yogurt 1 meal of 2oz protein, 2oz cooked veg (like 2 scrambled eggs or 4 forks of meat) - has not been following this plan- often would not eat much when actively drinking [facility] Medical History Hypersomnia Insomnia Snoring Laceration of head Back pain, chronic GERD (gastroesophageal reflux disease) Hx of renal calculi Preoperative examination Internal derangement of knee Substance abuse Dysuria Urinary incontinence Environmental allergies Neurogenic bladder Acute sinusitis Shortness of breath Dysuria Sinusitis chronic, frontal Otitis media Body mass index (BMI) of 40.0 to 44.9 in adult Morbid obesity due to excess calories Osteosclerosis Arthritis Torn ACL IBS (irritable bowel syndrome) PTSD (post-traumatic stress disorder) Bipolar 1 disorder Recurrent urinary tract infection Fibromyalgia Urinary incontinence Neurogenic bladder History of spinal cord injury Neuropathy Hiatal hernia Anxiety Depression Asthma Surgical History Hx of hysterectomy History of repair of hiatal hernia History of sleeve gastrectomy History of ureter stent Status post left foot surgery H/O tubal ligation H/O wisdom tooth extraction H/O dilation and curettage History of fusion of lumbar spine Family History Father Substance use disorder Mental health disorder Mother HTN (hypertension) Stroke Paternal Grandfather No problems noted. Paternal Grandmother Lung cancer Maternal Grandfather Melanoma Maternal Grandmother No problems noted. Brother Substance use disorder Mental health disorder Brother No problems noted. Brother No problems noted. Sister No problems noted. Son No problems noted. Son No problems noted. Daughter No problems noted. Daughter No problems noted. Daughter No problems noted. Maternal Aunt Substance use disorder Social History Household Members: None Housing: Apartment Are you a primary health care facilities inspector to a significant other at home: No Do you presently have visiting nurse or other home services: No Alcohol intake: former Year quit: 2021 Patient Tobacco Use Status: Never used Tobacco e-Cigarette/Vaping Use: Never Used Substance Use Type: Crack/Cocaine and Former Substance User service: No Current occupational status: disabled Cognitive needs: No Hearing needs: No Vision needs: Yes Telehealth Telehealth Telehealth Platform: Telephone Location of provider rendering services: practice address Location of patient: address on file Patient Identification confirmed using: Name, : Yes Telehealth method: voice only Patient verbally consented to treatment: Yes Patient verbally consented to billing insurance company: Yes Patient informed of any privacy concerns related to visit: Yes Minutes spent on Phone/Video with Pt.: 15 Assessment & Plan Assessment & Plan (1) History of sleeve gastrectomy: Code(s): Z90.3 - Acquired absence of stomach [part of] Category: Surgical (2) Obesity with body mass index (BMI) of 30.0 to 39.9: Code(s): E66.9 - Obesity, unspecified Category: Medical Plan Pt primarily would like her labs done to work up fatigue so I ordered. We discussed that her lack of nutrition plan may also be contributing to her fatigue, and the importance of getting adequate protein. I recommended the above plan again. She gets food stamps next week. Also increased her PPI to 40mg daily and again went over reflux triggers and practicing behaviors that will decrea se/eliminate reflux. RTC 8 weeks to monitor improvement in reflux and discuss labs. Orders: Orders Vitamin D 25-OH Total Today Z90.3 - Acquired absence of stomach [part of] Ferritin Today Z90.3 - Acquired absence of stomach [part of] Vitamin B1 Today Z90.3 - Acquired absence of stomach [part of] Vitamin A Today Z90.3 - Acquired absence of stomach [part of] Zinc Today Z90.3 - Acquired absence of stomach [part of] Comprehensive Met. Panel Today Z90.3 - Acquired absence of stomach [part of] Complete Blood Count Auto Diff Today Z90.3 - Acquired absence of stomach [part of] Lipid Panel Today Z90.3 - Acquired absence of stomach [part of] IRON PROFILE Today Z90.3 - Acquired absence of stomach [part of] Insulin Today Z90.3 - Acquired absence of stomach [part of] TSH reflex Free T4 Today Z90.3 - Acquired absence of stomach [part of] C Reactive Protein Today Z90.3 - Acquired absence of stomach [part of] Vitamin B12 and Folate Today Z90.3 - Acquired absence of stomach [part of] Hemoglobin A1c Today Z90.3 - Acquired absence of stomach [part of] Medications: New pantoprazole 40 mg PO DAILY 90 tabs 3RF Discontinued azithromycin Discontinued Reason: Doctor's Order For 250 mg dose pack: take 500 mg today (day 1), then 250 mg for 4 days (days 2-5) 6 tabs 0RF cefuroxime axetil Discontinued Reason: Doctor's Order 500 mg PO BID 7 days 14 tabs 0RF prednisone Discontinued Reason: Doctor's Order 40 mg (2 x 20 mg) PO DAILY 4 days 8 tabs 0RF prednisone Discontinued Reason: Doctor's Order 20 mg PO DAILY 5 days 5 tabs 0RF pantoprazole Discontinued Reason: Doctor's Order 20 mg PO DAILY 90 tabs 0RF
--- OUTSIDE RECORDS SUMMARY | 2025-04-09 12:52 | XMS_ITS | Clinical Summary ---
Author Organization [facility] Address [address] [place] [phone] Care Team Providers Care Process Manager Name Role Phone Arnaud King MD Primary Care Provider [phone] Medical History Medical History Date Comments Migraine, [...] Procedure Name Priority Date/Time Associated Diagnosis Comments [facility] SCREENING DIGITAL Routine 01/21/2018 5:02 PM EDT Encounter for screening mammogram for malignant neoplasm of breast from Last 3 Months or Most Recently Relevant to Health Maintenance Results * [facility] SCREENING DIGITAL (01/21/2018 5:02 PM EDT) Anatomical Region Laterality Modality Mammography 01/21/2018 2:16 PM EDT Narrative 01/21/2018 5:02 PM EDT [facility] Diagnostic Imaging Department [address] [place] [address] Patient: ARTIEALLISON /Age/Sex: 1975 - 42 - F Unit#: [id number] Location/Status: [place]/EDMUND CLI Mnemonic/Ordering Site: [facility] Ordering Physician: ARNAUD KING MD [facility] Screening Digital - 01/21/18 - 1440 EXAM: [facility] Screening Digital EXAM DATE AND TIME: 01/21/2018 2:43 PM HISTORY: Screening. This is a baseline exam. The patient declined tomosynthesis. COMPARISON: No comparison studies. TECHNIQUE: CC and MLO views of both breasts were obtained using full field digital mammography. Computer aided detection with the [employer] 7.2-H was employed. TISSUE DENSITY: c. The [...] Routine screening mammogram BILATERAL in 1 year. [address] 3341F, 7025F Dictating Physician: PARAG COLES MD Electronically Signed by: PARAG COLES MD Dic Date/Time: 01/21/181700 Sign date/Time: 01/21/181701 Procedure Note Parag Coles MD - 08/29/2022 [facility] Diagnostic Imaging Department [address] [place] [id number] Patient: ALLISON PEREZ./Age/Sex: 1975 - 42 - F Unit#: [id number] Location/Status: [facility] CLI Mnemonic/Ordering Site: [facility] Ordering Physician: ARNAUD KING MD [facility] Screening Digital - 01/21/18 - 1441 EXAM: [facility] Screening Digital EXAM DATE AND TIME: 01/21/2018 2:43 PM HISTORY: Screening. This is a baseline exam. The patient declined tomosynthesis. COMPARISON: No comparison studies. TECHNIQUE: CC and MLO views of both breasts were obtained using fullfield digital mammography. Computer aided detection with the [employer].2-H was employed. TISSUE DENSITY: c. The breasts [...] Routine screening mammogram BILATERAL in 1 year. [address] 3341F, 7025F Dictating Physician: PARAG COLES MD Electronically Signed by: PARAG COLES MD Dic Date/Time: 01/21/18 170 Sign date/Time: 01/21/181701 Arnaud King MD IMG BI PROCEDURES Final Result from Last 3 Months or Most Recently Relevant to Health Maintenance Care Teams Process Manager Relationship Specialty Start Date End Date Arnaud King MD [address] [place] [phone] PCP - General 11/13/17
--- OUTSIDE RECORDS SUMMARY | 2025-04-09 12:52 | XMS_ITS | Clinical Summary ---
Author Organization [facility] Address [address] [address] Phone Care Team Providers Care Postie Name Role Phone Arnaud Carbone MD Primary Care Provider [phone] Allergies Active Allergy Reactions Criticality Noted Date Comments Droperidol Swelling 06/01/2017 [place] Analogues Swelling Low 06/06/2022 feet Quetiapine Itching [...] Take by mouth. 2 Active vitamin A 37317 UNIT capsule Take 10,000 Units by mouth [...] ACO ACO ACO ACO ACO ACO ACO [facility] ACO Care Teams Postie Relationship Specialty Start Date End Date Arnaud Carbone MD [address] [facility] [address] [place] [id number] PCP - General Internal Medicine 04/20/22 Additional Source Comments The information contained in this document represents components of the legal health record. It is not the complete legal health record.[facility]
[2025-04-09 12:58] VITALS: BMI 35.8
== END 2025-04-09 13:05 | disposition home or self-care (01) ==
LOC: HO.HBS 12:41
PROVIDERS: PCP Internal Medicine; Visit Provider Physician Assistant Surgical
DX: E66.9 Obesity, unspecified (principal); Z90.3 Acquired absence of stomach [part of]; Z68.35 Body mass index [BMI] 35.0-35.9, adult; Z98.84 Bariatric surgery status
CPT/HCPCS: 98014

== ENCOUNTER 2025-04-10 08:15 | Outpatient (REF) | payer OTHER, SELFPAY ==
--- NOTE | ~2025-04-10 | XR_ITS ---
EXAMINATION: XR PELVIS CLINICAL INFORMATION: M25.559 - Pain in unspecified hip COMPARISON: Correlated to CT abdomen pelvis dated May 08, 2019. TECHNIQUE: AP view of the pelvis. FINDINGS: Sclerosis along the articular surface of the acetabulum and to a lesser extent femoral head on the right coxofemoral joint with associated subchondral cyst formation. Asymmetric joint space narrowing right greater than the left coxofemoral joint. Degenerative changes in the symphysis pubis. Bony pelvis is grossly intact. Metallic hardware no fully included in the hthrs-hl-egym in the lower lumbar spine. Spina bifida occulta S1. XR/XR pelvis 1-2V IMPRESSION: Mild osteoarthrosis/osteoarthritis, right hip. Electronically signed by: Armando Chirinos MD 04/10/2025 09:39 AM EDT
[2025-04-10 09:27] LABS: MANUAL DIFF FLAG NO
[2025-04-10 09:32] LABS: Hematocrit 42.2 % (37.0-47.0); Hemoglobin 14.5 g/dl (12.0-16.0); Imm Gran Abs Auto 0.01 X10*3/uL (0.00-0.03); Imm Gran Pct Auto 0.2 % (0.0-0.4); Lymphocytes Absolute Auto 2.0 X10*3/uL (1.2-4.9); Mean Corpuscular HGB Conc 34.4 g/dl (31.0-35.0); Mean Corpuscular Hemoglobin 33.3 pg (27.0-33.0); Mean Corpuscular Volume 96.8 fL (80.0-98.0); NRBC Abs Auto 0.000 X10*3/uL (0.0-0.012); NRBC Pct Auto 0.0 /100WBC (0.0-0.2); Platelet Count 206 X10*3/uL (160-400); Red Blood Count 4.36 X10*6/uL (4.20-5.50); White Blood Count 5.4 X10*3/uL (4.8-10.8)
[2025-04-10 09:41] LABS: Hemoglobin A1C 124.5590 umol/L; Total Hemoglobin (HGBA1C) 3849.1404 umol/L
[2025-04-10 10:13] LABS: Alanine Aminotransferase 21 U/L (0-31); Albumin Level 4.0 g/dL (3.5-5.0); Alkaline Phosphatase 73 U/L (39-117); Anion Gap 11 (12-20); Aspartate Amino Transferase 23 U/L (5-31); Blood Urea Nitrogen 12 mg/dL (9-16); Calcium 8.8 mg/dL (8.4-10.2); Carbon Dioxide 24 mmol/L (22-29); Chloride 110 mmol/L (96-108); Cholesterol 184 mg/dL (<200); Estimated Glomerular Filt Rate > 60; HDL Cholesterol 89 mg/dL (>40); Iron 117 mcg/dL (30-160); Percent Iron Saturation 41 % (15-50); Potassium 3.8 mmol/L (3.3-5.1); Sodium 141 mmol/L (135-145); Total Iron Binding Capacity 282 mcg/dL (228-428); Total Protein 6.1 g/dL (6.5-8.0); Triglycerides 88 mg/dL (<150); Unsaturated Iron Binding 165 ug/dL
[2025-04-10 10:27] LABS: Ferritin 86 ng/mL (10-250)
[2025-04-10 10:42] LABS: Folate 8.9 ng/mL (> or = 4.0); Vitamin B12 555 pg/mL (200-900)
== END 2025-04-10 08:16 | disposition home or self-care (01) ==
LOC: HO.HOSX 08:15
PROVIDERS: Absent Provider Physician Assistant Surgical; PCP Internal Medicine; Visit Provider Physician Assistant
DX: M76.891 Other specified enthesopathies of right lower limb, excluding foot (principal); M25.551 Pain in right hip; Z98.890 Other specified postprocedural states; Z90.3 Acquired absence of stomach [part of]
CPT/HCPCS: 36415; 72170; 80053; 80061; 82306; 82607; 82728; 82746; 83036; 83525; 83540; 84425; 84443; 84590; 84630; 85025; 86140; 99212

== ENCOUNTER 2025-04-10 08:15 | Outpatient (AMB) | payer OTHER, SELFPAY ==
--- OUTSIDE RECORDS SUMMARY | 2025-04-10 08:22 | XMS_ITS | Clinical Summary ---
Author Organization [facility] Address [address] [address] Phone Care Team Providers Care Powder Expert Name Role Phone Arnaud Carbone MD Primary Care Provider [phone] Allergies Active Allergy Reactions Criticality Noted Date Comments Droperidol Swelling 06/01/2017 [place] Analogues Swelling Low 06/06/2022 feet Quetiapine Itching [...] Take by mouth. 2 Active vitamin A 54392 UNIT capsule Take 10,000 Units by mouth [...] ACO ACO ACO ACO ACO ACO [facility] ACO Care Teams Powder Expert Relationship Specialty Start Date End Date Arnaud Carbone MD [address] [facility] [address] [place] [id number] PCP - General Internal Medicine 04/20/22 Additional Source Comments The information contained in this document represents components of the legal health record. It is not the complete legal health record.[facility]
--- OUTSIDE RECORDS SUMMARY | 2025-04-10 08:22 | XMS_ITS | Clinical Summary ---
Author Organization [facility] Address [address] [place] [phone] Care Team Providers Care Content Production Specialist Name Role Phone Arnaud King MD Primary Care Provider [phone] Medical History Medical History Date Comments Migraine, [...] Procedure Name Priority Date/Time Associated Diagnosis Comments [facility] SCREENING DIGITAL Routine 01/21/2018 5:02 PM EDT Encounter for screening mammogram for malignant neoplasm of breast from Last 3 Months or Most Recently Relevant to Health Maintenance Results * [facility] SCREENING DIGITAL (01/21/2018 5:02 PM EDT) Anatomical Region Laterality Modality Mammography 01/21/2018 2:16 PM EDT Narrative 01/21/2018 5:[address] [facility] Diagnostic Imaging Department [address] [place] [address] Patient: ARTIEALLISON /Age/Sex: 1975 - 42 - F Unit#: [id number] Location/Status: [facility]ORYIMA/EDMUND CLI Mnemonic/Ordering Site: [facility] Ordering Physician: ARNAUD KING MD [facility] Screening Digital - 01/21/18 - 1440 EXAM: [facility] Screening Digital EXAM DATE AND TIME: 01/21/2018 2:43 PM HISTORY: Screening. This is a baseline exam. The patient declined tomosynthesis. COMPARISON: No comparison studies. TECHNIQUE: CC and MLO views of both breasts were obtained using full field digital mammography. Computer aided detection with the [employer] 7.2-H was employed. TISSUE DENSITY: c. The [...] Routine screening mammogram BILATERAL in 1 year. [address] 3341F, 7025F Dictating Physician: PARAG COLES MD Electronically Signed by: PARAG COLES MD Dic Date/Time: 01/21/181700 Sign date/Time: 01/21/181701 Procedure Note Parag Coles MD - 08/29/2022 [facility] Diagnostic Imaging Department [address] [place] [id number] Patient: ALLISON PEREZ./Age/Sex: 1975 - 42 - F Unit#: [id number] Location/Status: [facility] CLI Mnemonic/Ordering Site: [facility] Ordering Physician: ARNAUD KING MD [facility] Screening Digital - 01/21/18 - 1441 EXAM: [facility] Screening Digital EXAM DATE AND TIME: 01/21/2018 2:43 PM HISTORY: Screening. This is a baseline exam. The patient declined tomosynthesis. COMPARISON: No comparison studies. TECHNIQUE: CC and MLO views of both breasts were obtained using fullfield digital mammography. Computer aided detection with the [employer].2-H was employed. TISSUE DENSITY: c. The breasts [...] Routine screening mammogram BILATERAL in 1 year. [address] 3341F, 7025F Dictating Physician: PARAG COLES MD Electronically Signed by: PARAG COLES MD Dic Date/Time: 01/21/18 170 Sign date/Time: 01/21/181701 Arnuad King MD IMG BI PROCEDURES Final Result from Last 3 Months or Most Recently Relevant to Health Maintenance Care Teams Content Production Specialist Relationship Specialty Start Date End Date Arnaud King MD [address] [place] [phone] PCP - General 11/13/17
--- NOTE | 2025-04-10 08:30 | MHC.OFFVIS ---
Vital Signs 04/10/25 08:31 Height 5 ft 5 in Weight 215 lb BMI 35.8 Intake Visit Reasons: Newprob-Pain in right hip Intake Note: Allison is a 49 year old female who presents today as an established patient, new problem visit with complaints of right hip pain. Patient reports a buckling feeling with pain in her hip that has been going on for about a year. Her pain is located in her groin area. She mentions on 03/22/12, an injury to her back, causing her to be paralyzed and having to learn to walk again, ever since has not been able to walk correctly. Finds no relief with Tylenol. Denies and previous treatment. Allergies droperidol (From INAPSINE) Allergy (Severe, Verified 04/10/25 09:01) ANGIOEDEMA, THROAT SWELLING lithium Allergy (Unknown, Verified 04/10/25 09:01) unknown quetiapine (Seroquel) Adverse Reaction (Intermediate, Verified 04/10/25 09:01) weight gain, sleep walking fresh fruit Allergy (Intermediate, Uncoded 04/10/25 09:01) oral swelling/itching Medication List - Last Reconciled 04/10/25 by Fabiola Mas PA-C acetaminophen (Tylenol Extra Strength) 1,000 mg (2 x 500 mg) PO Q6H PRN albuterol sulfate 90 mcg/actuation 2 puffs inhalation Q4H PRN calcium acetate 667 mg PO BEDTIME clonazepam 2 mg PO TID doxepin 150 mg PO BEDTIME duloxetine (Cymbalta) 60 mg PO DAILY fluticasone propionate 50 mcg/actuation (Flonase Allergy Relief) 1 spray intranasal BID 30 days incontinence pad, liner, disp (Bladder Control Pads Ex Absorb) As directed for urinary incontinence, uses 2 at a time, 12 per day incontinence pad, liner, disp As directed for urinary incontinence, uses 6 per day iron,carbonyl-vitamin C 65 mg iron- 125 mg (Vitron-C) 1 tab PO BEDTIME lamotrigine 50 mg PO BID [Medial Carry Out Clerk And Shelf Stocker Knee brace n/a] mirabegron ER (Myrbetriq) 25 mg PO DAILY multivitamin 1 tab PO DAILY nitrofurantoin monohyd/m-cryst 100 mg (Macrobid) 100 mg PO Q12H 7 days pantoprazole 40 mg PO DAILY triamcinolone acetonide 0.1% 1 appl topical DAILY 30 days zolpidem 10 mg PO BEDTIME HPI HPI Newprob-Pain in right hip: Details: 49 Year old female presents to the office today for ongoing pain in her right hip. She has a history of lumbar spine surgery. She states in 2011 she fell 30 feet from a rope swing landing on both shoulders and fracturing T10, L3, and L1 shattered -she was Hospitalized for 31 days after having a lumbar surgery at [facility]. She states she was, DC wtih walker and had extensive rehab on learning to walk. She does notice an unusual gait pattern since this injury. She complains of right-sided hip pain which can extend into the groin and also lateral side of the hip. She has discomfort when she is sleeping. She does not notice difficulty with getting in and out of a car or in and out of bed. She has had no treatment to date on her right hip. [facility] Medical History Hypersomnia Insomnia Snoring Laceration of head Back pain, chronic GERD (gastroesophageal reflux disease) Hx of renal calculi Preoperative examination Internal derangement of knee Substance abuse Dysuria Urinary incontinence Environmental allergies Neurogenic bladder Acute sinusitis Shortness of breath Dysuria Sinusitis chronic, frontal Otitis media Body mass index (BMI) of 40.0 to 44.9 in adult Morbid obesity due to excess calories Osteosclerosis Arthritis Torn ACL IBS (irritable bowel syndrome) PTSD (post-traumatic stress disorder) Bipolar 1 disorder Recurrent urinary tract infection Fibromyalgia Urinary incontinence Neurogenic bladder History of spinal cord injury Neuropathy Hiatal hernia Anxiety Depression Asthma Surgical History Hx of hysterectomy History of repair of hiatal hernia History of sleeve gastrectomy History of ureter stent Status post left foot surgery H/O tubal ligation H/O wisdom tooth extraction H/O dilation and curettage History of fusion of lumbar spine Family History Father Substance use disorder Mental health disorder Mother HTN (hypertension) Stroke Paternal Grandfather No problems noted. Paternal Grandmother Lung cancer Maternal Grandfather Melanoma Maternal Grandmother No problems noted. Brother Substance use disorder Mental health disorder Brother No problems noted. Brother No problems noted. Sister No problems noted. Son No problems noted. Son No problems noted. Daughter No problems noted. Daughter No problems noted. Daughter No problems noted. Maternal Aunt Substance use disorder Social History Household Members: None Housing: Apartment Are you a primary date night caregiver to a significant other at home: No Do you presently have visiting nurse or other home services: No Alcohol intake: former Year quit: 2021 Patient Tobacco Use Status: Never used Tobacco e-Cigarette/Vaping Use: Never Used Substance Use Type: Crack/Cocaine and Former Substance User service: No Current occupational status: disabled Cognitive needs: No Hearing needs: No Vision needs: Yes Review of Systems Const All systems reviewed & are unremarkable except as noted in HPI and below Physical Exam Vital Signs: BMI result Body Mass Index 35.8 Const General: cooperative and no acute distress Orientation/consciousness: patient oriented x3 Resp Effort & Inspection: normal respiratory effort and able to speak in complete sentences Cardio Peripheral pulses: Peripheral pulses 2+ throughout Neuro General: patient oriented x3 Extrem Other: Right hip normal to inspection. She can perform range of motion and hip flexion without pain. No discomfort with abduction or adduction. She does have discomfort with end range internal and external rotation of the hip. Results Reviewed Results Reviewed: X-rays of the right hip obtained in the office today and reviewed by me do show some sclerotic changes of the acetabulum. Assessment & Plan Assessment & Plan (1) Right hip tendonitis: Code(s): M76.891 - Other specified enthesopathies of right lower limb, excluding foot Category: Medical Plan: We discussed options today which includes physical therapy for some glute strengthening and lumbar/core stabilization. I also encouraged her to follow up with Dr. Forman for a nonoperative approach to her lumbar spine since her surgery. It is possible she may benefit from some more physical therapy on her back to help with her deconditioning. If symptoms persist or worsen in her right hip she will contact our office and we can discuss steroid injections if necessary. Otherwise she will follow up as needed. Orders: Orders XR pelvis 1-2V Today M25.559 - Pain in unspecified hip PT Evaluation and Treatment Today M76.891 - Other specified enthesopathies of right lower limb, excluding foot Coding Level of Care Code New Pt Level 3 (88908) Complex EM visit Add On G2211 Diagnoses Right hip tendonitis M76.891
[2025-04-10 08:31] VITALS: BMI 35.8
== END 2025-04-10 09:20 | disposition home or self-care (01) ==
LOC: HO.HOS 08:15
PROVIDERS: PCP Internal Medicine; Visit Provider Physician Assistant
DX: M76.891 Other specified enthesopathies of right lower limb, excluding foot (principal)
CPT/HCPCS: 99213

== ENCOUNTER → 2025-04-10 08:42 | Outpatient (BNV) | payer OTHER, SELFPAY | PROVIDERS: Absent Provider Physician Assistant Surgical; PCP Internal Medicine; Visit Provider Radiology Diagnostic Radiology | DX: M16.11 Unilateral primary osteoarthritis, right hip (principal) | CPT/HCPCS: 72170 ==

== ENCOUNTER 2025-04-16 08:48 | Outpatient (AMB) | payer OTHER, SELFPAY ==
--- OUTSIDE RECORDS SUMMARY | 2025-04-16 09:08 | XMS_ITS | Clinical Summary ---
Author Organization [facility] Address [address] [address] [address] Phone Care Team Providers Care Preservationist Name Role Phone Arnaud Carbone MD Primary Care Provider [phone] Allergies Active Allergy Reactions Criticality Noted Date Comments Droperidol Swelling 06/01/2017 [place] Analogues Swelling Low 06/06/2022 feet Quetiapine Itching [...] Take by mouth. 2 Active vitamin A 16414 UNIT capsule Take 10,000 Units by mouth [...] ACO ACO ACO ACO ACO ACO ACO [facility] ACO Care Teams Preservationist Relationship Specialty Start Date End Date Arnaud Carbone MD [address] [place] [id number] PCP - General Internal Medicine 04/20/22 Additional Source Comments The information contained in this document represents components of the legal health record. It is not the complete legal health record.[facility]
--- OUTSIDE RECORDS SUMMARY | 2025-04-16 09:08 | XMS_ITS | Clinical Summary ---
Author Organization [facility] Address [id number] [place] [id number] Care Team Providers Care Sugar Coating Hand Name Role Phone Arnaud King MD Primary Care Provider [phone] Medical History Medical History Date Comments Migraine, [...] Procedure Name Priority Date/Time Associated Diagnosis Comments [facility] SCREENING DIGITAL Routine 01/21/2018 5:02 PM EDT Encounter for screening mammogram for malignant neoplasm of breast from Last 3 Months or Most Recently Relevant to Health Maintenance Results * [facility] SCREENING DIGITAL (01/21/2018 5:02 PM EDT) Anatomical Region Laterality Modality Mammography 01/21/2018 2:16 PM EDT Narrative 01/21/2018 5:02 PM EDT [facility] Diagnostic Imaging Department [address] [place] [address] Patient: ARTIEALLISON /Age/Sex: 1975 - 42 - F Unit#: [id number] Location/Status: [facility]/EDMUND CLI Mnemonic/Ordering Site: [facility] Ordering Physician: ARNAUD KING MD [facility] Screening Digital - 01/21/18 - 1440 EXAM: [facility] Screening Digital EXAM DATE AND TIME: 01/21/2018 2:43 PM HISTORY: Screening. This is a baseline exam. The patient declined tomosynthesis. COMPARISON: No comparison studies. TECHNIQUE: CC and MLO views of both breasts were obtained using full field digital mammography. Computer aided detection with the [employer] 7.2-H was employed. TISSUE DENSITY: c. The [...] Routine screening mammogram BILATERAL in 1 year. [id number], 7025F Dictating Physician: PARAG COLES MD Electronically Signed by: PARAG COLES MD Dic Date/Time: 01/21/181700 Sign date/Time: 01/21/181701 Procedure Note Parag Coles MD - 08/29/2022 [facility] Diagnostic Imaging Department [address] [place] [id number] Patient: ALLISON PEREZ./Age/Sex: 1975 - 42 - F Unit#: [id number] Location/Status: [facility] CLI Mnemonic/Ordering Site: [facility] Ordering Physician: ARNAUD KING MD [facility] Screening Digital - 01/21/18 - 1441 EXAM: [facility] Screening Digital EXAM DATE AND TIME: 01/21/2018 2:43 PM HISTORY: Screening. This is a baseline exam. The patient declined tomosynthesis. COMPARISON: No comparison studies. TECHNIQUE: CC and MLO views of both breasts were obtained using fullfield digital mammography. Computer aided detection with the [employer].2-H was employed. TISSUE DENSITY: c. The breasts [...] Routine screening mammogram BILATERAL in 1 year. [id number] 3341F, 7025F Dictating Physician: PARAG COLES MD Electronically Signed by: PARAG COLES MD Dic Date/Time: 01/21/18 170 Sign date/Time: 01/21/181701 Arnaud King MD IMG BI PROCEDURES Final Result from Last 3 Months or Most Recently Relevant to Health Maintenance Care Teams Sugar Coating Hand Relationship Specialty Start Date End Date Arnaud King MD [address] [place] [id number] PCP - General 11/13/17
--- NOTE | 2025-04-16 10:24 | MHC.PC.OV ---
Intake Visit Reasons: medical necessity letter Allergies droperidol (From INAPSINE) Allergy (Severe, Verified 04/10/25 09:01) ANGIOEDEMA, THROAT SWELLING lithium Allergy (Unknown, Verified 04/10/25 09:01) unknown quetiapine (Seroquel) Adverse Reaction (Intermediate, Verified 04/10/25 09:01) weight gain, sleep walking fresh fruit Allergy (Intermediate, Uncoded 04/10/25 09:01) oral swelling/itching Medication List - Last Reconciled 04/16/25 by Arnaud Carbone MD acetaminophen (Tylenol Extra Strength) 1,000 mg (2 x 500 mg) PO Q6H PRN albuterol sulfate 90 mcg/actuation 2 puffs inhalation Q4H PRN calcium acetate 667 mg PO BEDTIME clonazepam 2 mg PO TID doxepin 150 mg PO BEDTIME duloxetine (Cymbalta) 60 mg PO DAILY fluticasone propionate 50 mcg/actuation (Flonase Allergy Relief) 1 spray intranasal BID 30 days incontinence pad, liner, disp (Bladder Control Pads Ex Absorb) As directed for urinary incontinence, uses 2 at a time, 12 per day incontinence pad, liner, disp As directed for urinary incontinence, uses 6 per day iron,carbonyl-vitamin C 65 mg iron- 125 mg (Vitron-C) 1 tab PO BEDTIME lamotrigine 50 mg PO BID [Medial Sociology Adjunct Instructor Knee brace n/a] mirabegron ER (Myrbetriq) 25 mg PO DAILY multivitamin 1 tab PO DAILY nitrofurantoin monohyd/m-cryst 100 mg (Macrobid) 100 mg PO Q12H 7 days pantoprazole 40 mg PO DAILY triamcinolone acetonide 0.1% 1 appl topical DAILY 30 days zolpidem 10 mg PO BEDTIME Tobacco use date assessed: 08/20/24 Dental Screening Dental Screen Date: 08/20/24 HPI medical necessity letter HPI Details Chief Complaint The patient presents with hip arthritis and urinary incontinence requiring further evaluation. History of Present Illness The patient is a 49-year-old female presenting with hip arthritis and urinary incontinence. Hip Arthritis: - The patient saw an cardiopulmonary specialist last week for hip discomfort. - She has been diagnosed with arthritis in the joint and bursitis on both sides of her hips. - The cardiopulmonary specialist recommended physical therapy. - The condition has led to mobility issues Urinary Incontinence: - The patient has urinary incontinence, prompting the need for pads. - Currently approved for 250 pads per month, using 2 pads at a time due to the severity of the issue. - Urinary incontinence was previously evaluated by a urogynecologist. - The patient awaits approval for a new medication, possibly called Gemma, for managing incontinence. - If the medication is ineffective, surgical options including mesh and a foam-based procedure were discussed. - Also reports fecal incontinence due to lack of muscle strength and nerve damage from prior back injury. Medical History: - Arthritis - Bursitis trochantaric bilateral - Urinary incontinence - Nerve damage related to back injury - Gastroesophageal reflux disease (GERD) - Allergic rhinitis Surgical History: - Hysterectomy - Gastric sleeve surgery 2020 - Hiatal hernia repair Medications: - Flonase for allergic rhinitis - Albuterol for asthma management - Pantoprazole 40 mg for GERD (currently managed by weight management doctor) Social History: - The patient has undergone weight management efforts, including gastric sleeve surgery. Problem List - Hip osteoarthritis - Bursitis - Urinary incontinence - Fecal incontinence - Nerve damage secondary to back injury - Gastroesophageal reflux disease (GERD) - Allergic rhinitis Patient Instructions - Continue using the prescribed 250 incontinence pads monthly. - Attend physical therapy sessions as recommended by the cardiopulmonary specialist. - Await approval and start the new medication as discussed with the urogynecologist. - Maintain regular use of prescribed inhalers and Flonase. Medical Decision Making The patient presents with symptoms indicative of hip osteoarthritis, bursitis, urinary and fecal incontinence. The hip arthritis and bursitis are planned to be addressed through physical therapy, providing pain relief and improved mobility. Urinary incontinence is being managed by a proposed new medication, awaiting approval. This may potentially reduce symptoms or require surgical intervention if ineffective. A history of nerve damage may contribute to fecal incontinence, reinforcing the need for comprehensive management. Medications for allergic rhinitis and asthma are being continued as previous management plans indicate positive outcomes. Adjustments in the GERD medication are currently managed by the patient?s weight management team due to previous gastric and hernia surgical interventions. Patient education on consistent therapy engagement and follow-up adherence is emphasized. Review of Systems - General: No fever no chills - Neurological: No headaches no dizziness - Ear nose throat: No sore throat no hearing difficulty no ear pain - Cardiovascular: No syncope, no chest pain, no palpitations - Gastrointestinal: No nausea vomiting PFSH Medical History (Updated 04/16/25 @ 19:39 by Arnaud Carbone MD) Hypersomnia Insomnia Snoring Laceration of head Back pain, chronic GERD (gastroesophageal reflux disease) Hx of renal calculi Preoperative examination Internal derangement of knee Substance abuse Dysuria Urinary incontinence Environmental allergies Neurogenic bladder Acute sinusitis Shortness of breath Dysuria Sinusitis chronic, frontal Otitis media Body mass index (BMI) of 40.0 to 44.9 in adult Morbid obesity due to excess calories Osteosclerosis Arthritis Torn ACL IBS (irritable bowel syndrome) PTSD (post-traumatic stress disorder) Bipolar 1 disorder Recurrent urinary tract infection Fibromyalgia Urinary incontinence Neurogenic bladder History of spinal cord injury Neuropathy Hiatal hernia Anxiety Depression Asthma Surgical History Hx of hysterectomy History of repair of hiatal hernia History of sleeve gastrectomy History of ureter stent Status post left foot surgery H/O tubal ligation H/O wisdom tooth extraction H/O dilation and curettage History of fusion of lumbar spine Family History Father Substance use disorder Mental health disorder Mother HTN (hypertension) Stroke Paternal Grandfather No problems noted. Paternal Grandmother Lung cancer Maternal Grandfather Melanoma Maternal Grandmother No problems noted. Brother Substance use disorder Mental health disorder Brother No problems noted. Brother No problems noted. Sister No problems noted. Son No problems noted. Son No problems noted. Daughter No problems noted. Daughter No problems noted. Daughter No problems noted. Maternal Aunt Substance use disorder Social History Household Members: None Housing: Apartment Are you a primary home health care respiratory therapist to a significant other at home: No Do you presently have visiting nurse or other home services: No Alcohol intake: former Year quit: 2021 Patient Tobacco Use Status: Never used Tobacco e-Cigarette/Vaping Use: Never Used Substance Use Type: Crack/Cocaine and Former Substance User service: No Current occupational status: disabled Cognitive needs: No Hearing needs: No Vision needs: Yes Questionnaire Thrive Questionnaire Date Thrive assessed: 05/31/22 JO-7 AMB Questionnaire JO-7 Date JO - 7 assessed: 06/13/24 Source: Developed by Nafisa OsunaW. Samuel, Kayden Granado and colleagues, with an educational imer from [employer]. Physical exam (Primary Care) Tobacco/Smoking Status: Tobacco use Status Tobacco use date assessed 08/20/24 04/16/25 10:25 Patient Tobacco Use Status Never used Tobacco 04/16/25 10:25 e-Cigarette/Vaping Use Never Used 04/16/25 10:25 Thrive Assessment: Date of Thrive Assessment Date Thrive assessed 05/31/22 04/16/25 10:25 Telehealth Telehealth Telehealth Platform: [employer] Location of provider rendering services: practice address Location of patient: address on file Patient Identification confirmed using: Name, : Yes Telehealth method: video Patient verbally consented to treatment: Yes Patient verbally consented to billing insurance company: Yes Patient informed of any privacy concerns related to visit: Yes Minutes spent on Phone/Video with Pt.: 30 Coding Level of Care Code Tele Est Pt Level 4 (87126) Complex EM visit Add On G2211 Diagnoses Urinary incontinence without sensory awareness N39.42 Urinary Incontinence type: urinary incontinence without sensory awareness Full incontinence of feces R15.9 Fecal incontinence type: full incontinence of feces Environmental allergies Z91.09 Neurogenic bladder N31.9 Right hip tendonitis M76.891 Chronic GERD K21.9 History of repair of hiatal hernia Z98.890; Z87.19 History of sleeve gastrectomy Z90.3 History of back injury Z87.828 Time Spent (min) 30 Comment review chart / face to face / paper work for medical product Assessment & Plan Assessment & Plan (1) Urinary incontinence: Code(s): R32 - Unspecified urinary incontinence Category: Medical Qualifiers: Urinary Incontinence type: urinary incontinence without sensory awareness Qualified Code(s): N39.42 - Incontinence without sensory awareness (2) Fecal incontinence: Code(s): R15.9 - Full incontinence of feces Category: Medical Qualifiers: Fecal incontinence type: full incontinence of feces Qualified Code(s): R15.9 - Full incontinence of feces (3) Environmental allergies: Code(s): Z91.09 - Other allergy status, other than to drugs and biological substances Category: Medical (4) Neurogenic bladder: Code(s): N31.9 - Neuromuscular dysfunction of bladder, unspecified Category: Medical (5) Right hip tendonitis: Code(s): M76.891 - Other specified enthesopathies of right lower limb, excluding foot Category: Medical (6) Chronic GERD: Code(s): K21.9 - Gastro-esophageal reflux disease without esophagitis Category: Medical (7) History of repair of hiatal hernia: Code(s): Z98.890 - Other specified postprocedural states; Z87.19 - Personal history of other diseases of the digestive system Category: Surgical (8) History of sleeve gastrectomy: Code(s): Z90.3 - Acquired absence of stomach [part of] Category: Surgical (9) History of back injury: Code(s): Z87.828 - Personal history of other (healed) physical injury and trauma Category: Medical Plan Chief Complaint The patient presents with hip arthritis and urinary incontinence requiring further evaluation. History of Present Illness The patient is a 49-year-old female presenting with hip arthritis and urinary incontinence. Hip Arthritis: - The patient saw an cardiopulmonary specialist last week for hip discomfort. - She has been diagnosed with arthritis in the joint and bursitis on both sides of her hips. - The cardiopulmonary specialist recommended physical therapy. - The condition has led to mobility issues Urinary Incontinence: - The patient has urinary incontinence, prompting the need for pads. - Currently approved for 250 pads per month, using 2 pads at a time due to the severity of the issue. - Urinary incontinence was previously evaluated by a urogynecologist. - The patient awaits approval for a new medication, possibly called Gemma, for managing incontinence. - If the medication is ineffective, surgical options including mesh and a foam-based procedure were discussed. - Also reports fecal incontinence due to lack of muscle strength and nerve damage from prior back injury. Medical History: - Arthritis - Bursitis trochantaric bilateral - Urinary incontinence - Nerve damage related to back injury - Gastroesophageal reflux disease (GERD) - Allergic rhinitis Surgical History: - Hysterectomy - Gastric sleeve surgery 2020 - Hiatal hernia repair Medications: - Flonase for allergic rhinitis - Albuterol for asthma management - Pantoprazole 40 mg for GERD (currently managed by weight management doctor) Social History: - The patient has undergone weight management efforts, including gastric sleeve surgery. Problem List - Hip osteoarthritis - Bursitis - Urinary incontinence - Fecal incontinence - Nerve damage secondary to back injury - Gastroesophageal reflux disease (GERD) - Allergic rhinitis Patient Instructions - Continue using the prescribed 250 incontinence pads monthly. - Attend physical therapy sessions as recommended by the cardiopulmonary specialist. - Await approval and start the new medication as discussed with the urogynecologist. - Maintain regular use of prescribed inhalers and Flonase. Medical Decision Making The patient presents with symptoms indicative of hip osteoarthritis, bursitis, urinary and fecal incontinence. The hip arthritis and bursitis are planned to be addressed through physical therapy, providing pain relief and improved mobility. Urinary incontinence is being managed by a proposed new medication, awaiting approval. This may potentially reduce symptoms or require surgical intervention if ineffective. A history of nerve damage may contribute to fecal incontinence, reinforcing the need for comprehensive management. Medications for allergic rhinitis and asthma are being continued as previous management plans indicate positive outcomes. Adjustments in the GERD medication are currently managed by the patient?s weight management team due to previous gastric and hernia surgical interventions. Patient education on consistent therapy engagement and follow-up adherence is emphasized. Medications: New loratadine (Claritin) 10 mg PO DAILY PRN 90 tabs 0RF allergy symptoms
== END 2025-04-16 12:04 | disposition home or self-care (01) ==
LOC: HO.HMCC 08:48
PROVIDERS: PCP Internal Medicine; Visit Provider Internal Medicine
DX: N39.42 Incontinence without sensory awareness (principal); R15.9 Full incontinence of feces; Z91.09 Other allergy status, other than to drugs and biological substances; N31.9 Neuromuscular dysfunction of bladder, unspecified; M76.891 Other specified enthesopathies of right lower limb, excluding foot; K21.9 Gastro-esophageal reflux disease without esophagitis; Z98.890 Other specified postprocedural states; Z87.19 Personal history of other diseases of the digestive system; Z90.3 Acquired absence of stomach [part of]; Z87.828 Personal history of other (healed) physical injury and trauma

== ENCOUNTER 2025-05-05 14:08 | Outpatient (REF) | payer OTHER, SELFPAY ==
--- NOTE | ~2025-05-05 | XR_ITS ---
EXAMINATION: XR HAND 3 OR MORE VIEWS RIGHT HISTORY: M79.641 - Pain in right hand COMPARISON: Comparison is made with the prior examination dated 08/29/2022. FINDINGS: Four views of the right hand are submitted. Osseous mineralization is normal. There is no fracture or dislocation. There is moderate to severe osteoarthritis of the 1st carpometacarpal joint with joint space narrowing and osteophyte formation. There is mild osteoarthritis of the DIP joint of the 4th finger. The soft tissues are unremarkable. XR/XR hand RT min 3V IMPRESSION: Degenerative changes of the right hand as described. Electronically signed by: Sanya Bocanegra MD 05/05/2025 02:27 PM EDT
--- OUTSIDE RECORDS SUMMARY | 2025-05-05 15:07 | XMS_ITS | Clinical Summary ---
Author Organization [facility] Address [address] [place] [id number] Care Team Providers Care Lever Miller Name Role Phone Arnaud King MD Primary Care Provider [phone] Medical History Medical History Date Comments Migraine, [...] Procedure Name Priority Date/Time Associated Diagnosis Comments [facility] SCREENING DIGITAL Routine 01/21/2018 5:02 PM EDT Encounter for screening mammogram for malignant neoplasm of breast from Last 3 Months or Most Recently Relevant to Health Maintenance Results * [facility] SCREENING DIGITAL (01/21/2018 5:02 PM EDT) Anatomical Region Laterality Modality Mammography 01/21/2018 2:16 PM EDT Narrative 01/21/2018 5:02 PM EDT [facility] Diagnostic Imaging Department [address] [place] [address] Patient: ARTIEALLISON /Age/Sex: 1975 - 42 - F Unit#: [id number] Location/Status: [facility]/EDMUND CLI Mnemonic/Ordering Site: [facility] Ordering Physician: ARNAUD KING MD [facility] Screening Digital - 01/21/18 - 1440 EXAM: [facility] Screening Digital EXAM DATE AND TIME: 01/21/2018 2:43 PM HISTORY: Screening. This is a baseline exam. The patient declined tomosynthesis. COMPARISON: No comparison studies. TECHNIQUE: CC and MLO views of both breasts were obtained using full field digital mammography. Computer aided detection with the [employer] 7.2-H was employed. TISSUE DENSITY: c. The [...] Routine screening mammogram BILATERAL in 1 year. [address] 3341F, 7025F Dictating Physician: PARAG COLES MD Electronically Signed by: PARAG COLES MD Dic Date/Time: 01/21/181700 Sign date/Time: 01/21/181701 Procedure Note Parag Coles MD - 08/29/2022 [facility] Diagnostic Imaging Department [address] [place] [id number] Patient: ALLISON PEREZ./Age/Sex: 1975 - 42 - F Unit#: [id number] Location/Status: [facility] CLI Mnemonic/Ordering Site: [facility] Ordering Physician: ARNAUD KING MD [facility] Screening Digital - 01/21/18 - 1441 EXAM: [facility] Screening Digital EXAM DATE AND TIME: 01/21/2018 2:43 PM HISTORY: Screening. This is a baseline exam. The patient declined tomosynthesis. COMPARISON: No comparison studies. TECHNIQUE: CC and MLO views of both breasts were obtained using fullfield digital mammography. Computer aided detection with the [employer].2-H was employed. TISSUE DENSITY: c. The breasts [...] Routine screening mammogram BILATERAL in 1 year. [address] 3341F, 7025F Dictating Physician: PARAG COLES MD Electronically Signed by: PARAG COLES MD Dic Date/Time: 01/21/18 170 Sign date/Time: 01/21/181701 Arnaud King MD IMG BI PROCEDURES Final Result from Last 3 Months or Most Recently Relevant to Health Maintenance Care Teams Lever Miller Relationship Specialty Start Date End Date Arnaud King MD [address] [place] [id number] PCP - General 11/13/17
--- OUTSIDE RECORDS SUMMARY | 2025-05-05 15:07 | XMS_ITS | Clinical Summary ---
Author Organization [facility] Address [address] [employer] [address] [address] Phone Care Team Providers Care Assembler Trim Name Role Phone Arnaud Carbone MD Primary Care Provider [phone] Allergies Active Allergy Reactions Criticality Noted Date Comments Droperidol Swelling 06/01/2017 [place] Analogues Swelling Low 06/06/2022 feet Quetiapine Itching [...] Take by mouth. 2 Active vitamin A 07746 UNIT capsule Take 10,000 Units by mouth [...] Medical Devices Not on [place] [address] ACO ACO ACO ACO ACO ACO [facility] A[facility] Care Teams Assembler Trim Relationship Specialty Start Date End Date Arnaud Carbone MD 1960 [facility] [address] [place] [address] PCP - General Internal Medicine 04/20/22 Additional Source Comments The information contained in this document represents components of the legal health record. It is not the complete legal health record.[facility]
== END 2025-05-05 14:09 | disposition home or self-care (01) ==
LOC: HO.HOSX 14:08
DX: M18.11 Unilateral primary osteoarthritis of first carpometacarpal joint, right hand (principal)
CPT/HCPCS: 20600; 73130; 99212; J1010; J2003

== ENCOUNTER 2025-05-05 14:12 | Outpatient (AMB) | payer OTHER, SELFPAY ==
[2025-05-05 14:34] VITALS: BMI 35.8
--- NOTE | 2025-05-05 14:34 | A.OFFVIS_ITS ---
Vital Signs 05/05/25 14:34 Height 5 ft 5 in Weight 215 lb BMI 35.8 Intake Visit Reasons: Inj-Right basal jt OA/ s/p inj 09/06/22 Intake Note: Allison is a 49 year old female who presents today for follow up of her Right Basal Joint Arthritis. Last injection done, 09/06/[address] Prater. Patient is interested on repeating the injection today. Allergies droperidol (From INAPSINE) Allergy (Severe, Verified 05/05/25 14:35) ANGIOEDEMA, THROAT SWELLING lithium Allergy (Unknown, Verified 05/05/25 14:35) unknown quetiapine (Seroquel) Adverse Reaction (Intermediate, Verified 05/05/25 14:35) weight gain, sleep walking fresh fruit Allergy (Intermediate, Uncoded 05/05/25 14:35) oral swelling/itching PFSH Medical History (Updated 04/16/25 @ 19:39 by Arnaud Carbone MD) Hypersomnia Insomnia Snoring Laceration of head Back pain, chronic GERD (gastroesophageal reflux disease) Hx of renal calculi Preoperative examination Internal derangement of knee Substance abuse Dysuria Urinary incontinence Environmental allergies Neurogenic bladder Acute sinusitis Shortness of breath Dysuria Sinusitis chronic, frontal Otitis media Body mass index (BMI) of 40.0 to 44.9 in adult Morbid obesity due to excess calories Osteosclerosis Arthritis Torn ACL IBS (irritable bowel syndrome) PTSD (post-traumatic stress disorder) Bipolar 1 disorder Recurrent urinary tract infection Fibromyalgia Urinary incontinence Neurogenic bladder History of spinal cord injury Neuropathy Hiatal hernia Anxiety Depression Asthma Surgical History Hx of hysterectomy History of repair of hiatal hernia History of sleeve gastrectomy History of ureter stent Status post left foot surgery H/O tubal ligation H/O wisdom tooth extraction H/O dilation and curettage History of fusion of lumbar spine Family History Father Substance use disorder Mental health disorder Mother HTN (hypertension) Stroke Paternal Grandfather No problems noted. Paternal Grandmother Lung cancer Maternal Grandfather Melanoma Maternal Grandmother No problems noted. Brother Substance use disorder Mental health disorder Brother No problems noted. Brother No problems noted. Sister No problems noted. Son No problems noted. Son No problems noted. Daughter No problems noted. Daughter No problems noted. Daughter No problems noted. Maternal Aunt Substance use disorder Social History Household Members: None Housing: Apartment Are you a primary career transition specialist to a significant other at home: No Do you presently have visiting nurse or other home services: No Alcohol intake: former Year quit: 2021 Patient Tobacco Use Status: Never used Tobacco e-Cigarette/Vaping Use: Never Used Substance Use Type: Crack/Cocaine and Former Substance User service: No Current occupational status: disabled Cognitive needs: No Hearing needs: No Vision needs: Yes Assessment & Plan Assessment & Plan Orders: Orders XR hand RT min 3V Today M79.641 - Pain in right hand Coding
--- NOTE | 2025-05-22 08:43 | A.OFFVIS_ITS ---
Vital Signs 05/05/25 14:34 Height 5 ft 5 in Weight 215 lb BMI 35.8 Intake Visit Reasons: Inj-Right basal jt OA/ s/p inj 09/06/22 Intake Note: Allison is a 49 year old female who presents today for follow up of her Right Basal Joint Arthritis. Last injection done, 09/06/[address] Prater. Patient is interested on repeating the injection today. Allergies droperidol (From INAPSINE) Allergy (Severe, Verified 05/05/25 14:35) ANGIOEDEMA, THROAT SWELLING lithium Allergy (Unknown, Verified 05/05/25 14:35) unknown quetiapine (Seroquel) Adverse Reaction (Intermediate, Verified 05/05/25 14:35) weight gain, sleep walking fresh fruit Allergy (Intermediate, Uncoded 05/05/25 14:35) oral swelling/itching HPI HPI Inj-Right basal jt OA/ s/p inj 09/06/22: Details: Allison is a 49 year old female who presents today for follow up of her Right Basal Joint Arthritis. Last injection done, 09/06/[address] Prater. Patient reports that her pain has returned to previous pain levels, and that she had good relief for a long time with the previous injection. Patient is interested on repeating the injection today. [facility] Medical History (Updated 04/16/25 @ 19:39 by Arnaud Carbone MD) Hypersomnia Insomnia Snoring Laceration of head Back pain, chronic GERD (gastroesophageal reflux disease) Hx of renal calculi Preoperative examination Internal derangement of knee Substance abuse Dysuria Urinary incontinence Environmental allergies Neurogenic bladder Acute sinusitis Shortness of breath Dysuria Sinusitis chronic, frontal Otitis media Body mass index (BMI) of 40.0 to 44.9 in adult Morbid obesity due to excess calories Osteosclerosis Arthritis Torn ACL IBS (irritable bowel syndrome) PTSD (post-traumatic stress disorder) Bipolar 1 disorder Recurrent urinary tract infection Fibromyalgia Urinary incontinence Neurogenic bladder History of spinal cord injury Neuropathy Hiatal hernia Anxiety Depression Asthma Surgical History Hx of hysterectomy History of repair of hiatal hernia History of sleeve gastrectomy History of ureter stent Status post left foot surgery H/O tubal ligation H/O wisdom tooth extraction H/O dilation and curettage History of fusion of lumbar spine Family History Father Substance use disorder Mental health disorder Mother HTN (hypertension) Stroke Paternal Grandfather No problems noted. Paternal Grandmother Lung cancer Maternal Grandfather Melanoma Maternal Grandmother No problems noted. Brother Substance use disorder Mental health disorder Brother No problems noted. Brother No problems noted. Sister No problems noted. Son No problems noted. Son No problems noted. Daughter No problems noted. Daughter No problems noted. Daughter No problems noted. Maternal Aunt Substance use disorder Social History Household Members: None Housing: Apartment Are you a primary manager wound care to a significant other at home: No Do you presently have visiting nurse or other home services: No Alcohol intake: former Year quit: 2021 Patient Tobacco Use Status: Never used Tobacco e-Cigarette/Vaping Use: Never Used Substance Use Type: Crack/Cocaine and Former Substance User service: No Current occupational status: disabled Cognitive needs: No Hearing needs: No Vision needs: Yes Review of Systems Const All systems reviewed & are unremarkable except as noted in HPI and below Physical Exam Vital Signs: BMI result Body Mass Index 35.8 Const General: cooperative, healthy appearing and no acute distress Orientation/consciousness: patient oriented x3 HEENT Head: Yes normocephalic and Yes atraumatic Eyes EOM: EOMs intact bilaterally Resp Effort & Inspection: normal respiratory effort and able to speak in complete sentences Cardio Jugular venous distension: no JVD Skin General skin exam: turgor normal Rashes: no rashes Neuro General: patient oriented x3 Extrem Other: Evaluation of Right Upper Extremity: The patient is alert, oriented, and in no acute distress Neuro: Median, Ulnar, Radial nerves motor and sensory intact and sensation is normal to the tips of all digits No thenar or intrinsic wasting Good APB muscle belly firing and good finger cross Vascular: Cap refill brisk ROM: Can bring fingers closed to a fist and back out to full extension. Skin: No lacerations or abrasions. General: No Ecchymosis. No Erythema or evidence of infection. Tender over the basal joint Not tender over the MCP joint, except for some mild tenderness over the radial aspect of the MCP joint No tenderness over the a1 michael Negative Justine test and no tenderness over the 1st dorsal compartment Positive shoulder sign Positive CMC grind Radiographs: 3 views of the right hand were taken and viewed by me today in clinic. They show no fractures or dislocations. She has some early arthritis changes to the MCP, IP, and basal joint of the thumb. Psych Appearance: grossly normal Affect: normal affect Attitude: cooperative Results Reviewed Results Reviewed: X-rays obtained in the office today and independently reviewed by me, Renny Vazquez PA-C, demonstrate moderate to severe basal joint arthritis of the right thumb. Assessment & Plan Assessment & Plan (1) Arthritis of carpometacarpal (CMC) joint of right thumb: Code(s): M18.11 - Unilateral primary osteoarthritis of first carpometacarpal joint, right hand Category: Medical Plan 1. Basal joint arthritis of right thumb Patient is educated about this condition Patient is educated about the treatment options available Patient would like to proceed with steroid injection at this time The risks and benefits of a steroid injection including but not limited to risk of damage to blood vessels, nerve, tendon, infection, skin bleaching, persistent or worsening pain, and failure to improve symptoms were discussed with the patient and they wish to proceed with the steroid injection. Once consent was obtained the skin over the dorsum of the right basal joint was sterilely prepped. The joint was then injected with a combination of 40 mg of dexamethasone and 1% plain Lidocaine. The patient appears to have tolerated the procedure well and with no complications. SHe had good early relief before leaving clinic today. SHe knows that they may not have another steroid injection into this joint for least 4 months. Orders: Orders XR hand RT min 3V 05/05/25 M79.641 - Pain in right hand Coding Level of Care Code Est Pt Level 3 (80990) Diagnoses Arthritis of carpometacarpal (CMC) joint of right thumb M18.11
== END 2025-05-05 14:50 | disposition home or self-care (01) ==
LOC: HO.HOS 14:13
PROVIDERS: PCP Internal Medicine
DX: M18.11 Unilateral primary osteoarthritis of first carpometacarpal joint, right hand (principal)
CPT/HCPCS: 20600; 99213

== ENCOUNTER → 2025-05-05 14:14 | Outpatient (BNV) | payer OTHER, SELFPAY | PROVIDERS: Visit Provider Radiology Diagnostic Radiology | DX: M18.11 Unilateral primary osteoarthritis of first carpometacarpal joint, right hand (principal) | CPT/HCPCS: 73130 ==

== ENCOUNTER 2025-06-18 08:13 | Outpatient (REF) | payer OTHER, SELFPAY ==
--- NOTE | ~2025-06-18 | XR_ITS ---
EXAMINATION: XR KNEE 3 VIEWS RIGHT HISTORY: M17.11 - Unilateral primary osteoarthritis, right knee COMPARISON: Comparison is made with the prior examination dated 07/31/2022. FINDINGS: Standing AP views of both knees and additional lateral and sunrise patellar views of the right knee are submitted. Osseous mineralization is normal. There is no fracture or dislocation. There is moderate osteoarthritis of the medial compartment and mild osteoarthritis of the patellofemoral compartment with joint space narrowing and osteophyte formation. Findings are similar in appearance to the prior study. The soft tissues are unremarkable. There is no joint effusion. XR/XR knee RT 3V IMPRESSION: Osteoarthritis of the right knee as described. Electronically signed by: Sanya Bocanegra MD 06/18/2025 03:23 PM EDT
== END 2025-06-18 08:14 | disposition home or self-care (01) ==
LOC: HO.HOSX 08:13
PROVIDERS: Visit Provider Physician Assistant
DX: M17.31 Unilateral post-traumatic osteoarthritis, right knee (principal)
CPT/HCPCS: 20610; 73562; 99212; J0665; J1100; J2003

== ENCOUNTER 2025-06-18 14:57 | Outpatient (AMB) | payer OTHER, SELFPAY ==
--- NOTE | 2025-06-18 15:23 | A.OFFVIS_ITS ---
Vital Signs 06/18/25 15:25 Height 5 ft 5 in Weight 215 lb BMI 35.8 Intake Visit Reasons: OV- Right knee OA, last injection 03/01/23 Intake Note: Allison is a 49 year old female who presents today for a follow up of right knee OA, last injection 03/01/23. Patient reports her pains have worsened since her last visit with us. She reports the last injection gave her good relief and wishes to repeat it today. She wears a knee brace ocassionally with minimal support. She is also taking Tylenol PRN. Allergies droperidol (From INAPSINE) Allergy (Severe, Verified 06/18/25 15:24) ANGIOEDEMA, THROAT SWELLING lithium Allergy (Unknown, Verified 06/18/25 15:24) unknown quetiapine (Seroquel) Adverse Reaction (Intermediate, Verified 06/18/25 15:24) weight gain, sleep walking fresh fruit Allergy (Intermediate, Uncoded 06/18/25 15:24) oral swelling/itching HPI HPI OV- Right knee OA, last injection 03/01/23: Details: 49-year-old female presents to the office today for ongoing right knee pain. She complains of pain along the medial aspect of the knee which is worse with prolonged standing and stair climbing. She had injections of her right knee most recent in February of 2023 which was helpful. [facility] Medical History (Updated 04/16/25 @ 19:39 by Arnaud Carbone MD) Hypersomnia Insomnia Snoring Laceration of head Back pain, chronic GERD (gastroesophageal reflux disease) Hx of renal calculi Preoperative examination Internal derangement of knee Substance abuse Dysuria Urinary incontinence Environmental allergies Neurogenic bladder Acute sinusitis Shortness of breath Dysuria Sinusitis chronic, frontal Otitis media Body mass index (BMI) of 40.0 to 44.9 in adult Morbid obesity due to excess calories Osteosclerosis Arthritis Torn ACL IBS (irritable bowel syndrome) PTSD (post-traumatic stress disorder) Bipolar 1 disorder Recurrent urinary tract infection Fibromyalgia Urinary incontinence Neurogenic bladder History of spinal cord injury Neuropathy Hiatal hernia Anxiety Depression Asthma Surgical History Hx of hysterectomy History of repair of hiatal hernia History of sleeve gastrectomy History of ureter stent Status post left foot surgery H/O tubal ligation H/O wisdom tooth extraction H/O dilation and curettage History of fusion of lumbar spine Family History Father Substance use disorder Mental health disorder Mother HTN (hypertension) Stroke Paternal Grandfather No problems noted. Paternal Grandmother Lung cancer Maternal Grandfather Melanoma Maternal Grandmother No problems noted. Brother Substance use disorder Mental health disorder Brother No problems noted. Brother No problems noted. Sister No problems noted. Son No problems noted. Son No problems noted. Daughter No problems noted. Daughter No problems noted. Daughter No problems noted. Maternal Aunt Substance use disorder Social History Household Members: None Housing: Apartment Are you a primary janitor caretaker to a significant other at home: No Do you presently have visiting nurse or other home services: No Alcohol intake: former Year quit: 2021 Patient Tobacco Use Status: Never used Tobacco e-Cigarette/Vaping Use: Never Used Substance Use Type: Crack/Cocaine and Former Substance User service: No Current occupational status: disabled Cognitive needs: No Hearing needs: No Vision needs: Yes Review of Systems Const All systems reviewed & are unremarkable except as noted in HPI and below Physical Exam Vital Signs: BMI result Body Mass Index 35.8 Const General: cooperative and no acute distress Orientation/consciousness: patient oriented x3 Resp Effort & Inspection: normal respiratory effort and able to speak in complete sentences Cardio Peripheral pulses: Peripheral pulses 2+ throughout Neuro General: patient oriented x3 Extrem Other: Right knee skin intact, no erythema or joint effusion. Tenderness along the medial joint line. ROM full with crepitus. Negative steinmans. No ligamentous laxity. NVI. Office Procedures AMB Joint Injection/Aspiration Joint Injection/Aspiration Primary Site: right knee Prep: site was prepped using aseptic technique, ethochloride spray was applied and injection warnings given Injected: 40 mg of, with 3 mL of, 1% plain lidocaine, 0.25% bupivacaine, in the joint and decadron Approach Used: anterolateral Procedure: The patient tolerated the procedure well and there was some relief with the local anesthesia Coding 58189 - Glenohumeral/Tronchanteric Bursa/Intraarticular Procedure code (CPT) selection complete Results Reviewed Results Reviewed: X-rays of the right knee obtained in the office today and reviewed by me show medial compartment joint space narrowing Assessment & Plan Assessment & Plan (1) Osteoarthritis of right knee: Code(s): M17.11 - Unilateral primary osteoarthritis, right knee Category: Medical Qualifiers: Osteoarthritis type: post-traumatic Qualified Code(s): M17.31 - Unilateral post-traumatic osteoarthritis, right knee Plan: We discussed options today, which include steroid injection. The patient did consent to move forward with the injection, which was tolerated well.? I recommended rest, ice and elevation and OTC antiinflammatories prn for discomfort. If symptoms persist over the next 6-8 weeks, they will contact our office, otherwise, prn Orders: Orders XR knee RT 3V Today M17.11 - Unilateral primary osteoarthritis, right knee Coding Level of Care Code Est Pt Level 3 (45752) Complex EM visit Add On G2211 Diagnoses Post-traumatic osteoarthritis of right knee M17.31 Osteoarthritis type: post-traumatic CPT Codes Coding - Joint 7: 54951 - Glenohumeral/Tronchanteric Bursa/Intraarticular ([id number])
[2025-06-18 15:25] VITALS: BMI 35.8
== END 2025-06-18 15:49 | disposition home or self-care (01) ==
LOC: HO.HOS 14:58
PROVIDERS: PCP Internal Medicine; Visit Provider Physician Assistant
DX: M17.31 Unilateral post-traumatic osteoarthritis, right knee (principal)
CPT/HCPCS: 20610; 99213

== ENCOUNTER → 2025-06-18 15:13 | Outpatient (BNV) | payer OTHER, SELFPAY | PROVIDERS: Visit Provider Radiology Diagnostic Radiology | DX: M17.11 Unilateral primary osteoarthritis, right knee (principal) | CPT/HCPCS: 73562 ==

== ENCOUNTER 2025-07-14 08:56 | Outpatient (REF) | payer OTHER, SELFPAY ==
--- NOTE | ~2025-07-14 | XR_ITS ---
EXAMINATION: XR RIBS, LEFT CLINICAL INFORMATION: R07.81 - Pleurodynia COMPARISON: 09/19/2024 TECHNIQUE: PA view of the chest, and 3 views of the left ribs were obtained. FINDINGS: Lungs are clear. No consolidation, pneumothorax, or pleural effusion. The cardiomediastinal silhouette and pulmonary vasculature are normal. Rib views demonstrate possible very subtle fractures of the anterior most left eighth and ninth ribs. There appears to be a chronic healed fracture of the anterior left seventh rib. Fixation hardware noted in the lower thoracolumbar spine. XR/XR ribs LT min 3V w CXR1V IMPRESSION: 1. Suspect subtle acute fractures of the anterior most left eighth and ninth ribs. 2. The lungs are clear. Electronically signed by: Sky Graves MD 07/14/2025 10:14 AM [facility]
== END 2025-07-14 08:57 | disposition home or self-care (01) ==
LOC: HO.HMGCX 08:56
PROVIDERS: PCP Internal Medicine; Visit Provider Physician Assistant
DX: S61.216A Laceration without foreign body of right little finger without damage to nail, initial encounter (principal); R07.81 Pleurodynia; Z23 Encounter for immunization; W27.4XXA Contact with kitchen utensil, initial encounter
CPT/HCPCS: 71101; 90471; 90715; 99202

== ENCOUNTER 2025-07-14 08:56 | Outpatient (AMB) | payer OTHER, SELFPAY ==
[2025-07-14 08:59] VITALS: BP 108/76; PULSE 77; TEMP 36.4; O2SAT 98; BMI 36.9
--- NOTE | 2025-07-14 08:59 | MHC.OFFWIV ---
Intake Vital Signs 07/14/25 08:59 Height 5 ft 5 in Weight 222 lb BMI 36.9 BP 108/76 Blood Pressure Location Lt brachial Position Sitting Pulse 77 Pulse Source Pulse Oximeter Temp 97.5 F Temp Source Oral Pulse Oximetry (%) 98 Oxygen Delivery Method Room Air Intake Visit Reasons: EP-rt hand pinky finger cut, lt rib pain Intake Note: Patient presents with c/o laceration of right pinky finger that happened yesterday. Patient also c/o left rib pain under left breast x1 week related to leaning over while sitting down. Patient Tobacco Use Status: Never used Tobacco Allergies droperidol (From INAPSINE) Allergy (Severe, Verified 07/14/25 09:04) ANGIOEDEMA, THROAT SWELLING lithium Allergy (Unknown, Verified 07/14/25 09:04) unknown quetiapine (Seroquel) Adverse Reaction (Intermediate, Verified 07/14/25 09:04) weight gain, sleep walking fresh fruit Allergy (Intermediate, Uncoded 07/14/25 09:04) oral swelling/itching Do you need a note to return to daycare/school/sports/work: No HPI HPI Comments History of Present Illness Details History of Present Illness - The patient is a 49-year-old female presenting with a laceration on the right pinky finger. - The laceration occurred yesterday while using a food chopper, resulting in significant bleeding and throbbing pain, which disrupted sleep. - The patient is not on blood thinners, and the cut is located on the lateral side of the right pinky finger. - The patient is able to move the finger. - The patient also reports left front rib pain, which began after leaning down/over and possibly fracturing the ribs. - The pain initially affected deep breathing but has improved over the past week. - The patient has a history of spinal fractures from a previous fall, resulting in significant back injuries. Review of Systems - Musculoskeletal: Reports throbbing pain in the right pinky finger and rib pain. Denies difficulty in moving the finger. - Respiratory: Initially reported difficulty with deep breathing due to rib pain, but this has improved. All systems reviewed and are unremarkable except as noted in HPI Physical Exam General: Cooperative, healthy appearing, comfortable, no acute distress and well developed Orientation: Patient oriented x3 Limitations: No limitations Head: Normal to inspection Ears: Hearing grossly normal bilaterally Nose: Normal External nose present Face and sinus: Normal facial exam Eyes: Appearance normal, both eyes and all related structures Neck: Normal visual inspection and Yes full ROM Chest: TTP left mid clavicular T7-T8 Respiratory: Normal respiratory effort and able to speak in complete sentences. Skin: No rashes or lesions noted Neuro: Patient oriented x3 Extremities: Normal to inspection. Right pinky finger has a 0.30 avulsion on the lateral side, full ROM, NVI, the nail is not damaged. [facility] Medical History (Updated 07/14/25 @ 09:47 by Myranda Navarro PA-C) Laceration of right little finger w/o foreign body w/o damage to nail Hypersomnia Insomnia Snoring Laceration of head Back pain, chronic GERD (gastroesophageal reflux disease) Hx of renal calculi Preoperative examination Internal derangement of knee Substance abuse Dysuria Urinary incontinence Environmental allergies Neurogenic bladder Acute sinusitis Shortness of breath Dysuria Sinusitis chronic, frontal Otitis media Body mass index (BMI) of 40.0 to 44.9 in adult Morbid obesity due to excess calories Osteosclerosis Arthritis Torn ACL IBS (irritable bowel syndrome) PTSD (post-traumatic stress disorder) Bipolar 1 disorder Recurrent urinary tract infection Fibromyalgia Urinary incontinence Neurogenic bladder History of spinal cord injury Neuropathy Hiatal hernia Anxiety Depression Asthma Surgical History Hx of hysterectomy History of repair of hiatal hernia History of sleeve gastrectomy History of ureter stent Status post left foot surgery H/O tubal ligation H/O wisdom tooth extraction H/O dilation and curettage History of fusion of lumbar spine Family History Father Substance use disorder Mental health disorder Mother HTN (hypertension) Stroke Paternal Grandfather No problems noted. Paternal Grandmother Lung cancer Maternal Grandfather Melanoma Maternal Grandmother No problems noted. Brother Substance use disorder Mental health disorder Brother No problems noted. Brother No problems noted. Sister No problems noted. Son No problems noted. Son No problems noted. Daughter No problems noted. Daughter No problems noted. Daughter No problems noted. Maternal Aunt Substance use disorder Social History Household Members: None Housing: Apartment Are you a primary inspector health care facilities to a significant other at home: No Do you presently have visiting nurse or other home services: No Alcohol intake: former Year quit: 2021 Patient Tobacco Use Status: Never used Tobacco e-Cigarette/Vaping Use: Never Used Substance Use Type: Crack/Cocaine and Former Substance User service: No Current occupational status: disabled Cognitive needs: No Hearing needs: No Vision needs: Yes Physical Exam Vital Signs: Last Vital Signs Temp 97.5 F 07/14/25 08:59 Pulse 77 07/14/25 08:59 BP 108/76 07/14/25 08:59 Pulse Ox 98 07/14/25 08:59 Oxygen Delivery Method Room Air 07/14/25 08:59 BMI result Body Mass Index 36.9 Assessment & Plan Assessment & Plan (1) Laceration of right little finger w/o foreign body w/o damage to nail: Code(s): S61.216A - Laceration without foreign body of right little finger without damage to nail, initial encounter Qualifiers: Encounter type: initial encounter Qualified Code(s): S61.216A - Laceration without foreign body of right little finger without damage to nail, initial encounter Plan: Patient was informed and verbally consented to the use of an ambient scribe for clinic note documentation during this visit. 1. Laceration Of The Right Pinky Finger - Clean the wound with sterile saline and apply Surgicel to stop bleeding. Advised to remove in 24 hours. - Apply a non-adhering pad and wrap the finger, leaving it on for a day. - Administer tetanus vaccination due to the nature of the injury. (2) Rib pain on left side: Code(s): R07.81 - Pleurodynia Plan: 2. Rib Pain - Obtain an x-ray to assess for possible rib fractures. - Monitor for any changes in pain or breathing difficulties. Orders: Orders TDaP Immunization Today S61.216A - Laceration without foreign body of right little finger without damage to nail, initial encounter XR ribs LT 2V Today R07.81 - Pleurodynia Medications: New Boostrix Tdap (diphth,pertus(acell),tetanus) 0.5 mL IM ONCE 0.5 mL 0RF laceration NS S61.216A - Laceration without foreign body of right little finger without damage to nail, initial encounter Coding Level of Care Code New Pt Level 4 (95004) Diagnoses Laceration of right little finger without foreign body without damage to nail, initial encounter S61.216A Encounter type: initial encounter Rib pain on left side R07.81
--- OUTSIDE RECORDS SUMMARY | 2025-07-14 09:42 | XMS_ITS | Clinical Summary ---
Author Organization [facility] Address [address] [address] Phone Care Team Providers Care Warehouse Delivery Driver Name Role Phone Arnaud Carbone MD Primary Care Provider [phone] Allergies Active Allergy Reactions Criticality Noted Date Comments Droperidol Swelling 06/01/2017 [place] Analogues Swelling Low 06/06/2022 feet Quetiapine Itching [...] Take by mouth. 2 Active vitamin A 44271 UNIT capsule Take 10,000 Units by mouth [...] MAMMOGRAM 2016 Adult Td,Tdap Booster 02/07/2017 02/07/2007 COLOGUARD 2021 COLONOSCOPY 2021 COLORECTAL CANCER SCREENING 2021 FIT TEST 2021 FOBT 2021 SIGMOIDOSCOPY 2021 VIRTUAL COLONOSCOPY 2021 INFLUENZA VACCINE (#1) 2025 9, 08/01/2017, 07/03/2016 COVID-19 VACCINE ( - 2024-2 6 season) 2025 PNEUMOCOCCAL VACCINES (0-49 years) Aged Out 05/04/2012 No longer eligible b ased on patient's [...] topic Medical Devices Not on file [place] [address] [place] [address] [place] [address] [place] [address] [place] [address] [place] [address] [place] [address] [place] [address] ACO ACO ACO ACO [facility] ACO Care Teams Warehouse Delivery Driver Relationship Specialty Start Date End Date Arnaud Carbone MD [address] [place] [id number] PCP - General Internal Medicine 04/20/22 Additional Source Comments The information contained in this document represents components of the legal health record. It is not the complete legal health record.[facility]
--- OUTSIDE RECORDS SUMMARY | 2025-07-14 09:42 | XMS_ITS | Clinical Summary ---
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 SCREENING DIGITAL Routine 01/21/2018 5:02 PM EDT Encounter for screening mammogram for malignant neoplasm of breast from Last 3 Months or Most Recently Relevant to Health Maintenance Results * ALEX SCREENING DIGITAL (01/21/2018 5:02 PM EDT) Anatomical Region Laterality Modality Mammography 01/21/2018 2:16 PM EDT Narrative 01/21/2018 5:02 PM EDT [facility] Diagnostic Imaging Department [address] [place] [address] Patient: ALLISON PEREZ./Age/Sex: 1975 - 42 - F Unit#: [id number] Location/Status: SPDIMAM/REG CLI Mnemonic/Ordering [facility] Ordering Physician: ARNAUD KING MD [facility] Screening Digital - 01/21/18 - 1440 EXAM: [facility] Screening Digital EXAM DATE AND TIME: 01/21/2018 2:43 PM HISTORY: Screening. This is a baseline exam. The patient declined tomosynthesis. COMPARISON: No comparison studies. TECHNIQUE: CC and MLO views of both breasts were obtained using full field digital mammography. 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 TISSUE DENSITY: c. The [...] Routine screening mammogram BILATERAL in 1 year. [address]121 3341F, 7025F Dictating Physician: PARAG COLES MD Electronically Signed by: PARAG COLES MD Dic Date/Time: 01/21/181700 Sign date/Time: 01/21/181701 Procedure Note Parag Coles MD - 08/29/2022 [facility] Diagnostic Imaging Department [address] [place] [id number] Patient: ALLISON PEREZ./Age/Sex: 1975 - 42 - F Unit#: [id number] Location/Status: [facility] CLI Mnemonic/Ordering Site: [facility] Ordering Physician: ARNAUD KING MD [facility] Screening Digital - 01/21/18 - 1441 EXAM: [facility] Screening Digital EXAM DATE AND TIME: 01/21/2018 2:43 PM HISTORY: Screening. This is a baseline exam. The patient declined tomosynthesis. COMPARISON: No comparison studies. TECHNIQUE: CC and MLO views of both breasts were obtained using fullfield digital mammography. Computer aided detection with the [employer].2-H was employed. TISSUE DENSITY: c. The breasts [...] Routine screening mammogram BILATERAL in 1 year. [address]363 3341F, 7025F Dictating Physician: PARAG COLES MD Electronically Signed by: PARAG COLES MD Dic Date/Time: 01/21/181700 Sign date/Time: 01/21/181701 Arnaud King MD IMG BI PROCEDURES Final Result from Last 3 Months or Most Recently Relevant to Health Maintenance Care Teams Automobile Mechanic Helper Relationship Specialty Start Date End Date Arnaud King MD [address] [place] [address] PCP - General 11/13/17
== END 2025-07-14 10:12 | disposition home or self-care (01) ==
PROVIDERS: Visit Provider Physician Assistant
DX: S61.216A Laceration without foreign body of right little finger without damage to nail, initial encounter (principal); R07.81 Pleurodynia

== ENCOUNTER → 2025-07-14 09:58 | Outpatient (BNV) | payer OTHER, SELFPAY | PROVIDERS: PCP Internal Medicine; Visit Provider Radiology Diagnostic Radiology | DX: R07.81 Pleurodynia (principal) | CPT/HCPCS: 71101 ==

== ENCOUNTER 2025-08-20 11:28 | Outpatient (REF) | payer OTHER, SELFPAY ==
--- NOTE | ~2025-08-20 | XR_ITS ---
EXAMINATION: XR WRIST 3 OR MORE VIEWS RIGHT, XR HAND 3 OR MORE VIEWS RIGHT HISTORY: W19.XXXA - Unspecified fall, initial encounter COMPARISON: Comparison is made with the prior examination of the right hand dated 05/05/2025. FINDINGS: Six views of the right wrist and hand are submitted. Osseous mineralization is normal. There is no fracture or dislocation. There is severe osteoarthritis of the 1st carpometacarpal joint, with joint space narrowing and osteophyte formation. There is mild narrowing of the joint of the thumb. The soft tissues are unremarkable. XR/XR wrist RT min 3V IMPRESSION: Severe osteoarthritis of the 1st carpometacarpal joint. No evidence of fracture of the right hand or wrist. Electronically signed by: Sanya Bocanegra MD 08/20/2025 12:04 PM [facility]
--- NOTE | ~2025-08-20 | XR_ITS ---
EXAMINATION: XR ELBOW, RIGHT CLINICAL INFORMATION: W19.XXXA - Unspecified fall, initial encounter COMPARISON: None available. TECHNIQUE: AP, lateral, and oblique views of the right elbow. FINDINGS: No fracture, dislocation, or suspicious bone lesion. Normal bone mineralization. There is normal alignment. Joint spaces are preserved. The epicondyles appear normal. There is no elbow joint effusion. The soft tissues appear normal. XR/XR elbow RT min 3V IMPRESSION: Normal right elbow. No fracture evident. No joint effusion. Electronically signed by: Sky Graves MD 08/20/2025 12:04 PM [facility]
--- NOTE | ~2025-08-20 | XR_ITS ---
EXAMINATION: XR LUMBAR SPINE 2-3 VIEWS HISTORY: M54.9 - Dorsalgia, unspecified COMPARISON: There are no prior studies for comparison. FINDINGS: AP, lateral, and coned down views of the lumbar spine are submitted. Osseous mineralization is normal. The patient is status post posterior fusion of T11-L3 with pedicle screws and spinal stabilization rods. There is a moderate chronic compression deformity of L1. The remaining vertebral bodies maintain normal height. There is retropulsion of the posterior cortex of L1. There is a 6 mild disc space narrowing at L5-S1. The visualized paraspinal soft tissues are unremarkable. XR/XR lumbar spine 2-3V IMPRESSION: Status post posterior fusion of T11-L3. Moderate chronic compression deformity of L1. Electronically signed by: Sanya Bocanegra MD 08/20/2025 12:47 PM [facility]
--- NOTE | ~2025-08-20 | XR_ITS ---
EXAMINATION: XR THORACIC SPINE CLINICAL INFORMATION: M54.9 - Dorsalgia, unspecified COMPARISON: None available. Correlation made with CT abdomen and pelvis 01/13/2016. TECHNIQUE: 2 views of the thoracic spine were obtained. FINDINGS: No significant scoliosis. There is a normal to mildly exaggerated kyphosis. There has been prior posterior fusion of T11 through the upper lumbar spine with transpedicular screws and posterior connecting rods. There is a chronic fracture/compression deformity of L1, unchanged from 2015. There is no additional compression deformity, fracture, or suspicious bone lesion. There is a trace degenerative anterolisthesis of T9 on T10. There is otherwise normal alignment. No additional subluxation There is mild multilevel degenerative disc and facet disease. The imaged mediastinal structures, lungs, and soft tissues appear normal. XR/XR thoracic spine 2V IMPRESSION: 1. No acute bony abnormalities of the thoracic spine. 2. Fusion hardware in the lower thoracic spine, without apparent complication. There is a chronic unchanged compression deformity of L1. 3. Mild multilevel degenerative spondylosis. Electronically signed by: Sky Graves MD 08/20/2025 12:43 PM [facility]
--- NOTE | ~2025-08-20 | XR_ITS ---
EXAMINATION: XR CERVICAL SPINE CLINICAL INFORMATION: M54.2 - Cervicalgia COMPARISON: 03/11/2019. TECHNIQUE: 3 views of the cervical spine were obtained. FINDINGS: There is a minimal right convex scoliosis, apex at C6. Mild straightening of the normal lordosis. There is no subluxation. Alignment is anatomic. No fracture, compression deformity, or suspicious bone lesion. C1-2 articulation and craniocervical junction are intact and normally aligned. Moderate to severe disc degeneration is present C4-5, C5-6, and C6-7, with endplate sclerosis and osteophytic spurring marginally. There is associated uncinate hypertrophy at these levels. There is mild hypertrophic degenerative facet disease spanning C4-C7. There is no prevertebral soft tissue abnormality. The imaged lung apices are clear. XR/XR cervical spine 3V IMPRESSION: 1. No acute finding of the cervical spine. 2. Degenerative disc disease, moderate to severe spanning C4-C7. This appears mildly progressed when compared with 2019. Electronically signed by: Sky Graves MD 08/20/2025 12:46 PM [facility]
--- NOTE | ~2025-08-20 | XR_ITS ---
EXAMINATION: XR WRIST 3 OR MORE VIEWS RIGHT, XR HAND 3 OR MORE VIEWS RIGHT HISTORY: W19.XXXA - Unspecified fall, initial encounter COMPARISON: Comparison is made with the prior examination of the right hand dated 05/05/2025. FINDINGS: Six views of the right wrist and hand are submitted. Osseous mineralization is normal. There is no fracture or dislocation. There is severe osteoarthritis of the 1st carpometacarpal joint, with joint space narrowing and osteophyte formation. There is mild narrowing of the joint of the thumb. The soft tissues are unremarkable. XR/XR hand RT min 3V IMPRESSION: Severe osteoarthritis of the 1st carpometacarpal joint. No evidence of fracture of the right hand or wrist. Electronically signed by: Sanya Bocanegra MD 08/20/2025 12:04 PM [facility]
== END 2025-08-20 11:29 | disposition home or self-care (01) ==
LOC: HO.HOSX 11:28
PROVIDERS: PCP Internal Medicine; Visit Provider Physical Medicine & Rehabilitation
DX: M79.641 Pain in right hand (principal); M54.2 Cervicalgia; M54.6 Pain in thoracic spine; M54.50 Low back pain, unspecified; G89.21 Chronic pain due to trauma
CPT/HCPCS: 72040; 72070; 72100; 73080; 73110; 73130

== ENCOUNTER 2025-08-20 11:28 | Outpatient (AMB) | payer OTHER, SELFPAY ==
--- NOTE | 2025-08-20 11:30 | A.OFFVIS_ITS ---
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 Patient was referred by ROBERT 04/10/25 at their visit she reported on 03/22/12 she had an injury to her back, causing her to be paralyzed and having to learn to walk again, ever since has not been able to walk correctly. At her visit with TM she was ordered Physical therapy for her bilateral hips. At today's visit she states that her upper and lower back pain has been the same since her accident back in 2011. She states that she has bilateral neck pain that radiates into the shoulders. Patient noted that she can not sit for long periods of time and she has to lean to the left to relieve her tailbone pain. Patient noted that she was walking across the street to her appointment with our office today and she tripped an fell on her right arm. Pain scale- 7 Allergies droperidol (From INAPSINE) Allergy (Severe, Verified 07/14/25 09:04) ANGIOEDEMA, THROAT SWELLING lithium Allergy (Unknown, Verified 07/14/25 09:04) unknown quetiapine (Seroquel) Adverse Reaction (Intermediate, Verified 07/14/25 09:04) weight gain, sleep walking fresh fruit Allergy (Intermediate, Uncoded 07/14/25 09:04) oral swelling/itching Medication List - Last Reconciled 08/20/25 by Altagracia Harrington MD acetaminophen (Tylenol Extra Strength) 1,000 mg (2 x 500 mg) PO Q6H PRN calcium acetate 667 mg PO BEDTIME clonazepam 2 mg PO TID doxepin 150 mg PO BEDTIME duloxetine (Cymbalta) 60 mg PO DAILY fluticasone propionate 50 mcg/actuation (Flonase Allergy Relief) 1 spray intranasal BID 30 days incontinence pad, liner, disp (Bladder Control Pads Ex Absorb) As directed for urinary incontinence, uses 2 at a time, 12 per day incontinence pad, liner, disp As directed for urinary incontinence, uses 6 per day lamotrigine 50 mg PO BID loratadine (Claritin) 10 mg PO DAILY PRN [Medial Underwriting Specialist Knee brace n/a] multivitamin 1 tab PO DAILY pantoprazole 40 mg PO DAILY triamcinolone acetonide 0.1% 1 appl topical DAILY 30 days Ventolin HFA 90 mcg/actuation (albuterol sulfate) 2 puffs inhalation Q4H PRN NS vibegron (Gemtesa) 75 mg PO DAILY zinc gluconate 30 mg PO DAILY zolpidem 10 mg PO BEDTIME HPI Comments Details: Patient informs me that she had slipped and fell today around 11:20am, slipped on the rug, as she was going out of [address]. Landed on her outstretched arms, and now hurting on right wrist, fingers, forearm and elbow. Bruise on right ulnar dorsal hand just below 5th MCP and abrasions on right forearm. We offered to clean her abrasions but she had deferred, stating didn't need to. St at xrays done for right elbow, wrist and hand - History of right basal joint arthritis, follows with Dr. Prater, has had injections. History of right knee pain, follows with Anisha REYES. Her appointment today is for lower back pain. No recent lumbar imaging on file. A previous hip x-ray did show mild arthritis right hip. No recent notes pertaining to back pain that I can find. Reviewed recent ortho and PCP notes. Back pain - Chronic whole back pain. Injury 2012 fall from 30 feet, was paralyzed. Pain everywhere has upper and lower back pain. Report pain from neck to arms, gets headaches, denies pain to legs. Numbness on toes and fingers, sometimes, but feet/hands not together, randomly. No recent MRI. No recent PT. Had EMG few years ago and told to have CTS. [facility] Medical History (Updated 08/20/25 @ 12:15 by Altagracia Harrington MD) Laceration of right little finger w/o foreign body w/o damage to nail Hypersomnia Insomnia Snoring Laceration of head Back pain, chronic GERD (gastroesophageal reflux disease) Hx of renal calculi Preoperative examination Internal derangement of knee Substance abuse Dysuria Urinary incontinence Environmental allergies Neurogenic bladder Acute sinusitis Shortness of breath Dysuria Sinusitis chronic, frontal Otitis media Body mass index (BMI) of 40.0 to 44.9 in adult Morbid obesity due to excess calories Osteosclerosis Arthritis Torn ACL IBS (irritable bowel syndrome) PTSD (post-traumatic stress disorder) Bipolar 1 disorder Recurrent urinary tract infection Fibromyalgia Urinary incontinence Neurogenic bladder History of spinal cord injury Neuropathy Hiatal hernia Anxiety Depression Asthma Surgical History Hx of hysterectomy History of repair of hiatal hernia History of sleeve gastrectomy History of ureter stent Status post left foot surgery H/O tubal ligation H/O wisdom tooth extraction H/O dilation and curettage History of fusion of lumbar spine Family History Father Substance use disorder Mental health disorder Mother HTN (hypertension) Stroke Paternal Grandfather No problems noted. Paternal Grandmother Lung cancer Maternal Grandfather Melanoma Maternal Grandmother No problems noted. Brother Substance use disorder Mental health disorder Brother No problems noted. Brother No problems noted. Sister No problems noted. Son No problems noted. Son No problems noted. Daughter No problems noted. Daughter No problems noted. Daughter No problems noted. Maternal Aunt Substance use disorder Social History Household Members: None Housing: Apartment Are you a primary residential caregiver to a significant other at home: No Do you presently have visiting nurse or other home services: No Alcohol intake: former Year quit: 2021 Patient Tobacco Use Status: Never used Tobacco e-Cigarette/Vaping Use: Never Used Substance Use Type: Crack/Cocaine and Former Substance User service: No Current occupational status: disabled Cognitive needs: No Hearing needs: No Vision needs: Yes Review of Systems Const All systems reviewed & are unremarkable except as noted in HPI and below Physical Exam Exam Exam: Constitutional: Patient appears to be in no acute distress, well nourished and well developed. Patient was appropriately conversant and oriented. Good historian. MSK: Inspection reveals appropriate head and neck positioning. Diffusely tender upper trapezius, lumbar area, cervical area, SI joints. Cervical ROM was full. Spurling's sign negative. Bilateral shoulder, elbow and wrist ROM WNL. No ligamentous laxity or crepitance. No increased effusion. No specific abnormalities or instability found on inspection and palpation of the spine and extremities. Lumbar ROM was full. Abrasions on right forearm due to fall. No open wound or laceration. No deformity. Good ROM on elbow and wrist and fingers. Neurological: Neurologic examination of the upper and lower extremities was nonfocal with intact sensation, muscle stretch reflexes and without focal motor deficits . Ojeda?s negative bilaterally. Gait is non-antalgic without loss of balance. Vital Signs: BMI result Body Mass Index 36.3 Results Reviewed Results Reviewed: I independently reviewed the results of the following: Xrays for elbow and hand/wrist right did not show fracture. Readings as follows: Ordering Physician: Altagracia Forman Date of Service: 08/20/25 Procedure(s): XR wrist RT min 3V Accession Number(s): [id number] cc: Arnaud Carbone MD; Altagracia Forman~ Reason for Exam: W19.XXXA - Unspecified fall, initial encounter EXAMINATION: XR WRIST 3 OR MORE VIEWS RIGHT, XR HAND 3 OR MORE VIEWS RIGHT HISTORY: W19.XXXA - Unspecified fall, initial encounter COMPARISON: Comparison is made with the prior examination of the right hand dated 05/05/2025. FINDINGS: Six views of the right wrist and hand are submitted. Osseous mineralization is normal. There is no fracture or dislocation. There is severe osteoarthritis of the 1st carpometacarpal joint, with joint space narrowing and osteophyte formation. There is mild narrowing of the joint of the thumb. The soft tissues are unremarkable. XR/XR wrist RT min 3V IMPRESSION: Severe osteoarthritis of the 1st carpometacarpal joint. No evidence of fracture of the right hand or wrist. Electronically signed by: Sanya Bocanegra MD 08/20/2025 12:04 PM [facility] Ordering Physician: Altagracia Forman Date of Service: 08/20/25 Procedure(s): XR elbow RT min 3V Accession Number(s): [id number] cc: Arnaud Carbone MD; Altagracia Forman~ Reason for Exam: W19.XXXA - Unspecified fall, initial encounter EXAMINATION: XR ELBOW, RIGHT CLINICAL INFORMATION: W19.XXXA - Unspecified fall, initial encounter COMPARISON: None available. TECHNIQUE: AP, lateral, and oblique views of the right elbow. FINDINGS: No fracture, dislocation, or suspicious bone lesion. Normal bone mineralization. There is normal alignment. Joint spaces are preserved. The epicondyles appear normal. There is no elbow joint effusion. The soft tissues appear normal. XR/XR elbow RT min 3V IMPRESSION: Normal right elbow. No fracture evident. No joint effusion. Electronically signed by: Sky Graves MD 08/20/2025 12:04 PM EST Ordering Physician: Fabiola Mas PA-C Date of Service: 04/10/25 Procedure(s): XR pelvis 1-2V Accession Number(s): [id number] cc: Arnaud Carbone MD; Fabiola Mas PA-C~ EXAMINATION: XR PELVIS CLINICAL INFORMATION: M25.559 - Pain in unspecified hip COMPARISON: Correlated to CT abdomen pelvis dated May 08, 2019. TECHNIQUE: AP view of the pelvis. FINDINGS: Sclerosis along the articular surface of the acetabulum and to a lesser extent femoral head on the right coxofemoral joint with associated subchondral cyst formation. Asymmetric joint space narrowing right greater than the left coxofemoral joint. Degenerative changes in the symphysis pubis. Bony pelvis is grossly intact. Metallic hardware no fully included in the [id number] in the lower lumbar spine. Spina bifida occulta S1. XR/XR pelvis 1-2V IMPRESSION: Mild osteoarthrosis/osteoarthritis, right hip. Electronically signed by: Armando Chirinos MD 04/10/2025 09:39 AM EDT I reviewed records from the following: Ortho Hand surgery PCP Assessment & Plan Assessment & Plan (1) Fall: Code(s): W19.XXXA - Unspecified fall, initial encounter Category: Medical Qualifiers: Encounter type: initial encounter Qualified Code(s): W19.XXXA - Unspecified fall, initial encounter (2) Chronic pain: Code(s): G89.29 - Other chronic pain Category: Medical Qualifiers: Chronic pain type: due to trauma Qualified Code(s): G89.21 - Chronic pain due to trauma Plan 1. Patient fell on her way to ortho. Please see above. No fractures seen on xray. No indication for splint. Offered to send to ER but patient does not see need for it. 2. Chronic all over back pain, history of trauma 2011 and fibromyalgia. Will check cervical, thoracic and lumbar xrays today and follow up in 1 week. Assessment and plan discussed with patient, and patient was agreeable. All questions were answered thoroughly. Altagracia Harrington MD, DONNA Board Certified, [place] [employer] and [employer] (ABPMR) Board Certified, [place] [employer] Electro[employer] (ABEM) Orders: Orders XR elbow RT min 3V Today W19.XXXA - Unspecified fall, initial encounter XR thoracic spine 2V Today M54.9 - Dorsalgia, unspecified XR wrist RT min 3V Today W19.XXXA - Unspecified fall, initial encounter XR hand RT min 3V Today M79.643 - Pain in unspecified hand, W19.XXXA - Unspecified fall, initial encounter XR cervical spine 3V Today M54.2 - Cervicalgia XR lumbar spine 2-3V Today M54.9 - Dorsalgia, unspecified Coding Level of Care Code New Pt Level 5 (10301) Add On Problem Visit Only Diagnoses Fall, initial encounter W19.XXXA Encounter type: initial encounter Chronic pain due to trauma G89.21 Chronic pain type: due to trauma
[2025-08-20 11:35] VITALS: BMI 36.3
== END 2025-08-20 12:43 | disposition home or self-care (01) ==
LOC: HO.HOS 11:29
PROVIDERS: PCP Internal Medicine; Visit Provider Physical Medicine & Rehabilitation
DX: G89.21 Chronic pain due to trauma (principal); M54.50 Low back pain, unspecified; W19.XXXA Unspecified fall, initial encounter
CPT/HCPCS: 99204

== ENCOUNTER → 2025-08-20 11:53 | Outpatient (BNV) | payer OTHER, SELFPAY | PROVIDERS: PCP Internal Medicine; Visit Provider Radiology Diagnostic Radiology | DX: M50.021 Cervical disc disorder at C4-C5 level with myelopathy (principal); M50.022 Cervical disc disorder at C5-C6 level with myelopathy; M50.023 Cervical disc disorder at C6-C7 level with myelopathy; S32.010A Wedge compression fracture of first lumbar vertebra, initial encounter for closed fracture; M47.814 Spondylosis without myelopathy or radiculopathy, thoracic region; M43.21 Fusion of spine, occipito-atlanto-axial region; Z04.3 Encounter for examination and observation following other accident; M19.031 Primary osteoarthritis, right wrist; M19.041 Primary osteoarthritis, right hand | CPT/HCPCS: 72040; 72070; 72100; 73080; 73110; 73130 ==

== ENCOUNTER 2025-08-26 13:52 | Outpatient (REF) | payer OTHER, SELFPAY ==
[2025-08-26 16:18] LABS: MANUAL DIFF FLAG NO
[2025-08-26 16:27] LABS: Hematocrit 42.5 % (37.0-47.0); Hemoglobin 14.2 g/dl (12.0-16.0); Imm Gran Abs Auto 0.01 X10*3/uL (0.00-0.03); Imm Gran Pct Auto 0.2 % (0.0-0.4); Lymphocytes Absolute Auto 2.0 X10*3/uL (1.2-4.9); Mean Corpuscular HGB Conc 33.4 g/dl (31.0-35.0); Mean Corpuscular Hemoglobin 32.9 pg (27.0-33.0); Mean Corpuscular Volume 98.6 fL (80.0-98.0); NRBC Abs Auto 0.000 X10*3/uL (0.0-0.012); NRBC Pct Auto 0.0 /100WBC (0.0-0.2); Platelet Count 251 X10*3/uL (160-400); Red Blood Count 4.31 X10*6/uL (4.20-5.50); White Blood Count 5.6 X10*3/uL (4.8-10.8)
[2025-08-26 16:55] LABS: Alanine Aminotransferase 17 U/L (0-31); Albumin Level 4.3 g/dL (3.5-5.0); Alkaline Phosphatase 80 U/L (39-117); Anion Gap 12 (12-20); Aspartate Amino Transferase 17 U/L (5-31); Blood Urea Nitrogen 12 mg/dL (9-16); Calcium 9.0 mg/dL (8.4-10.2); Carbon Dioxide 25 mmol/L (22-29); Chloride 106 mmol/L (96-108); Estimated Glomerular Filt Rate > 60; Potassium 4.0 mmol/L (3.3-5.1); Sodium 139 mmol/L (135-145); Total Protein 6.5 g/dL (6.5-8.0)
[2025-08-27 04:07] LABS: HIV Num 1 0.18 S/CO (0.00-0.99)
== END 2025-08-26 13:53 | disposition home or self-care (01) ==
LOC: HO.HMGCLDS 13:52
PROVIDERS: PCP Internal Medicine; Visit Provider Internal Medicine
DX: Z00.01 Encounter for general adult medical examination with abnormal findings (principal); N31.9 Neuromuscular dysfunction of bladder, unspecified; J34.89 Other specified disorders of nose and nasal sinuses; F39 Unspecified mood [affective] disorder; R10.20 Pelvic and perineal pain unspecified side; R82.90 Unspecified abnormal findings in urine; A64 Unspecified sexually transmitted disease; L20.84 Intrinsic (allergic) eczema; G89.21 Chronic pain due to trauma; N39.42 Incontinence without sensory awareness; K21.9 Gastro-esophageal reflux disease without esophagitis; R15.9 Full incontinence of feces; E66.01 Morbid (severe) obesity due to excess calories; F33.41 Major depressive disorder, recurrent, in partial remission; Z91.09 Other allergy status, other than to drugs and biological substances; Z68.37 Body mass index [BMI] 37.0-37.9, adult
CPT/HCPCS: 36415; 80053; 83721; 84443; 85025; 87389; 96127; 99212; 99396

== ENCOUNTER 2025-08-26 13:52 | Outpatient (AMB) | payer OTHER, SELFPAY ==
[2025-08-26 13:54] VITALS: BP 112/72; PULSE 85; O2SAT 98; BMI 37.6
--- NOTE | 2025-08-26 13:54 | MHC.PC.OV ---
Vital Signs 08/26/25 13:54 Height 5 ft 5 in Weight 226 lb BMI 37.6 BP 112/72 Blood Pressure Location Lt brachial Position Sitting Pulse 85 Pulse Source Pulse Oximeter Pulse Oximetry (%) 98 Intake Visit Reasons: Annual PE Allergies droperidol (From INAPSINE) Allergy (Severe, Verified 08/26/25 13:54) ANGIOEDEMA, THROAT SWELLING lithium Allergy (Unknown, Verified 08/26/25 13:54) unknown quetiapine (Seroquel) Adverse Reaction (Intermediate, Verified 08/26/25 13:54) weight gain, sleep walking fresh fruit Allergy (Intermediate, Uncoded 07/14/25 09:04) oral swelling/itching Medication List - Last Reconciled 08/26/25 by Arnaud Carbone MD acetaminophen (Tylenol Extra Strength) 1,000 mg (2 x 500 mg) PO Q6H PRN calcium acetate 667 mg PO BEDTIME clonazepam 2 mg PO TID doxepin 150 mg PO BEDTIME duloxetine (Cymbalta) 60 mg PO DAILY fluticasone propionate 50 mcg/actuation (Flonase Allergy Relief) 1 spray intranasal BID 30 days incontinence pad, liner, disp (Bladder Control Pads Ex Absorb) As directed for urinary incontinence, uses 2 at a time, 12 per day incontinence pad, liner, disp As directed for urinary incontinence, uses 6 per day lamotrigine 50 mg PO BID loratadine (Claritin) 10 mg PO DAILY PRN [Medial Food Service Manager Knee brace n/a] multivitamin 1 tab PO DAILY pantoprazole 40 mg PO DAILY triamcinolone acetonide 0.1% 1 appl topical DAILY 30 days Ventolin HFA 90 mcg/actuation (albuterol sulfate) 2 puffs inhalation Q4H PRN NS vibegron (Gemtesa) 75 mg PO DAILY zinc gluconate 30 mg PO DAILY zolpidem 10 mg PO BEDTIME Tobacco use date assessed: 08/26/25 Dental Screening Dental Screen Date: 08/26/25 Did you have a dental visit in the last 12 months?: Yes Did you have a dental problem in the last 6 months where you did not have access to dental care?: No Was dental information given to patient?: Patient has dentist HPI HPI Comments History of Present Illness Details History of Present Illness The patient is a 49 year old female presenting for an annual physical examination and to address multiple concerns, including a skin tag, facial pressure, hair loss, mood changes, recent weight gain, and urinary symptoms. Hx of neurogenic bladder and fecal incontinence due to back injury years ago Perimenopausal Symptoms: - The patient is a 49-year-old female reporting symptoms consistent with perimenopause, including recent onset of hair loss, increased moodiness, and worsening of her baseline ADHD symptoms. - She manages her mood and ADHD with a therapist and a psychiatric prescriber. Edema and Weight Gain: - The patient reports a rapid weight gain of 10 pounds over the past week, accompanied by a sensation of being very bloated. - She denies any swelling in her ankles. - Her lab results from April showed normal liver and kidney function. Hiatal Hernia: - The patient has a history of a hiatal hernia that was surgically repaired at the time of her gastric sleeve procedure. - She reports a recurrence of chest pains, leading her to believe the hernia has returned. - Her last endoscopy was in 2020. Urinary Symptoms: - The patient reports a urine odor, pelvic pressure, and associated pain. - She has a history of frequent urinary tract infections. - She also has urinary incontinence, for which she uses pads. Allergic Rhinitis and Facial Pressure: - The patient complains of significant facial pressure and pain, which is relieved by applying pressure to the area. - She reports constantly blowing her nose, particularly while eating, and has itchy ears. - Previous allergy testing revealed allergies to numerous trees. - She takes loratadine daily for her allergies. Skin Tag: - The patient presents with a skin tag on her back, which she notes has become super itchy. Medical History: - Psychiatric History: Diagnosed with anxiety, depression, and ADHD, managed by a psychiatrist and therapist. - Dermatologic History: Eczema. - Respiratory History: Asthma. - Otologic History: Otosclerosis. - Genitourinary History: Urinary incontinence and frequent UTIs. - Musculoskeletal History: Chronic back pain. - Trauma History: Recently recovering from a non-displaced rib fracture sustained while tying her shoe; a separate recent fall resulted in bruises, with negative X-rays of her wrist, hand, and elbow. - Injury History: Previously sustained a partial amputation of her finger. Surgical History: - Gastric sleeve - Hiatal hernia repair (concurrent with gastric sleeve) - Hysterectomy for benign, bladder-related reasons Health Maintenance - Lab work from April was within normal limits, including kidney function, electrolytes, CBC, glucose, liver enzymes, vitamin B12, vitamin D, and thyroid studies, with an LDL of 78. - A mammogram performed in March requires a 6-month follow-up due to dense breast tissue. - A colonoscopy is scheduled but has not yet been completed. - The patient has not yet received the seasonal influenza vaccine. - She performs breast self-examinations as recommended. - complete hystrectomy for bengin reasons [place] of Care - Psychiatry: Manages clonazepam, doxepin, duloxetine, lamotrigine, and zolpidem. - Weight Management: Manages pantoprazole. - Urogynecology: Manages Gemtesa for urinary symptoms. - Primary Care Physician: Manages Ventolin inhaler, eczema cream, and Flonase. - Therapist: Patient is engaged in therapy. Medications - Clonazepam (from psychiatrist) - Doxepin (from psychiatrist) - Duloxetine (from psychiatrist) - Lamotrigine (from psychiatrist) - Pantoprazole (from weight management provider) - Gemtesa (from urogynecologist) - Zolpidem (from psychiatrist) - Ventolin inhaler (from PCP) - Eczema cream (from PCP) - Flonase (from PCP) - Loratadine, taken daily for allergies [facility] Medical History Laceration of right little finger w/o foreign body w/o damage to nail Hypersomnia Insomnia Snoring Laceration of head Back pain, chronic GERD (gastroesophageal reflux disease) Hx of renal calculi Preoperative examination Internal derangement of knee Substance abuse Dysuria Urinary incontinence Environmental allergies Neurogenic bladder Acute sinusitis Shortness of breath Dysuria Sinusitis chronic, frontal Otitis media Body mass index (BMI) of 40.0 to 44.9 in adult Morbid obesity due to excess calories Osteosclerosis Arthritis Torn ACL IBS (irritable bowel syndrome) PTSD (post-traumatic stress disorder) Bipolar 1 disorder Recurrent urinary tract infection Fibromyalgia Urinary incontinence Neurogenic bladder History of spinal cord injury Neuropathy Hiatal hernia Anxiety Depression Asthma Surgical History Hx of hysterectomy History of repair of hiatal hernia History of sleeve gastrectomy History of ureter stent Status post left foot surgery H/O tubal ligation H/O wisdom tooth extraction H/O dilation and curettage History of fusion of lumbar spine Family History Father Substance use disorder Mental health disorder Mother HTN (hypertension) Stroke Paternal Grandfather No problems noted. Paternal Grandmother Lung cancer Maternal Grandfather Melanoma Maternal Grandmother No problems noted. Brother Substance use disorder Mental health disorder Brother No problems noted. Brother No problems noted. Sister No problems noted. Son No problems noted. Son No problems noted. Daughter No problems noted. Daughter No problems noted. Daughter No problems noted. Maternal Aunt Substance use disorder Social History Household Members: None Housing: Apartment Are you a primary home care attendant to a significant other at home: No Do you presently have visiting nurse or other home services: No Alcohol intake: former Year quit: 2021 Patient Tobacco Use Status: Never used Tobacco e-Cigarette/Vaping Use: Never Used Substance Use Type: Crack/Cocaine and Former Substance User service: No Current occupational status: disabled Cognitive needs: No Hearing needs: No Vision needs: Yes Questionnaire PHQ-9 Over the last 2 weeks, how often have you been bothered by any of the following problems? 1. Little interest or pleasure in doing things: nearly every day 2. Feeling down, depressed, or hopeless: not at all 3. Trouble falling or staying asleep, or sleeping too much: nearly every day 4. Feeling tired or having little energy: nearly every day 5. Poor appetite or overeating: not at all 6. Feeling bad about yourself - or that you are a failure or have let yourself or your family down: several days 7. Trouble concentrating on things, such as reading the newspaper or watching television: more than half the days 8. Moving or speaking so slowly that other people could have noticed. Or the opposite - being so fidgety or restless that you have been moving around a lot more than usual: not at all 9. Thoughts that you would be better off or of hurting yourself in some way: not at all Total score: 12 Depression Screening Interpretation: Positive Depression Screening Follow-up: Existing condition and In treatment Depression Screening Done: Yes 87808 - PHQ-9 Billing: Yes Source: Developed by Drs. Sanya Ornelas, Nafisa Baker, Kayden Granado and colleagues, with an educational imer from [employer]. Thrive Questionnaire Date Thrive assessed: 08/19/25 I am a: Patient What is your living situation today?: I have a steady place to live Within the past 12 months, did the food you bought not last and you didn't have the money to get more?: Often true Within the past 12 months, did you worry whether your food would run out before you got money to buy more?: Never true Do you have trouble paying for medicines?: No Do you have trouble getting transportation to medical appointments?: No Do you have trouble paying your heating and electricity bill?: No Do you have trouble taking care of your child, family member or friend?: No Do you have trouble with day-to-day activities such as bathing, preparing meals, shopping, managing finances, etc.?: Yes Are you currently unemployed and looking for a job?: No Are you interested in more education?: No Please select the resources that you would like help with: None Currently or been in a relationship where the following occur: I choose not to answer THRIVE Score: 1 AUDIT C Alcohol Use Questionnaire (AUDIT-C) 1. How often do you have a drink containing alcohol?: 2-4 times a month 2. How many drinks containing alcohol do you have on a typical day when you are drinking?: 1 or 2 3. How often do you have six or more drinks on one occasion?: Less than monthly Total Score: 3 Score Reviewed/Action Taken: Yes JO-7 AMB Questionnaire JO-7 Date JO - 7 assessed: 08/26/25 Feeling nervous, anxious, or on edge: 3 = Nearly every day Not being able to stop or control worryin = Several days Worrying too much about different things: 2 = More than half the days Trouble relaxin = Nearly every day Being so restless that it is hard to sit still: 1 = Several days Becoming easily annoyed or irritable: 1 = Several days Feeling afraid as if something awful might happen: 2 = More than half the days Total JO-7 score (0-4 normal; 5-9 mild; 10-14 moderate; 15-21 severe): 13 Source: Developed by Drs. Sanya Ornelas, Nafisa Baker, Kayden Granado and colleagues, with an educational imer from [employer]. JO-7 Assessment Billing JO-7 Assessment Tool: JO-7 Assessment 66083 Review of Systems Narrative Review of Systems - General: No fever no chills - Neurological: No headaches no dizziness - Ear nose throat: No sore throat no hearing difficulty no ear pain - Cardiovascular: No syncope, no chest pain, no palpitations - Gastrointestinal: No nausea vomiting or diarrhea Physical exam (Primary Care) Vital Signs: Last Vital Signs Pulse 85 08/26/25 13:54 BP 112/72 08/26/25 13:54 Pulse Ox 98 08/26/25 13:54 BMI result Body Mass Index 37.6 Tobacco/Smoking Status: Tobacco use Status Tobacco use date assessed 08/26/25 08/26/25 13:55 Patient Tobacco Use Status Never used Tobacco 08/26/25 13:55 e-Cigarette/Vaping Use Never Used 08/26/25 13:55 PHQ-9: PHQ-9 Score PHQ-9: Total score 12 08/26/25 13:55 Depression Screening Interpretation: Positive Depression Screening Follow-up: Existing condition and In treatment Thrive Assessment: Date of Thrive Assessment Date Thrive assessed 08/19/25 08/26/25 13:55 Currently or been in a relationship where the following occur: I choose not to answer Narrative Physical Exam General: Cooperative, healthy appearing, comfortable, no acute distress Orientation: Patient oriented x3 Head: Normal to inspection Ears: Within normal limit Nose: Normal external nose present, but patient reports constant blowing of the nose, possibly due to allergies Face and sinus: Patient reports facial pressure and pain, possibly due to allergies Eyes: Appearance normal, extraocular movement intact pupils reactive Neck: Normal visual inspection and supple Respiratory: Normal respiratory effort and able to speak in complete sentences. Clear to auscultation, no stridor Cardiovascular: S1 and S2 RRR GI: Normal to inspection. Soft to palpation and nontender Skin: Turgor normal, no acute findings, skin tag in the back Neuro: Patient oriented x3, motor sensory intact, balance intact, tandem failed Extremities: Normal to inspection, . Coding Level of Care Code Est Pt Level 3 (06492) Est Pt Prev Care 40-64y(20369) Diagnoses Encounter for general adult medical examination with abnormal findings Z00.01 Neurogenic bladder N31.9 Sinus pressure J34.89 Mood disorder F39 Pelvic pressure in female R10.20 Foul smelling urine R82.90 STD (female) A64 Intrinsic eczema L20.84 Eczema type: intrinsic Chronic pain due to trauma G89.21 Chronic pain type: due to trauma Urinary incontinence without sensory awareness N39.42 Urinary Incontinence type: urinary incontinence without sensory awareness Chronic GERD K21.9 Full incontinence of feces R15.9 Fecal incontinence type: full incontinence of feces Class 2 severe obesity due to excess calories with serious comorbidity and body mass index (BMI) of 36.0 to 36.9 in adult E66.01; Z68.36 Obesity classification: adult class 2 (BMI 35 - 39.9) Serious obesity comorbidity presence: with serious comorbidity Body mass index: BMI 36.0-36.9 Recurrent major depressive disorder, in partial remission F33.41 Active/Remission status: in partial remission Environmental allergies Z91.09 Additional Codes JO-7 Assessment Billing - OJ-7 Assessment Tool: JO-7 Assessment 81421 ([id number]) PHQ-9 - 25097 - PHQ-9 Billing: Yes ([id number]) Assessment & Plan Assessment & Plan (1) Encounter for general adult medical examination with abnormal findings: Code(s): Z00.01 - Encounter for general adult medical examination with abnormal findings Category: Medical (2) Neurogenic bladder: Code(s): N31.9 - Neuromuscular dysfunction of bladder, unspecified Category: Medical (3) Sinus pressure: Code(s): J34.89 - Other specified disorders of nose and nasal sinuses Category: Medical (4) Mood disorder: Code(s): F39 - Unspecified mood [affective] disorder Category: Medical (5) Pelvic pressure in female: Code(s): R10.20 - Pelvic and perineal pain unspecified side Category: Medical (6) Foul smelling urine: Code(s): R82.90 - Unspecified abnormal findings in urine Category: Medical (7) STD (female): Code(s): A64 - Unspecified sexually transmitted disease Category: Medical (8) Eczema: Code(s): L30.9 - Dermatitis, unspecified Category: Medical Qualifiers: Eczema type: intrinsic Qualified Code(s): L20.84 - Intrinsic (allergic) eczema (9) Chronic pain: Code(s): G89.29 - Other chronic pain Category: Medical Qualifiers: Chronic pain type: due to trauma Qualified Code(s): G89.21 - Chronic pain due to trauma (10) Urinary incontinence: Code(s): R32 - Unspecified urinary incontinence Category: Medical Qualifiers: Urinary Incontinence type: urinary incontinence without sensory awareness Qualified Code(s): N39.42 - Incontinence without sensory awareness (11) Chronic GERD: Code(s): K21.9 - Gastro-esophageal reflux disease without esophagitis Category: Medical (12) Fecal incontinence: Code(s): R15.9 - Full incontinence of feces Category: Medical Qualifiers: Fecal incontinence type: full incontinence of feces Qualified Code(s): R15.9 - Full incontinence of feces (13) Obesity due to excess calories: Code(s): E66.09 - Other obesity due to excess calories Category: Medical Qualifiers: Obesity classification: adult class 2 (BMI 35 - 39.9) Serious obesity comorbidity presence: with serious comorbidity Body mass index: BMI 36.0-36.9 Qualified Code(s): E66.01 - Morbid (severe) obesity due to excess calories; Z68.36 - Body mass index [BMI] 36.0-36.9, adult (14) Major depression, recurrent: Code(s): F33.9 - Major depressive disorder, recurrent, unspecified Category: Medical Qualifiers: Active/Remission status: in partial remission Qualified Code(s): F33.41 - Major depressive disorder, recurrent, in partial remission (15) Environmental allergies: Code(s): Z91.09 - Other allergy status, other than to drugs and biological substances Category: Medical Plan Patient Instructions - You will be given a referral to see an Ear, Nose, and Throat (ENT) specialist. Please call their office in 3-4 days to schedule your appointment. - A prescription for a water pill (furosemide) will be sent to your pharmacy. Please take it for five days to help with the bloating and recent weight gain. - Please go to the lab to provide a urine sample and have your blood drawn for repeat testing. - Continue to talk with your therapist and psychiatric provider about your mood changes and worsening ADHD symptoms. - Make sure to complete your scheduled colonoscopy. - Continue doing your monthly breast self-exams. - Consider getting your annual flu shot. Orders: Orders Complete Blood Count Auto Diff Today F39 - Unspecified mood [affective] disorder, R10.20 - Pelvic and perineal pain unspecified side, R82.90 - Unspecified abnormal findings in urine Comprehensive Met. Panel Today F39 - Unspecified mood [affective] disorder, R10.20 - Pelvic and perineal pain unspecified side, R82.90 - Unspecified abnormal findings in urine LDL Cholesterol Direct Today F39 - Unspecified mood [affective] disorder, R10.20 - Pelvic and perineal pain unspecified side, R82.90 - Unspecified abnormal findings in urine TSH reflex Free T4 Today F39 - Unspecified mood [affective] disorder, R10.20 - Pelvic and perineal pain unspecified side, R82.90 - Unspecified abnormal findings in urine UA CC w/rflx Micro + Cult Today F39 - Unspecified mood [affective] disorder, R10.20 - Pelvic and perineal pain unspecified side, R82.90 - Unspecified abnormal findings in urine HIV Ab/Ag Today A64 - Unspecified sexually transmitted disease Referrals Ear/Nose/Throat Referral J34.89 - Other specified disorders of nose and nasal sinuses Medications: New furosemide (Lasix) 20 mg PO DAILY 5 tabs 0RF 5 days
--- OUTSIDE RECORDS SUMMARY | 2025-08-26 18:26 | XMS_ITS | Clinical Summary ---
Author Organization [facility] Address [address] [place] [id number] Care Team Providers Care Digital Artist Name Role Phone Arnaud King MD Primary Care Provider [phone] Medical History Medical History Date Comments Migraine, [...] on file Sexual Orientation Not on file Plan of Treatment Health Maintenance Due Date Last Done Comments DTaP,Tdap,and Td Vaccines (1 - Tdap) 1995 Hepatitis B Vaccines (1 of 3 - 19+ 3-dose series) 1995 Cervical Cancer Screening: P ap Smear 1997 Breast Cancer Screening 01/22/2020 01/21/2018 Depression Screening 09/10/2024 COVID-19 Vaccine ( - 2024-2 6 season) 2025 Influenza Vaccine (#1) 2025 RSV [...] Procedure Name Priority Date/Time Associated Diagnosis Comments [facility] SCREENING DIGITAL Routine 01/21/2018 5:02 PM EDT Encounter for screening mammogram for malignant neoplasm of breast from Last 3 Months or Most Recently Relevant to Health Maintenance Results * [facility] SCREENING DIGITAL (01/21/2018 5:02 PM EDT) Anatomical Region Laterality Modality Mammography 01/21/2018 2:16 PM EDT Narrative 01/21/2018 5:02 PM EDT [facility] Diagnostic Imaging Department [address] [place], [place] [id number] Patient: ARTIEALLISON /Age/Sex: 1975 - 42 - F Unit#: [id number] Location/Status: SPDIMAM/REG CLI [facility]em[facility] Order[facility] Physician: ARNAUD KING MD [facility] Screening Digital - 01/21/18 - 1440 EXAM: [facility] Screening Digital EXAM DATE AND TIME: 01/21/2018 2:43 PM HISTORY: Screening. This is a baseline exam. The patient declined tomosynthesis. COMPARISON: No comparison studies. TECHNIQUE: CC and MLO views of both breasts were obtained using full field digital mammography. Computer aided detection with the [employer] 7.2-H was employed. TISSUE DENSITY: c. The [...] Routine screening mammogram BILATERAL in 1 year. 29040 3341F, 7025F Dictating Physician: PARAG COLES MD Electronically Signed by: PARAG COLES MD Dic Date/Time: 01/21/181700 Sign date/Time: 01/21/181701 Procedure Note Parag Coles MD - 08/29/2022 [facility] Diagnostic Imaging Department [address] [place] [id number] Patient: ALLISON PEREZ/Age/Sex: 1975 - 42 - F Unit#: [id number] Location/Status: [facility] CLI Mnemonic/Ordering Site: [facility] Ordering Physician: ARNAUD KING MD [facility] Screening Digital - 01/21/18 - 1441 EXAM: [facility] Screening Digital EXAM DATE AND TIME: 01/21/2018 2:43 PM HISTORY: Screening. This is a baseline exam. The patient declined tomosynthesis. COMPARISON: No comparison studies. TECHNIQUE: CC and MLO views of both breasts were obtained using fullfield digital mammography. Computer aided detection with the [employer].2-H was employed. TISSUE DENSITY: c. The breasts [...] Routine screening mammogram BILATERAL in 1 year. 85647 3341F, 7025F Dictating Physician: PARAG COLES MD Electronically Signed by: PARAG COLES MD Dic Date/Time: 01/21/181700 Sign date/Time: 01/21/181701 Arnaud King MD IMG BI PROCEDURES Final Result from Last 3 Months or Most Recently Relevant to Health Maintenance Care Teams Digital Artist Relationship Specialty Start Date End Date Arnaud King MD [address] [place] [id number] PCP - General 11/13/17
--- OUTSIDE RECORDS SUMMARY | 2025-08-26 18:26 | XMS_ITS | Clinical Summary ---
Author Organization [facility] Address [address] [address] Phone Care Team Providers Care Supervisor Garage Name Role Phone Arnaud Carbone MD Primary Care Provider [phone] Allergies Active Allergy Reactions Criticality Noted Date Comments Droperidol Swelling 06/01/2017 [place] Analogues Swelling Low 06/06/2022 feet Quetiapine Itching [...] Take by mouth. 2 Active vitamin A 25403 UNIT capsule Take 10,000 Units by mouth [...] topic Medical Devices Not on file [place] [address] [place] [address] [place] [address] [place] [address] [place] [address] [place] [address] [place] [address] [place] [address] ACO ACO ACO ACO [facility] ACO Care Teams Supervisor Garage Relationship Specialty Start Date End Date Arnaud Carbone MD [address] [place] [address] PCP - General Internal Medicine 04/20/22 Additional Source Comments The information contained in this document represents components of the legal health record. It is not the complete legal health record.[facility]
== END 2025-08-26 14:31 | disposition home or self-care (01) ==
LOC: HO.HMCC 13:53
PROVIDERS: PCP Internal Medicine; Visit Provider Internal Medicine
DX: Z00.01 Encounter for general adult medical examination with abnormal findings (principal); N31.9 Neuromuscular dysfunction of bladder, unspecified; E66.01 Morbid (severe) obesity due to excess calories; Z68.36 Body mass index [BMI] 36.0-36.9, adult; J34.89 Other specified disorders of nose and nasal sinuses; F39 Unspecified mood [affective] disorder; R82.90 Unspecified abnormal findings in urine; A64 Unspecified sexually transmitted disease; L20.84 Intrinsic (allergic) eczema; G89.21 Chronic pain due to trauma; N39.42 Incontinence without sensory awareness; K21.9 Gastro-esophageal reflux disease without esophagitis; R15.9 Full incontinence of feces; F33.41 Major depressive disorder, recurrent, in partial remission; Z91.09 Other allergy status, other than to drugs and biological substances

== ENCOUNTER 2025-09-07 13:55 | Outpatient (REF) | payer OTHER, SELFPAY ==
--- NOTE | ~2025-09-07 | MM_ITS ---
EXAMINATION(S): 1. MM DIAGNOSTIC DIGITAL BREAST TOMOSYNTHESIS, RIGHT 2. TARGETED ULTRASOUND OF THE RIGHT BREAST CLINICAL INFORMATION: Callback from screening from April 02, 2025 for right breast focal asymmetry in the upper inner quadrant posterior depth COMPARISON: Comparison made to multiple prior, most recent April 02, 2025, and most remote January 21, 2018. TECHNIQUE: Digital breast tomosynthesis is performed in full field ML 90 degrees along with computer-aided detection (CAD). Synthesized 2D images are generated from the tomosynthesis. Spot compression tomosynthesis were obtained. FINDINGS: BREAST COMPOSITION: There are scattered areas of fibroglandular density. RIGHT BREAST: An approximately 0.9 cm-1.2 cm mass persists on today's images in the upper inner quadrant at approximately 11 cm from the nipple (ML 90 degrees 40/71, spot MLO 39/67, spot CC 31/61). This measured approximately 0.8 cm in 2017 and 1.2 cm in 2021. Targeted ultrasound of the right breast was performed at the location of the mammographic finding. The survey shows a cluster of cysts with overall measurements of 0.9 x 0.5 x 0.8 cm at 1 o'clock position at 10 cm from the nipple. No abnormal vascularity demonstrated with color Doppler evaluation. MM/MM tomosynthesis added views R IMPRESSION: RIGHT BREAST: Cluster of cysts measuring 0.9 x 0.5 x 0.8 cm at 1 o'clock position at 10 cm from the nipple, correlating with the chronic mammographic finding. Benign, no evidence of malignancy. Normal interval follow-up is recommended in 12 months. ASSESSMENT: BI-RADS: Category 2: Benign RECOMMENDATION: 1 year F/U Results were provided to the patient at time of visit by the technologist. This patient's information was entered into a reminder system with a target due date for their next mammogram. Electronically signed by: Viky Burton MD 09/07/2025 02:42 PM [facility] [place]
[2025-09-07 14:46] LABS: Appearance Urine Cloudy; Glucose Urine UA Negative (Negative); PH 5.5 (5.0-9.0); Specific Gravity - Urine 1.020 (1.005-1.025); UMIC TRIGGER UACC YES
[2025-09-07 15:09] LABS: UACC Culture Trigger YES
--- OUTSIDE RECORDS SUMMARY | 2025-09-07 16:11 | XMS_ITS | Clinical Summary ---
Author Organization [facility] Address [id number] [place] [id number] Care Team Providers Care Cloth Printing Back Tender Name Role Phone Arnaud King MD Primary Care Provider [phone] Medical History Medical History Date Comments Migraine, [...] Procedure Name Priority Date/Time Associated Diagnosis Comments [facility] SCREENING DIGITAL Routine 01/21/2018 5:02 PM EDT Encounter for screening mammogram for malignant neoplasm of breast from Last 3 Months or Most Recently Relevant to Health Maintenance Results * [facility] SCREENING DIGITAL (01/21/2018 5:02 PM EDT) Anatomical Region Laterality Modality Mammography 01/21/2018 2:16 PM EDT Narrative 01/21/2018 5:02 PM EDT [facility] Diagnostic Imaging Department [address] [place], [place] [id number] Patient: ARTIEALLISON /Age/Sex: 1975 - 42 - F Unit#: [id number] Location/Status: SPDIMAM/REG CLI Mnem[facility] Physician: ARNAUD KING MD [facility] Screening Digital - 01/21/18 - 1440 EXAM: [facility] Screening Digital EXAM DATE AND TIME: 01/21/2018 2:43 PM HISTORY: Screening. This is a baseline exam. The patient declined tomosynthesis. COMPARISON: No comparison studies. TECHNIQUE: CC and MLO views of both breasts were obtained using full field digital mammography. Computer aided detection with the [employer] 7.2-H was employed. TISSUE DENSITY: c. The [...] Routine screening mammogram BILATERAL in 1 year. [id number], 7025F Dictating Physician: PARAG COLES MD Electronically Signed by: PARAG COLES MD Dic Date/Time: 01/21/181700 Sign date/Time: 01/21/181701 Procedure Note Parag Coles MD - 08/29/2022 [facility] Diagnostic Imaging Department [address] [place] [id number] Patient: ALLISON PEREZ/Age/Sex: 1975 - 42 - F Unit#: [id number] Location/Status: [facility] CLI Mnemonic/Ordering Site: [facility] Ordering Physician: ARNAUD KING MD [facility] Screening Digital - 01/21/18 - 1441 EXAM: [facility] Screening Digital EXAM DATE AND TIME: 01/21/2018 2:43 PM HISTORY: Screening. This is a baseline exam. The patient declined tomosynthesis. COMPARISON: No comparison studies. TECHNIQUE: CC and MLO views of both breasts were obtained using fullfield digital mammography. Computer aided detection with the [employer].2-H was employed. TISSUE DENSITY: c. The breasts [...] Routine screening mammogram BILATERAL in 1 year. [id number], 7025F Dictating Physician: PARAG COLES MD Electronically Signed by: PARAG COLES MD Dic Date/Time: 01/21/181700 Sign date/Time: 01/21/181701 Arnaud King MD IMG BI PROCEDURES Final Result from Last 3 Months or Most Recently Relevant to Health Maintenance Care Teams Cloth Printing Back Tender Relationship Specialty Start Date End Date Arnaud King MD [address] [place] [id number] PCP - General 11/13/17
--- OUTSIDE RECORDS SUMMARY | 2025-09-07 16:11 | XMS_ITS | Clinical Summary ---
Author Organization [facility] Address [address] [address] Phone Care Team Providers Care Veneer Marker Name Role Phone Arnaud Carbone MD Primary Care Provider [phone] Allergies Active Allergy Reactions Criticality Noted Date Comments Droperidol Swelling 06/01/2017 Panther Burn Analogues Swelling Low 06/06/2022 feet Quetiapine Itching [...] Take by mouth. 2 Active vitamin A 32017 UNIT capsule Take 10,000 Units by mouth [...] topic Medical Devices Not on file [place] [address] [place] [address] [place] [address] [place] [address] [place] [address] [place] [place] [address] [employer] [facility] ACO Care Teams Veneer Marker Relationship Specialty Start Date End Date Arnaud Carbone MD [address] [place] [address] PCP - General Internal Medicine 04/20/22 Additional Source Comments The information contained in this document represents components of the legal health record. It is not the complete legal health record.[facility]
== END 2025-09-07 13:56 | disposition home or self-care (01) ==
LOC: HO.MAMMO 13:55
PROVIDERS: PCP Internal Medicine; Visit Provider Internal Medicine
DX: R92.8 Other abnormal and inconclusive findings on diagnostic imaging of breast (principal)
CPT/HCPCS: 76642; 77061; 77065; 81001; 87086

== ENCOUNTER → 2025-09-07 14:00 | Outpatient (BNV) | payer OTHER, SELFPAY | PROVIDERS: PCP Internal Medicine; Visit Provider Radiology Body Imaging | DX: R92.8 Other abnormal and inconclusive findings on diagnostic imaging of breast (principal) | CPT/HCPCS: 76642; 77061; 77065 ==